=== PATIENT | female | born 1955 | race Caucasian/White ===

== ENCOUNTER 2020-04-17 10:40 | Outpatient (REF) | payer OTHER, SELFPAY ==
[2020-04-17 12:00] LABS: Blood Urea Nitrogen 13 mg/dL (9-16); Estimated Glomerular Filt Rate > 60
== END 2020-04-17 10:41 | disposition home or self-care (01) ==
LOC: HO.LAB 10:40
PROVIDERS: PCP Internal Medicine; Visit Provider Surgery
DX: Z01.812 Encounter for preprocedural laboratory examination (principal); R92.8 Other abnormal and inconclusive findings on diagnostic imaging of breast
CPT/HCPCS: 82565; 84520

== ENCOUNTER 2020-04-23 07:37 | Outpatient (REF) | payer OTHER, SELFPAY ==
--- NOTE | 2020-04-22 11:18 | P.RADPN_ITS ---
RADIOLOGY Narrative Narrative:
--- NOTE | 2020-04-22 11:18 | HO.RADPN ---
RADIOLOGY Narrative Narrative:
--- NOTE | 2020-04-23 | MR_ITS ---
EXAMINATION: MR GUIDED VACUUM-ASSISTED CORE BIOPSY BREAST, LEFT MM DIGITAL MAMMOGRAPHY POST BIOPSY, LEFT CLINICAL INFORMATION: New 4 mm enhancing lesion 10:00 anterior left breast. Unremarkable Second Look ultrasound. No mammographic correlate. MR guided biopsy requested. Personal history contralateral right breast invasive ductal cancer status post lumpectomy 2015 and status post repeat benign right breast biopsy 2018. COMPARISON: MRI breasts 02/14/2020, 3-D digital breast tomosynthesis 12/11/2019, targeted left breast ultrasound 03/05/2020. TECHNIQUE/PROCEDURE: Informed consent was obtained from the patient after discussion of the benefits, risks, and alternatives to biopsy today. Patient appeared to understand. Gave opportunity for questions. Patient signed consent form. Biopsy is performed under MRI guidance using breast surface coil. Imaging is performed without and with use of 7 mL Gadavist gadolinium contrast. ThirdPresence introducer localization system is used with grid. LESION: Punctate 4 mm enhancing focus anterior 10:00 left breast. LOCAL ANESTHESIA: 8 mL 1% lidocaine; 10 mL 2% lidocaine with epinephrine. NEEDLE: [employer] 9-gauge vacuum assisted core biopsy device. APPROACH: Mediolateral. CORES: 8. CLIP: TriMark cylinder shaped. POSTPROCEDURE UNILATERAL DIGITAL MAMMOGRAM: Mammography is performed using digital mammography in CC and ML views. There are scattered areas of fibroglandular density (ACR BI-RADS breast composition Category b). The clip marker is in position. No gross hematoma. The patient tolerated the procedure well. No immediate complications. Home instructions reviewed with the patient. Final pathology results are pending. IMPRESSION: 1. Status post MRI guided vacuum-assisted core biopsy left breast with clip placement. 2. Final pathology results pending. An addendum report will be issued.
--- NOTE | 2020-04-23 09:00 | MM_ITS ---
Mammography left breast is described in a single combined report along with the MR guided biopsy under accession number #[id number].
[2020-04-24] MEDS: Lidocaine HCl/PF 100 MG/5 ML SYRINGE 150 MG IV (08:57)
== END 2020-04-23 07:38 | disposition home or self-care (01) ==
LOC: HO.MRI 07:37
PROVIDERS: Visit Provider Surgery
DX: R92.8 Other abnormal and inconclusive findings on diagnostic imaging of breast (principal)
CPT/HCPCS: 19085; 19287; 77065; 88305; 88341; 88342; A4648

== ENCOUNTER 2020-07-16 11:19 | Outpatient (REF) | payer OTHER, SELFPAY ==
[2020-07-16 11:50] LABS: MANUAL DIFF FLAG NO
[2020-07-16 11:56] LABS: Basophils Percent Auto 0.9 % (0-2); Eosinophils Absolute Auto 0.2 X10*3/uL (0.0-0.4); Eosinophils Percent Auto 3.6 % (0-4); Hematocrit 39.3 % (37-47); Hemoglobin 13.3 g/dl (12.0-16.0); Imm Gran Abs Auto 0.01 X10*3/uL (0.00-0.03); Imm Gran Pct Auto 0.2 % (0.0-0.4); Lymphocytes Absolute Auto 2.1 X10*3/uL (1.2-4.9); Lymphocytes Percent Auto 43.8 % (20-40); Mean Corpuscular HGB Conc 33.8 g/dl (31.0-35.0); Mean Corpuscular Hemoglobin 32.6 pg (27.0-33.0); Mean Corpuscular Volume 96.3 fL (80-98); Mean Platelet Volume 10.4 fL (9.4-12.3); Monocytes Absolute Auto 0.3 X10*3/uL (0.1-1.2); Monocytes Percent Auto 6.2 % (2-11); Neutrophils Absolute Auto 2.1 X10*3/uL (2.0-8.3); Neutrophils Percent Auto 45.3 % (45-73); Platelet Count 202 X10*3/uL (160-400); Red Blood Count 4.08 X10*6/uL (4.20-5.50); Red Cell Distribution Width 12.1 % (11.0-16.0); White Blood Count 4.7 X10*3/uL (4.8-10.8)
[2020-07-16 12:25] LABS: Alanine Aminotransferase 15 U/L (0-31); Albumin Level 4.5 g/dL (3.5-5.0); Alkaline Phosphatase 79 U/L (39-117); Anion Gap 20 (12-20); Aspartate Amino Transferase 20 U/L (5-31); Bilirubin Total 0.4 mg/dL (0.0-1.0); Blood Urea Nitrogen 18 mg/dL (9-16); Carbon Dioxide 24 mmol/L (22-29); Chloride 105 mmol/L (96-108); Estimated Glomerular Filt Rate > 60; Glucose Random 108 mg/dL (60-115); Potassium 4.7 mmol/l (3.3-5.1); Sodium 144 mmol/L (135-145); Total Protein 7.8 g/dL (6.5-8.0)
[2020-07-17 14:17] LABS: CA 27.29 27 U/mL (<38)
== END 2020-07-16 11:20 | disposition home or self-care (01) ==
LOC: HO.LAB 11:19
PROVIDERS: PCP Internal Medicine; Visit Provider Internal Medicine Medical Oncology
DX: C50.911 Malignant neoplasm of unspecified site of right female breast (principal); E78.5 Hyperlipidemia, unspecified; E66.3 Overweight
CPT/HCPCS: 36415; 80053; 85025; 86300

== ENCOUNTER → 2020-07-25 10:13 | Outpatient (BNVA) | payer OTHER, SELFPAY | PROVIDERS: PCP Internal Medicine; Visit Provider Surgery | DX: Z76.89 Persons encountering health services in other specified circumstances (principal) ==

== ENCOUNTER 2021-01-29 09:39 | Outpatient (REF) | payer OTHER, SELFPAY ==
--- NOTE | ~2021-01-29 | MM_ITS ---
EXAMINATION: MM SCREENING DIGITAL BREAST TOMOSYNTHESIS, BILATERAL CLINICAL INFORMATION: Screening. Asymptomatic. History invasive ductal cancer right breast, status post lumpectomy 2016. History benign right breast biopsy 2018 and benign left breast MR biopsy 2019. COMPARISON: Mammography: 04/23/2020, 12/11/2019, 03/14/2019, 12/07/2018, 09/08/2018, 09/03/2017 TECHNIQUE: Digital breast tomosynthesis is performed in both the craniocaudal and mediolateral oblique views along with computer-aided detection (CAD). Synthesized 2D images are generated from the tomosynthesis. FINDINGS: There are scattered areas of fibroglandular density (ACR BI-RADS breast composition Category b). Parenchymal pattern is similar to prior exams. Right breast post therapy changes with reduced breast size and scarring and scattered benign coarse calcifications stable. Neither breast shows interval mass or architectural abnormality or developing density. No interval abnormal calcifications. Biopsy clip marker again noted left breast central upper outer quadrant and right breast central upper outer quadrant. No significant changes. MM/MM tomosynthesis screening BI IMPRESSION: There are no significant changes from prior exams. ASSESSMENT: BI-RADS 2: Benign RECOMMENDATION: Routine annual mammography screening. This patient's information was entered into a reminder system with a target due date for their next mammogram.
== END 2021-01-29 09:40 | disposition home or self-care (01) ==
LOC: HO.MAMMO 09:39
PROVIDERS: PCP Internal Medicine; Visit Provider Internal Medicine
DX: Z12.31 Encounter for screening mammogram for malignant neoplasm of breast (principal)
CPT/HCPCS: 77063; 77067

== ENCOUNTER → 2021-01-31 11:24 | Outpatient (BNVA) | payer OTHER, SELFPAY | PROVIDERS: PCP Internal Medicine; Referring Provider Internal Medicine; Visit Provider Surgery ==

== ENCOUNTER 2022-01-30 12:03 | Outpatient (REF) | payer OTHER, SELFPAY ==
--- NOTE | ~2022-01-30 | MM_ITS ---
EXAMINATION: BONE DENSITOMETRY CLINICAL INDICATION: Menopause. COMPARISON: Previous BD dated 12/28/2017 and baseline BD dated 12/19/2015. TECHNIQUE: Using a [employer] DXA System (software version: 13.1) manufactured by [employer], dual-energy x-ray absorptiometry was performed of the lumbar spine and left hip. The images are of good technical quality. Summary results are attached. FINDINGS: AP SPINE L1-L4: Current: BMD 1.056 g/cm2, Z-score 0.2, T-score -1.0, normal, 0.1% increase from previous, 4.3% decrease from baseline (<5% change is not significant). Prior: BMD 1.055 g/cm2. Baseline: BMD 1.104 g/cm2. LEFT FEMUR, NECK: Current: BMD 0.974 g/cm2, Z-score 0.8, T-score -0.5, normal. Prior: BMD 1.028 g/cm2. Baseline: BMD 1.031 g/cm2. LEFT FEMUR, TOTAL: Current: BMD 1.088 g/cm2, Z-score 1.7, T-score 0.6, normal, 0.8% decrease from previous, 1.4% decrease from baseline (<5% change is not significant). Prior: BMD 1.097 g/cm2. Baseline: BMD 1.104 g/cm2. IDENTIFIED RISK FACTORS: Menopause. HISTORY OF FRACTURE: None listed. MEDICATIONS: Calcium or multivitamin, ERT/SERMS. MM/XR DEXA axial skeleton IMPRESSION: 1. DIAGNOSIS: Normal bone density based on the lowest T-score value of -1.0 in the lumbar spine applying World Health Organization criteria. 2. 10-YEAR FRACTURE RISK PREDICTION, FRAX: Major osteoporotic fracture (clinical spine, forearm, hip or shoulder) 7.4%. Hip fracture 0.4%. 3. Treatment Recommendations: NOF guidelines recommend consideration for treatment in postmenopausal women and men age 50 and older presenting with the following: -A hip or vertebral (clinical or morphometric) fracture. -T-score less than or equal to -2.5 at the femoral neck or spine after appropriate evaluation to exclude secondary causes. -Low bone mass at the hip or spine and a 10-year fracture probability by FRAX of greater than or equal to 3% for hip fracture or greater than or equal to 20% for major osteoporotic fracture based on the [place] adapted WHO algorithm. 4. Other Recommendations: All treatment decisions require clinical judgment and consideration of individual patient factors, including patient preferences, comorbidities, previous drug use, risk factors not captured in the FRAX model (e.g. frailty, falls, vitamin D deficiency, increased bone turnover, interval significant decline in bone density) and possible under or overestimation of fracture risk by FRAX. FUTURE SCAN RECOMMENDATION: People with diagnosed cases of osteoporosis or at high risk for fracture should have regular bone mineral density tests. For patients eligible for Medicare, routine testing is allowed once every 2 years. The testing frequency can be increased to one year for patients who have rapidly progressing disease, those who are receiving or discontinuing medical therapy to restore bone mass, or have additional risk factors.
--- NOTE | ~2022-01-30 | MM_ITS ---
EXAMINATION: MM SCREENING DIGITAL BREAST TOMOSYNTHESIS, BILATERAL CLINICAL INFORMATION: Screening. Asymptomatic. Right lumpectomy 2015 for invasive ductal cancer. Also benign right breast biopsy 2018 and left breast MR biopsy 2019. COMPARISON: Mammography: 01/29/2021, 04/23/2020, 12/11/2019, 03/14/2019, 12/07/2018, 09/08/2018, 09/03/2017. TECHNIQUE: Digital breast tomosynthesis is performed in both the craniocaudal and mediolateral oblique views along with computer-aided detection (CAD). Synthesized 2D images are generated from the tomosynthesis. FINDINGS: There are scattered areas of fibroglandular density (ACR BI-RADS breast composition Category b). Right breast post therapy changes are similar to prior exams. There is reduced right breast size, old scarring, and scattered predominantly dystrophic and some round calcifications again seen. Left breast has similar parenchymal pattern with post biopsy changes mid 11:00 position again seen. There is no interval mass or architectural abnormality or abnormal calcifications. MM/MM tomosynthesis screening BI IMPRESSION: No significant changes from prior studies. ASSESSMENT: BI-RADS 2: Benign RECOMMENDATION: Routine annual mammography screening. This patient's information was entered into a reminder system with a target due date for their next mammogram.
== END 2022-01-30 12:04 | disposition home or self-care (01) ==
LOC: HO.MAMMO 12:03
PROVIDERS: Visit Provider Internal Medicine
DX: Z12.31 Encounter for screening mammogram for malignant neoplasm of breast (principal); Z85.3 Personal history of malignant neoplasm of breast; Z78.0 Asymptomatic menopausal state
CPT/HCPCS: 77063; 77067; 77080

== ENCOUNTER 2022-06-18 09:00 | Emergency (ER) | payer OTHER, SELFPAY ==
--- NOTE | ~2022-06-18 | CT_ITS ---
EXAMINATION: CT CHEST WITH CONTRAST CLINICAL INFORMATION: Trauma. COMPARISON: None TECHNIQUE: Multidetector volumetric CT imaging of the chest was obtained after the administration of 50 mL of Omnipaque 350 intravenous contrast without immediate adverse reactions. Axial MIP volume rendering provided. Sagittal and coronal reformatted images were obtained. Mild motion artifact limits evaluation. This CT examination was performed using dose optimization techniques as appropriate, variously including the following: *Automated exposure control *Adjustment of mA and/or kV according to patient size (this includes techniques or standardized protocols for targeted exams where dose is matched to indication/reason for exam; i.e. extremities or head) *Use of iterative reconstruction technique DLP: 242.89 mGy-cm FINDINGS: LUNGS/PLEURA/AIRWAYS: Mild dependent atelectasis is seen in the lower lobes. Mild linear atelectasis/scarring anterolaterally in the left upper lobe. Mild opacities are seen in the left upper lobe perihilar region extending to the lingula. No suspicious pulmonary nodules. No pleural effusions. The airways are patent. MEDIASTINUM: The visualized thyroid gland is unremarkable. The thoracic aorta is not significantly dilated. No mediastinal or hilar lymphadenopathy. No significant coronary artery calcifications. No pericardial effusion. UPPER ABDOMEN: Diffuse decreased hepatic attenuation without focal abnormality. Status post cholecystectomy. No pericardial effusion. MUSCULOSKELETAL: Mild to moderate multilevel degenerative disc disease without acute fracture. SOFT TISSUES: Postsurgical changes in the right breast without focal abnormality. Associated coarse calcifications are noted. The left breast is unremarkable. No other significant soft tissue abnormality. CT/CT chest w IV con IMPRESSION: 1. No evidence for acute traumatic injury. 2. Some limitation secondary to motion artifact. Mild opacities in the left upper lobe could be secondary to motion artifact, but a mild infectious/inflammatory process cannot be excluded. Other chronic changes are seen as well. If the patient is symptomatic, short-term radiographic follow-up is recommended as clinically indicated. 3. Hepatic steatosis.
--- NOTE | ~2022-06-18 | CT_ITS ---
CT HEAD WITHOUT IV CONTRAST CT CERVICAL SPINE WITHOUT IV CONTRAST INDICATION: Head trauma. Fall downstairs. COMPARISON: None available. TECHNIQUE: Multidetector CT acquisitions of the head and cervical spine were obtained without IV contrast. Multiplanar reformats were acquired and utilized for image interpretation. This CT examination was performed using dose optimization techniques as appropriate, variously including the following: *Automated exposure control *Adjustment of mA and/or kV according to patient size (this includes techniques or standardized protocols for targeted exams where dose is matched to indication/reason for exam; i.e. extremities or head) *Use of iterative reconstruction technique FINDINGS: HEAD: Artifact versus a small focus of increased density within the left cerebellar hemisphere on image 27 of series 9 that can be more definitively assessed with a MRI to exclude a small focus of hemorrhage. No additional evidence of intracranial hemorrhage. There is no hydrocephalus, extra-axial surface collection, midline shift, or other herniation pattern. [place] to white matter differentiation is diffusely maintained without evidence of an evolved acute territorial infarct. The basilar cisterns are preserved. Diffuse scalp hematoma. No acute osseous abnormality. The paranasal sinuses and the mastoid air cells are well aerated. CERVICAL SPINE: There is a displaced fracture involving the left paramedian anterior ring of C1 as well as right and left posterior ring fractures at C1. There is associated atlantoaxial dislocation with anterior and lateral dislocation of the left lateral mass of C1 with respect to C2 and medial subluxation of the right lateral mass of C1 with respect to the right lateral mass of C2. There is probable ventral epidural hematoma at C1-C2. There is a type III odontoid fracture at C2 with the odontoid avulsion fragment dorsally rotated against the tip of the clivus with fracture line extension to the left lateral mass of C2 and avulsion fractures of the left C2 bony foramen transversarium. A CTA of the neck would be helpful in excluding traumatic arterial injury. Indeterminate age upper endplate compression fracture at T1 and partially imaged indeterminate age upper endplate compression fracture at T3. Partially imaged fractures involving the posterior aspect of the right first, second, and third ribs. Indeterminate age upper endplate compression fracture at T1 and partially imaged indeterminate age upper endplate compression fracture at T3. Partially imaged right T2 transverse process fracture. Partially imaged fractures involving the posterior aspect of the right first, second, and third ribs. Partially imaged right apical pleural thickening. CT/CT cervical spine wo IV con IMPRESSION: - There is a displaced unstable fracture involving the left paramedian anterior ring of C1 as well as right and left posterior ring fractures at C1. There is associated atlantoaxial dislocation with anterior and lateral dislocation of the left lateral mass of C1 with respect to C2 and medial subluxation of the right lateral mass of C1 with respect to the right lateral mass of C2. There is probable ventral epidural hematoma at C1-C2. There is posterior widening of the left atlantooccipital joint which may reflect capsular injury. MRI and neurosurgical consultation advised. - There is a type III odontoid fracture at C2 with the odontoid avulsion fragment dorsally rotated against the tip of the clivus with fracture line extension to the left lateral mass of C2 and avulsion fractures of the left C2 bony foramen transversarium. A CTA of the neck would be helpful in excluding traumatic arterial injury. - Indeterminate age upper endplate compression fracture at T1 and partially imaged indeterminate age upper endplate compression fracture at T3. Partially imaged right T2 transverse process fracture. Partially imaged fractures involving the posterior aspect of the right first, second, and third ribs. Partially imaged right apical pleural thickening. - Diffuse scalp hematoma. Artifact versus a small focus of increased density within the left cerebellar hemisphere on image 27 of series 9 that can be more definitively assessed with a MRI to exclude a small focus of hemorrhage. No additional evidence of intracranial hemorrhage. Critical findings discussed with CLARISSE Shah at 12:24 PM on June 18, 2022.
[2022-06-18 09:09] VITALS: BP 130/70; BP 131/79; PULSE 90; PULSE 94; RESP 18; TEMP 36.7; O2SAT 94; BMI 28.1
--- NOTE | 2022-06-18 09:16 | PC.NURSE ---
patient a&ox3, c/o 02/18 pain to neck, sternum and back, vss, campus monitor applied, pt is neck collar by ems, + csm/pulses to all extremities, pt awaiting provider, will continue to monitor
--- NOTE | 2022-06-18 09:26 | ED.FALL ---
HPI - Fall General Chief Complaint: Fall Stated Complaint: steps,neck/back pain,floor all noc per EMS Source: patient Mode of arrival: EMS Limitations: no limitations History of Present Illness HPI Narrative: Patient fell down a flight of stairs and could not get up because she hurt her neck and back. She spent the night on the floor. Patient drinks alcohol and had some last night. complaint: fall Onset (ago): hour(s) Fall from: down stairs (#) Fall witnessed: no Place fall occurred: home Loss of consciousness: yes Prolonged down time: yes Context: tripped/slipped Related Data Home Medications Medication Instructions Recorded Confirmed lisinopril 5 mg tablet 5 mg PO DAILY 07/25/20 02/14/22 rosuvastatin 40 mg tablet 40 mg PO DAILY 02/13/22 02/14/22 Allergies Allergy/AdvReac Type Severity Reaction Status Date / Time Seasonal Allergies Allergy Mild Itchy Verified 06/18/22 09:09 Eyes, stuffy nose, runny nose Review of Systems Constitutional: Constitutional: Reports no additional constitutional complaints Eyes: Eyes: Reports no additional eye complaints ENT: Denies dizziness Cardiovascular: Cardiovascular: Reports no additional cardiovascular complaints Respiratory: Respiratory: Reports as per HPI Gastrointestinal: Gastrointestinal: Reports no additional gastrointestinal complaints Genitourinary: Genitourinary: Reports no additional female genitourinary complaints Musculoskeletal: Musculoskeletal: Reports no additional musculoskeletal complaints Integumentary/Breasts: Skin/Breast: Denies rash Neurologic: Reports system reviewed and no additional complaints, except as documented, Denies dizziness and Denies Sensory deficit (Neuro) Psychiatric: Psychiatric: Denies anxiety PMFSH Past Medical History Medical History High cholesterol History of right breast cancer Hypertension Surgical History History of lumpectomy of right breast Hx laparoscopic cholecystectomy (~2006) Hx of right breast biopsy (~11/04/15) Family History Family History Mother History of cyst of breast Father Family hx of prostate cancer Paternal Grandfather Hx of cancer of lung Paternal Aunt History of breast cancer Paternal Aunt History of colon cancer Family/Other History of breast cancer, Onset Age: 42 Social History Social History Alcohol intake: current Alcohol intake frequency: a few times a week Alcohol type: wine Smoked in Last 30 Days: No Use of substances other than those prescribed or required for medical reasons: No Advance Directives: Yes Advance Directives on File: Yes Advance Directives Date on File: 06/23/20 Physical Exam Vital Signs: Vital Signs: Last Vital Signs Temp 98.1 F 06/18/22 09:09 Pulse 96 06/18/22 14:00 Resp 20 06/18/22 14:00 BP 136/60 06/18/22 14:00 Pulse Ox 94 06/18/22 14:00 O2 Del Method 06/18/22 14:00 BMI result Body Mass Index 28.1 Const: General: healthy appearing Nutritional Appearance: average body habitus Orientation/consciousness: oriented to person and patient oriented x3 Limitations: no limitations HEENT: Head: Yes normal to inspection Ears: external ears normal General nose exam: Normal external nose present Mouth: Normal oral and palatal mucosa present and oropharynx normal Throat: Yes posterior oropharynx normal Eyes: General: appearance normal, both eyes and all related structures Neck: Other: In collar tender Neck: Yes normal visual inspection Chest: Chest palpation & inspection: normal inspection of the chest Resp: Auscultation: clear to auscultation bilaterally Cardio: Jugular venous distension: no JVD Rate: regular rate Rhythm: regular rhythm Heart sounds: S1 normal heart sound present and S2 normal heart sound present GI: Inspection: Yes normal to inspection Palpation (GI): Soft to palpation, nontender and No hepatosplenomegaly present Auscultation: normal bowel sounds : General: Yes no CVA tenderness Back/Spine/Pelvis: Back: no CVA tenderness Skin: General skin exam: no rashes or lesions noted Neuro: General: oriented to person and patient oriented x3 Cranial nerves: Yes CN's II-XII intact bilaterally Motor exam (neuro): 5/5 motor strength present throughout Sensory Exam: No Sensory deficit (Neuro) Extrem: General: Yes normal to inspection Psych: Appearance: grossly normal Course Reevaluation(s) Reevaluation #1: IMPRESSION: - There is a displaced unstable fracture involving the left paramedian anterior ring of C1 as well as right and left posterior ring fractures at C1. There is associated atlantoaxial dislocation with anterior and lateral dislocation of the left lateral mass of C1 with respect to C2 and medial subluxation of the right lateral mass of C1 with respect to the right lateral mass of C2. There is probable ventral epidural hematoma at C1-C2. There is posterior widening of the left atlantooccipital joint which may reflect capsular injury. MRI and neurosurgical consultation advised. ? - There is a type III odontoid fracture at C2 with the odontoid avulsion fragment dorsally rotated against the tip of the clivus with fracture line extension to the left lateral mass of C2 and avulsion fractures of the left C2 bony foramen transversarium. A CTA of the neck would be helpful in excluding traumatic arterial injury. ? - Indeterminate age upper endplate compression fracture at T1 and partially imaged indeterminate age upper endplate compression fracture at T3. Partially imaged right T2 transverse process fracture. Partially imaged fractures involving the posterior aspect of the right first, second, and third ribs. Partially imaged right apical pleural thickening. ? - Diffuse scalp hematoma. Artifact versus a small focus of increased density within the left cerebellar hemisphere on image 27 of series 9 that can be more definitively assessed with a MRI to exclude a small focus of hemorrhage. No additional evidence of intracranial hemorrhage. ? Critical findings discussed with CLARISSE Shah at 12:24 PM on June 18, 2022. ? Dictated By: Matias Garcia MD Signed By: <Electronically signed by Matias Garcia MD in OV> 06/18/22 1229 Reevaluation #2: IMPRESSION: ? 1. No evidence for acute traumatic injury. 2. Some limitation secondary to motion artifact. Mild opacities in the left upper lobe could be secondary to motion artifact, but a mild infectious/inflammatory process cannot be excluded. Other chronic changes are seen as well. If the patient is symptomatic, short-term radiographic follow-up is recommended as clinically indicated. 3. Hepatic steatosis. ? ? ? Dictated By: Matias Hoffmann MD Signed By: <Electronically signed by Matias Hoffmann MD in OV> 06/18/22 1241 Reevaluation #3: I spent 40 minutes of critical care, with interventions, assessments, speaking to patient, consultants, and family. Time: 13:12 Medications Administered Discontinued Medications Generic Name Dose Route Start Last Admin Trade Name Freq PRN Reason Stop Dose Admin Ketorolac Tromethamine 30 mg 06/18/22 11:17 06/18/22 11:49 Ketorolac Tromethamine 30 Mg/Ml Vial IVPUSH 06/18/22 11:18 30 mg ONCE ONE Administration Medical Decision Making Medical Decision Making Independent interpretation of EKG, rhythm strip, radiology study: Independent interp EKG,rhythm strip, radiology study My interpretation is sinus [address] or twave changes Discharge Plan Discharge Clinical Impression: C1 cervical fracture, C2 cervical fracture, Thoracic spine fracture Patient Disposition: [facility] Hospital Transfer Details: Needs trauma center Prescriptions: No Action lisinopril 5 mg tablet 5 mg PO DAILY rosuvastatin 40 mg tablet 40 mg PO DAILY
--- NOTE | 2022-06-18 09:53 | ECG_ITS ---
Test Reason : Fall Blood Pressure : / mmHG Vent. Rate : 093 BPM Atrial Rate : 093 BPM P-R Int : 142 ms QRS Dur : 090 ms QT Int : 356 ms P-R-T Axes : 039 -07 -08 degrees QTc Int : 442 ms Normal sinus rhythm Minimal voltage criteria for LVH, may be normal variant ( R in aVL ) Borderline ECG When compared with ECG of 22-JUN-2003 15:22, No significant change was found Referred By: Arturo Cote Electronically Signed By:EFREN LLANOS MD
[2022-06-18 10:00] VITALS: BP 146/76; PULSE 91; RESP 18; O2SAT 93
[2022-06-18 10:40] LABS: MANUAL DIFF FLAG NO
[2022-06-18 10:48] LABS: Basophils Percent Auto 0.1 % (0-2); Hematocrit 35.8 % (37.0-47.0); Hemoglobin 11.9 g/dl (12.0-16.0); Imm Gran Abs Auto 0.05 X10*3/uL (0.00-0.03); Imm Gran Pct Auto 0.5 % (0.0-0.4); Lymphocytes Absolute Auto 0.7 X10*3/uL (1.2-4.9); Lymphocytes Percent Auto 7.1 % (20-40); Mean Corpuscular HGB Conc 33.2 g/dl (31.0-35.0); Mean Corpuscular Hemoglobin 31.6 pg (27.0-33.0); Monocytes Absolute Auto 0.7 X10*3/uL (0.1-1.2); Monocytes Percent Auto 6.8 % (2-11); Neutrophils Absolute Auto 8.6 x10*3/uL (2.0-8.3); Neutrophils Percent Auto 85.5 % (45-73); Platelet Count 149 X10*3/uL (160-400); Red Blood Count 3.77 X10*6/uL (4.20-5.50); Red Cell Distribution Width 12.4 % (11.0-16.0); White Blood Count 10.1 X10*3/uL (4.8-10.8)
[2022-06-18 11:11] LABS: Troponin-I High Sensitivity < 3.5 ng/L (<3.5-17.0)
[2022-06-18 11:13] LABS: Alanine Aminotransferase 25 U/L (0-31); Albumin Level 4.2 g/dL (3.5-5.0); Alkaline Phosphatase 78 U/L (39-117); Anion Gap 15 (12-20); Aspartate Amino Transferase 36 U/L (5-31); Bilirubin Direct 0.2 mg/dL (0.0-0.5); Blood Urea Nitrogen 15 mg/dL (9-16); Calcium 8.9 mg/dL (8.4-10.2); Carbon Dioxide 25 mmol/L (22-29); Chloride 105 mmol/L (96-108); Creatinine Clr Calc Pharmacy 87.3; Estimated Glomerular Filt Rate > 60; Ethanol 43 mg/dL; Glucose Random 165 mg/dL (60-115); Potassium 4.6 mmol/L (3.3-5.1); Sodium 140 mmol/L (135-145); Total Protein 7.1 g/dL (6.5-8.0)
--- NOTE | 2022-06-18 11:29 | PC.NURSE ---
pt c/o pain, provider notified, prior to being able to administer medication pt was taken to radiology for ct scan.
[2022-06-18] MEDS: Ketorolac Tromethamine 30 MG/ML VIAL IVPUSH (11:49)
[2022-06-18 11:52] VITALS: BP 147/76; PULSE 92; RESP 18; O2SAT 94
--- NOTE | 2022-06-18 11:52 | PC.NURSE ---
pt a&ox3, educational consultant nsr, vss, pt +csm/pulses to all extremities, able to freely move arms/legs, pt medicated for pain per order, call hyman within reach, will continue to monitor
--- NOTE | 2022-06-18 12:41 | PC.NURSE ---
patient a&ox3, pt continues to be able to move all extremities, library monitor intact, additional iv started to rt ac, call hyman within reach, will continue to monitor.
--- NOTE | 2022-06-18 12:48 | PC.NURSE ---
@ 1242 call placed to [facility] pt tx line at Dr. Cote request for a trauma procurement coordinator answers, takes pt information. Then asks to speak with Dr. Cote. Dr. Cote takes over call right away. @1250 call received from Geni. Asks to speak with Dr. Cote. Dr. Cote takes over call right away. @1252 [facility] calls back after Dr. Cote needed to leave the call. Spoke w/ Geni. He asked to have Dr. Cote call back when he is available.
--- NOTE | 2022-06-18 12:57 | PC.NURSE ---
wagner cath inserted per verbal order by dr severino
[2022-06-18 13:18] LABS: COVID-19 Test Negative (Negative); IDNOW Serial# 55D5AD1C
[2022-06-18 13:19] LABS: Bilirubin Total 0.5 mg/dL (0.0-1.0)
--- NOTE | 2022-06-18 13:58 | PC.NURSE ---
this nurse has attempted to call [facility] x2 without an answer, will continue to attempt to call until ems arrives.
[2022-06-18 14:00] VITALS: BP 136/60; PULSE 96; RESP 20; O2SAT 94
--- NOTE | 2022-06-18 14:02 | PC.NURSE ---
patient currently sleeping, mirror inspector sinus tach, vitals otherwise stable, wagner cath patient/draining, family at bedside, will continue to monitor
--- NOTE | 2022-06-18 14:23 | PC.NURSE ---
this nurse attempted to call [facility] to give report, again no answer, will continue to attempt to contact.
[2022-06-18] MEDS: HYDROmorphone HCl 1 MG/ML SYRINGE IVPUSH (14:37)
[2022-06-18] MEDS: ondansetron HCL 4 MG/2 ML VIAL IVPUSH (14:43)
--- NOTE | 2022-06-18 14:47 | PC.NURSE ---
patient transferred to ems stretcher with 5 assists/cspine precautions held, pts wagner cath drained 500cc clear yellow urine. upon leaving pt had + csm/pulses and + movement of all extremities. pt was getting iv dilaudid and began feeling nausea, pt medicated with zofran with relief, pt enroute to [facility]. will attempt to call again to give report
--- NOTE | 2022-06-18 14:57 | PC.NURSE ---
report given to joan at [facility]
== END 2022-06-18 14:58 | disposition short-term general hospital (02) ==
PROVIDERS: Emergency Provider Emergency Medicine; PCP Internal Medicine
DX: S12.000A Unspecified displaced fracture of first cervical vertebra, initial encounter for closed fracture (principal); S12.100A Unspecified displaced fracture of second cervical vertebra, initial encounter for closed fracture; S22.009A Unspecified fracture of unspecified thoracic vertebra, initial encounter for closed fracture; R51.9 Headache, unspecified; M54.2 Cervicalgia; W10.9XXA Fall (on) (from) unspecified stairs and steps, initial encounter; Y93.9 Activity, unspecified; Y92.9 Unspecified place or not applicable; Y99.9 Unspecified external cause status; Z20.822 Contact with and (suspected) exposure to COVID-19; Z79.899 Other long term (current) drug therapy
CPT/HCPCS: 36415; 70450; 71260; 72125; 80048; 80076; 82077; 82550; 84484; 85025; 87635; 93005; 96374; 96375; 99285; J1170; J1885; J2405

== ENCOUNTER 2022-07-27 10:39 | Outpatient (REF) | payer OTHER, SELFPAY ==
[2022-07-27 10:44] LABS: MANUAL DIFF FLAG NO
[2022-07-27 11:07] LABS: Basophils Absolute Auto 0.1 X10*3/uL (0.0-0.2); Basophils Percent Auto 1.2 % (0-2); Eosinophils Absolute Auto 0.2 X10*3/uL (0.0-0.4); Hematocrit 36.4 % (37.0-47.0); Lymphocytes Absolute Auto 1.6 X10*3/uL (1.2-4.9); Lymphocytes Percent Auto 36.5 % (20-40); Mean Corpuscular Hemoglobin 30.8 pg (27.0-33.0); Mean Corpuscular Volume 93.3 fL (80.0-98.0); Mean Platelet Volume 10.2 fL (9.4-12.3); Monocytes Absolute Auto 0.4 X10*3/uL (0.1-1.2); Monocytes Percent Auto 9.1 % (2-11); Neutrophils Absolute Auto 2.1 x10*3/uL (2.0-8.3); Neutrophils Percent Auto 49.2 % (45-73); Platelet Count 273 X10*3/uL (160-400); White Blood Count 4.3 X10*3/uL (4.8-10.8)
[2022-07-27 11:23] LABS: Estimated Average Glucose 97 mg/dL
[2022-07-27 11:47] LABS: Alanine Aminotransferase 26 U/L (0-31); Albumin Level 3.9 g/dL (3.5-5.0); Alkaline Phosphatase 107 U/L (39-117); Anion Gap 12 (12-20); Aspartate Amino Transferase 21 U/L (5-31); Bilirubin Total 0.5 mg/dL (0.0-1.0); Blood Urea Nitrogen 10 mg/dL (9-16); Calcium 9.2 mg/dL (8.4-10.2); Carbon Dioxide 27 mmol/L (22-29); Chloride 107 mmol/L (96-108); Cholesterol 175 mg/dL; Estimated Glomerular Filt Rate > 60; Glucose Random 96 mg/dL (60-115); HDL Cholesterol 50 mg/dL; LDL Cholesterol Calculated 92 mg/dl; Potassium 4.2 mmol/L (3.3-5.1); Sodium 142 mmol/L (135-145); Total Protein 6.6 g/dL (6.5-8.0); Triglycerides 169 mg/dL
[2022-07-27 12:28] LABS: Reflex LDLD? No
== END 2022-07-27 10:40 | disposition home or self-care (01) ==
LOC: HO.HVNA 10:39
PROVIDERS: Visit Provider Internal Medicine
DX: E78.5 Hyperlipidemia, unspecified (principal); R53.83 Other fatigue; Z87.81 Personal history of (healed) traumatic fracture
CPT/HCPCS: 36415; 80053; 80061; 83036; 85025

== ENCOUNTER 2023-02-01 12:08 | Outpatient (REF) | payer OTHER, SELFPAY ==
--- NOTE | ~2023-02-01 | MM_ITS ---
EXAMINATION: MM SCREENING DIGITAL BREAST TOMOSYNTHESIS, BILATERAL CLINICAL INFORMATION: Screening. Asymptomatic. The patient has a history of right breast cancer which was conservatively treated. COMPARISON: Mammography: This study is compared with prior exams dating back to 2019. TECHNIQUE: Digital breast tomosynthesis is performed in both the craniocaudal and mediolateral oblique views along with computer-aided detection (CAD). Synthesized 2D images are generated from the tomosynthesis. FINDINGS: There are scattered areas of fibroglandular density (ACR BI-RADS breast composition Category b). There are postsurgical changes in the superior aspect of the right breast. There is a tissue marker present in the superior aspect of the left breast from prior benign percutaneous biopsy. Few, bilateral, benign calcifications are present in each breast. There are no significant masses, abnormal calcifications, or other abnormalities. MM/MM tomosynthesis screening BI IMPRESSION: No mammographic evidence of malignancy. ASSESSMENT: BI-RADS BI-RADS 2 - Benign Findings RECOMMENDATION: Routine annual mammography screening. 1 year F/U This examination should not preclude the clinical evaluation of a suspicious palpable abnormality. This patient's information was entered into a reminder system with a target due date for their next mammogram.
== END 2023-02-01 12:09 | disposition home or self-care (01) ==
LOC: HO.MAMMO 12:08
PROVIDERS: PCP Internal Medicine; Visit Provider Internal Medicine
DX: Z12.31 Encounter for screening mammogram for malignant neoplasm of breast (principal)
CPT/HCPCS: 77063; 77067

== ENCOUNTER → 2023-02-01 12:15 | Outpatient (BNV) | payer OTHER, SELFPAY | PROVIDERS: PCP Internal Medicine; Visit Provider Radiology Diagnostic Radiology | DX: Z12.31 Encounter for screening mammogram for malignant neoplasm of breast (principal) | CPT/HCPCS: 77063; 77067 ==

== ENCOUNTER 2023-03-11 11:15 | Outpatient (AMB) | payer OTHER, SELFPAY ==
--- NOTE | 2023-03-11 11:16 | A.OFFVIS_ITS ---
Intake Vital Signs 03/11/23 11:29 Height 5 ft 5 in Weight 164 lb 7.437 oz BMI 27.4 BP 130/80 Blood Pressure Location Lt brachial Position Sitting Intake Visit Reasons: Breast exam, 1 year follow up Intake Note: Patient is seen in office for yearly breast exam. 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 De Luna presenting for routine yearly breast examination. She underwent right breast lumpectomy with needle localization and right sentinel node biopsy on 12/03/2017 for well- differentiated infiltrating ductal carcinoma, 1 cm diameter, with associated DCIS. Margins were clear and 1 of 3 sentinel nodes contained isolated tumor cells. Three additional axillary nodes were benign as well. She is followed by Dr. Rodríguez and placed on anastrozole for 5 years. She underwent radiation therapy and completed this in March 2016. Post radiation she developed increased scar tissue in the right lumpectomy scar. A core biopsy to was pe rformed and revealed benign fibrofatty tissue with dense stromal fibrosis and mild chronic inflammation, changes consistent with treatment effect, negative for atypia or malignancy. A breast MRI of 02/13/2019 revealed a new 4 mm lesion in the 10 o'clock position of the left breast. MR guided biopsy on 04/23/2020 again revealed stromal fibrosis, fat necrosis, sclerotic changes and calcifications. No atypia or carcinoma was seen. Since her last visit she reports falling, resulting in a C1-C2 neck fracture. She required surgery and now has reduced flexibility at the neck. Her most recent mammogram dated 02/01/2023 revealed no mammographic evidence of malignancy (BI-RADS 2). She denies any new breast symptoms on either side but continues to feel scar tissue in the right breast. [facility] Medical History High cholesterol History of right breast cancer Hypertension Surgical History History of lumpectomy of right breast History of neck surgery (06/2022) Hx laparoscopic cholecystectomy (~2006) Hx of right breast biopsy (~11/04/15) Family History Mother History of cyst of breast Father Family hx of prostate cancer Paternal Grandfather Hx of cancer of lung Paternal Aunt History of breast cancer Paternal Aunt History of colon cancer Family/Other History of breast cancer, Onset Age: 42 Social History Alcohol intake: current Alcohol intake frequency: a few times a week Alcohol type: wine Advance Directives Date on File: 06/23/20 Female Reproductive History Menstrual Date of Mammogram: 02/01/23 Review of Systems Const All systems reviewed & are unremarkable except as noted in HPI and below Skin/Breast Denies breast swelling, Denies breast skin changes, Denies breast pain and Denies breast mass Physical Exam Vital Signs: Last Vital Signs BP 130/80 03/11/23 11:29 BMI result Body Mass Index 27.4 Const General: cooperative, comfortable, no acute distress and well developed Nutritional Appearance: well nourished Orientation/consciousness: patient oriented x3 Neck Lymphatic: no lymphadenopathy noted Chest Other: Right breast with an incision radiating in the upper portion of the breast with surrounding fibrotic area. No overlying skin changes are noted. No lesions are noted in the axilla. The remaining breast tissue is dense but no suspicious findings are noted. Left breast reveals no skin change, nipple discharge, palpable mass or enlarged lymph nodes. Chest/axillae images: 1. Incision right breast upper outer quadrant with underlying scar tissue Resp Effort & Inspection: normal respiratory effort Skin General skin exam: no rashes or lesions noted Neuro General: patient oriented x3 Extrem General: Yes no clubbing, cyanosis or edema Assessment & Plan Assessment & Plan (1) History of right breast cancer: Code(s): Z85.3 - Personal history of malignant neoplasm of breast Plan: 67-year-old female patient returning for a yearly breast examination, now 7 years following right breast lumpectomy, sentinel node biopsy followed by radiation therapy and anastrozole x5 years. Mammogram dated 02/01/2023 revealed no mammographic evidence of malignancy (BI-RADS 2). Examination today revealed continued area of fibrosis at the area of surgery and radiation therapy in the upper outer quadrant but no new suspicious findings in either breast. I recommended follow-up in January 2024, and breast examination in 1 year. She is welcome to call sooner for any new concerns. Coding Level of Care Code Est Pt Level 3 (47057) Diagnoses History of right breast cancer Z85.3
[2023-03-11 11:29] VITALS: BP 130/80; BMI 27.4
== END 2023-03-11 11:41 | disposition home or self-care (01) ==
PROVIDERS: PCP Internal Medicine; Visit Provider Surgery
DX: Z85.3 Personal history of malignant neoplasm of breast (principal)
CPT/HCPCS: 99213

== ENCOUNTER → 2023-03-11 11:15 | Outpatient (BNVA) | payer OTHER, SELFPAY | PROVIDERS: PCP Internal Medicine; Visit Provider Surgery ==

== ENCOUNTER 2023-06-03 12:15 | Emergency (ER) | payer OTHER, SELFPAY ==
--- NOTE | ~2023-06-03 | CT_ITS ---
EXAMINATION: CT ABDOMEN AND PELVIS WITH CONTRAST CLINICAL INFORMATION: Abdominal pain, new GI bleeding. History of cancer COMPARISON: None available. TECHNIQUE: Multidetector volumetric images were obtained from the superior aspect of the liver through the pubic symphysis following administration 85 mL of Omnipaque 350 intravenous contrast. Sagittal and coronal reformatted images were obtained on the technologist's workstation. Oral contrast: No This CT examination was performed using dose optimization techniques as appropriate, variously including the following: *Automated exposure control *Adjustment of mA and/or kV according to patient size (this includes techniques or standardized protocols for targeted exams where dose is matched to indication/reason for exam; i.e. extremities or head) *Use of iterative reconstruction technique DLP: 617 mGy-cm FINDINGS: LUNG BASES: The lung bases are clear. The heart size is normal. LIVER, GALLBLADDER, AND BILIARY TREE: The liver is normal in size, shape, and attenuation. No focal hepatic lesion or biliary ductal dilatation is present. The gallbladder has been surgically removed. PANCREAS: Unremarkable. SPLEEN: Unremarkable. ADRENAL GLANDS: Unremarkable. KIDNEYS AND URETERS: The kidneys are normal in size, shape, and attenuation. No hydronephrosis, hydroureter, or calculi seen. No perinephric stranding. BLADDER: Unremarkable. GASTROINTESTINAL TRACT: There is scattered stool, diverticula and gas seen in the colon without any distention or diverticulitis. The small bowel loops are normal caliber. Appendix is not visualized with certainty. ABDOMINAL WALL: No significant hernia is appreciated. LYMPH NODES: Normal. VASCULAR: Unremarkable. PELVIC VISCERA: Unremarkable. OSSEOUS STRUCTURES: No aggressive lytic or sclerotic process seen CT/CT abdomen pelvis w IV con IMPRESSION: 1. No acute intra-abdominal process seen. 2. Colonic diverticulosis without diverticulitis. Fleischner guidelines were followed.
[2023-06-03 12:22] VITALS: BP 135/84; PULSE 118; RESP 16; TEMP 36.1; O2SAT 94; BMI 28.3
--- NOTE | 2023-06-03 12:22 | ED.GENADULT ---
HPI - General Adult General Chief complaint: GI Bleed Stated complaint: Bloody diarrhea/Nausea Time Seen by Provider: 06/03/23 12:39 Source: patient Mode of arrival: ambulatory Limitations: no limitations History of Present Illness HPI narrative: Patient is a 68 year old assigned female at with a history of breast cancer presenting to the emergency department today with bright red rectal bleeding. Patient states that over last few hours she has had 3 episodes of oliverio red blood, an episode of nausea, and an episode of epigastric pain. Patient denies any dizziness, lightheadedness, vomiting, fever, chills, blurry vision, double vision, loss of vision, chest pain, difficulty breathing, shortness of breath, back pain, night sweats, pain with urination, increased urinary frequency, increased urinary urgency, blood in her urine or stool, syncope or a near syncopal episode, recent trauma or falls, bowel incontinence, bladder incontinence, bowel retention, bladder retention, or any other complaints at this time. Onset (ago): hour(s) Severity: mild Relieving factors: none Exacerbating factors: none Associated symptoms: denies other symptoms Treatments prior to arrival: none Related Data Home Medications Medication Instructions Recorded Confirmed atorvastatin 80 mg tablet 80 mg PO DAILY 03/11/23 03/11/23 carvedilol 6.25 mg tablet 6.25 mg PO DAILY 03/11/23 03/11/23 lorazepam 1 mg tablet 1 mg PO TID 03/11/23 03/11/23 melatonin 3 mg tablet 6 mg PO BEDTIME 03/11/23 03/11/23 trazodone 50 mg tablet 50 mg PO BEDTIME 03/11/23 03/11/23 Allergies Allergy/AdvReac Type Severity Reaction Status Date / Time Seasonal Allergies Allergy Mild Itchy Verified 03/11/23 11:17 Eyes, stuffy nose, runny nose lisinopril Allergy Anaphylaxis Verified 06/03/23 12:25 Review of Systems Constitutional: Constitutional: Reports no additional constitutional complaints, Denies chills, Denies fever(s) and Denies night sweats Eyes: Eyes: Reports no additional eye complaints, Denies blurry vision, Denies change in vision, Denies diplopia, Denies eye discharge, Denies loss of vision and Denies eye pain ENT: Denies dizziness Cardiovascular: Cardiovascular: Reports no additional cardiovascular complaints, Denies chest pain, Denies lightheadedness, Denies Loss of Consciousness and Denies dyspnea Respiratory: Respiratory: Reports no additional respiratory complaints and Denies dyspnea Gastrointestinal: Gastrointestinal: Reports no additional gastrointestinal complaints, Reports abdominal pain, Denies melena, Reports hematochezia, Denies change in bowel habits, Denies change in stool character, Reports nausea and Denies vomiting Genitourinary: Genitourinary: Denies hematuria, Denies urinary frequency, Denies dysuria, Denies urinary incontinence, Denies urinary hesitancy and Denies urinary urgency Musculoskeletal: Musculoskeletal: Reports no additional musculoskeletal complaints, Denies numbness and Denies tingling Neurologic: Denies dizziness, Denies loss of vision, Denies numbness and Denies tingling Psychiatric: Psychiatric: Reports no additional psychiatric complaints Endocrine: Endocrine: Reports no additional endocrine complaints Hematologic/Lymphatic: Hematologic/Lymphatic: Reports no additional hematologic/lymphatic complaints Allergic/Immunologic: Allergic/Immunologic: Reports no additional allergic/immunologic complaints PMFSH Past Medical History Attestation statement: The following information was validated with the patient. Source: old records reviewed and nursing notes reviewed Medical History (Updated 06/03/23 @ 15:36 by CLARISSE Paz) HTN (hypertension) Malignant neoplasm of female breast Hyperlipidemia High cholesterol Hypertension History of right breast cancer Surgical History History of neck surgery (06/2022) Hx of right breast biopsy (~11/04/15) History of lumpectomy of right breast Hx laparoscopic cholecystectomy (~2006) Family History Family History Mother History of cyst of breast Father Family hx of prostate cancer Paternal Grandfather Hx of cancer of lung Paternal Aunt History of breast cancer Paternal Aunt History of colon cancer Family/Other History of breast cancer, Onset Age: 42 Social History Alcohol intake: current Alcohol intake frequency: a few times a week Alcohol type: wine Smoked in Last 30 Days: No Use of substances other than those prescribed or required for medical reasons: No Advance Directives: Yes Advance Directives on File: Yes Advance Directives Date on File: 06/23/20 Physical Exam ED Vital Signs: Vital Signs - 24 hr 06/03/23 12:22 06/03/23 14:24 06/03/23 15:12 Temperature 97 F 98.1 F 98.2 F Pulse Rate 118 H 95 88 Respiratory Rate 16 19 16 Blood Pressure 135/84 137/62 127/68 Pulse Oximetry 94 94 96 Oxygen Delivery Method Room Air Room Air Room Air BMI result Body Mass Index 28.3 Const General: cooperative, no acute distress, alert and awake Nutritional Appearance: well nourished Orientation/consciousness: patient oriented x3 Limitations: no limitations HENMT Head: Yes normal to inspection and Yes atraumatic Ears: hearing grossly normal bilaterally and external ears normal General nose exam: Normal external nose present, no nasal discharge noted and no epistaxis Face and sinus: Yes normal facial exam, No abrasion and No laceration Mouth: Normal oral and palatal mucosa present, no drooling and no muffled voice Eyes General: appearance normal, both eyes and all related structures Periorbital: periorbital findings normal Eyelids: Yes eyelids normal Conjunctivae: conjunctivae normal Pupils: Equal, round and reactive pupils present EOM: EOMs intact bilaterally Neck Neck: Yes normal visual inspection, Yes full ROM and Yes no lymphadenopathy Chest Chest palpation & inspection: normal inspection of the chest Resp Effort & Inspection: normal respiratory effort and able to speak in complete sentences GI Palpation (GI): Soft to palpation, not firm, nontender, no guarding and not rigid Rectal Exam - Female: hemorrhoids Neuro General: patient oriented x3 and moves all extremities Cranial nerves: Yes Equal, round and reactive pupils present Cognition (Neuro): normal cognition Motor exam (neuro): 5/5 motor strength present throughout Sensory Exam: Normal double simultaneous stimulation for sensation Coordination: [id number] test normal Extrem General: Yes normal to inspection, Yes full ROM and Yes capillary refill normal Psych Appearance: grossly normal Mental Status: mental status grossly normal Affect: normal affect Attitude: cooperative Thought process: Normal thought process present Thought content: Normal thought content present Insight: Good insight present (Psych) Course Course Course Narrative: This is a rapid medical exam: Additional HPI, ROS, PE not included below will be deferred to primary provider. Patient is a 68-year-old female presenting to the emergency department with complaint of bloody diarrhea. States she had 3 episodes of diarrhea this morning, and with 2nd and 3rd episodes she noted bright red blood in her stool. States she showered, did not notice any blood on the washcloth, but afterwards she wiped and also noted bright red blood on the toilet paper. Also had an episode of nausea and tried to vomit but states only a small amount of frothy bile came up. Reports epigastric pain with nausea which has since resolved. Denies chest pain, palpitations, shortness of breath, dizziness, lightheadedness. She is not anticoagulated. Plan: labs, c. diff, GI panel Medications Administered Discontinued Medications Generic Name Dose Route Start Last Admin Trade Name Shaina PRN Reason Stop Dose Admin Diphenhydramine HCl 25 mg 06/03/23 13:40 06/03/23 13:44 Diphenhydramine Hcl 50 Mg/Ml Vial IVPUSH 06/03/23 13:41 25 mg ONCE ONE Administration Iohexol 85 ml 06/03/23 14:19 06/03/23 14:20 Iohexol 350 Mg/Ml 100 Ml Infus..Btl IV 06/03/23 14:20 85 ml ONCE ONE Administration Methylprednisolone Sodium Succinate 60 mg 06/03/23 13:40 06/03/23 13:44 Methylprednisolone Sod Succ 125 Mg/2 Ml Vial IVPUSH 06/03/23 13:41 60 mg ONCE ONE Administration Medical Decision Making Medical Decision Making [facility] Narrative: Patient is a 68 year old assigned female at with a history of breast cancer, HTN, and HLD presenting to the emergency department today with bright red rectal bleeding. Patient's physical exam was as noted in the physical exam portion of this note. Patient's blood work was unremarkable. Patient's urine showed no acute process. Patient's abdomen/pelvis CT showed no acute process. Patient's occult stool was positive. I explained my physical exam findings as well as all test results to the patient. I answered all questions asked by the patient. Given the patient's benign work up and evidence of hemorrhoids on examination, patient is appropriate to follow up on an outpatient basis with GI. I stressed the importance of the patient taking her medication as prescribed. I stressed the importance of the patient following up with her primary care provider. I stressed the importance of the patient returning to the emergency department immediately if her symptoms were to worsen or if she were to develop any dizziness, shortness of breath, difficulty breathing, chest pain, blurry vision, loss of vision, nausea, vomiting, abdominal pain, fever, chills, back pain, or any other complaints. Patient verbalized agreement and understanding with this treatment plan and discharge. Differential Diagnosis Differential Diagnoses: The differential diagnosis associated with the presentation includes GI bleeding Hemorrhoids bleeding Rectal bleeding Admission/Observation Consideration of admission/observation: Escalation of care including admission/observation considered Patient would have been admitted to the hospital had her work up had any findings where hospital admission was appropriate and her clinical presentation warranted hospital admission. Lab Data [facility] Lab Attestation statement: I reviewed the patient's lab results. My interpretation of these labs are in the MDM Rationale portion of this note. 06/03/23 12:52 06/03/23 12:52 Labs: Lab Results 06/03/23 06/03/23 06/03/23 Range/Units 12:52 13:22 15:08 WBC 6.0 (4.8-10.8) X10*3/uL RBC 3.64 L (4.20-5.50) X10*6/uL Hgb 11.8 L (12.0-16.0) g/dl Hct 35.8 L (37.0-47.0) % MCV 98.4 H (80.0-98.0) fL MCH 32.4 (27.0-33.0) pg MCHC 33.0 (31.0-35.0) g/dl RDW 11.8 (11.0-16.0) % Plt Count 188 D (160-400) X10*3/uL MPV 10.0 (9.4-12.3) fL Immature Gran % (Auto) 0.3 (0.0-0.4) % Neut % (Auto) 68.3 (45-73) % Lymph % (Auto) 24.8 (20-40) % [place] % (Auto) 4.5 (2-11) % Eos % (Auto) 1.3 (0-4) % Baso % (Auto) 0.8 (0-2) % Lymph # (Auto) 1.5 (1.2-4.9) X10*3/uL [place] # (Auto) 0.3 (0.1-1.2) X10*3/uL Eos # (Auto) 0.1 (0.0-0.4) X10*3/uL Baso # (Auto) 0.1 (0.0-0.2) X10*3/uL Abs Immat Gran (auto) 0.02 (0.00-0.03) X10*3/uL Absolute Neuts (auto) 4.1 (2.0-8.3) x10*3/uL Absolute Nucleated RBC 0.000 (0.0-0.012) X10*3/uL Nucleated RBC % (auto) 0.0 (0.0-0.2) /100WBC PT 10.9 L (11.1-13.3) SEC INR 0.9 (0.9-1.1) Sodium 144 (135-145) mmol/L Potassium 4.3 (3.3-5.1) mmol/L Chloride 110 H (96-108) mmol/L Carbon Dioxide 24 (22-29) mmol/L Anion Gap 14 (12-20) BUN 19 H (9-16) mg/dL Creatinine 0.81 (0.5-1.4) mg/dL Estim Creat Clear Calc 68.3 Estimated GFR > 60 Random Glucose 190 H (60-115) mg/dL Calcium 9.1 (8.4-10.2) mg/dL Magnesium 1.7 (1.6-2.6) mg/dL Total Bilirubin 0.8 (0.0-1.0) mg/dL AST 16 (5-31) U/L ALT 12 (0-31) U/L Alkaline Phosphatase 81 (39-117) U/L Total Protein 7.1 (6.5-8.0) g/dL Albumin 4.1 (3.5-5.0) g/dL Urine Color Yellow Urine Appearance Clear Urine pH 5.0 (5.0-9.0) Ur Specific [place] >= 1.030 H (1.005-1.025) Urine Protein Negative (Neg-Trace) mg/dL Urine Glucose (UA) Negative (Negative) mg/dL Urine Ketones Negative (Negative) mg/dL Urine Blood Negative (Negative) Urine Nitrite Negative (Negative) Ur Leukocyte Esterase Negative (Negative) Stool Occult Blood POSITIVE (NEGATIVE) Blood Type B Negative Antibody Screen NEGATIVE Independent Interpretation I performed an independent interpretation of an: CT Scan Interpretation: My interpretation is in agreement with the radiologist's impression of this imaging study. EXAMINATION: CT ABDOMEN AND PELVIS WITH CONTRAST CLINICAL INFORMATION: Abdominal pain, new GI bleeding. History of cancer COMPARISON: None available. TECHNIQUE: Multidetector volumetric images were obtained from the superior aspect of the liver through the pubic symphysis following administration 85 mL of Omnipaque 350 intravenous contrast. Sagittal and coronal reformatted images were obtained on the technologist's workstation. Oral contrast: No This CT examination was performed using dose optimization techniques as appropriate, variously including the following: *Automated exposure control *Adjustment of mA and/or kV according to patient size (this includes techniques or standardized protocols for targeted exams where dose is matched to indication/reason for exam; i.e. extremities or head) *Use of iterative reconstruction technique DLP: 617 mGy-cm FINDINGS: LUNG BASES: The lung bases are clear. The heart size is normal. LIVER, GALLBLADDER, AND BILIARY TREE: The liver is normal in size, shape, and attenuation. No focal hepatic lesion or biliary ductal dilatation is present. The gallbladder has been surgically removed. PANCREAS: Unremarkable. SPLEEN: Unremarkable. ADRENAL GLANDS: Unremarkable. KIDNEYS AND URETERS: The kidneys are normal in size, shape, and attenuation. No hydronephrosis, hydroureter, or calculi seen. No perinephric stranding. BLADDER: Unremarkable. GASTROINTESTINAL TRACT: There is scattered stool, diverticula and gas seen in the colon without any distention or diverticulitis. The small bowel loops are normal caliber. Appendix is not visualized with certainty. ABDOMINAL WALL: No significant hernia is appreciated. LYMPH NODES: Normal. VASCULAR: Unremarkable. PELVIC VISCERA: Unremarkable. OSSEOUS STRUCTURES: No aggressive lytic or sclerotic process seen CT/CT abdomen pelvis w IV con IMPRESSION: 1. No acute intra-abdominal process seen. 2. Colonic diverticulosis without diverticulitis. Fleischner guidelines were followed. Dictated By: Len Foley MD Signed By: Electronically signed by Len Foley MD 06/03/23 1520 Radiology Impression Discussion of test interpretation with radiology: I have reviewed the radiologist's reading. Critical Care Time Critical Care Time Critical Care Time: Yes Total Critical Care Time: 45 Attestation: I spent 45 minutes of Critical Care Time with this patient. This does not include time spent on separately reported billable procedures. Discharge Plan Discharge Clinical Impression: Bright red rectal bleeding Patient Disposition: Home, Self-Care Instructions: Rectal Bleeding (ED) Additional Instructions: Follow up with your primary care provider and a GI specialist. Return to the emergency department immediately if your symptoms worsen or if you develop any dizziness, shortness of breath, difficulty breathing, chest pain, blurry vision, loss of vision, nausea, vomiting, abdominal pain, fever, chills, back pain, or any other complaints. Prescriptions: No Action lorazepam 1 mg tablet 1 mg PO TID carvedilol 6.25 mg tablet 6.25 mg PO DAILY atorvastatin 80 mg tablet 80 mg PO DAILY trazodone 50 mg tablet 50 mg PO BEDTIME melatonin 3 mg tablet 6 mg PO BEDTIME Referrals: [facility] [Provider Group] (Call to establish and follow up with a GI specialist.) Bucky Quinonez MD [Primary Care Provider] - Interventions: ED Discharge Assessment Last Done: 06/03/23 15:43 Print Language: Belizean
[2023-06-03 12:58] LABS: MANUAL DIFF FLAG NO
[2023-06-03 13:00] LABS: Basophils Absolute Auto 0.1 X10*3/uL (0.0-0.2); Basophils Percent Auto 0.8 % (0-2); Eosinophils Absolute Auto 0.1 X10*3/uL (0.0-0.4); Eosinophils Percent Auto 1.3 % (0-4); Hematocrit 35.8 % (37.0-47.0); Hemoglobin 11.8 g/dl (12.0-16.0); Imm Gran Abs Auto 0.02 X10*3/uL (0.00-0.03); Imm Gran Pct Auto 0.3 % (0.0-0.4); Lymphocytes Absolute Auto 1.5 X10*3/uL (1.2-4.9); Lymphocytes Percent Auto 24.8 % (20-40); Mean Corpuscular Hemoglobin 32.4 pg (27.0-33.0); Mean Corpuscular Volume 98.4 fL (80.0-98.0); Monocytes Absolute Auto 0.3 X10*3/uL (0.1-1.2); Monocytes Percent Auto 4.5 % (2-11); Neutrophils Absolute Auto 4.1 x10*3/uL (2.0-8.3); Neutrophils Percent Auto 68.3 % (45-73); Platelet Count 188 X10*3/uL (160-400); Red Blood Count 3.64 X10*6/uL (4.20-5.50); Red Cell Distribution Width 11.8 % (11.0-16.0)
--- OUTSIDE RECORDS SUMMARY | 2023-06-03 13:04 | XMS_ITS | Continuity of Care Document ---
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 Name Role Phone Bucky Quinonez MD Primary Care Physician Encounter [facility] [place] [facility] Date(s): 10/05/22 - 10/12/22 [facility] [address] [place] [address], [address] [place] [address]- Attending Physician: Rubens Baron MD Referring Physician: Bucky Quinonez MD Allergies, Adverse Reactions, Alerts Substance Reaction Severity Status lisinopril 1 Severe Active Omnipaque 300 2 Anaphylaxis Severe Active Contrast Dye 3 Severe Active Latex Anaphylactic shock d ue to serum Anaphylactic shock due to serum Anaphylactic shock due to serum 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 Has family history of contrast allergy 3potential cause of anaphylaxis-multiple family members have contrast allergy Medications acetaminophen 325 mg oral tablet 650 mg, 2, tablet, By Mouth, Every 4 hours, PRN, Refills 0, Maintenance, Pain , Mild, 06/26/22 10:08:00 EST, Partial fill upon patient request if the prescription is for a schedule II opioid drug. Start Date: 06/26/22 Status: Ordered atorvastatin 80 mg oral tablet 1 tablet = 80 mg, By Mouth, Daily, 0 Refills, Maintenance, 08/04/22 11:13:00 EST, Partial fill uponpatient request if the prescription is for a schedule II opioid drug. Start Date: 08/04/22 Status: Ordered carvedilol 6.25 mg oral tablet 6.25 mg, 1, tablet, By Mouth, Daily, Refills 0, Maintenance, 06/26/22 10:08:00 EST, Partial fill upon patient request if the prescription is for a schedule II opioid drug. Start Date: 06/26/22 Status: Ordered docusate sodium 50 mg oral capsule 1 capsule = 50 mg, By Mouth, 2 times a day, PRN for constipation, # 60 capsule, 0 Refills, Maintenance, 08/06/22 15:40:00 EST, Capsule, Partial fill upon patient request if the prescription is for a schedule II opioid drug. Start Date: 08/06/22 Status: Ordered lisinopril 5 mg oral tablet 5 mg, 1, tablet, By Mouth, Daily, # 30 tablet, Refills 0, Maintenance, 06/19/22 13:54:00 EST, Partial fill upon patient request if the prescription is for a schedule II opioid drug. Start Date: 06/19/22 Status: Ordered LORazepam 0.5 mg oral tablet 1 tablet = 0.5 mg, By Mouth, 2 times a day, PRN as needed for anxiety, 0 Refills, Maintenance, 08/06/22 15:40:00 EST, Tablet, Partial fill upon patient request if the prescription is for a schedule II opioid drug. Start Date: 08/06/22 Status: Ordered melatonin 3 mg oral tablet = 6 mg, By Mouth, Daily at bedtime, 0 Refills, Maintenance, 06/26/22 10:08:00 EST, Tablet, Partial fill upon patient request if the prescription is for a schedule II opioid drug. Start Date: 06/26/22 Status: Ordered rosuvastatin 40 mg oral tablet 1 tablet = 40 mg, By Mouth, Daily, # 60 tablet, 0 Refills, Maintenance, 06/19/22 13:54:00 EST, Tablet, Partial fill upon patient request if the prescription is for a schedule II opioid drug. Start Date: 06/19/22 Status: Ordered traZODone 50 mg oral tablet 50 mg, 1, tablet, By Mouth, Daily at bedtime, Refills 0, Maintenance, 06/26/22 10:08:00 EST, Partial fill upon patient request if the prescription is for a schedule II opioid drug. Start Date: 06/26/22 Status: Ordered Vital Signs Most recent to oldest [Reference Range]: 1 Height 165 cm (10/05/22 2:54 PM) Weight 73.0 kg (10/05/22 2:54 PM) Body Mass Index [18.5-24.99 kg/m2] 26.81 kg/m2 *H* (10/05/22 2:54 PM) Social History Social History Type Response Smoking Status Never smoker entered on: 04/22/16 Sex Patient Care team information Care Team Personnel Name: Chris Lizama RN Position: S RN Member Role: Primary Care Nurse Name: Dell ODONNELL, Denis Position: S RN Supv Member Role: Primary Care Nurse Name: Maria Antonia Portillo RN Position: S RN Member Role: Primary Care Nurse Name: Devi CARLTON, Bucky Hancock Position: Reference Physician Member Role: PCP Address: Address: [address] [place] [id number]- Care Team Related Persons Name: CORRINE KAHN Address: home [address] [place] [id number] Name: BERHANE HENSLEY Address: [facility]
--- OUTSIDE RECORDS SUMMARY | 2023-06-03 13:04 | XMS_ITS | Continuity of Care Document ---
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 Name Role Phone Devi CARLTON, Bucky Hancock Primary Care Physician [phone] Encounter [facility] Date(s): 07/03/22 - 08/02/22 [facility] [address] [place] [address] Drive, [address] [place] [address]- Allergies, Adverse Reactions, Alerts Substance Reaction Severity Status lisinopril 1 Severe Active Omnipaque 300 2 Anaphylaxis Severe Active Contrast Dye 3 Severe Active Latex Anaphylactic shock d ue to serum Anaphylactic shock due to serum Anaphylactic shock due to serum Severe Active chlorhexidine containing compounds Anaphylactic shock due to serum Active KATHE inhibitors KATHE inhibitor-induced angioedema Active 1potential for angioedema-unconfirmed 2Had anaphylaxyis within [...] opioid drug. Start Date: 06/26/22 Status: Ordered carvedilol 6.25 mg oral tablet 6.25 mg, 1, tablet, By Mouth, Daily, Refills 0, Maintenance, 06/26/22 10:08:00 EST, Partial fill upon patient request if the prescription is for a schedule II opioid drug. Start Date: 06/26/22 Status: Ordered lisinopril 5 mg oral tablet 5 mg, 1, tablet, By Mouth, Daily, # 30 tablet, Refills 0, Maintenance, 06/19/22 13:54:00 EST, Partial fill upon patient request if the prescription is for a schedule II opioid drug. Start Date: 06/19/22 Status: Ordered melatonin 3 mg oral tablet [...] opioid drug. Start Date: 06/26/22 Status: Ordered Social History Social History Type Response Smoking Status Never smoker entered on: 04/22/16 Sex Patient Care team information Care Team Personnel Name: Chris Lizama RN Position: S RN Member Role: Primary Care Nurse Name: Denis Sharpe RN Position: [facility] RN Supv Member Role: Primary Care Nurse Name: Maria Antonia Portillo RN Position: S RN Member Role: Primary Care Nurse Name: Neeru Mansfield RN Position: S RN Member Role: Primary Care Nurse Name: Ashlee Fall RN Position: S RN Member Role: Primary Care Nurse Name: Bucky Quinonez MD Position: Reference Physician Member Role: PCP Address: Address: [address] [place] [address]- Care Team Related Persons Name: CORRINE KAHN Address: [address] [address] Name: BERHANE HENSLEY
--- OUTSIDE RECORDS SUMMARY | 2023-06-03 13:04 | XMS_ITS | Continuity of Care Document ---
Author Name Unknown Organization [facility] y Address [address] [place] [address] shanda, [address] [place] [address]- Care Team Providers Care Tie Sawyer Name Role Phone Devi CARLTON, Bucky Hancock Primary Care Physician Encounter [facility] [place] Date(s): 08/04/22 - 08/11/22 [facility] Neurosurgery [address] [place] [address] Drive, [address] [place] [address]- Attending Physician: Rubens Baron MD Allergies, Adverse Reactions, Alerts Substance Reaction [...] oldest [Reference Range]: 1 Height 165 cm (08/04/22 11:11 AM) Weight 72 kg (08/04/22 11:11 AM) Body Mass Index [18.5-24.99 kg/m2] 26.45 kg/m2 *H* (08/04/22 11:11 AM) Social History Social History Type Response Smoking Status Never smoker entered on: 04/22/16 Sex Patient Care team information Care Team Personnel Name: Chris Lizama RN Position: S RN Member Role: Primary Care Nurse Name: Denis Sharpe RN Position: S RN Supv Member Role: Primary Care Nurse Name: Maria Antonia Portillo RN Position: S RN Member Role: Primary Care Nurse Name: Neeru Mansfield RN Position: S RN Member Role: Primary Care Nurse Name: Ashlee Fall RN Position: S RN Member Role: Primary Care Nurse Name: Bucky Quinonez MD Position: Reference Physician Member Role: PCP Address: Address: [address] [place] [address]- Care Team Related Persons Name: CORRINE KAHN Address: [address] [address] Name: BERHANE HENSLEY
--- OUTSIDE RECORDS SUMMARY | 2023-06-03 13:04 | XMS_ITS | Continuity of Care Document ---
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 Role Phone Devi CARLTON, Bucky Hancock Primary Care Physician [phone] Encounter [facility] [place] Date(s): 08/06/22 - 09/05/[address] [place] [address]- Attending Physician: Sukhdev Peng Admitting Physician: AdmtrSukhdev Referring Physician: Admtr, Ar8 Allergies, Adverse Reactions, Alerts Substance Reaction Severity [...] Response Smoking Status Never smoker entered on: 10/12/16 Sex Patient Care team information Care Team Personnel Name: Chris Lizama RN Position: [facility] RN Member Role: Primary Care Nurse Name: Denis Sharpe RN Position: [facility] RN Supv Member Role: Primary Care Nurse Name: Maria Antonia Portillo RN Position: [facility] RN Member Role: Primary Care Nurse Name: Ashlee Fall RN Position: [facility] RN Member Role: Primary Care Nurse Name: Bucky Quinonez MD Position: Reference Physician Member Role: PCP Address: Address: [address] [place] [address]- Care Team Related Persons Name: CORRINE KAHN Address: home [address] [place] [address] Name: BERHANE HENSLEY Address: home [facility]
--- OUTSIDE RECORDS SUMMARY | 2023-06-03 13:04 | XMS_ITS | Continuity of Care Document ---
Author Name Unknown Organization [facility] Neurosurger y Address [address] [place] [address] [address], [address] [place] [address]- Care Team Providers Care Oil Developer Name Role Phone Devi CARLTON, Bucky Hancock Primary Care Physician [place] [facility] [place] 11/04/22 [facility]surgery [address] [place] [address] Drive, [address] [place], [place] [address] Attending Physician: Sukhdev Peng Admitting Physician: AdmtrSukhdev Referring Physician: Admtr, Ar8 Allergies, Adverse Reactions, Alerts Substance Reaction Severity Status 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 Has family history of contrast allergy Medications acetaminophen 325 mg oral [...] Care Nurse Name: Denis Sharpe RN Position: [facility] RN Supv Member Role: Primary Care Nurse Name: Maria Antonia Portillo RN Position: S RN Member Role: Primary Care Nurse Name: Devi CARLTON, Bucky Hancock Position: Reference Physician Member Role: PCP Address: Address: [address] [place] [address]- Care Team Related Persons Name: CORRINE KAHN Address: home [address] [place] [address] Name: BERHANE HENSLEY Address: home [facility]
--- OUTSIDE RECORDS SUMMARY | 2023-06-03 13:04 | XMS_ITS | Continuity of Care Document ---
Author Name Unknown Organization [facility] Neurosur[facility] y Address [address] [place] [address] [address], [address] [place] [address]- Care Team Providers Care Yardage Caller Name Role Phone Devi CARLTON, Bucky Hancock Primary Care Physician [phone] Encounter [facility] [place] Date(s): 07/03/22 - 08/02/22 [facility] Neurosurgery [address] [place] [address] Drive, [address] [place] [address]- Allergies, Adverse Reactions, Alerts Substance Reaction Severity [...] Care Nurse Name: Denis Sharpe RN Position: [facility] RN Supv Member Role: Primary Care Nurse Name: Maria Antonia Portillo RN Position: S RN Member Role: Primary Care Nurse Name: Neeru Mansfield RN Position: S RN Member Role: Primary Care Nurse Name: Ashlee Fall RN Position: S RN Member Role: Primary Care Nurse Name: Bucky Quinonez MD Position: Reference Physician Member Role: PCP Address: Address: [address] [place] [address]- Care Team Related Persons Name: CORRINE KAHN Address: [address] [address] Name: BERHANE HENSLEY
--- OUTSIDE RECORDS SUMMARY | 2023-06-03 13:04 | XMS_ITS | Continuity of Care Document ---
Author Name Unknown Organization [facility] Address [address] [place] [address] [address] [place] [address]- Care Team Providers Care Box Office Attendant Name Role Phone Devi CARLTON, Bucky Hancock Primary Care Physician Encounter [facility] [place] Date(s): 07/14/22 - 08/29/22 [facility] Surgical [address] [place] [address]- Attending Physician: Jomar Acevedo MD Referring Physician: Not on Staff, Referring MD Allergies, Adverse Reactions, Alerts Substance Reaction [...] tablet, By Mouth, Daily, Refills 0, Maintenance, 12/16/22 10:08:00 EST, Partial fill upon patient request [...] Team Personnel Name: Chris Lizama RN Position: [facility] RN Member Role: Primary Care Nurse Name: Denis Sharpe RN Position: [facility] RN Supv Member Role: Primary Care Nurse Name: Maria Antonia Portillo RN Position: [facility] RN Member Role: Primary Care Nurse Name: Nereu Mansfield RN Position: [facility] RN Member Role: Primary Care Nurse Name: Ashlee Fall RN Position: [facility] RN Member Role: Primary Care Nurse Name: Bucky Quinonez MD Position: Reference Physician Member Role: PCP Address: Address: [address] [place] [address]- Care Team Related Persons Name: SUJIT KAHNCY Address: [address] [address] Name: BERHANE HENSLEY
--- OUTSIDE RECORDS SUMMARY | 2023-06-03 13:04 | XMS_ITS | Continuity of Care Document ---
Author Name Unknown Organization [facility] Neurosurger y Address [address] [place] [address] [address], [address] [place] [address]- Care Team Providers Care Mineral Surveying Technician Name Role Phone Devi CARLTON, Bucky Hancock Primary Care Physician Encounter 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 Omnipaque 300 3 Anaphylaxis Severe Active chlorhexidine containing compounds Anaphylactic shock due to serum Active 1potential for angioedema-unconfirmed 2potential cause of anaphylaxis-multiple family members have contrast allergy 3Had anaphylaxyis within a few hours of [...] Care Nurse Name: Denis Sharpe RN Position: [facility] RN Supv Member Role: Primary Care Nurse Name: Maria Antonia Portillo RN Position: S RN Member Role: Primary Care Nurse Name: Neeru Mansfield RN Position: S RN Member Role: Primary Care Nurse Name: Ashlee Fall RN Position: S RN Member Role: Primary Care Nurse Name: Bucky Quinonez MD Position: Reference Physician Member Role: PCP Address: Address: [address] [place] [address]- Care Team Related Persons Name: FEMICORRINE Address: home [address] [place] [address] Name: BERHANE HENSLEY
--- OUTSIDE RECORDS SUMMARY | 2023-06-03 13:04 | XMS_ITS | Continuity of Care Document ---
Author Name Unknown Organization [facility] Address [address] [place] [address] [address] [place] [address]- Care Team Providers Care Manager Of Development Name Role Phone Devi CARLTON, Bucky Hancock Primary Care Physician Encounter [facility] [place] Date(s): 07/14/22 - 08/14/22 [facility] [address] [place] [address]- Attending Physician: Elaine CARLTON, Marialuisa Paz Allergies, Adverse Reactions, Alerts Substance Reaction Severity [...] Team Personnel Name: Chris Lizama RN Position: [facility] RN Member Role: Primary Care Nurse Name: Denis Sharpe RN Position: [facility] RN Supv Member Role: Primary Care Nurse Name: Maria Antonia Portillo RN Position: [facility] RN Member Role: Primary Care Nurse Name: Neeru Mansfield RN Position: [facility] RN Member Role: Primary Care Nurse Name: Ashlee Fall RN Position: [facility] RN Member Role: Primary Care Nurse Name: Bucky Quinonez MD Position: Reference Physician Member Role: PCP Address: Address: [address] [place] [address]- Care Team Related Persons Name: CORRINE KAHN Address: home [address] [place] [address] Name: BERHANE HENSLEY
--- OUTSIDE RECORDS SUMMARY | 2023-06-03 13:04 | XMS_ITS | Continuity of Care Document ---
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 Name Role Phone Devi CARLTON, Bucky Hancock Primary Care Physician Encounter [facility] Date(s): 06/18/22 - 06/26/[address] [address]- Encounter Diagnosis Fall down stairs(Final) - 06/18/22 Discharge Disposition: A-Transfer SNF Attending Physician: Jomar Acevedo MD Admitting Physician: Jomar Acevedo MD Referring Physician: Not on Staff, Referring MD Allergies, Adverse Reactions, Alerts Substance Reaction Severity Status Omnipaque 300 1 Anaphylaxis Severe Active Contrast Dye 2 Severe Active Latex Anaphylactic shock d ue to serum Anaphylactic shock due to serum Anaphylactic shock due to serum Severe Active chlorhexidine containing compounds Anaphylactic shock due to serum Active KATHE inhibitors AKTHE inhibitor-induced angioedema Active lisinopril 3 Severe Active 1Had anaphylaxyis within a few hours of receiving Tylenol and contrast. Has family history of contrast allergy 2potential cause of anaphylaxis-multiple family members have contrast allergy 3potential for angioedema-unconfirmed Medications acetaminophen 160 mg/5 mL oral suspension 15 mL = 480 mg, Nasogastric Tube, Every 4 hours, for 5 days, # 450 mL, 0 Refills, Acute 06/30/22 16:38:00 EST, 06/25/22 16:38:00 EST, Suspension, [facility], Partial fill upon patient request if the prescription is for a schedule II opio... Start Date: 06/25/22 Stop Date: 06/30/22 Status: Ordered acetaminophen 325 mg oral tablet 650 mg, 2, tablet, By Mouth, Every 4 hours, PRN, Refills 0, Maintenance, Pain , Mild, 06/26/22 10:08:00 EST, Partial fill upon patient request if the prescription is for a schedule II opioid drug. Start Date: 06/26/22 Status: Ordered carvedilol 6.25 mg oral tablet 6.25 mg, Tablet, By Mouth, 06/26/22 10:35:00 EST Start Date: 06/26/22 Stop Date: 06/26/22 Status: Completed carvedilol 6.25 mg oral tablet 6.25 mg, 1, tablet, By Mouth, Daily, Refills 0, Maintenance, 06/26/22 10:08:00 EST, Partial fill upon patient request if the prescription is for a schedule II opioid drug. Start Date: 06/26/22 Status: Ordered carvedilol 6.25 mg oral tablet 6.25 mg, Tablet, Nasogastric Tube, 06/26/22 9:00:00 EST Start Date: 06/26/22 Stop Date: 06/26/22 Status: Completed Gabapentin 50 mg/ml Liquid 300 mg, Liquid, Nasogastric Tube, 06/26/22 9:00:00 EST Start Date: 06/26/22 Stop Date: 06/26/22 Status: Completed lisinopril 5 mg oral tablet 5 mg, [...] opioid drug. Start Date: 06/26/22 Status: Ordered oxyCODONE 5 mg oral tablet 5 mg, 1, tablet, By Mouth, Every 6 hours, PRN, for 3 days, # 12 tablet, Refills 0, Tot. Refills 0, Acute 06/29/22 10:30:00 EST, Pain , Moderate, 06/26/22 10:30:00 EST, Print Requisition, Partial fillupon patient request if the prescription is for a s... Start Date: 06/26/22 Stop Date: 06/29/22 Status: Ordered rosuvastatin 40 mg oral tablet [...] opioid drug. Start Date: 06/26/22 Status: Ordered Results Radiology Reports (Most Recent Ten) * Exam Date Time Procedure Performing Provider Status 06/23/22 3:52 PM Modified Barium Swal low W/ Speech (Radio Vijaya Boggs; Auth (Verified) Notes: (Modified Barium Swallow W/ Speech (Radio) Reason For Exam: Aspiration RESULT: Modified Barium Swallow W/ Speech (Radio Modified Barium Swallow WITH SPEECH PATHOLOGY CLINICAL INDICATION: Reason: Aspiration; Clinical Question(s): Aspiration; Order Comment: Modified Barium Swallow W Speech (Radiology) Prep COMPARISON: None Technique: Lateral cine-videofluoroscopy was performed during the oral administration of various barium containing consistencies, as described below. Fluoroscopic imaging provided by Alex Mariee PA-C. Pulsed fluoroscopy time: 3.1 minutes Dose Area Product (DAP): 265.6 uGy*m2 Findings: Applesauce, pudding, mixed fruit/juice, and thin barium consistencies were tested. The oral and pharyngeal phases of swallowing were without evidence of laryngeal penetration or subglottic aspiration. Enteric tube and posterior spinal fusion hardware noted. IMPRESSION: No laryngeal penetration or subglottic aspiration. Findings as described. For dietary concerns or recommendations, please refer to speech pathologist report. By undersigning and finalizing the report, the attending radiologist confirms he/she has personallyreviewed and interpreted the images and agrees with the description of the findings. I have personally reviewed the images and I agree with this report. WSN: [id number] Ordering Physician: Renetta Bacon Dictated By: Idris Guaman Dictated Date/Time: 06/23/22 4:05 pm Reviewed By: Derek Alvarez MD Signed By: Derek Alvarez MD Signed Date/Time: 06/23/22 4:10 pm Transcribed By: ROSALBA Transcribed Date/Time: 06/23/22 3:25 pm * Exam Date Time Procedure Performing Provider Status 06/22/22 8:17 AM Foot Min 3 Views Left Nancy Posey; Cheli (Verified) Notes: (Foot Min 3 Views Left) Reason For Exam: Trauma RESULT: Foot Min 3 Views Left Foot Min 3 Views Left, 3 views Reason: Pain following trauma. COMPARISON: None. FINDINGS: Nondisplaced fracture of the fifth proximal phalanx. No other fracture or dislocation is present. Bone mineralization is normal. No arthritic changes. Normal soft tissues. IMPRESSION: Nondisplaced fracture of the fifth proximal phalanx. Otherwise normal examination. WSN: [id number] Ordering Physician: Lm Rm Dictated By: Elías Lama MD Dictated Date/Time: 06/22/22 10:05 a Reviewed By: Elías Lama MD Signed By: Elías Lama MD Signed Date/Time: 06/22/22 10:05 am Transcribed By: ROSALBA Transcribed Date/Time: 06/22/22 10:04 am * Exam Date Time Procedure Performing Provider Status 06/20/22 4:[address] Cervical Spine W/O Contrast Padmini Moncada; Auth (Verified) Notes: (CT Cervical Spine W/O Contrast) Reason For Exam: Postop Spinal Fusion RESULT: CT Cervical Spine W/O Contrast CT Cervical Spine W/O Contrast Reason: Postop Spinal Fusion; Order Comment: TECHNIQUE: Spiral CT of the cervical spine without contrast, formatted in 3 planes. Weight-based protocol using automatic tube modulation was used to optimize exposure parameters. RADIATION DOSE PARAMETERS: CTDIvol Body: 11.00 mGy, DLP Body: 283 mGy*cm. COMPARISON: Cervical spine, 08/19/2021. FINDINGS: Spine: Again noted is a type II dens fracture. Alignment is mildly improved compared to the preoperative exam, though there is still about 4 mm posterior displacement of the odontoid relative to the body ofC2, as well as slight posterior tilting of the dens with up to 4 mm separation of the fractured odontoid from C2 anteriorly. On the left side the fracture is again noted to extend through the left transverse foramen. Camron fracture is again seen involving the anterior arch and posterior C1 arch on each side. There has been interval posterior fusion utilizing bilateral lateral mass screws and interconnecting vertical rods at C1 to. The tip of the right C1 screw just extends through the anterior cortex, and the right C2 with screw just skirts the superior and medial margin of the transverse foramen. There may be slight symmetric widening of atlantooccipital joints. Remaining alignment is stable. There is subtle anterior wedging of the T1. Right T3 transverse process fracture is again seen. There are also fractures through the right 1st through 3rd right rib heads. There is mild disc space narrowing at C5-6 and C6-7 with anterior osteophyte as well as multilevel left-sided facet spurring. The spinal canal at C1 and C2 is obscured by streak artifact from hardware. There is no high-grade canal stenosis. Soft tissues and lung apices: Air is seen in the posterior paraspinal soft tissues from C1-C3 with overlying midline skin staplesnoted. There is a nasogastric tube with fluid in the nasopharyngeal airway and minimal fluid in theleft sphenoid sinus. A new tracheostomy tube is also seen with stranding and air in the surrounding soft tissues, with air also extending into the right parapharyngeal space. There is scarring at both lung apices. IMPRESSION: 1. Status post posterior fusion at C1-2 with hardware positioning as described. There is about 4 mmposterior displacement and posterior tilting of the odontoid relative to C2, mildly improved compared to the preoperative exam. 2. Possible slight widening of both atlantooccipital joints. 3. Unchanged mild anterior wedging of T1, right T3 transverse process of fracture, and fractures through the right 1st through 3rd right rib heads. WSN: [id number] Ordering Physician: Kelsey Davey Dictated By: Paula Aburto MD Dictated Date/Time: 06/20/22 2:51 pm Reviewed By: Paula Aburto MD Signed By: Paula Aburto MD Signed Date/Time: 06/20/22 2:51 pm Transcribed By: ROSALBA Transcribed Date/Time: 06/20/22 2:17 pm * Exam Date Time Procedure Performing Provider Status 06/19/22 7:21 PM XR O-Arm Ramonita Pat; Auth ( Verified) Notes: (XR O-Arm) Reason For Exam: cervical spine fracture C1-C2 RESULT: XR O-Arm HISTORY: Reason: cervical spine fracture C1-C2 TECHNIQUE: A noncontrast intraoperative CT scan of the cervical spine was performed by the referring service 06/19/2022. 2 acquisitions were obtained, and multiplanar reconstructions were generated inbone algorithm. COMPARISON: CT scan of the cervical spine 06/18/2022 FINDINGS: The CT acquisitions document intraoperative findings compatible with ORIF of C1 and C2 fractures. On the second acquisition, posterior element/pedicle screws are present at C1 and C2. The C1 screws extend slightly beyond the anterior margin of the C1 vertebral body. A type II dens fracture is again noted. Dorsal angulation of the dens is again noted. Anterolisthesis of the dens with respect to the body of C2 has been replaced by slight retrolisthesis of the densmeasuring up to 2 mm. Comminuted Camron type fracture and a vertically-oriented fracture of the left C2 lateral mass (in the coronal plane) are again noted. Fractures of the left C2 lateral mass are also present. Pneumomediastinum is noted in the setting of an enteric tube and intubation. IMPRESSION: 1. Intraoperative findings related to ORIF of Camron type and type II dens fractures. The positioning of the dens with respect to C2 has changed as detailed above. 2. Fractures of the left lateral C2 mass and left foramen transversarium. 3. Pneumomediastinum, which can be correlated with the patient's physical examination. A critical result message ([place]) has been communicated via the [employer] system on 06/20/2022 12:26 PM, Message ID [id number]. WSN: [id number] Ordering Physician: Rubens Baron Dictated By: Andrew Pineda MD Dictated Date/Time: 06/20/22 12:26 p Reviewed By: Andrew Pineda MD Signed By: Andrew Pineda MD Signed Date/Time: 06/20/22 12:26 pm Transcribed By: ROSALBA Transcribed Date/Time: 06/20/22 11:59 am * Exam Date Time Procedure Performing Provider Status 06/19/22 10:02 PM Chest Portable Faviola Gallagher; Cheli (Verified) Notes: (Chest Portable) Reason For Exam: Tube Placement RESULT: Chest Portable Chest Portable Reason: Tube Placement COMPARISON: Earlier same day. FINDINGS: LINES AND TUBES: Tracheostomy tube projects over the upper trachea. Enteric tube with the distal extent well below the left hemidiaphragm, likely in the stomach fundus. Additional monitoring devices project over the chest. LUNGS AND PLEURA: Low lung volumes. Patchy airspace disease in the left lung base, grossly unchanged. Mild hazy airspace disease in the right lung base. No large pleural effusion. No pneumothorax. HEART, MEDIASTINUM AND JAMES: Heart is normal in size. No acute change in the upper mediastinal contours. BONES AND SOFT TISSUES: No acute abnormality. IMPRESSION: Support tubes and lines as above. No significant change in left basilar airspace disease. WSN: [id number] Ordering Physician: Kelsey Davey Dictated By: Feliciano Horowitz MD Dictated Date/Time: 06/19/22 10:10 p Reviewed By: Feliciano Horowitz MD Signed By: Feliciano Horowitz MD Signed Date/Time: 06/19/22 10:10 pm Transcribed By: ROSALBA Transcribed Date/Time: 06/19/22 10:08 pm * Exam Date Time Procedure Performing Provider Status 06/18/22 7:[address] Angio Neck Vanessa Cooley odified Notes: (CT Angio Neck) Reason For Exam: Trauma RESULT: CT Angio Neck CT Angio Neck Reason: Trauma; Clinical Question(s): Other:; vascular injury / Other: TECHNIQUE: CT angiogram of the neck was performed after bolus administration of intravenous contrast. 100 mL of Omnipaque 300 was administered intravenously. Coronal and sagittal MIP reformatted images were obtained. Additional 3-D images were created on a separate workstation under concurrent supervision by the attending radiologist. All stenoses are measured using NASCET criteria. Weight- based protocol using automatic tube modulation was used to optimize exposure parameters. RADIATION DOSE PARAMETERS: CTDIvol Body: 10.02 mGy, DLP Body: 1256 mGy*cm. COMPARISON: Noncontrast CT cervical spine performed 06/18/2022, chest CT performed 06/18/2022. FINDINGS: CTA OF THE NECK: Arch: There is a three vessel aortic arch. The origins of the supra aortic vessels are patent. Right carotid system: The common carotid and cervical internal carotid arteries are patent. There is calcified atherosclerotic plaque scattered in the carotid system including at the carotid bifurcation, but no ICA stenosis (0%) by NASCET criteria. There is also mild irregularity of the distal ICA.There is no dissection or aneurysm. Left carotid system: The common carotid and cervical internal carotid arteries are patent. There iscalcified atherosclerotic plaque scattered in the carotid system including at the carotid bifurcation, but no ICA stenosis (0%) by NASCET criteria. There is also irregularity of the distal ICA. Thereis no dissection or aneurysm. There is a left-dominant vertebral artery system. Right vertebral: No significant stenosis. No evidence of dissection or aneurysm. Left vertebral: Patent throughout without high-grade stenosis. No evidence of dissection at the C2 transverse process fracture. There are beam hardening artifacts from dental amalgam at the skull base which overlaps the V4 and distal V3 segment of the left vertebral artery probably accounting for linear hypodensities which do not appear to conform to the vessel and are contiguous with the beam hardening artifacts. No definite evidence of dissection. Other: Soft tissues and bones: No evidence of lymphadenopathy or mass. The thyroid is unremarkable. Pleaserefer to the chest CT for thoracic findings. There is bilateral dependent atelectasis. There are fractures of the right T3-T5 spinous processes and there is a fracture involving the T4 spinous process extending into the bilateral lamina as well as the bilateral inferior articulating process. There are C1 and C2 fractures as described on the cervical spine CT, with involvement of the left transverse foramen at C2. There are multiple right costovertebral junction fractures involving the right first through fifth ribs. IMPRESSION: No evidence of vascular injury. C1 and C2 fractures as described on the cervical spine CT. Transverse process fractures on the right from T3 through T5 as well as fracture of T4 involving the spinous process, lamina, and inferior articular processes. Multiple right costovertebral junction fractures. A similar preliminary report was provided by [facility]. WSN: [id number] Ordering Physician: Laura Chino Dictated By: Geni Mckeon MD Dictated Date/Time: 06/19/22 10:03 a Reviewed By: Geni Mckeon MD Signed By: Geni Mckeon MD Signed Date/Time: 06/19/22 10:03 am Transcribed By: ROSALBA Transcribed Date/Time: 06/19/22 9:47 am ADDENDUM: CT Angio Neck ICA irregularity mentioned in body of report should also be in the impression. This could be due tononcalcified plaque or due to fibromuscular dysplasia. WSN: [id number] Ordering Physician: Laura Chino Dictated By: Geni Mckeon MD Dictated Date/Time: 06/19/22 2:51 pm Reviewed By: Geni Mckeon MD Signed By: Geni Mckeon MD Signed Date/Time: 06/19/22 2:51 pm Transcribed By: ROSALBA Transcribed Date/Time: 06/19/22 2:51 pm * Exam Date Time Procedure Performing Provider Status 06/19/22 3:00 AM Chest Portable Kelly Albert; Cheli ( Verified) Notes: (Chest Portable) Reason For Exam: Shortness of Breath RESULT: Chest Portable Chest Portable Reason: Shortness of Breath; Clinical Question(s): Other: COMPARISON: None. FINDINGS: LINES AND TUBES: None. LUNGS AND PLEURA: Left costophrenic angle is excluded. No consolidation of the lungs. Mild basilar atelectasis on theleft. No pleural effusion. No pneumothorax. HEART, MEDIASTINUM AND JAMES: Heart is normal in size. Normal mediastinal and hilar contour. BONES AND SOFT TISSUES: No acute abnormality. Hyperdensities at the right breast tissue could relate to prior biopsy or procedure. Mild degenerative changes of the right shoulder. IMPRESSION: No acute cardiopulmonary abnormality WSN: [id number] Ordering Physician: Shelley Oliva Dictated By: Amaya Smith MD Dictated Date/Time: 06/19/22 9:33 am Reviewed By: Amaya Smith MD Signed By: Amaya Smith MD Signed Date/Time: 06/19/22 9:33 am Transcribed By: ROSALBA Transcribed Date/Time: 06/19/22 9:33 am * Exam Date Time Procedure Performing Provider Status 06/19/22 6:52 AM Chest Portable Fco Chance; Cheli (Verified) Notes: (Chest Portable) Reason For Exam: Tube Placement RESULT: Chest Portable Chest Portable Reason: Tube Placement; Clinical Question(s): Tube Placement COMPARISON: 06/19/2022 FINDINGS: Tracheostomy terminates above the melissa. Subdiaphragmatic enteric tube. Monitoring electrodes overlie the patient. Low lung volumes. Mild perihilar opacities, and left basilar atelectasis. Trace left pleural fluid.Normal heart size. No pneumothorax. No acute osseous interval change. Right upper quadrant surgical clips. IMPRESSION: Low lung volumes with perihilar atelectasis versus edema. WSN: [id number] Ordering Physician: lAessia Leon Dictated By: Amaya Smith MD Dictated Date/Time: 06/19/22 9:33 am Reviewed By: Amaya Smith MD Signed By: Amaya Smith MD Signed Date/Time: 06/19/22 9:33 am Transcribed By: ROSALBA Transcribed Date/Time: 06/19/22 9:32 am * Exam Date Time Procedure Performing Provider Status 06/19/22 2:[address] Maxilloface W/O Contrast Tabitha Jiménez; Cheli (Verified) Notes: (CT Maxilloface W/O Contrast) Reason For Exam: left eye swelling after fall;Other: RESULT: CT Maxilloface W/O Contrast CT Maxilloface W/O Contrast INDICATION: Facial injury after fall downstairs. Known cervical spine fracture. Rule out facial injury. IMAGING TECHNIQUE: Multidetector spiral CT without contrast, formatted in 3 planes. Automatic tube modulation and/or iterative dose reconstruction were used optimize scan parameters. CTDIvol Head: 25.80 mGy, DLP Head: 576 mGy*cm. COMPARISON: Cervical spine 06/18/2022 FINDINGS: Facial soft tissues: Diffuse subcutaneous fat stranding of the bilateral maxillary and left preseptal periorbital soft tissues. Intracranial soft tissues: No gross abnormality. Calvarium and skull base: No fracture. Orbits: Normal. No fractures of the orbital montaño. No ocular or post septal injury. Nasal bones: No fracture. Frontal processes of maxilla: No fracture. Nasal Septum: No fracture. Anterior nasal spine: Intact. Maxillary bones: No fracture. Alveolus: No fracture or avulsed teeth. Zygomatic arches: No fracture. No overlying soft tissue swelling. Pterygoid plates: Intact. Mandible: Intact. Paranasal sinuses: Clear. Mastoids: No significant opacification. Upper cervical spine: Unchanged position alignment of C1/2 fractures IMPRESSION: 1. Moderate facial soft tissue swelling including around the left orbit but there is no evidence ofocular injury or orbital fracture. 2. Unchanged C1 and C2 fractures. Results were discussed via cortext by Dr. Bryant with Dr. Oliva on 06/19/2022 3:12 AM. I have personally reviewed the images and I agree with this report. WSN: [id number] Ordering Physician: Shelley Oliva Dictated By: Manny[Radiology] Soren CARLTON Dictated Date/Time: 06/19/22 8:19 am Reviewed By: Gatito Lauren MD Signed By: Gatito Lauren MD Signed Date/Time: 06/19/22 8:24 am Transcribed By: ROSALBA Transcribed Date/Time: 06/19/22 3:12 am * Exam Date Time Procedure Performing Provider Status 06/18/22 7:[address] Abd/Pelvis W/ IV Contrast Only lEisha Cooley; Auth (Verified) Notes: (CT Abd/Pelvis W/ IV Contrast Only) Reason For Exam: Abd trauma, blunt;Other: RESULT: CT Abd/Pelvis W/ IV Contrast Only CT Chest W/ Contrast, CT Abd/Pelvis W/ IV Contrast Only INDICATION: Reason: Trauma; Clinical Question(s): Other:; Rib Fracture TECHNIQUE: Helical CT scan of the chest, abdomen, and pelvis with IV contrast, formatted in 3 planes. cc of was administered intravenously. This study was performed oral contrast. Weight-based protocol was performed using automatic exposure control. CTDIvol Body: 10.90 mGy, DLP Body: 781 mGy*cm. COMPARISON: None. FINDINGS: Veneer Lathe Operator view findings, lines and tubes: None. Trachea and airways: Patent without evidence of tracheal or endobronchial lesion. Lungs and pleura: Dependent atelectasis. No effusion or pneumothorax. Mediastinum and james: No mass or hematoma. No mediastinal or hilar lymphadenopathy. No esophageal abnormality. Heart: Heart is normal in size. No pericardial effusion. Aorta: No aortic aneurysm. Pulmonary arteries: Normal caliber. No evidence of pulmonary embolism on this study performed without angiographic technique. Chest wall soft tissues: No acute abnormality. Diaphragm: Intact. Liver: Normal in attenuation and morphology. No suspicious lesion. Gallbladder: No CT evidence of gallbladder pathology. Bile ducts: No biliary ductal dilation. Spleen: Normal in size. Pancreas: No suspicious lesion or ductal dilatation. Adrenal glands: No nodule. Kidneys and ureters: No hydronephrosis, stone, or suspicious lesion. Bladder: Cat catheter within the urinary bladder containing contrast. No extravasation to indicate bladder wall injury. Reproductive organs: Unremarkable. Stomach, small bowel, and large bowel: Normal caliber stomach and bowel loops. No surrounding inflammatory changes. Appendix: No evidence of acute appendicitis. Peritoneum and retroperitoneum: No ascites or pneumoperitoneum. No omental or mesenteric lesions. Lymph nodes: No enlarged lymph nodes. Blood vessels: No vascular calcifications or aneurysm. No evidence of venous thrombosis. Abdominal and pelvic wall soft tissues: No acute abnormality. Bones: There are multiple right-sided transverse process fractures in the thoracic spine including a nondisplaced fracture involving the right transverse process of T2, minimally displaced fracture involving the tip of the right transverse process of T3, T4, T5. There is a nondisplaced fracture extending to the spinous process of T4 which extends obliquely into bilateral lamina. There are nondisplaced fractures involving the right third and fourth ribs at the costovertebral articulation. IMPRESSION: CHEST CT: No acute intrathoracic pathology. Right-sided transverse process fractures at T3-T5. Nondisplaced spinous process fracture at T4 extending into bilateral lamina. Nondisplaced right rib fractures at the costovertebral articulation at T3 and T4. ABDOMEN-PELVIS CT: No acute intra-abdominal pathology. No pelvic or hip fractures. No lumbar fracture is identified. A critical result message (Yellow) has been communicated via the [employer] system on 06/18/2022 7:45 PM, Message ID [id number]. WSN: [id number] Ordering Physician: Laura Chino Dictated By: Bijan Houser MD Dictated Date/Time: 06/18/22 7:45 pm Reviewed By: Bijan Houser MD Signed By: Bijan Houser MD Signed Date/Time: 06/18/22 7:45 pm Transcribed By: ROSALBA Transcribed Date/Time: 06/18/22 7:29 pm Vital Signs Most recent to oldest [Reference Range]: 1 2 3 Height 165 cm (06/26/22 11:03 AM) 165 cm (06/19/22 5:51 AM) 165 cm (06/18/22 11:49 PM) Weight 75.2 kg (06/26/22 5:34 AM) 76.4 kg (06/25/22 4:35 AM) 74.8 kg (06/24/22 5:10 AM) Oxygen Saturation [94-100 %] 93 % *L* (06/26/22 11:03 AM) 99 % (06/26/22 8:00 AM) 93 % *L* (06/26/22 2:23 AM) Pulse Rate [55-90 bpm] 95 bpm *H* (06/26/22 11:10 AM) 95 bpm *H* (06/26/22 11:03 AM) 94 bpm *H* (06/26/22 8:19 AM) Body Mass Index [18.5-24.99 kg/m2] 27.84 kg/m2 *H* (06/19/22 5:51 AM) 27.55 kg/m2 *H* (06/18/22 11:49 PM) 27.55 kg/m2 *H* (06/18/22 3:16 PM) Blood Pressure [90-138/55-84 mm Hg] 125/75mm Hg (06/26/22 11:10 AM) 125/75mm Hg (06/26/22 11:03 AM) 130/64mm Hg (06/26/22 8:19 AM) Respiratory Rate [16-30 br/min] 19 br/min (06/26/22 11:03 AM) 16 br/min (06/26/22 8:20 AM) 21 br/min (06/26/22 2:23 AM) Temperature [96.8-100.4 DegF] 97.4 DegF (06/26/22 11:03 AM) 98.0 DegF (06/26/22 2:23 AM) 98.7 DegF (06/25/22 10:00 PM) Liters per Minute 1 L/min (06/26/22 2:23 AM) 1 L/min (06/25/22 2:30 AM) 2 L/min (06/25/22 1:08 AM) Mode of Delivery (Oxygen) Room air (06/26/22 11:03 AM) Nasal cannula (06/26/22 2:23 AM) Room air (06/25/22 10:00 PM) Blood pressure sites Arm, left (06/26/22 11:03 AM) Arm, left (06/26/22 2:23 AM) Arm, right (06/25/22 10:00 PM) Temperature Route Oral (06/26/22 11:03 AM) Oral (06/26/22 2:23 AM) Oral (06/25/22 10:00 PM) Dry Weight 75.8 kg (06/19/22 5:51 AM) Weight Obtained Via Bed scale (06/26/22 5:34 AM) Bed scale (06/25/22 4:35 AM) Bed scale (06/24/22 5:10 AM) Social History Social History Type Response Smoking Status Never smoker entered on: 04/22/16 Sex Admission evaluation note * Kelsey Davey MD: MODIFY, SIGN, VERIFY, PERFORM Event Display: Admission Note Authored Date: Patient: JUAN RUGGIERO Age: 67 years Sex: Female : 1955 Associated Diagnoses: None Author: Kelsey Davey MD Patient is a 67-year-old female with past medical and surgical history notable for EtOH use, breastcancer status postlumpectomy and radiation, hypertension and lipidemia who presents as a transfer from an outside hospital for cervical spine fractures neurosurgery work-up. Comprehensively, the patient was going down a flight of stairs when she slipped and fell down the stairs. She had positive loss of consciousness and was unable to get up from the floor. Her sister found her down and. Proceeded to take her to the emergency department. Work-up shows displaced unstable C1 left paramedian anterior ring frx, left posterior ring of C1, medial subluxatation of right late ral mass of C1 with respect to C2. There is also a ventral epidural hematoma at C1-C2. with posterior widerning of the left atlantooccipital joint. There is a type 3 odontoid fracture of C2 with an avulsed fragment dorsally, T1 compression fracture of indeterminate age, T2 transverse process fracture and endplate compression fracture of T3. CT of the chest was notable R1-4 rib fractures. Neurosurgery was consulted with plans of cervical spine fracture repair the following day. Overnight, patient had acute onset of swelling of her face and respiratory distress. Patient underwent a CT maxillofacial which shows no acute pathologies. However over the course of work-up, her swelling, hypoxia, tachypnea, and tachycardia worsened. Due to concerns for airway protection, patient was emergently brought to the operating room for a tracheostomy with a 7 TTS tracheostomy tube placement on the morning of 06/19. Patient was brought up to the surgical ICU on a ventilator and propofol, withoutany vasopressor requirements. REVIEW OF SYSTEMS: Unable to obtain, patient is intubated and sedated. PAST MEDICAL/SURGICAL HISTORY: Hypertension next hyperlipidemia Right breast cancer status post lumpectomy and radiation (2016) Daily EtOH use, 2 glasses of wine ALLERGIES: No document allergies HOME MEDICATIONS: Lisinopril Pravastatin SOCIAL HISTORY: Daily alcohol use Lives alone, sister lives next door FAMILY HISTORY: Unable to obtain PHYSICAL EXAM: VITALS: Temperature No result Systolic Blood Pressure 155 (08:15) Diastolic Blood Pressure 89 (08:15) Pulse 94 (08:15) SpO2 94 (08:15) Respiratory Rate 20 (08:15) GENERAL: GCS 11T, on propofol MENTAL STATUS: Normal affect. HEENT: Normocephalic. Swollen eyelids bilaterally. Diffuse swelling on face. Dry mucous membrane. NECK: Supple, No tracheal deviation, JVD, or palpable cervical lymphadenopathy. Tracheostomy tube in place LUNGS: Clear to auscultation bilaterally. Diffuse wheezes HEART: Heart sounds normal. Regular rate and rhythm CHEST WALL: No surgical scars or chest wall deformities. ABDOMEN: Soft, non-tender, non-distended. NEUROLOGIC: unable to obtain at this time SKIN: No rashes or lesions. No petechiae or purpura. No edema. EXTREMITIES: Warm and well perfused. No gross deformities. Normal range of motion. RESULTS/IMAGING (I have personally reviewed the imaging studies listed below. I agree with the radiologist's interpretation unless otherwise specified.):??? BLOOD COUNT & DIFF WBC 5.8 k/mm3 () 06/19/2022 06:05 RBC 2.98 m/mm3 (Low) 06/19/2022 06:05 Hgb 9.6 Gm/dL (Low) 06/19/2022 06:05 Hct 29.3 % (Low) 06/19/2022 06:05 MCV 98.3 femtoliters () 06/19/2022 06:05 MCH 32.2 pg () 06/19/2022 06:05 MCHC 32.8 g/dL (Low) 06/19/2022 06:05 Platelet Count 119 k/mm3 (Low) 06/19/2022 06:05 RDW-SD 46.8 femtoliters () 06/19/2022 06:05 MPV 10.8 femtoliters () 06/19/2022 06:05 Nucleated RBC (Automated) 0.0 #/100 WBC'S () 06/19/2022 06:05 Abs. NRBC 0.0 k/mm3 () 06/19/2022 06:05 Abs. Neut 4.7 k/mm3 () 06/19/2022 06:05 Abs. Lymph 0.7 k/mm3 (Low) 06/19/2022 06:05 Abs. Cass 0.3 k/mm3 (Low) 06/19/2022 06:05 Abs. Eo 0.0 k/mm3 () 06/19/2022 06:05 Abs. Baso 0.0 k/mm3 () 06/19/2022 06:05 Neut % 81.2 % (High) 06/19/2022 06:05 Lymph % 12.0 % (Low) 06/19/2022 06:05 Cass % 5.9 % () 06/19/2022 06:05 Eos % 0.2 % () 06/19/2022 06:05 Baso % 0.2 % () 06/19/2022 06:05 Imm Gran 0.5 % () 06/19/2022 06:05 Abs. Imm Gran 0.0 k/mm3 () 06/19/2022 06:05 CARDIAC CK, Total 442 units/L (High) 06/19/2022 06:05 High Sensitivity Troponin (HSTnT) 18 ng/L (High) 06/19/2022 06:29 CHEM GENERAL Sodium 140 mmol/L () 06/19/2022 06:05 Potassium 4.1 mmol/L () 06/19/2022 06:05 Chloride 109 mmol/L (High) 06/19/2022 06:05 Bicarbonate Level 19 mmol/L (Low) 06/19/2022 06:05 Anion Gap 12 () 06/19/2022 06:05 Glucose Level 129 mg/dL (High) 06/19/2022 06:05 Glucose, POC 164 mg/dL (High) 06/19/2022 06:27 BUN 17 mg/dL () 06/19/2022 06:05 Creatinine-Blood 0.6 mg/dL () 06/19/2022 06:05 Estimated GFR Creatinine 100 ML/MIN/1.73 M2 () 06/19/2022 06:05 Calcium 7.3 mg/dL (Low) 06/19/2022 06:05 Calcium, Ionized pH Corrected Spec. integrity issue, redraw suggested mmol/L () 06/19/2022 06:05 Phosphorus 2.4 mg/dL (Low) 06/19/2022 06:05 Magnesium 1.8 mg/dL () 06/19/2022 06:05 Lactate 2.5 mmol/L (High) 06/19/2022 06:29 COAG INR 1.0 () 06/19/2022 06:15 Protime (PT) 10.4 seconds () 06/19/2022 06:15 APTT <22.0 seconds (Low) 06/19/2022 06:15 VIROLOGY COVID-19 by RT-PCR NEGATIVE () 06/18/2022 17:07 RESULT: CT Cervical Spine W/O Contrast CT Head/Brain W/O Contrast, CT Cervical Spine W/O Contrast Reason: Other:; Head trauma, mod-severe; Clinical Question(s): Hematoma COMPARISON: None. TECHNIQUE: Incremental CT without contrast through the head was formatted in axial and coronal plane. Spiral CT without contrast through the cervical spine was formatted in 3 planes. Automatic tube modulation was used for the cervical spine and iterative dose reconstruction was used for both the head and cervical spine to optimize scan parameters and image quality. CTDIvol Body: 11.50 mGy, DLP Body: 310 mGy*cm. CTDIvol Head: 40.40 mGy, DLP Head: 671 mGy*cm. FINDINGS: Veneer Lathe Operator View Findings, Lines and Tubes: None. HEAD: BRAIN and EXTRA-AXIAL SPACES: No parenchymal hemorrhage, midline shift or mass effect. [place]-white matter differentiation is well preserved. No acute infarct. Negative insular ribbon sign. Atherosclerotic vascular calcification ofthe carotid arteries but negative hyperdense vessel sign. Ventricles, sulci and basilar cisterns are normal. No white matter lesions. No subarachnoid hemorrhage, subdural or epidural collections. CALVARIUM, SKULL BASE AND SOFT TISSUES: No fractures or suspicious bony lesions. The paranasal sinuses and mastoid air cells are clear. Visualized orbits and globes are intact. There is diffuse scalp soft tissue swelling. CERVICAL SPINE: There is a Camron burst fracture of C1 with fracture extending through the anterior arch and bilateral posterior arches. There is a type II odontoid fracture which is posteriorly angulated on sagittal image 32 series 305. In addition to the odontoid fracture, there is a fracture extending into the anterior aspect of the left transverse process of C2 extending through the left transverse foramen. There is disruption of the normal alignment of the lateral masses and odontoid on coronal imaging indicating underlying ligamentous injury. There is straightening of lordosis. No locked or perched facet. There is mild- moderate loss of discspace height. OTHER BONES: Limited visualized upper ribs and clavicles are intact. CERVICAL SOFT TISSUES AND LUNG APICES: Unremarkable. Clear lung apices. IMPRESSION: HEAD CT: No acute intracranial hemorrhage or mass effect. Diffuse scalp soft tissue swelling-hematoma. CERVICAL CT: Camron burst fracture at C1. Type II odontoid fracture with dorsal angulation. C2 fracture extends into the left transverse foramen. Health Status Current medications (Selected) Inpatient Medications Ordered Bisacodyl Supp: 10 mg, Suppository, Rectally, 2 times a day, PRN for Constipation, Routine, 06/19/22 6:27:00 EST Colace Liquid: 100 mg, Liquid, By Mouth, 2 times a day, PRN for Constipation, Routine, 06/19/22 6:27:00 EST EPINEPHrine 1mg/mL Inj (ANAPHYLAXIS): 0.3 mg, Injection, Intramuscular, Every 5 minutes for 3 doses/times, For ANAPHYLAXIS (1mg/mL, 1:1000), NOT for IV use, PRN for Other, for hypersensitivity, Routine, 06/19/22 3:30:00 EST, Stop date Limited # of times FENTanyl 1000mcg / 100mL NaCl 1,000 mc mL, Initial Dose 25 mcg/hr, Infusion, IV Infusion, Titrate for SBS: 0 Awake and able to calm, Routine, 06/19/22 6:32:00 EST, Titrate, mL 100 Famotidine Inj: 20 mg, Injection, IV Push Slowly, Every 24 hours, Dilute in 5mL NaCL and administerover 2 minute., Routine, 06/19/22 7:00:00 EST Heparin Inj: 5,000 units, Injection, Subcutaneous Injection, 3 times a day, Routine, 06/19/22 14:00:00 EST Insulin R 100 units in 100 mL Premix 100 units [2 units/hr] + NaCL 0.9% Premixed IV 100 mL: 100 mL,Infusion, IV Infusion, 100 mL, 2 mL/hr, Infuse over 50 hr, Refer to Adult ICU Insulin Guidelines., Unless duration specified Continue until D/C'd, Routine, 06/19/22 6:27:00 EST, 86.1 kg Lactated Ringers 1000 mL: 1,000 mL, Infusion, IV Infusion, 1,000 mL, 150 mL/hr, Infuse over 6.7 hr,Continue until D/C'd Unless duration specified, Routine, 06/19/22 6:27:00 EST, 1.93, m2 Milk of Magnesia Liquid: 30 mL, Suspension, By Mouth, 2 times a day, PRN for Constipation, Routine,06/19/22 6:27:00 EST Mineral Oil /Petrolatum Ophth: 1 application, Ophth Ointment, Eyes, Both, Every 4 hours, Apply to eye surface., Routine, 06/19/22 6:00:00 EST OxyCODONE 5mg/5mL Liquid: 5 mg, Solution, Nasogastric Tube, Every 6 hours, PRN for Pain , Severe, Routine, 06/19/22 7:55:00 EST Peridex 0.12% Liquid: 15 mL, Oral Rinse, Topically, Apply to Other : Buccal Cavity, Teeth and Tongue, 2 times a day, apply with oral swab to buccal cavity, teeth and tongue for 30 seconds contact time - suction excess solution, Routine, 06/19/22 9:00:00 EST Precedex 400 mcg / 100 mL NaCl (Titrate) 400 mc mL, Initial Dose 0.2 mcg/kg/hr, Infusion, IV Infusion, Titrate for SBS: 0 Awake and able to calm, Suggested dosing range is 0.1-1.4 mcg/kg/hr, Routine, 06/19/22 6:32:00 EST, Titrate, mL 100 Propofol 1% /100 mL 1,000 m mL, Initial Dose 5 mcg/kg/min, Infusion in Glass, IV Infusion, Titrate for RASS: 0 Alert, Calm, Cooperative, Suggested infusion range 5 - 50 mcg/kg/min, Routine, 06/19/22 6:27:00 EST, Titrate, mL 100 Tylenol 160 mg / 5 mL Liquid: 480 mg, Suspension, Nasogastric Tube, Every 4 hours, Routine, 06/19/22 8:00:00 EST Impression and Plan 67-year-old female with past medical and surgical history notable for EtOH use, breast cancer status postlumpectomy and radiation, hypertension and lipidemia who presents as a transfer from an outside hospital for cervical spine fractures neurosurgery work-up. Sustained Camron burst fracture at C1. Type II odontoid fracture with dorsal angulation. C2 fracture extends into the left transverse fo ramen. Severe edema with tachycardia, tachypneic, and respiratory distress on morning of 06/19, most likelysecondary to anaphylactic shock as patient improved with epinephrine and Benadryl. Due to concerns for airway protection, she did undergo an emergent tracheostomy tube placement with a 7 TTS tracheostomy. Admitted to the surgical ICU for ventilator management. Neuro: GCS 11 T EtOH use at baseline No neurologic deficits at baseline Postoperative pain Pain from trauma Plan: CIWA Wean fentanyl drip as tolerated Tylenol, gabapentin, oxycodone, as needed Dilaudid as needed Holding NSAIDs Cardiac: Patient will require a liter of crystalloid bolus for hypotension, fluid responsive Total 2 L bolus since admission to the ICU for lactic acidemia and hypotension Not requiring vasopressors Recent presumed anaphylactic shock, required 2 doses of epinephrine and Benadryl, resolved Plan: Continue IV fluids at 100 cc an hour Lactate normalized to 1.4, no longer trending athletic monitor We will restart home medications of lisinopril and statin tomorrow Will continue to narrow down allergies, epinephrine as needed, Benadryl as needed Pulmonary: Status post emergent tracheostomy tube with 7 TTS Currently AC and 20/350/6/60 ABG shows seven-point 4/42/120/26 Checks x-ray shows increasing pulmonary edema Plan: Continue AC mode until OR today Aggressive pulm hygiene Daily chest x-ray Tracheostomy tube in place FEN/GI: N.p.o. at this time. Lactate normalized 1.4 No issues at baseline Plan: NPO until OR LR 100cc/hr Renal: Cat Low UOP, 30cc/hr BUN/Cr 19/0.6 Plan: Keep Cat Close monitor urine output Judicious fluid resuscitation Pulmonary edema Heme: H&H stable 9.1/28.5 No issues at baseline Plan: Daily CBCs ID: No concerns for infection T-max 90 8.9F Plan: Daily WBC Monitor fever curve No antibiotics for now Endo: No issues Glu 124-164 Plan: ISS ICU protocol MSK/Integ: Trach site clean and intact No issues Plan: Remove sutures in 2 weks Offloading to pressure points Social: Sister and nephews presents Plan: Update daily Lines/Drains/Tubes: Bilateral peripherals Tracheostomy tube Cat NG tube PPx: Famotidine 20 mg daily We will discuss with neurosurgery regarding DVT prophylaxis postoperatively Code Status: Full Consults: None Primary Team: Trauma Please call [phone] with any issues EKG study * Event Display: EKG Authored Date: * Event Display: ECG 12-Lead Authored Date: Please click on pdf link to open report * Event Display: ECG 12-Lead Authored Date: Ventricular Rate: 91 BPM Atrial Rate: 91 BPM P-R Interval: 146 ms QRS Duration: 74 ms Q-T Interval: 352 ms QTC Calculation(Bazett): 432 ms P [place]: 43 degrees R [place]: -6 degrees T [place]: -8 degrees Normal sinus rhythm Voltage criteria for left ventricular hypertrophy Nonspecific ST abnormality Abnormal ECG No previous ECGs available Confirmed by [facility] ([id number] on 06/19/2022 4:12:44 PM Adams: [facility] * Wilma Hall RN: SIGN, MODIFY, SIGN, MODIFY, PERFORM, SIGN, VERIFY Event Display: [facility] Authored Date: [id number] Patient: JUAN RUGGIERO Age: 67 years Sex: Female : 1955 Associated Diagnoses: None Author: Wilma Hall RN Findings Problem Related to Alteration in Musculoskeletal : Alteration in Musculoskeletal Func/new 06/26/2022 8:00 EST Alteration in Musculoskeletal Related to Fracture Goals & Outcomes, Musculoskeletal Affected extremity will maintain color/motion/sensation, Pt able to perform ADL's to best of ability, Pt will be free from complications of immobility, Pt will demonstrate ability to participate in ADL's, Pt will report acceptable level of comfort/pain relief Interventions, Musculoskeletal Monitor patients ambulation status, Assist with repositioning, Encourage deep breathing & coughing exercises, Teach Pt/caregiver complications of immobility, Teach Pt/caregiver on safety precautions BH Goals/Interventions, Musculoskeletal Yes Musculoskeletal, Problem Start 06/18/2022 10:00 Reviewed Plan with, Musculoskeletal Patient Patient Progression, Musculoskeletal Pt progressing according to plan Comment: Musculoskeletal Pt to be d/c'd today. . Discharge Information Rehabilitation Discharge : Rehab Discharge Index 06/24/2022 12:07 EST Walker: distance < 10 06/23/2022 17:00 EST Walker: distance < 10 06/23/2022 16:02 EST Full chart review completed Not Done: Task Duplication (Not Done) 06/23/2022 16:01 EST Comments on treatment indicated s/p cervical surg and new trach Full chart review completed Yes Hospital course Hospital course 06/22/2022 9:35 EST Comments on treatment indicated s/p cerival surg and new trach Full chart review completed Yes Hospital course Hospital course 06/22/2022 9:30 EST Comments on treatment indicated 76 y/o (I) F suffered fall down flight of stairs with cervical fxs, now s/p laminectomy/fusion of C1/C2, [place] at all times. PT to see for bed mobility, therex, transfers, balance, and gait trng. Walker: distance < 10 Distance pt will ambulate 100 ft with ww Full chart review completed Yes Hospital course Hospital course Other findings Pt presents sitting up visiting with her sister. Per sister pt will be able to stay with her after short term rehab and they would like this to be an acute rehab such as [facility]. Given pt will be able to go to sister's home this should be good plan. Plan of care PT Gait training, Transfer training, Therapeutic exercise, Functional Activities, Balance training 06/22/2022 8:35 EST Comments on treatment indicated adls fucnlt mob safety pt endurance Full chart review completed Yes Hospital course Hospital course * Isabel ODONNELL, Wilma: PERFORM Event Display: Progress Note Hospital Authored Date: Pt is A+O x4, calm and cooperative. PT in now to see pt. VSS. Tolerating diet. Pain in control. Mild pain reported w/change of pads to C Collar. Incision has sm amt of serosang drainage. Benita- incision red. Site cleansed and DCD applied. Advised trauma and will page neurosurgery now. Voiding CYU. Tolerating diet. * Isabel ODONNELL, Wilma: PERFORM Event Display: Progress Note Hospital Authored Date: Neurosurgery did come to bedside and assess incision. Order for DCD. Report called to Frank. Pt sent to discharge floor. * Curtis CARLTON, Jomar H: SIGN, MODIFY Roland DO, Ally K: MODIFY, MODIFY Roland DO, Ally K: MODIFY, SIGN Auberry DO, Ally K: SIGN, VERIFY Auberry DO, Ally K: VERIFY, MODIFY Roland DO, Ally K: MODIFY, PERFORM Auberry DO, Ally K: PERFORM Event Display: Progress Note Hospital Authored Date: [id number] Patient: JUAN RUGGIERO Age: 67 years Sex: Female : 1955 Associated Diagnoses: Cervical spine fracture; Odontoid fracture; Rib fracture; Thoracic spine fracture Author: Ally Watkins DO Discharge Information Admission Date: 06/18/2022 Discharge Date 06/26/2022 Primary Care Provider: Bucky Quinonez MD Principal Discharge Diagnosis Cervical spine fracture: Present on admission - yes. Odontoid fracture: Present on admission - yes. Rib fracture: Present on admission - yes. Thoracic spine fracture: Present on admission - yes. Medications MEDICATION LIST (Selected) Inpatient Medications Ordered Melatonin Tablet: 6 mg, Tablet, By Mouth, Daily at bedtime, Routine, 06/26/22 21:00:00 EST acetaminophen 325 mg oral tablet: 650 mg, Tablet, By Mouth, Every 4 hours, PRN for Pain , Mild, Routine, 06/26/22 10:34:00 EST carvedilol 6.25 mg oral tablet: 6.25 mg, Tablet, By Mouth, Daily, Routine, 06/26/22 10:35:00 EST traZODone 50 mg oral tablet: 50 mg, Tablet, By Mouth, Daily at bedtime, Routine, 06/26/22 21:00:00 EST Documented Medications Documented oxyCODONE 5 mg oral tablet: 5 mg, 1, tablet, By Mouth, Every 6 hours, PRN, Refills 0, Tot. Refills 0, Maintenance, Pain , Moderate, 06/26/22 10:08:00 EST, Partial fill upon patient request if the prescription is for a schedule II opioid drug.. Aware of diagnosis: patient. Attending Consultants Alexander CARLTON, Julio César Baron MD, Rubens. Discharge condition: good Compared to admission: improved Code status: Full Hospital Course Juan Ruggiero is a 67-year-old female with past medical and surgical history notable for EtOH use, breast cancer status postlumpectomy and radiation, hypertension and lipidemia who presented as atransfer from an outside hospital for cervical spine fractures and neurosurgery work-up. Patient's injuries include: sustained Camron burst fracture at C1, type II odontoid fracture with dorsal angulation, C2 fracture extends into the left transverse foramen and nondisplaced left proximal phalanx fracture. On the morning of 06/19, patient started to develop severe edema with tachycardia, tachypnea and respiratory distress. Symptoms consistent with anaphylactic shock thought to be from lisinopril and patient was given epinephrine and Benadryl which helped with symptoms. Due to concerns for airway protection, she did undergo an emergent tracheostomy tube placement with a 7 TTS tracheostomy.Patient was then admitted to the surgical ICU for ventilator management. Patient went to the OR with neurosurgery on 06/19 for laminectomy/fusion of C1 and C2. Patient was downgraded on 06/20 and continued to do well. Patient did well with a 24-hour Trial so decision was made to remove the trach on 06/25. Patient has remained stable for 24 hours since trach removal. She is being discharged to rehab today. Follow-up appointment with trauma clinic has been made, ortho contact information is in discharge and neurosurgery will make follow-up appointment as well. Physical Exam: General: no acute distress, alert, awake HEENT: ASPEN in place, dressing over trach site Cardiac: Regular rate and rhythm Respiratory: clear to auscultation bilaterally Abdomen: soft, non-tender, non-distended Neurologic: alert & oriented x 3 Extremities: no edema, moving all four extremities spontaneously 40 minutes spent on discharge Discharge Plan Discharge Disposition Discharge: Post Acute Care. [facility]. Case Discussed with Dr. Acevedo. Trauma Pager [phone] * Curtis CARLTON, Jomar H: PERFORM Event Display: Progress Note Hospital Authored Date: [id number] ?? Attending Attestation: The patient was seen, examined, and discussed with the Trauma team on the date of service documented above. ??The clinical course, labs, and radiological studies were reviewed by me and findings on exam confirmed. ??I agree with the findings as well as the assessment and plan as delineated above. --- Jomar Acevedo MD Division of Trauma, Acute Care Surgery, and Surgical Critical Care * Macho Kent: MODIFY, SIGN, VERIFY, PERFORM Event Display: Progress Note Hospital Authored Date: Patient: JUAN RUGGIERO Age: 67 years Sex: Female : 1955 Associated Diagnoses: None Author: Macho Kent Findings Problem Related to Alteration in Musculoskeletal : Alteration in Musculoskeletal Func/new 06/25/2022 23:00 EST Alteration in Musculoskeletal Related to Fracture Goals & Outcomes, Musculoskeletal Affected extremity will maintain color/motion/sensation, Pt able to perform ADL's to best of ability, Pt will be free from complications of immobility, Pt will demonstrate ability to participate in ADL's, Pt will report acceptable level of comfort/pain relief Interventions, Musculoskeletal monitor Color/Motion/Sensation, Assist with repositioning, Encouragedeep breathing & coughing exercises, Obtain assistive devices as needed, Maintain proper alignment of injured extremity BH Goals/Interventions, Musculoskeletal Yes Musculoskeletal, Problem Start 06/18/2022 10:00 Reviewed Plan with, Musculoskeletal Patient Patient Progression, Musculoskeletal Pt progressing according to plan . Evaluation AOx4. nsr on tele. +pulses. edema and bruising in face. maintaining >98% on room air. pt had onebout of desating to high 80s while sleeping. placed on 1L nasal cannula with +effect. clear lungs. trach site dressing changed as pt said it was noisy DSD and tape applied. +BS. abdomen soft flat and nontender. C-collar in place. pt has denied pain throughout the night. currently resting comfortably in bed with call hyman within reach. able to make needs known. bed locked in lowest position. seeiView for detailed assessment.. Discharge Information Pulmonary Rehab Discharge : Pulmonary Rehab Discharge Status 06/20/2022 11:00 EST PEEP 5 06/20/2022 10:00 EST PEEP 5 06/20/2022 8:16 EST PEEP 5 06/20/2022 8:00 EST PEEP 5 06/20/2022 6:03 EST PEEP 5 06/20/2022 4:00 EST PEEP 5 06/20/2022 3:22 EST PEEP 5 06/20/2022 0:25 EST PEEP 5 Rehabilitation Discharge : Rehab Discharge Index 06/24/2022 12:07 EST Walker: distance < 10 06/23/2022 17:00 EST Walker: distance < 10 06/23/2022 16:02 EST Full chart review completed Not Done: Task Duplication (Not Done) 06/23/2022 16:01 EST Comments on treatment indicated s/p cervical surg and new trach Full chart review completed Yes Hospital course Hospital course 06/22/2022 9:35 EST Comments on treatment indicated s/p cerival surg and new trach Full chart review completed Yes Hospital course Hospital course 06/22/2022 9:30 EST Comments on treatment indicated 76 y/o (I) F suffered fall down flight of stairs with cervical fxs, now s/p laminectomy/fusion of C1/C2, Coldiron at all times. PT to see for bed mobility, therex, transfers, balance, and gait trng. Walker: distance < 10 Distance pt will ambulate 100 ft with ww Full chart review completed Yes Hospital course Hospital course Other findings Pt presents sitting up visiting with her sister. Per sister pt will be able to stay with her after short term rehab and they would like this to be an acute rehab such as [facility]. Given pt will be able to go to sister's home this should be good plan. Plan of care PT Gait training, Transfer training, Therapeutic exercise, Functional Activities, Balance training 06/22/2022 8:35 EST Comments on treatment indicated adls fucnlt mob safety pt endurance Full chart review completed Yes Hospital course Hospital course Note * Tish Hale RN: PERFORM Event Display: Discharge/Transfer Note Hospital Authored Date: [id number] Nursing Discharge Note Entered On: 06/26/2022 12:09 EST Performed On: 06/26/2022 12:07 EST by Tish Hale RN Nursing Discharge Note 2 Discharge Time : 06/26/2022 11:30 EST Discharge Level of Care at Discharge : [facility] facility Discharge Nursing Homes/Rehab Facilities : [facility] Patient Left Unit Via : Ambulance Patient Accompanied Off Unit with : Ambulance/Chair Van Personnel Handover Given to Transport Personnel : Yes DC Instructions Provided & Signed by Pt : Yes Patient Understands D/C Instructions : Yes Patient Instructions Discharge Signed : Yes Did Pt have Specialty Bed or Wound Vac : No Tish Hale RN - 06/26/2022 12:07 EST * Mindy Reis: PERFORM, SIGN, VERIFY Event Display: Case Management Discharge Plan Authored Date: [id number] Patient: JUAN RUGGIERO Age: 67 years Sex: Female : 1955 Associated Diagnoses: None Author: Mindy Reis Discharge Plan Case Management Discharge Plan : Case Management Discharge Plan Data 06/26/2022 9:19 EST Discharge Level of Care at Discharge [facility] facility Discharge Nursing Homes/Rehab Facilities [facility] Discharge Transportation Arranged [facility] [address] [place] [address] Discharge Arranged Transport Date/Time 06/26/2022 11:30 Mode of Transportation Arranged Ambulance Agency [employer] #1 intake Service Categories #1 Occupational Therapy, Physical Therapy, Assisted Service Start Date and Time #1 06/26/2022 11:30 Service Comments #1 you will be discharging to [facility] for further nursing and rehab needs. Name of Person Notified of Transfer juan jm * Tish Hale RN: PERFORM Event Display: Patient Education/Instruction Authored Date: [id number] Inpatient Adult Discharge Instructions [address] [address] Name: JUAN RUGGIERO : 1955 Visit: 06/18/2022 16:44:00 Current Date: 06/26/2022 11:20 Account: [id number] Inpatient Adult Discharge Instructions We would like to thank you for allowing us to assist you with your healthcare needs. The following includes patient education materials and information regarding your injury/illness. Our entire staffstrives to provide an excellent experience for our patients and their families. PLEASE ENSURE YOU FOLLOW-UP PER THE INSTRUCTIONS BELOW! ?? YOUR OPINION IS IMPORTANT TO US! Please complete the survey you may receive by mail or email. Your feedback will be used to make improvements to the healthcare experiences of our patients and their families. Surveys are administered by [employer] ?? If further treatment with your primary care physician or another doctor is recommended, it is important for you to keep the appointment. Call your primary care physician or return to the Emergency Department immediately if your condition worsens, fails to improve, or new symptoms develop. If you need to find a doctor, you can call [facility] for a referral at [phone] or toll free at [phone] [email or web address] ([phone]) or log in to [email or web address] ?? You can view and manage your care through the patient portal or by using a health care evert of your choosing. [employer] is a website that allows you to securely view your medical information including your hospital discharge summary, office visit summaries, medications and follow-up visits. You can also request appointments, renew medications, and request access to your medical information using a health care evert of your choosing, or just ask a question. You can enroll at [email or web address] or register during your next office visit. You have been discharged from [facility], Patient Care Unit: S3. If you have any questions regarding these instructions after you leave, please call us and we will be happy to assist you. [facility] Your Care Team Attending Physician Curtis CARLTON, Jomar Rebolledo Consulting Providers Felotn CARLTON, Chris Watts; Misael CARLTON, Federico Hatch MD, Angelica Munoz MD, Julio César Boo; Alejandro Monet DO Discharging Providers Ally Watkins DO Reason for Admission tx from fell down 16 stairs around 12am crawling on floor C1 C2 T1 T3 right rib fx pt not on blood thinners pt was drinking at time of fall pt was medicated PT leaving Your Diagnosis Fall down stairs Cervical spine fracture Odontoid fracture Rib fracture Thoracic spine fracture Tests Performed Below is a partial list of the tests performed during your hospitalization. You may have had other tests and procedures not included in this list. Please discuss all test results with your provider. ABG Basic Metabolic Panel BUN C1q Immune Complex Detection C4 Complement Calcium Ionized Calcium Level CBC w/ Differential CK (CREATINE KINASE) CK Total Only CK,TOTAL ONLY CKMB CONFIRMATION/QUANT COVID-19 (2019 Novel Coronavirus) PCR COVID-19 (NOVEL CORONAVIRUS), PCR Creatinine Glucose Level GLUCOSE POC HOLD RED TUBE Ionized Calcium Lactate Level Lytes Magnesium Level Phosphorus Level PT (INR) PTT Troponin T, High Sensitivity Type and Screen CT Abd/Pelvis W/ IV Contrast Only CT Angio Neck CT Cervical Spine W/O Contrast CT Chest W/ Contrast CT Head/Brain W/O Contrast CT Maxilloface W/O Contrast CXR Portable Portable Chest XR Femur 2 Views Left XR Foot Min 3 Views Left XR Knee 1 or 2 Views Right XR Modified Barium Swallow W/ Speech RAD XR O-Arm XR Shoulder Min 2 Views Left Primary Care Provider Devi CARLTON, Bucky Hancock Advance Directive Health Care Proxy on File Yes - Health Care Proxy No qualifying data available. Discharge Vitals Temperature: 97.4 DegF Height: 165 cm Pulse Rate:??95 bpm??High Weight: 75.2 kg Respiratory Rate: 19 br/min Body Mass Index:??27.84 kg/m2??High Systolic Blood Pressure: 125 mm Hg Body surface area: 1.86 Diastolic Blood Pressure: 75 mm Hg ?? Oxygen Saturation:??93 %??Low ?? Studies Pending All tests and labs ordered during this hospital stay have been completed unless listed below. Please discuss all pending results with your provider listed above in these instructions. ?? C1 Esterase Inhibitor Function C1q Complement Component What to do next Instructions From Your Doctor Follow up appointments: Ortho - Dr. Munoz, call to make appointment [phone] Neurosurgery - Follow up in two weeks 07/08 at 9:30 am. Trauma??- Follow up appointment. Wednesday at 10 am. ?? Please wear the ASPEN collar at all times until you follow up with neurosurgery. Keep an eye on thewound, if you develop any worsening pain, signs of infection (fever/chills, redness around the wound), please reach out to Neurosurgery. Please do not use Lisinopril. We restarted you on another medication for your blood pressure. Please follow up with your PCP. For the fracture in your foot, please keep your foot elevated and use ice for swelling control. Youcan bear weight as tolerated and please wear a flat soled shoe. Discharge Orders Scheduled Follow-Up Appointments Wednesday 10:00 AM EST ?? With: Raciel Hi MD Where: [facility] [address] [place] [address] Drive [address] [place] [address]- Wednesday 9:30 AM EST ?? With: Where: [facility] [address] [place] [address] Drive [address] [place] [address]- You Need to Schedule the Following Appointments Follow Up with??Rubens Baron MD When??07/08/2022 09:30 AM EST Where: [address] [place] [id number]- Discharge Medications JUAN RUGGIERO :1955 Visit Date:06/18/2022 Medications: Please continue your medications until treatment is completed or stopped by your provider. Medications not listed below should be discontinued. Discuss any questions related to medications with your provider. What How Much When Instructions Next Dose New Acetaminophen (acetaminophen 160 mg/ 5 mL oral suspension) 15 Milliliter Nasogastric tube Every 4 hours Duration: 5 Days Pickup at [facility] 3 as needed New Acetaminophen (acetaminophen 325 mg oral tablet) 2 tab(s) Oral Every 4 hours as needed for Pain , Mild as needed New Carvedilol (carvedilol 6.25 mg oral tablet) 1 tab(s) Oral Daily 06/27 New Melatonin (melatonin 3 mg oral tablet) 6 Milligram Oral Daily at Bedtime 9pm 06/26 New Oxycodone (oxyCODONE 5 mg oral tablet) 1 tab(s) Oral Every 6 hours as needed for Pain , Moderate Duration: 3 Days Printed Prescription as needed New Trazodone (traZODone 50 mg oral tablet) 1 tab(s) Oral Daily at Bedtime 9pm 06/26 Unchanged Lisinopril (lisinopril 5 mg oral tablet) 1 tab(s) Oral Daily 06/27 Unchanged Rosuvastatin (rosuvastatin 40 mg oral tablet) 1 tab(s) Oral Daily 06/27 Pharmacy Information [facility] 3: [address], [place] [id number] [phone] Test Results Below is a partial list of the most recent Laboratory test results done prior to this discharge. You may have had other tests and procedures not included in this list. Please discuss all test resultswith your provider. ABG (06/19/2022) ???pH - 7.40???pCO2 - 42 mm Hg???pO2 - 130 mm Hg???Bicarbonate, Estimated - 26 mmol/L???Specimen Type - Blood Gas - ARTERIAL???Percent O2 (FIO2) - 50% Basic Metabolic Panel (06/19/2022) ???Sodium - 140 mmol/L???Potassium - 4.1 mmol/L???Chloride - 107 mmol/L???Bicarbonate Level - 27 mmol/L???Anion Gap - 6???Glucose Level - 130 mg/dL???BUN - 17 mg/dL???Creatinine-Blood - 0.6 mg/dL???Estimated GFR Creatinine - 100 ML/MIN/1.73 M2???Calcium - 8.0 mg/dL BUN (06/25/2022) ???BUN - 19 mg/dL C1q Immune Complex Detection (06/22/2022) ? ?Immune Complex C1Q - <1.2 C4 Complement (06/22/2022) ???Complement C4 - 30 mg/dL Calcium Ionized (06/25/2022) ???Calcium, Ionized pH Corrected - 1.22 mmol/L Calcium Level (06/25/2022) ???Calcium - 8.7 mg/dL CBC w/ Differential (06/25/2022) ???WBC - 9.1 k/mm3???RBC - 2.52 m/mm3???Hgb - 7.9 Gm/dL???Hct - 25.1 %???MCV - 99.6 femtoliters???MCH - 31.3 pg???MCHC - 31.5 g/dL???Platelet Count - 268 k/mm3???RDW-SD - 46.8 femtoliters???MPV - 10.8 femtoliters???Nucleated RBC (Automated) - 0.7 #/100 WBC'S???Abs. NRBC - 0.1 k/mm3???Abs. Neut - 5.1 k/mm3???Abs. Lymph - 2.5 k/mm3???Abs. Cass - 1.1 k/mm3???Abs. Eo - 0.4 k/mm3???Abs. Baso - 0.1 k/mm3???Neut % - 55.4 %???Lymph % - 27.6 %???Cass % - 11.5 %???Eos % - 3.8 %???Baso % - 0.8 %???Imm Gran - 0.9 %???Abs. Imm Gran - 0.1 k/mm3 CK (CREATINE KINASE) (06/19/2022) ???CK, Total - 386 units/L CK Total Only (06/18/2022) ???CK, Total - 610 units/L CK,TOTAL ONLY (06/19/2022) ???CK, Total - 386 units/L CKMB CONFIRMATION/QUANT (06/19/2022) ???CK MB Confirmation - Quant - 4.0 ng/mL COVID-19 (2019 Novel Coronavirus) PCR (06/22/2022) ???COVID-19 PCR Specimen Source - NASAL???COVID-19 PCR Result - NEGATIVE COVID-19 (NOVEL CORONAVIRUS), PCR (06/25/2022) ???COVID-19 by RT-PCR - NEGATIVE Creatinine (06/25/2022) ???Creatinine-Blood - 0.5 mg/dL???Estimated GFR Creatinine - 102 ML/MIN/1.73 M2 Glucose Level (06/25/2022) ???Glucose Level - 105 mg/dL GLUCOSE POC (06/25/2022) ???Glucose, POC - 107 mg/dL HOLD RED TUBE (06/22/2022) ???Hold Red Top - SPECIMEN DISCARDED AFTER 1 WEEK Ionized Calcium (06/19/2022) ???Calcium, Ionized pH Corrected - 1.12 mmol/L Lactate Level (06/19/2022) ???Lactate - 1.4 mmol/L Lytes (06/25/2022) ???Sodium - 141 mmol/L???Potassium - 4.5 mmol/L???Chloride - 103 mmol/L???Bicarbonate Level - 30 mmol/L???Anion Gap - 8 Magnesium Level (06/25/2022) ???Magnesium - 2.3 mg/dL Phosphorus Level (06/25/2022) ???Phosphorus - 4.1 mg/dL PT (INR) (06/19/2022) ???INR - 1.0???Protime (PT) - 10.4 seconds PTT (06/19/2022) ? ?APTT - <22.0 seconds Troponin T, High Sensitivity (06/19/2022) ???High Sensitivity Troponin (HSTnT) - 18 ng/L Type and Screen (06/18/2022) ???Blood Type - B Negative???Antibody Screen - Negative Allergies (NKA means No Known Allergies) Contrast Dye Latex??(Anaphylactic shock due to serum, Anaphylactic shock due to serum, Anaphylactic shock due toserum) Omnipaque 300??(Anaphylaxis) lisinopril KATHE inhibitors??(KATHE inhibitor-induced angioedema) chlorhexidine containing compounds??(Anaphylactic shock due to serum) Problems No qualifying data available Education Materials Below is the list of Educational Leaflet Providered with your Discharge Instructions. Neck or Spine Fractures (Broken Neck or Spine)?? Valuables and Belongings I fully understand and agree that [facility] accepts no responsibility for all my personal property including clothing, toilet articles, radios, jewelry, dentures, hearing aids, rings, money, or any other property that is in my possession or is brought to me after admission. I understand certain valuables may be placed in a hospital safe for a short period of time. I understand that the hospital is not liable for loss or damage due to accident, fire, or other natural occurrence while said property is in the safe. I accept full responsibility for any personal property that I keep with me, and will not hold the hospital responsible in case of loss or disappearance. I acknowledge that i have been encouraged to send valuables and belongings home. ?? No Valuables/Belongings: No valuables/belongings present Review of Valuable and Belonging List: With patient, With family, With witness Date for Pt to Sign Valuables/Belongings: 06/26/22 11:03:00 ?? Other Discharge Information ?? Wound Assessment?? Wound Assessment?? Wound Location I: Head Wound Location II: Neck Wound Type II: Incision Surgical Incision Type I: Surgical ?? Case Management Discharge Plan?? Discharge Plan?? Discharge Agency Information?? Discharge Level of Care at Discharge: [facility] facility Agency [employer] #1: intake Discharge Rx Program: Discharge Prescription Program Service Start Date and Time #1: 06/26/22 11:30:00 Discharge Rx Program: Discharge Prescription Program Service Categories #1: Occupational Therapy, Physical Therapy, Assisted Discharge Transportation Arranged: [facility] [address] [facility] ??[phone] Service Comments #1: you will be discharging to [facility] for further nursing and rehab needs. Mode of Transportation Arranged: Ambulance Name of Person Notified of Transfer: juan oneal Discharge Arranged Transport Date/Time: 06/26/22 11:30:00 ?? Discharge Nursing Homes/Rehab Facilities: [facility] ? Pulmonary Rehab Status?? Pulmonary Rehab Discharge Status?? Respiratory Rate: 19 br/min PEEP: 5 ? Common Emergency Awareness Tips IS IT A STROKE? Act FAST and Check for these signs: FACE Does the face look uneven? ARM Does one arm drift down? SPEECH Does their speech sound strange? TIME Call at any sign of stroke ?? Heart Attack Signs Chest discomfort: Most heart attacks involve discomfort in the center of the chest and lasts more than a few minutes, or goes away and comes back. It can feel like uncomfortable pressure, squeezing, fullness or pain. Discomfort in upper body: Symptoms can include pain or discomfort in one or both arms, back, neck, jaw or stomach. Shortness of breath: With or without discomfort. Other signs: Breaking out in a cold sweat, nausea, or lightheaded. Remember, MINUTES DO MATTER. If you experience any of these heart attack warning signs, call to get immediate medical attention! ?? Smoking can increase your chances of developing chronic health problems and can cause harmful effects to other family members in your house. If you smoke, you are strongly encouraged to quit. Please call [employer] at [phone] or [phone] ([phone]) or log in to [email or web address] for referrals to smoking cessation programs. ?? The National Suicide Prevention Hotline is available 01/02 if you or someone you know needs to find a reason to keep living. By calling 5-136-515-yvtp (5123) you'll be connected to a skilled, trained counselor at a crisis center in your area. INPATIENT DISCHARGE INSTRUCTIONS SIGNATURE PAGE JUAN RUGGIERO Location:[facility] Registration Date and Time:06/18/2022 16:44 EST Primary Care Physician: Devi CARLTON, Bucky Hancock, I JUAN RUGGIERO, have received the above patient education materials/instructions and have verbalized understanding. If ambulance or transport services are being used I further acknowledge beinggiven a choice of service. ?? If you need to contact me, please call me at this number: . Patient/Package Wrapper Name: Patient/Package Wrapper Signature: Relationship to Patient: Witness Name/Signature: Date: * Ally Watkins DO: PERFORM Event Display: Patient Education Leaflets Authored Date: [id number] Neck or Spine Fractures (Broken Neck or Spine) ?? [address] Neck or Spine Fractures (Broken Neck or Spine) The spine stretches from the base of the skull to the tailbone. It's made up of 33 bones (vertebrae) that help support the body. These bones also protect the spinal cord, the important branch of yournervous system that carries messages from??the brain to the body. A broken (fractured) bone in the neck or spine can be very serious. In some cases, it can lead to paralysis or . Emergency care is vital. Keep neck and spine injuries still Don't move a person with a neck or spine injury.??The person should lie still and wait for an emergency medical team. It can help for someone to gently hold the person's head to keep it from moving until help arrives. ?? When to go to the emergency room (ER) If you come upon a person with a neck or spine injury, call 911 for emergency help right away. Waitfor emergency services personnel to arrive and take over.??A person with a neck or spinal injury may have symptoms that include: ??? Not being awake or aware (unconscious) ??? Severe back or neck pain ??? Bruising and swelling over the neck or back ??? Tingling or loss of feeling in the hands or feet ??? Loss of bowel or bladder function ??? Loss of feeling and movement below the level of injury ??? Weakness or inability to move arms or legs ?? What to expect in the ER Here's what will happen in the ER:? The injured person??may be placed on a??spine board that prevents movement for??examination. ??? X-rays of the neck or spine may be taken. ??? An MRI or CT scan may be done. These provide more detailed images of the structures in??the neck and back. ??? Medicine??may be given to lessen pain. ?? Treatment The goal of treatment is to return the neck or spine to its normal position. ??? A minor neck fracture or simple spine fracture may be treated with a neck brace for??6 to 8 weeks until the bone heals. In this case, it's very important to do what your provider advises for home care and keep all follow-up appointments. ??? Severe or complex fractures often need surgery to ease the pressure on the spinal cord or spinal nerves and to realign the spine with metal rods, screws, and bone grafts. In that case, a spine surgeon (orthopedic surgeon or neurosurgeon) is needed. ?? Last Reviewed Date: 2021 ?? 4196-4404 [employer]. All rights reserved. This information is not intended as a substitute for professional medical care. Always follow your healthcare professional's instructions. ?? * BHSPowerscribe , CIS S: TRANSCRIBE Idris Guaman: SIGN Derek Alvarez MD: VERIFY Event Display: Result: Authored Date: [id number] Modified Barium Swallow WITH SPEECH PATHOLOGY CLINICAL INDICATION: Reason: Aspiration; Clinical Question(s): Aspiration; Order Comment: Modified Barium Swallow W Speech (Radiology) Prep COMPARISON: None Technique: Lateral cine-videofluoroscopy was performed during the oral administration of various barium containing consistencies, as described below. Fluoroscopic imaging provided by Alex Mariee PA-C. Pulsed fluoroscopy time: 3.1 minutes Dose Area Product (DAP): 265.6 uGy*m2 Findings: Applesauce, pudding, mixed fruit/juice, and thin barium consistencies were tested. The oral and pharyngeal phases of swallowing were without evidence of laryngeal penetration or subglottic aspiration. Enteric tube and posterior spinal fusion hardware noted. IMPRESSION: No laryngeal penetration or subglottic aspiration. Findings as described. For dietary concerns or recommendations, please refer to speech pathologist report. By undersigning and finalizing the report, the attending radiologist confirms he/she has personallyreviewed and interpreted the images and agrees with the description of the findings. I have personally reviewed the images and I agree with this report. WSN: [id number] Ordering Physician: Renetta Bacon Dictated By: Idris Guaman Dictated Date/Time: 06/23/22 4:05 pm Reviewed By: Derek Alvarez MD Signed By: Derek Alvarez MD Signed Date/Time: 06/23/22 4:10 pm Transcribed By: ROSALBA Transcribed Date/Time: 06/23/22 3:25 pm * Andrew Pineda MD: VERIFY Andrew Pineda MD: VERIFY Event Display: Result: Authored Date: [id number] HISTORY: Reason: cervical spine fracture C1-C2 TECHNIQUE: A noncontrast intraoperative CT scan of the cervical spine was performed by the referring service 06/19/2022. 2 acquisitions were obtained, and multiplanar reconstructions were generated inbone algorithm. COMPARISON: CT scan of the cervical spine 06/18/2022 FINDINGS: The CT acquisitions document intraoperative findings compatible with ORIF of C1 and C2 fractures. On the second acquisition, posterior element/pedicle screws are present at C1 and C2. The C1 screws extend slightly beyond the anterior margin of the C1 vertebral body. A type II dens fracture is again noted. Dorsal angulation of the dens is again noted. Anterolisthesis of the dens with respect to the body of C2 has been replaced by slight retrolisthesis of the densmeasuring up to 2 mm. Comminuted Camron type fracture and a vertically-oriented fracture of the left C2 lateral mass (in the coronal plane) are again noted. Fractures of the left C2 lateral mass are also present. Pneumomediastinum is noted in the setting of an enteric tube and intubation. IMPRESSION: 1. Intraoperative findings related to ORIF of Camron type and type II dens fractures. The positioning of the dens with respect to C2 has changed as detailed above. 2. Fractures of the left lateral C2 mass and left foramen transversarium. 3. Pneumomediastinum, which can be correlated with the patient's physical examination. A critical result message (Navarro) has been communicated via the [employer] system on 06/20/2022 12:26 PM, Message ID [id number]. WSN: [id number] Ordering Physician: Rubens Baron Dictated By: Andrew Pineda MD Dictated Date/Time: 06/20/22 12:26 p Reviewed By: Andrew Pineda MD Signed By: Andrew Pineda MD Signed Date/Time: 06/20/22 12:26 pm Transcribed By: ROSALBA Transcribed Date/Time: 06/20/22 11:59 am * TERESO Elmore S: Geni Dominique MD N: MODIFY Event Display: Addendum Authored Date: [id number] ICA irregularity mentioned in body of report should also be in the impression. This could be due tononcalcified plaque or due to fibromuscular dysplasia. WSN: [id number] Ordering Physician: Laura Chino Dictated By: Geni Mckeon MD Dictated Date/Time: 06/19/22 2:51 pm Reviewed By: Geni Mckeon MD Signed By: Geni Mckeon MD Signed Date/Time: 06/19/22 2:51 pm Transcribed By: ROSALBA Transcribed Date/Time: 06/19/22 2:[address] Cervical spine WO contrast * [facility] , CIS S: TRANSCRIBE Paula Aburto MD: VERIFY Event Display: Result: Authored Date: [id number] CT Cervical Spine W/O Contrast Reason: Postop Spinal Fusion; Order Comment: TECHNIQUE: Spiral CT of the cervical spine without contrast, formatted in 3 planes. Weight-based protocol using automatic tube modulation was used to optimize exposure parameters. RADIATION DOSE PARAMETERS: CTDIvol Body: 11.00 mGy, DLP Body: 283 mGy*cm. COMPARISON: Cervical spine, 08/19/2021. FINDINGS: Spine: Again noted is a type II dens fracture. Alignment is mildly improved compared to the preoperative exam, though there is still about 4 mm posterior displacement of the odontoid relative to the body ofC2, as well as slight posterior tilting of the dens with up to 4 mm separation of the fractured odontoid from C2 anteriorly. On the left side the fracture is again noted to extend through the left transverse foramen. Camron fracture is again seen involving the anterior arch and posterior C1 arch on each side. There has been interval posterior fusion utilizing bilateral lateral mass screws and interconnecting vertical rods at C1 to. The tip of the right C1 screw just extends through the anterior cortex, and the right C2 with screw just skirts the superior and medial margin of the transverse foramen. There may be slight symmetric widening of atlantooccipital joints. Remaining alignment is stable. There is subtle anterior wedging of the T1. Right T3 transverse process fracture is again seen. There are also fractures through the right 1st through 3rd right rib heads. There is mild disc space narrowing at C5-6 and C6-7 with anterior osteophyte as well as multilevel left-sided facet spurring. The spinal canal at C1 and C2 is obscured by streak artifact from hardware. There is no high-grade canal stenosis. Soft tissues and lung apices: Air is seen in the posterior paraspinal soft tissues from C1-C3 with overlying midline skin staplesnoted. There is a nasogastric tube with fluid in the nasopharyngeal airway and minimal fluid in theleft sphenoid sinus. A new tracheostomy tube is also seen with stranding and air in the surrounding soft tissues, with air also extending into the right parapharyngeal space. There is scarring at both lung apices. IMPRESSION: 1. Status post posterior fusion at C1-2 with hardware positioning as described. There is about 4 mmposterior displacement and posterior tilting of the odontoid relative to C2, mildly improved compared to the preoperative exam. 2. Possible slight widening of both atlantooccipital joints. 3. Unchanged mild anterior wedging of T1, right T3 transverse process of fracture, and fractures through the right 1st through 3rd right rib heads. WSN: [id number] Ordering Physician: Kelsey Davey Dictated By: Paula Aburto MD Dictated Date/Time: 06/20/22 2:51 pm Reviewed By: Paula Aburto MD Signed By: Paula Aburto MD Signed Date/Time: 06/20/22 2:51 pm Transcribed By: ROSALBA Transcribed Date/Time: 06/20/22 2:17 pm * [facility] , CIS S: TRANSCRIBE Mik CARLTON, Bijan Hancock: VERIFY Event Display: Result: Authored Date: CT Head/Brain W/O Contrast, CT Cervical Spine W/O Contrast Reason: Other:; Head trauma, mod-severe; Clinical Question(s): Hematoma COMPARISON: None. TECHNIQUE: Incremental CT without contrast through the head was formatted in axial and coronal plane. Spiral CT without contrast through the cervical spine was formatted in 3 planes. Automatic tube modulation was used for the cervical spine and iterative dose reconstruction was used for both the head and cervical spine to optimize scan parameters and image quality. CTDIvol Body: 11.50 mGy, DLP Body: 310 mGy*cm. CTDIvol Head: 40.40 mGy, DLP Head: 671 mGy*cm. FINDINGS: Veneer Lathe Operator View Findings, Lines and Tubes: None. HEAD: BRAIN and EXTRA-AXIAL SPACES: No parenchymal hemorrhage, midline shift or mass effect. Hampton-white matter differentiation is well preserved. No acute infarct. Negative insular ribbon sign. Atherosclerotic vascular calcification ofthe carotid arteries but negative hyperdense vessel sign. Ventricles, sulci and basilar cisterns are normal. No white matter lesions. No subarachnoid hemorrhage, subdural or epidural collections. CALVARIUM, SKULL BASE AND SOFT TISSUES: No fractures or suspicious bony lesions. The paranasal sinuses and mastoid air cells are clear. Visualized orbits and globes are intact. There is diffuse scalp soft tissue swelling. CERVICAL SPINE: There is a Camron burst fracture of C1 with fracture extending through the anterior arch and bilateral posterior arches. There is a type II odontoid fracture which is posteriorly angulated on sagittal image 32 series 305. In addition to the odontoid fracture, there is a fracture extending into the anterior aspect of the left transverse process of C2 extending through the left transverse foramen. There is disruption of the normal alignment of the lateral masses and odontoid on coronal imaging indicating underlying ligamentous injury. There is straightening of lordosis. No locked or perched facet. There is mild- moderate loss of discspace height. OTHER BONES: Limited visualized upper ribs and clavicles are intact. CERVICAL SOFT TISSUES AND LUNG APICES: Unremarkable. Clear lung apices. IMPRESSION: HEAD CT: No acute intracranial hemorrhage or mass effect. Diffuse scalp soft tissue swelling-hematoma. CERVICAL CT: Camron burst fracture at C1. Type II odontoid fracture with dorsal angulation. C2 fracture extends into the left transverse foramen. A critical result message (Navarro) has been communicated via the [employer] system on 06/18/2022 7:17 PM, Message ID [id number]. WSN: [id number] Ordering Physician: Laura Chino Dictated By: Bijan Houser MD Dictated Date/Time: 06/18/22 7:17 pm Reviewed By: Bijan Houser MD Signed By: Bijan Houser MD Signed Date/Time: 06/18/22 7:17 pm Transcribed By: ROSALBA Transcribed Date/Time: 06/18/22 7:[address] Head WO contrast * [facility] , CIS S: TRANSCRIBE Bijan Houser MD: VERIFY Event Display: Result: Authored Date: [id number] CT Head/Brain W/O Contrast, CT Cervical Spine W/O Contrast Reason: Other:; Head trauma, mod-severe; Clinical Question(s): Hematoma COMPARISON: None. TECHNIQUE: Incremental CT without contrast through the head was formatted in axial and coronal plane. Spiral CT without contrast through the cervical spine was formatted in 3 planes. Automatic tube modulation was used for the cervical spine and iterative dose reconstruction was used for both the head and cervical spine to optimize scan parameters and image quality. CTDIvol Body: 11.50 mGy, DLP Body: 310 mGy*cm. CTDIvol Head: 40.40 mGy, DLP Head: 671 mGy*cm. FINDINGS: Veneer Lathe Operator View Findings, Lines and Tubes: None. HEAD: BRAIN and EXTRA-AXIAL SPACES: No parenchymal hemorrhage, midline shift or mass effect. Hampton-white matter differentiation is well preserved. No acute infarct. Negative insular ribbon sign. Atherosclerotic vascular calcification ofthe carotid arteries but negative hyperdense vessel sign. Ventricles, sulci and basilar cisterns are normal. No white matter lesions. No subarachnoid hemorrhage, subdural or epidural collections. CALVARIUM, SKULL BASE AND SOFT TISSUES: No fractures or suspicious bony lesions. The paranasal sinuses and mastoid air cells are clear. Visualized orbits and globes are intact. There is diffuse scalp soft tissue swelling. CERVICAL SPINE: There is a Camron burst fracture of C1 with fracture extending through the anterior arch and bilateral posterior arches. There is a type II odontoid fracture which is posteriorly angulated on sagittal image 32 series 305. In addition to the odontoid fracture, there is a fracture extending into the anterior aspect of the left transverse process of C2 extending through the left transverse foramen. There is disruption of the normal alignment of the lateral masses and odontoid on coronal imaging indicating underlying ligamentous injury. There is straightening of lordosis. No locked or perched facet. There is mild- moderate loss of discspace height. OTHER BONES: Limited visualized upper ribs and clavicles are intact. CERVICAL SOFT TISSUES AND LUNG APICES: Unremarkable. Clear lung apices. IMPRESSION: HEAD CT: No acute intracranial hemorrhage or mass effect. Diffuse scalp soft tissue swelling-hematoma. CERVICAL CT: Camron burst fracture at C1. Type II odontoid fracture with dorsal angulation. C2 fracture extends into the left transverse foramen. A critical result message (Navarro) has been communicated via the [employer] on 06/18/2022 7:17 PM, Message ID [id number]. WSN: [id number] Ordering Physician: Laura Chino Dictated By: Bijan Houser MD Dictated Date/Time: 06/18/22 7:17 pm Reviewed By: Bijan Houser MD Signed By: Bijan Houser MD Signed Date/Time: 06/18/22 7:17 pm Transcribed By: ROSALBA Transcribed Date/Time: 06/18/22 7:05 pm XR Shoulder - left GE 2 Views * Jessscmaru , CIS S: TRANSCRIBE Elías Rice MD: VERIFY Event Display: Result: Authored Date: [id number] Shoulder Min 2 Views Left, 2 views Reason: Trauma; Clinical Question(s): Fracture COMPARISON: None. FINDINGS: No evidence of fracture or dislocation IMPRESSION: See above WSN: [id number] Ordering Physician: Diana Brown Dictated By: Elías Rice MD Dictated Date/Time: 06/18/22 7:25 pm Reviewed By: Elías Rice MD Signed By: Elías Rice MD Signed Date/Time: 06/18/22 7:25 pm Transcribed By: ROSALBA Transcribed Date/Time: 06/18/22 7:25 pm XR Femur - left 2 Views * [facility] , CIS S: TRANSCRIElías Conley MD: VERIFY Event Display: Result: Authored Date: [id number] Femur 2 Views Left Reason: Trauma; with Pain; Clinical Question(s): Fracture COMPARISON: None. FINDINGS: Cat catheter with contrast in the urinary bladder. No evidence of fracture or dislocation. Tricompartmental osteoarthritis is most severe in the patellofemoral compartment. 2 cm loose body along the posterior joint line. IMPRESSION: No evidence of fracture. Tricompartmental osteoarthritis in the knee with 2 cm loose body along the posterior joint line WSN: [id number] Ordering Physician: Laura Chino Dictated By: Elías Rice MD Dictated Date/Time: 06/18/22 7:28 pm Reviewed By: Elías Rice MD Signed By: Elías Rice MD Signed Date/Time: 06/18/22 7:28 pm Transcribed By: ROSALBA Transcribed Date/Time: 06/18/22 7:26 pm XR Knee - right 1 or 2 Views * TERESO Elmore S: Elías Shepherd MD: VERIFY Event Display: Result: Authored Date: [id number] Knee 1 or 2 Views Right, 2 views Reason: Trauma; with Pain; Clinical Question(s): Fracture COMPARISON: None. FINDINGS: Severe tricompartmental osteoarthritis is most significant in the medial compartment No evidence of fracture or dislocation IMPRESSION: See above WSN: [id number] Ordering Physician: Laura Chino Dictated By: Elías Rice MD Dictated Date/Time: 06/18/22 7:30 pm Reviewed By: Elías Rice MD Signed By: Elías Rice MD Signed Date/Time: 06/18/22 7:30 pm Transcribed By: ROSALBA Transcribed Date/Time: 06/18/22 7:[address] Abdomen and Pelvis W contrast IV * TERESO Elmore S: Bijan Ayers MD: VERIFY Event Display: Result: Authored Date: [id number] CT Chest W/ Contrast, CT Abd/Pelvis W/ IV Contrast Only INDICATION: Reason: Trauma; Clinical Question(s): Other:; Rib Fracture TECHNIQUE: Helical CT scan of the chest, abdomen, and pelvis with IV contrast, formatted in 3 planes. cc of was administered intravenously. This study was performed oral contrast. Weight-based protocol was performed using automatic exposure control. CTDIvol Body: 10.90 mGy, DLP Body: 781 mGy*cm. COMPARISON: None. FINDINGS: Veneer Lathe Operator view findings, lines and tubes: None. Trachea and airways: Patent without evidence of tracheal or endobronchial lesion. Lungs and pleura: Dependent atelectasis. No effusion or pneumothorax. Mediastinum and james: No mass or hematoma. No mediastinal or hilar lymphadenopathy. No esophageal abnormality. Heart: Heart is normal in size. No pericardial effusion. Aorta: No aortic aneurysm. Pulmonary arteries: Normal caliber. No evidence of pulmonary embolism on this study performed without angiographic technique. Chest wall soft tissues: No acute abnormality. Diaphragm: Intact. Liver: Normal in attenuation and morphology. No suspicious lesion. Gallbladder: No CT evidence of gallbladder pathology. Bile ducts: No biliary ductal dilation. Spleen: Normal in size. Pancreas: No suspicious lesion or ductal dilatation. Adrenal glands: No nodule. Kidneys and ureters: No hydronephrosis, stone, or suspicious lesion. Bladder: Cat catheter within the urinary bladder containing contrast. No extravasation to indicate bladder wall injury. Reproductive organs: Unremarkable. Stomach, small bowel, and large bowel: Normal caliber stomach and bowel loops. No surrounding inflammatory changes. Appendix: No evidence of acute appendicitis. Peritoneum and retroperitoneum: No ascites or pneumoperitoneum. No omental or mesenteric lesions. Lymph nodes: No enlarged lymph nodes. Blood vessels: No vascular calcifications or aneurysm. No evidence of venous thrombosis. Abdominal and pelvic wall soft tissues: No acute abnormality. Bones: There are multiple right-sided transverse process fractures in the thoracic spine including a nondisplaced fracture involving the right transverse process of T2, minimally displaced fracture involving the tip of the right transverse process of T3, T4, T5. There is a nondisplaced fracture extending to the spinous process of T4 which extends obliquely into bilateral lamina. There are nondisplaced fractures involving the right third and fourth ribs at the costovertebral articulation. IMPRESSION: CHEST CT: No acute intrathoracic pathology. Right-sided transverse process fractures at T3-T5. Nondisplaced spinous process fracture at T4 extending into bilateral lamina. Nondisplaced right rib fractures at the costovertebral articulation at T3 and T4. ABDOMEN-PELVIS CT: No acute intra-abdominal pathology. No pelvic or hip fractures. No lumbar fracture is identified. A critical result message (Yellow) has been communicated via the [employer] system on 06/18/2022 7:45 PM, Message ID [id number]. WSN: [id number] Ordering Physician: Luara Chino Dictated By: Bijan Houser MD Dictated Date/Time: 06/18/22 7:45 pm Reviewed By: Bijan Houser MD Signed By: Bijan Houser MD Signed Date/Time: 06/18/22 7:45 pm Transcribed By: ROSALBA Transcribed Date/Time: 06/18/22 7:[address] Chest W contrast IV * [facility] , CIS S: TRANSCRIBE Mik MD, Bijan Hancock: VERIFY Event Display: Result: Authored Date: CT Chest W/ Contrast, CT Abd/Pelvis W/ IV Contrast Only INDICATION: Reason: Trauma; Clinical Question(s): Other:; Rib Fracture TECHNIQUE: Helical CT scan of the chest, abdomen, and pelvis with IV contrast, formatted in 3 planes. cc of was administered intravenously. This study was performed oral contrast. Weight-based protocol was performed using automatic exposure control. CTDIvol Body: 10.90 mGy, DLP Body: 781 mGy*cm. COMPARISON: None. FINDINGS: Veneer Lathe Operator view findings, lines and tubes: None. Trachea and airways: Patent without evidence of tracheal or endobronchial lesion. Lungs and pleura: Dependent atelectasis. No effusion or pneumothorax. Mediastinum and james: No mass or hematoma. No mediastinal or hilar lymphadenopathy. No esophageal abnormality. Heart: Heart is normal in size. No pericardial effusion. Aorta: No aortic aneurysm. Pulmonary arteries: Normal caliber. No evidence of pulmonary embolism on this study performed without angiographic technique. Chest wall soft tissues: No acute abnormality. Diaphragm: Intact. Liver: Normal in attenuation and morphology. No suspicious lesion. Gallbladder: No CT evidence of gallbladder pathology. Bile ducts: No biliary ductal dilation. Spleen: Normal in size. Pancreas: No suspicious lesion or ductal dilatation. Adrenal glands: No nodule. Kidneys and ureters: No hydronephrosis, stone, or suspicious lesion. Bladder: Cat catheter within the urinary bladder containing contrast. No extravasation to indicate bladder wall injury. Reproductive organs: Unremarkable. Stomach, small bowel, and large bowel: Normal caliber stomach and bowel loops. No surrounding inflammatory changes. Appendix: No evidence of acute appendicitis. Peritoneum and retroperitoneum: No ascites or pneumoperitoneum. No omental or mesenteric lesions. Lymph nodes: No enlarged lymph nodes. Blood vessels: No vascular calcifications or aneurysm. No evidence of venous thrombosis. Abdominal and pelvic wall soft tissues: No acute abnormality. Bones: There are multiple right-sided transverse process fractures in the thoracic spine including a nondisplaced fracture involving the right transverse process of T2, minimally displaced fracture involving the tip of the right transverse process of T3, T4, T5. There is a nondisplaced fracture extending to the spinous process of T4 which extends obliquely into bilateral lamina. There are nondisplaced fractures involving the right third and fourth ribs at the costovertebral articulation. IMPRESSION: CHEST CT: No acute intrathoracic pathology. Right-sided transverse process fractures at T3-T5. Nondisplaced spinous process fracture at T4 extending into bilateral lamina. Nondisplaced right rib fractures at the costovertebral articulation at T3 and T4. ABDOMEN-PELVIS CT: No acute intra-abdominal pathology. No pelvic or hip fractures. No lumbar fracture is identified. A critical result message (Yellow) has been communicated via the [employer] system on 06/18/2022 7:45 PM, Message ID [id number]. WSN: [id number] Ordering Physician: Laura Chino Dictated By: Bijan Houser MD Dictated Date/Time: 06/18/22 7:45 pm Reviewed By: Bijan Houser MD Signed By: Bijan Houser MD Signed Date/Time: 06/18/22 7:45 pm Transcribed By: ROSALBA Transcribed Date/Time: 06/18/22 7:[address] Maxillofacial region WO contrast * [facility] , CIS S: TRANSCRIBE Manny[Radiology] , Amninder: SIGN Gatito Lauren MD: VERIFY Event Display: Result: Authored Date: CT Maxilloface W/O Contrast INDICATION: Facial injury after fall downstairs. Known cervical spine fracture. Rule out facial injury. IMAGING TECHNIQUE: Multidetector spiral CT without contrast, formatted in 3 planes. Automatic tube modulation and/or iterative dose reconstruction were used optimize scan parameters. CTDIvol Head: 25.80 mGy, DLP Head: 576 mGy*cm. COMPARISON: Cervical spine 06/18/2022 FINDINGS: Facial soft tissues: Diffuse subcutaneous fat stranding of the bilateral maxillary and left preseptal periorbital soft tissues. Intracranial soft tissues: No gross abnormality. Calvarium and skull base: No fracture. Orbits: Normal. No fractures of the orbital montaño. No ocular or post septal injury. Nasal bones: No fracture. Frontal processes of maxilla: No fracture. Nasal Septum: No fracture. Anterior nasal spine: Intact. Maxillary bones: No fracture. Alveolus: No fracture or avulsed teeth. Zygomatic arches: No fracture. No overlying soft tissue swelling. Pterygoid plates: Intact. Mandible: Intact. Paranasal sinuses: Clear. Mastoids: No significant opacification. Upper cervical spine: Unchanged position alignment of C1/2 fractures IMPRESSION: 1. Moderate facial soft tissue swelling including around the left orbit but there is no evidence ofocular injury or orbital fracture. 2. Unchanged C1 and C2 fractures. Results were discussed via cortext by Dr. Bryant with Dr. Oliva on 06/19/2022 3:12 AM. I have personally reviewed the images and I agree with this report. WSN: [id number] Ordering Physician: Shelley Oliva Dictated By: Manny[Radiology] Soren CARLTON Dictated Date/Time: 06/19/22 8:19 am Reviewed By: Gatito Lauren MD Signed By: Gatito Lauren MD Signed Date/Time: 06/19/22 8:24 am Transcribed By: ROSALBA Transcribed Date/Time: 06/19/22 3:12 am Portable XR Chest Views * [facility] , CIS S: TRANSCRIBE Amaya Smith MD: VERIFY Event Display: Result: Authored Date: [id number] Chest Portable Reason: Tube Placement; Clinical Question(s): Tube Placement COMPARISON: 06/19/2022 FINDINGS: Tracheostomy terminates above the melissa. Subdiaphragmatic enteric tube. Monitoring electrodes overlie the patient. Low lung volumes. Mild perihilar opacities, and left basilar atelectasis. Trace left pleural fluid.Normal heart size. No pneumothorax. No acute osseous interval change. Right upper quadrant surgical clips. IMPRESSION: Low lung volumes with perihilar atelectasis versus edema. WSN: [id number] Ordering Physician: Alessia Leon Dictated By: Amaya Smith MD Dictated Date/Time: 06/19/22 9:33 am Reviewed By: Amaya Smith MD Signed By: Amaya Smith MD Signed Date/Time: 06/19/22 9:33 am Transcribed By: ROSALBA Transcribed Date/Time: 06/19/22 9:32 am * [facility] , CIS S: TRANSCRIAmaya Barnett MD: VERIFY Event Display: Result: Authored Date: [id number] Chest Portable Reason: Shortness of Breath; Clinical Question(s): Other: COMPARISON: None. FINDINGS: LINES AND TUBES: None. LUNGS AND PLEURA: Left costophrenic angle is excluded. No consolidation of the lungs. Mild basilar atelectasis on theleft. No pleural effusion. No pneumothorax. HEART, MEDIASTINUM AND JAMES: Heart is normal in size. Normal mediastinal and hilar contour. BONES AND SOFT TISSUES: No acute abnormality. Hyperdensities at the right breast tissue could relate to prior biopsy or procedure. Mild degenerative changes of the right shoulder. IMPRESSION: No acute cardiopulmonary abnormality WSN: [id number] Ordering Physician: Shelley Oliva Dictated By: Amaya Smith MD Dictated Date/Time: 06/19/22 9:33 am Reviewed By: Amaya Smith MD Signed By: Amaya Smith MD Signed Date/Time: 06/19/22 9:33 am Transcribed By: ROSALBA Transcribed Date/Time: 06/19/22 9:33 am * [facility] , CIS S: TRANSCRIBE Feliciano Horowitz MD: VERIFY Event Display: Result: Authored Date: [id number] Chest Portable Reason: Tube Placement COMPARISON: Earlier same day. FINDINGS: LINES AND TUBES: Tracheostomy tube projects over the upper trachea. Enteric tube with the distal extent well below the left hemidiaphragm, likely in the stomach fundus. Additional monitoring devices project over the chest. LUNGS AND PLEURA: Low lung volumes. Patchy airspace disease in the left lung base, grossly unchanged. Mild hazy airspace disease in the right lung base. No large pleural effusion. No pneumothorax. HEART, MEDIASTINUM AND JAMES: Heart is normal in size. No acute change in the upper mediastinal contours. BONES AND SOFT TISSUES: No acute abnormality. IMPRESSION: Support tubes and lines as above. No significant change in left basilar airspace disease. WSN: [id number] Ordering Physician: Kelsey Davey Dictated By: Feliciano Horowitz MD Dictated Date/Time: 06/19/22 10:10 p Reviewed By: Feliciano Hoorwitz MD Signed By: Feliciano Horowitz MD Signed Date/Time: 06/19/22 10:10 pm Transcribed By: ROSALBA Transcribed Date/Time: 06/19/22 10:08 pm CTA Neck vessels W contrast IV * [facility] , CIS S: RAVEN Mckeon MD, Geni N: VERIFY Event Display: Result: Authored Date: CT Angio Neck Reason: Trauma; Clinical Question(s): Other:; vascular injury / Other: TECHNIQUE: CT angiogram of the neck was performed after bolus administration of intravenous contrast. 100 mL of Omnipaque 300 was administered intravenously. Coronal and sagittal MIP reformatted images were obtained. Additional 3-D images were created on a separate workstation under concurrent supervision by the attending radiologist. All stenoses are measured using NASCET criteria. Weight- based protocol using automatic tube modulation was used to optimize exposure parameters. RADIATION DOSE PARAMETERS: CTDIvol Body: 10.02 mGy, DLP Body: 1256 mGy*cm. COMPARISON: Noncontrast CT cervical spine performed 06/18/2022, chest CT performed 06/18/2022. FINDINGS: CTA OF THE NECK: Arch: There is a three vessel aortic arch. The origins of the supra aortic vessels are patent. Right carotid system: The common carotid and cervical internal carotid arteries are patent. There is calcified atherosclerotic plaque scattered in the carotid system including at the carotid bifurcation, but no ICA stenosis (0%) by NASCET criteria. There is also mild irregularity of the distal ICA.There is no dissection or aneurysm. Left carotid system: The common carotid and cervical internal carotid arteries are patent. There iscalcified atherosclerotic plaque scattered in the carotid system including at the carotid bifurcation, but no ICA stenosis (0%) by NASCET criteria. There is also irregularity of the distal ICA. Thereis no dissection or aneurysm. There is a left-dominant vertebral artery system. Right vertebral: No significant stenosis. No evidence of dissection or aneurysm. Left vertebral: Patent throughout without high-grade stenosis. No evidence of dissection at the C2 transverse process fracture. There are beam hardening artifacts from dental amalgam at the skull base which overlaps the V4 and distal V3 segment of the left vertebral artery probably accounting for linear hypodensities which do not appear to conform to the vessel and are contiguous with the beam hardening artifacts. No definite evidence of dissection. Other: Soft tissues and bones: No evidence of lymphadenopathy or mass. The thyroid is unremarkable. Pleaserefer to the chest CT for thoracic findings. There is bilateral dependent atelectasis. There are fractures of the right T3-T5 spinous processes and there is a fracture involving the T4 spinous process extending into the bilateral lamina as well as the bilateral inferior articulating process. There are C1 and C2 fractures as described on the cervical spine CT, with involvement of the left transverse foramen at C2. There are multiple right costovertebral junction fractures involving the right first through fifth ribs. IMPRESSION: No evidence of vascular injury. C1 and C2 fractures as described on the cervical spine CT. Transverse process fractures on the right from T3 through T5 as well as fracture of T4 involving the spinous process, lamina, and inferior articular processes. Multiple right costovertebral junction fractures. A similar preliminary report was provided by [facility]. WSN: [id number] Ordering Physician: Laura Chino Dictated By: Geni Mckeon MD Dictated Date/Time: 06/19/22 10:03 a Reviewed By: Geni Mckeon MD Signed By: Geni Mckeon MD Signed Date/Time: 06/19/22 10:03 am Transcribed By: ROSALBA Transcribed Date/Time: 06/19/22 9:47 am XR Foot - left GE 3 Views * BHSPowerscribe , CIS S: TRANSCRIBE Elías aLma MD: VERIFY Event Display: Result: Authored Date: Foot Min 3 Views Left, 3 views Reason: Pain following trauma. COMPARISON: None. FINDINGS: Nondisplaced fracture of the fifth proximal phalanx. No other fracture or dislocation is present. Bone mineralization is normal. No arthritic changes. Normal soft tissues. IMPRESSION: Nondisplaced fracture of the fifth proximal phalanx. Otherwise normal examination. WSN: [id number] Ordering Physician: Lm Rm Dictated By: Elías Lama MD Dictated Date/Time: 06/22/22 10:05 a Reviewed By: Elías Lama MD Signed By: Elías Lama MD Signed Date/Time: 06/22/22 10:05 am Transcribed By: ROSALBA Transcribed Date/Time: 06/22/22 10:04 am Patient Care team information Care Team Personnel Name: Chris Lizama RN Position: S RN Member Role: Primary Care Nurse Name: Denis Sharpe RN Position: [facility] Supv Member Role: Primary Care Nurse Name: Maria Antonia Portillo RN Position: [facility] RN Member Role: Primary Care Nurse Name: Neeru Mansfield RN Position: [facility] RN Member Role: Primary Care Nurse Name: Ashlee Fall RN Position: [facility] RN Member Role: Primary Care Nurse Name: Bucky Quinonez MD Position: Reference Physician Member Role: PCP Address: Address: [address] [place] [id number] Name: Nighat MANZANO Attending Position: [facility] ED Medicine MD Name: Cliff Lambert RN Position: [facility] ED RN W/OE and Tasks Member Role: Patient Care Provider Name: Alessio Laird RN Position: [facility] ED RN W/OE and Tasks Member Role: Patient Care Provider Name: Lyndsay Rome Position: [facility] ED OA Charge Member Role: ED Associate Care Team Related Persons Name: CORRINE KAHN Address: [address] [address] Name: BERHANE RUGGIERO
--- OUTSIDE RECORDS SUMMARY | 2023-06-03 13:04 | XMS_ITS | Continuity of Care Document ---
Author Name Unknown Organization [facility] Address [address] [place] [address] [address] [place] [address]- Care Team Providers Care Client Leader Name Role Phone Devi CARLTON, Bucky Hancock Primary Care Physician [phone] Encounter [facility] Date(s): 08/06/22 - 08/13/[address] [place] [address]- Attending Physician: Vernon Hamilton MD Allergies, Adverse Reactions, Alerts Substance Reaction [...] oldest [Reference Range]: 1 Height 165 cm (08/06/22 3:38 PM) Pulse Rate [55-90 bpm] 84 bpm (08/06/22 3:38 PM) Blood Pressure [90-138/55-84 mm Hg] 135/ 87mm Hg (08/06/22 3:38 PM) Temperature [96.8-100.4 DegF] 96.9 DegF (08/06/22 3:38 PM) Blood pressure sites Arm, left (08/06/22 3:38 PM) Temperature Route Temporal (08/06/22 3:38 PM) Social History Social History Type Response [...] Reference Physician Member Role: PCP Address: Address: [address] [place] [address]- Care Team Related Persons Name: FEMI CORRINE Address: home [address] [place] [address] Name: BERHANE HENSLEY
--- OUTSIDE RECORDS SUMMARY | 2023-06-03 13:04 | XMS_ITS | Patient Health Record ---
Author Name Unknown Organization Nick Rodríguez III, MD Address [address] [place] [address] Care Team Providers Care Mailroom Supervisor Name Role Phone Bucky Quinonez MD Primary Care Provider UnavailNick Johnson Unavailable [phone] ALLERGIES Allergen (clinical drug ingredient) Drug/Non Drug Allergy documented on EMR Reaction Allergy Type Onset Date Status lisinopril Lisinopril Unknown Drug Allergy Activ e REASON FOR REFERRAL No Information MEDICATIONS Medication SIG (Take, Route, Frequency, Duration) Notes Start Date End Date Status LORazepam 0.5 MG Oral Act kira Docusate Sodium 100 MG Oral Active Atorvastatin Calcium 80 MG Oral Active Carvedilol 6.25 MG Oral A ctive Melatonin 3 MG Oral Activ e traZODone HCl 50 MG Oral Active SOCIAL HISTORY Tobacco Use: Social History Observation Description Date Details (start date - stop date) Never Smoker NA - NA Sex Assigned At : Social History Observation Description Sex Assigned At Unknown Tobacco Use/Smoking Question Answer Notes Patient is a nonsmoker Additional Findings: Tobacco Non-User Aggressive non-smoker Alcohol Screen Question Answer Notes Did you have a drink containing alcohol in the p ast year? No Points 0 Interpretation Negative PROBLEMS Problem Type ICD Code Onset Dates Problem Status W/U Status Risk SNOMED Code Notes Problem Hyperlipidemia (E78.5) Active confirmed 65746820 I recommended she have her lipids checked 3 times a year. Problem Overweight (E66.3) Active confirmed 191837146 Her body mass index is 26. I recommended regular exercise and a healthy diet and gradual reduction of the BMI into the normal range. Problem HTN (hypertension) (I10) Active confirmed 52816198 The blood pressure is 122/84 and no change was made. I recommended continue sodium restriction, weight loss and regular exercise. Problem Invasive ductal carcinoma of right breast (C50.911) Active confirmed Malignant neoplasm of female breast (618204217) There is no sign of recurrent disease or new primary. The recent biopsy showed no breast cancer. Surveillance will continue. Her anastrozole was discontinued Encounters Encounter Location Date Provider Diagnosis Nick Rodríguez III, MD [address] [place] [address] [address] [place] [id number] 08/06/2022 Nick Rodríguez III, MD [address] [place] [address] [address] [place] [id number] 01/20/2023 Nick Rodríguez Invasive ductal carcinoma of right breast C50.911 ; HTN (hypertension) I10 ; Hyperlipidemia E78.5 and Overweight E66.3 Nick Rodríguez III, MD [address] [place] [address] [address] [place] [id number] 08/10/2022 Nick Rodríguez ASSESSMENTS Encounter Date Diagnosis Assessment Notes Treatment Notes Treatment Clinical Notes 01/20/2023 HTN (hypertension) (ICD-10 - I10) The blood pressure is 122/84 and no change was made. I recommended continue sodium restriction, weight loss and regular exercise. 01/20/2023 Invasive ductal carcinoma of right breast (ICD-10 - C50.911) There is no sign of recurrent disease or new primary. The recent biopsy showed no breast cancer. Surveillance will continue. Her anastrozole was discontinued 01/20/2023 Hyperlipidemia (ICD-10 - E78.5) I recommended she have her lipids checked 3 times a year. 01/20/2023 Overweight (ICD-10 - E66.3) Her body mass index is 26. I recommended regular exercise and a healthy diet and gradual reduction of the BMI into the normal range. PLAN OF TREATMENT Pending Test Test Name Order Date PROFILE, RANDOM (COMPREHENSIVE METABOLIC ) 10/06/2018 PROFILE, RANDOM (COMPREHENSIVE METABOLIC ) 09/18/2019 PROFILE, RANDOM (COMPREHENSIVE METABOLIC ) 12/14/2017 PROFILE, RANDOM (COMPREHENSIVE METABOLIC ) 07/07/2018 PROFILE, RANDOM (COMPREHENSIVE METABOLIC ) 03/10/2019 PROFILE, RANDOM (COMPREHENSIVE METABOLIC ) 01/19/2020 PROFILE, RANDOM (COMPREHENSIVE METABOLIC ) 04/01/2018 CBC w DIFF 04/01/2018 CBC w DIFF 10/06/2018 CBC w DIFF 09/18/2019 CBC w DIFF 12/14/2017 CBC w DIFF 07/07/2018 CBC w DIFF 03/10/2019 CBC w DIFF 01/19/2020 CA 27.29 01/19/2020 CA 27.29 04/01/2018 CA 27.29 10/06/2018 CA 27.29 09/18/2019 CA 27.29 12/14/2017 CA 27.29 07/07/2018 CA 27.29 03/10/2019 [facility] 018 Next Appt Details Provider Name:Nick Rodríguez, 07/23/2023 10:00:00 AM, [address] [place] [address] [address], [address], [place], [address], Insurance Providers Payer Name Payer Address Payer Phone Subscriber Number Group Number Insured Name Patient Relationship to Insured Coverage Start Date Coverage End Date [facility] [address] [place] [phone] [id number] ABNER RUGGIERO Self - patient is the insured MEDICAL (GENERAL) HISTORY Medical History History ICD Code Invasive ductal carcinoma of right breas t C50.911 HTN (hypertension) I10 Hyperlipidemia E78.5 pneumonia RML 2000 cholelithiasis 2002 menarche age 13 LMP 2010, menopause age 55 hyperlipidemia overweight Traumatic fracture C2 requiring fusion Surgical History Surgery Date(Month/Year) laparascopic cholecystectomy 2002 right breast biopsy, then edelmira mpectomy, sentinel node, radiation, adjuvant endocrine therapy 11/04/2015 colonoscopy 2012, incompletge, to spleni c flexure 05/2012 biopsy of right breast 01/2019 Biopsy left breast at 04/2020 Trachiescopy 06/2022 C1 and C2 Fused after trauma 06/2022
--- OUTSIDE RECORDS SUMMARY | 2023-06-03 13:05 | XMS_ITS | Continuity of Care Document ---
Author Name Unknown Organization [facility] Address [address] [place] [address] [address], [address] [place] [address]- Care Team Providers Care Admission Specialist Name Role Phone Devi CARLTON, Bucky Hancock Primary Care Physician [phone] Encounter [facility] Date(s): 07/08/22 - 07/15/22 [facility] [address] [place] [address] Drive, [address] [place] [address]- Attending Physician: Rubens Baron MD Referring Physician: Layne Bowden Allergies, Adverse Reactions, Alerts Substance Reaction Severity Status lisinopril 1 Severe Active Contrast Dye 2 Severe Active chlorhexidine containing compounds Anaphylactic shock due to serum Active KATHE inhibitors KATHE inhibitor-induced angioedema Active Omnipaque 300 3 Anaphylaxis Severe Active Latex Anaphylactic shock d ue to serum Anaphylactic shock due to serum Anaphylactic shock due to serum Severe Active 1potential for angioedema-unconfirmed 2potential cause of [...] oldest [Reference Range]: 1 Height 165 cm (07/08/22 9:14 AM) Weight 75.2 kg (07/08/22 9:14 AM) Body Mass Index [18.5-24.99 kg/m2] 27.62 kg/m2 *H* (07/08/22 9:14 AM) Social History Social History Type Response Smoking Status Never smoker entered on: 04/22/16 [facility] Progress note * Mackenzie Woods: PERFORM, MODIFY, SIGN, VERIFY Event Display: Progress Note Hospital Authored Date: [id number] Patient: ABNER HENSLEY Age: 67 years Sex: Female : 1955 Associated Diagnoses: None Author: Mackenzie Woods Paged by bedside RN about this pt who is s/p posterior instrumented fusion of C1-2 on 06/[address] Baron d/t concerns on incisional complications including serosanguineous drainage and erythema. Pt admits that she has been without fever/chills and no increased neck pain. On inspections of incision there is no dehiscence, there is a foci of erythema at about mid incision line where pt's neck has significant lordotic curvature (likely related to neck habitus over incisional complications). No active weeping noted and none that could be expressed with gentle pressure along incision site. Discussed with pt to continue to monitor for any concerns that develop regarding incision, including fever/chills, new neck pain etc. She expressed understanding. Bedside RN has provided instruction to [facility] to remove current dressing in 2 days. Patient Care team information Care Team Personnel Name: Chris Lizama RN Position: [facility] RN Member Role: Primary Care Nurse Name: Denis Sharpe RN Position: [facility] RN Supv Member Role: Primary Care Nurse Name: Maria Antonia Portillo RN Position: S RN Member Role: Primary Care Nurse Name: Neeru Mansfield RN Position: S RN Member Role: Primary Care Nurse Name: Ashlee Fall RN Position: S RN Member Role: Primary Care Nurse Name: Bucky Quinonez MD Position: Reference Physician Member Role: PCP Address: Address: [address] [place] [address]- Care Team Related Persons Name: CORRINE KAHN Address: home [address] [place] [address] Name: BERHANE HENSLEY
--- OUTSIDE RECORDS SUMMARY | 2023-06-03 13:05 | XMS_ITS | Continuity of Care Document ---
Author Name Unknown Organization [facility] Address [address] [place] [address] [address] [place] [address]- Care Team Providers Care Feltmaker Name Role Phone Devi CARLTON, Bucky Hancock Primary Care Physician [phone] [place] [facility] 06/[place]22 - 08/06/22 [facility] [address] [place] [address]- Attending Physician: Raciel Hi MD Allergies, Adverse Reactions, Alerts Substance Reaction [...] Team Personnel Name: Chris Lizama RN Position: [facility] RN Member Role: Primary Care Nurse Name: Denis Sharpe RN Position: [facility] RN Supv Member Role: Primary Care Nurse Name: Maria Antonia Portillo RN Position: [facility] RN Member Role: Primary Care Nurse Name: Neeru Mansfield RN Position: [facility] RN Member Role: Primary Care Nurse Name: Ashlee Fall RN Position: [facility] RN Member Role: Primary Care Nurse Name: Bucky Quinonez MD Position: Reference Physician Member Role: PCP Address: Address: [address] [place] [address]- [place] Care Team Related Persons Name: FEMICORRINE HALL Address: [address] [place] [address] Name: BERHANE HENSLEY
--- OUTSIDE RECORDS SUMMARY | 2023-06-03 13:05 | XMS_ITS | Continuity of Care Document ---
Author Name Unknown Organization [facility] Address [address] [place] [address], [address] [place] [address]- Care Team Providers Care Rounding Machine Operator Name Role Phone Bucky Quinonez MD Primary Care Physician Encounter [facility] Date(s): 09/01/22 - 09/08/22 [facility] [address] [place] [address], [address] [place] [address]- Attending Physician: Rubens Baron MD Referring Physician: [...] oldest [Reference Range]: 1 Height 165 cm (09/01/22 11:48 AM) Weight 73 kg (09/01/22 11:48 AM) Body Mass Index [18.5-24.99 kg/m2] 26.81 kg/m2 *H* (09/01/22 11:48 AM) Social History Social History Type Response Smoking Status Never smoker entered on: 04/22/16 Sex Patient Care team information Care Team Personnel Name: Chris Lizama RN Position: S RN Member Role: Primary Care Nurse Name: Dell RN, Denis Position: S RN Supv Member Role: Primary Care Nurse Name: Maria Antonia Portillo RN Position: S RN Member Role: Primary Care Nurse Name: Ashlee Fall RN Position: [facility] RN Member Role: Primary Care Nurse Name: Devi CARLTON, Bucky Hancock Position: Reference Physician Member Role: PCP Address: Address: [address] [place] [address]- Care Team Related Persons Name: SUJIT KAHNCY Address: [address] [address] Name: BERHANE HENSLEY Address: home [facility]
--- OUTSIDE RECORDS SUMMARY | 2023-06-03 13:05 | XMS_ITS | Continuity of Care Document ---
Author Name Unknown Organization [facility] Address [address] [place] [address] [address] [place] [address]- Care Team Providers Care Building Rigger Name Role Phone Devi CARLTON, Bucky Hancock Primary Care Physician Encounter [facility] [place] Date(s): 07/01/22 - 08/13/22 [facility] [address] [place] [address]- Attending Physician: Jomar Acevedo MD Allergies, Adverse Reactions, Alerts Substance Reaction Severity Status Contrast Dye 1 Severe Active KATHE inhibitors KATHE inhibitor-induced angioedema Active lisinopril 2 Severe Active Omnipaque 300 3 Anaphylaxis Severe Active Latex Anaphylactic shock d ue to serum Anaphylactic shock due to serum Anaphylactic shock due to serum Severe Active chlorhexidine containing compounds Anaphylactic shock due to serum Active 1potential cause of anaphylaxis-multiple family members [...] Team Personnel Name: Chris Lizama RN Position: [facility] RN Member Role: Primary Care Nurse Name: Denis Sharpe RN Position: [facility] RN Supv Member Role: Primary Care Nurse Name: Maria Antonia Portillo RN Position: [facility] RN Member Role: Primary Care Nurse Name: Neeru Mansfield RN Position: [facility] RN Member Role: Primary Care Nurse Name: Ashlee Fall RN Position: [facility] RN Member Role: Primary Care Nurse Name: Bucky Quinonez MD Position: Reference Physician Member Role: PCP Address: Address: [address] [place] [address]- Care Team Related Persons Name: CORRINE KAHN Address: home [address] [place] [address] Name: BERHANE HENSLEY
[2023-06-03 13:12] LABS: INTERNATIONAL NORM RATIO 0.9 (0.9-1.1); Prothrombin Time 10.9 SEC (11.1-13.3)
[2023-06-03 13:22] LABS: Alanine Aminotransferase 12 U/L (0-31); Albumin Level 4.1 g/dL (3.5-5.0); Alkaline Phosphatase 81 U/L (39-117); Anion Gap 14 (12-20); Aspartate Amino Transferase 16 U/L (5-31); Bilirubin Total 0.8 mg/dL (0.0-1.0); Blood Urea Nitrogen 19 mg/dL (9-16); Calcium 9.1 mg/dL (8.4-10.2); Carbon Dioxide 24 mmol/L (22-29); Chloride 110 mmol/L (96-108); Creatinine Clr Calc Pharmacy 68.3; Estimated Glomerular Filt Rate > 60; Glucose Random 190 mg/dL (60-115); Magnesium 1.7 mg/dL (1.6-2.6); Potassium 4.3 mmol/L (3.3-5.1); Sodium 144 mmol/L (135-145); Total Protein 7.1 g/dL (6.5-8.0)
[2023-06-03 13:32] LABS: OBS Int Ctl Valid YES; OBS1 POSITIVE (NEGATIVE)
[2023-06-03] MEDS: methylPREDNISolone Sod Succ 125 MG/2 ML VIAL 60 MG IVPUSH (13:44)
[2023-06-03] MEDS: diphenhydrAMINE HCL 50 MG/ML VIAL 25 MG IVPUSH (13:44)
--- NOTE | 2023-06-03 13:50 | PC.NURSE ---
pt a&ox4, vss, reporting 3 episodes of diarrhea this morning with bright red blood in stool and on toilet paper, 20G IV placed left AC. pt reports hx of allergic reaction to lisinipril on the same day as multiple CTs w IV contrast. provider notified, pre medicated per SEP. pt pending CT scan. pt aware of need for urine sample. no new orders at this time.
[2023-06-03] MEDS: iohexoL 350 MG/ML 100 ML INFUS..BTL 85 ML IV (14:20)
[2023-06-03 14:24] VITALS: BP 137/62; PULSE 95; RESP 19; TEMP 36.7; O2SAT 94
[2023-06-03 15:12] VITALS: BP 127/68; PULSE 88; RESP 16; TEMP 36.8; O2SAT 96
[2023-06-03 15:15] LABS: Appearance Urine Clear; Color Urine Yellow; Glucose Urine UA Negative (Negative); Leukocyte Esterase Urine Negative (Negative); Nitrite Urine Negative (Negative); Specific Gravity - Urine >= 1.030 (1.005-1.025); Urine Blood Negative (Negative); Urine Ketones Negative (Negative); Urine Protein Negative (Neg-Trace)
== END 2023-06-03 15:43 | disposition home or self-care (01) ==
PROVIDERS: Physician Assistant Medical; Registered Nurse Emergency; Emergency Provider Emergency Medicine; PCP Internal Medicine
DX: K62.5 Hemorrhage of anus and rectum (principal); I10 Essential (primary) hypertension; E78.5 Hyperlipidemia, unspecified; Z85.3 Personal history of malignant neoplasm of breast; Z79.02 Long term (current) use of antithrombotics/antiplatelets; Z79.899 Other long term (current) drug therapy
CPT/HCPCS: 36415; 74177; 80053; 81003; 82272; 83735; 85025; 85610; 86850; 86900; 86901; 96374; 96375; 99284; J1200; J2930; Q9967

== ENCOUNTER 2023-06-15 10:37 | Outpatient (REF) | payer OTHER, SELFPAY ==
[2023-06-15 11:04] LABS: MANUAL DIFF FLAG NO
[2023-06-15 11:33] LABS: Basophils Absolute Auto 0.1 X10*3/uL (0.0-0.2); Eosinophils Absolute Auto 0.1 X10*3/uL (0.0-0.4); Hematocrit 35.2 % (37.0-47.0); Hemoglobin 11.4 g/dl (12.0-16.0); Imm Gran Abs Auto 0.01 X10*3/uL (0.00-0.03); Imm Gran Pct Auto 0.2 % (0.0-0.4); Lymphocytes Absolute Auto 1.3 X10*3/uL (1.2-4.9); Lymphocytes Percent Auto 25.7 % (20-40); Mean Corpuscular HGB Conc 32.4 g/dl (31.0-35.0); Mean Corpuscular Hemoglobin 32.7 pg (27.0-33.0); Mean Corpuscular Volume 100.9 fL (80.0-98.0); Mean Platelet Volume 9.9 fL (9.4-12.3); Monocytes Absolute Auto 0.3 X10*3/uL (0.1-1.2); Monocytes Percent Auto 6.7 % (2-11); Neutrophils Absolute Auto 3.3 x10*3/uL (2.0-8.3); Neutrophils Percent Auto 64.4 % (45-73); Platelet Count 232 X10*3/uL (160-400); Red Blood Count 3.49 X10*6/uL (4.20-5.50); Red Cell Distribution Width 13.3 % (11.0-16.0); White Blood Count 5.1 X10*3/uL (4.8-10.8)
== END 2023-06-15 10:38 | disposition home or self-care (01) ==
LOC: HO.LAB 10:37
PROVIDERS: PCP Internal Medicine; Visit Provider Internal Medicine
DX: R53.83 Other fatigue (principal)
CPT/HCPCS: 36415; 85025

== ENCOUNTER 2023-06-29 10:07 | Outpatient (REF) | payer OTHER, SELFPAY ==
[2023-06-29 10:21] LABS: MANUAL DIFF FLAG NO
[2023-06-29 10:53] LABS: Basophils Percent Auto 1.2 % (0-2); Eosinophils Absolute Auto 0.1 X10*3/uL (0.0-0.4); Hematocrit 37.6 % (37.0-47.0); Hemoglobin 12.1 g/dl (12.0-16.0); Imm Gran Abs Auto 0.01 X10*3/uL (0.00-0.03); Imm Gran Pct Auto 0.3 % (0.0-0.4); Lymphocytes Absolute Auto 1.9 X10*3/uL (1.2-4.9); Lymphocytes Percent Auto 55.1 % (20-40); Mean Corpuscular HGB Conc 32.2 g/dl (31.0-35.0); Mean Corpuscular Hemoglobin 32.9 pg (27.0-33.0); Mean Corpuscular Volume 102.2 fL (80.0-98.0); Mean Platelet Volume 9.9 fL (9.4-12.3); Monocytes Absolute Auto 0.3 X10*3/uL (0.1-1.2); Monocytes Percent Auto 8.3 % (2-11); Neutrophils Absolute Auto 1.1 x10*3/uL (2.0-8.3); Neutrophils Percent Auto 32.1 % (45-73); Platelet Count 218 X10*3/uL (160-400); Red Blood Count 3.68 X10*6/uL (4.20-5.50); Red Cell Distribution Width 12.9 % (11.0-16.0); White Blood Count 3.4 X10*3/uL (4.8-10.8)
== END 2023-06-29 10:08 | disposition home or self-care (01) ==
LOC: HO.LAB 10:07
PROVIDERS: PCP Internal Medicine; Visit Provider Internal Medicine
DX: R53.83 Other fatigue (principal)
CPT/HCPCS: 36415; 85025

== ENCOUNTER 2023-09-06 07:26 | Day surgery (SDC) | payer OTHER, SELFPAY ==
[2023-09-02 14:22] VITALS: BMI 27.2
--- NOTE | 2023-09-03 10:27 | HO.ANESPROP2 ---
Documented by User: Margarita Laws NP 09/03/23 10:28 HPI - Anesthesia Eval Consult details Narrative: 68yo F for Colonoscopy PMFSH Active Problems Active Problems: All Active Problems (Updated 09/02/23 @ 14:22 by Esthela Gleason RN) HTN (hypertension) (Acute) Hyperlipidemia (Acute) History of right breast cancer (Acute) Past Medical History Medical History (Updated 09/02/23 @ 14:22 by Esthela Gleason RN) Pneumonia HTN (hypertension) Hyperlipidemia History of right breast cancer Family History Family History Mother History of cyst of breast Father Family hx of prostate cancer Paternal Grandfather Hx of cancer of lung Paternal Aunt History of breast cancer Paternal Aunt History of colon cancer Family/Other History of breast cancer, Onset Age: 42 Surgical History Surgical History (Updated 09/02/23 @ 14:30 by Esthela Gleason RN) Hx of right breast biopsy H/O colonoscopy History of neck surgery (06/2022) History of lumpectomy of right breast Hx laparoscopic cholecystectomy (~2002) Social History Social History Alcohol intake: current Alcohol intake frequency: a few times a week Alcohol type: wine Advance Directives: No Advance Directives Information Provided: Yes Advance Directives Date on File: 06/23/20 Meds Allergies Allergy/AdvReac Type Severity Reaction Status Date / Time lisinopril Allergy Severe Anaphylaxis Verified 09/02/23 14:00 Seasonal Allergies Allergy Mild Itchy Verified 03/11/23 11:17 Eyes, stuffy nose, runny nose Home Medications Medication Instructions Recorded Confirmed Last Taken Type atorvastatin 80 mg tablet 80 mg PO DAILY 03/11/23 09/02/23 Unknown History carvedilol 6.25 mg tablet 6.25 mg PO DAILY 03/11/23 09/02/23 Unknown History lorazepam 1 mg tablet 1 mg PO TID 03/11/23 09/02/23 Unknown History melatonin 3 mg tablet 6 mg PO BEDTIME 03/11/23 09/02/23 Unknown History trazodone 50 mg tablet 50 mg PO BEDTIME 03/11/23 09/02/23 Unknown History Exam Height,Weight and Vital Signs: Height 5 ft 6.5 in Weight 77.564 kg Assessment and Plan Assessment Anesthesia Assessment: Chart Reviewed Documented by User: Hang Grewal MD 09/06/23 07:48 PMFSH Past Medical History Medical History (Updated 09/02/23 @ 14:22 by Esthela Gleason RN) Pneumonia HTN (hypertension) Hyperlipidemia History of right breast cancer Family History Family History Mother History of cyst of breast Father Family hx of prostate cancer Paternal Grandfather Hx of cancer of lung Paternal Aunt History of breast cancer Paternal Aunt History of colon cancer Family/Other History of breast cancer, Onset Age: 42 Family history of problems with anesthesia: No Surgical History Surgical History (Updated 09/02/23 @ 14:30 by Esthela Gleason RN) Hx of right breast biopsy H/O colonoscopy History of neck surgery (06/2022) History of lumpectomy of right breast Hx laparoscopic cholecystectomy (~2002) History of Problems with Anesthesia: No Social History Social History Alcohol intake: current Alcohol intake frequency: a few times a week Alcohol type: wine Advance Directives: No Advance Directives Information Provided: Yes Advance Directives Date on File: 06/23/20 Meds Allergies Allergy/AdvReac Type Severity Reaction Status Date / Time lisinopril Allergy Severe Anaphylaxis Verified 09/02/23 14:00 Seasonal Allergies Allergy Mild Itchy Verified 03/11/23 11:17 Eyes, stuffy nose, runny nose Home Medications Medication Instructions Recorded Confirmed Last Taken Type atorvastatin 80 mg tablet 80 mg PO DAILY 03/11/23 09/02/23 Unknown History carvedilol 6.25 mg tablet 6.25 mg PO DAILY 03/11/23 09/02/23 Unknown History lorazepam 1 mg tablet 1 mg PO TID 03/11/23 09/02/23 Unknown History melatonin 3 mg tablet 6 mg PO BEDTIME 03/11/23 09/02/23 Unknown History trazodone 50 mg tablet 50 mg PO BEDTIME 03/11/23 09/02/23 Unknown History Exam Airway Mallampati Class: III (small mouth, large glossus) TM Dist: <=3cm Neck ROM: Full (c 1,2 fusion) Loose/Missing/Broken Teeth: No Heart: rrr Lungs: cta b/l Assessment and Plan Assessment Anesthesia Assessment: Anesthesia Plan Discussed and Chart Reviewed Final Anesthetic Review Family History of Problems with Anesthesia: No History of Problems with Anesthesia: No NPO: Yes ASA Class: III Final Preanesthetic Review: No Changes in Pt Med Stat, Meds/Allgs Chart Reviewed, Consent Obtained/Reviewed and Anes Risks/Benef Reviewed Patient Risk: Intermediate Procedure Risk: Intermediate Anesthetic Plan Anesthetic Plan: MAC: Disposition: Standard PACU
--- NOTE | ~2023-09-06 | CT_ITS ---
EXAMINATION: CT COLONOGRAPHY CLINICAL INFORMATION: Incomplete colonoscopy with heme-positive stool and diverticulosis COMPARISON: 06/03/2023 TECHNIQUE: Bowel preparation: Excellent. Stool tagging with Gastrografin and barium: Excellent. Colonic distention: CO2 mechanical insufflator used via enema tube with excellent distention. Acquisition: Low dose imaging targeted to colonic was performed in the supine and prone positions. Procedure: The procedure was well tolerated. Review: The acquired images were reviewed in axial, coronal and sagittal planes. Additional 3-D fly through images were reviewed at an independent workstation. This CT examination was performed using dose optimization techniques as appropriate, variously including the following: *Automated exposure control *Adjustment of mA and/or kV according to patient size (this includes techniques or standardized protocols for targeted exams where dose is matched to indication/reason for exam; i.e. extremities or head) *Use of iterative reconstruction technique DLP: 521 mGy-cm FINDINGS: Colonic findings: Redundant tortuous colon with scattered colonic diverticulosis. No colonic wall thickening or pericolonic inflammatory change to suggest diverticulitis. I do not appreciate any suspicious colonic mass lesions or obstructive change. No significant colonic polyp. Normal-appearing appendix. Non-colonic findings: Gallbladder surgically absent. Mild vascular calcification. Bladder decompressed. Degenerative changes in the spine and hips. CT/CT colonography IMPRESSION: Tortuous tortuous colon with scattered diverticulosis but no evidence for diverticulitis. I do not appreciate any suspicious colonic mass lesions or significant colonic polyp.
[2023-09-06 07:45] VITALS: BMI 27.2
[2023-09-06 07:52] VITALS: BP 139/84; PULSE 83; RESP 18; TEMP 36.6; O2SAT 95
[2023-09-06] MEDS: Lactated Ringers 1,000 ML 100 ML IVCONT (07:54)
[2023-09-06 09:32] VITALS: BP 108/54; PULSE 79; RESP 20; TEMP 36.1; O2SAT 97
--- NOTE | 2023-09-06 09:33 | PM.OP ---
Brief Operative Note Date of Service: 09/06/23 Pre-op diagnosis: Heme + stool, rectal bleeding Post-op diagnosis: other (Diverticulosis, Internal hemorrhoids) Procedure: Colonoscopy to the transverse colon Surgeon: Nick Linton MD Anesthesia: MAC Was an Book Jacket Cover Machine Operator used for this Procedure?: No Estimated blood loss (mL): 0 Pathology: none sent Condition: stable Disposition: PACU
[2023-09-06 09:46] VITALS: BP 114/57; PULSE 78; RESP 20; TEMP 36.3; O2SAT 96
[2023-09-06 11:10] VITALS: BP 130/76; PULSE 84; RESP 18; TEMP 36.6; O2SAT 94
--- NOTE | 2023-09-06 14:44 | OP_ITS ---
DATE OF SERVICE: 09/06/2023 SURGEON: Nick Linton MD INDICATIONS: The patient presents for evaluation of hematochezia and heme-positive stool. Full consent was obtained from her for this, including risks of bleeding and perforation. PREOPERATIVE DIAGNOSIS: POSTOPERATIVE DIAGNOSIS: PROCEDURE PERFORMED: Colonoscopy to the area of the transverse colon. ESTIMATED BLOOD LOSS: COMPLICATIONS: ANESTHESIA: Monitored anesthesia care. ASSISTANTS: SPECIMENS: PREOPERATIVE DIAGNOSES: Hematochezia and heme-positive stool. POSTOPERATIVE DIAGNOSES: Hematochezia, heme-positive stool, diverticulosis, internal hemorrhoids, and limited colonoscopy to the region of the transverse colon. DESCRIPTION OF PROCEDURE: The patient was placed in the left lateral decubitus position. The digital rectal exam revealed no abnormalities. The Olympus video pediatric colonoscope was then entered into the rectum and was advanced to what I felt was probably the area of the transverse colon. However, despite abdominal wall pressure, turning her into the supine position, and a lengthy attempt, I could not advance beyond this due to looping of the scope. There was no sign of any colonic stricture nor mass. At that point, the scope was slowly withdrawn assessing all mucosal surfaces carefully. For the most part, preparation was otherwise excellent. I did not visualize any sign of polyps, colitis, nor angiodysplasia. There was a moderate amount of diverticulosis. In the rectum, scope was retroflexed visualizing internal hemorrhoids, but no other pathology. The rectal mucosa appeared normal. The scope was straightened and withdrawn from the patient. She tolerated the procedure well and was returned to the recovery area in stable condition. IMPRESSION: 1. Limited colonoscopy to the transverse colon. 2. Diverticulosis. 3. Internal hemorrhoids. PLAN: The patient will undergo a CT of the abdomen with colonography later today prior to discharge. Assuming that is negative, then she would see me on a p.r.n. basis. She reports that she has not had any further bleeding episodes since the episode back in May 2023. She has been advised to call me if she has any problems otherwise. I would recommend a Cologuard test every 2-3 years going forward with her primary care physician given the limited exam today. If those are always negative and she is otherwise doing well, then she probably would not need any further screening colonoscopies given her age of 68 already. MD TONY Gates/ABISAI / [phone] TELLY
== END 2023-09-06 11:30 | disposition home or self-care (01) ==
PROVIDERS: PCP Internal Medicine; Visit Provider Internal Medicine
PROC: 0DJD8ZZ Inspection of Lower Intestinal Tract, Via Natural or Artificial Opening Endoscopic (ICD-10-PCS; CPT 45378; principal; 2023-09-06 08:40)
DX: K62.5 Hemorrhage of anus and rectum (principal); K57.30 Diverticulosis of large intestine without perforation or abscess without bleeding; K64.8 Other hemorrhoids; I10 Essential (primary) hypertension; E78.5 Hyperlipidemia, unspecified; Z85.3 Personal history of malignant neoplasm of breast; Z90.49 Acquired absence of other specified parts of digestive tract; Z92.3 Personal history of irradiation; Z98.890 Other specified postprocedural states; Z87.01 Personal history of pneumonia (recurrent); Z79.899 Other long term (current) drug therapy; Z88.8 Allergy status to other drugs, medicaments and biological substances
CPT/HCPCS: 45378; 74261; J2704

== ENCOUNTER 2023-09-18 03:03 | Emergency (ER) | payer OTHER, SELFPAY ==
--- NOTE | 2023-09-18 | ECG_ITS ---
Test Reason : FALL Blood Pressure : / mmHG Vent. Rate : 079 BPM Atrial Rate : 079 BPM P-R Int : 160 ms QRS Dur : 074 ms QT Int : 384 ms P-R-T Axes : 032 -13 -04 degrees QTc Int : 440 ms Normal sinus rhythm Minimal voltage criteria for LVH, may be normal variant ( R in aVL ) Cannot rule out Anterior infarct , age undetermined Abnormal ECG When compared with ECG of 18-JUN-2022 10:10, Minimal criteria for Anterior infarct are now Present Referred By: Generic ED Physician Electronically Signed By:Fredrick Bryant
--- NOTE | ~2023-09-18 | CT_ITS ---
EXAMINATION: NONCONTRAST HEAD CT NONCONTRAST CERVICAL SPINE CT INDICATION INFORMATION: Fall, pain COMPARISON: 06/18/2022 TECHNIQUE: Separate noncontrast CT examinations of the head and cervical spine were performed. Coronal head CT images and coronal and sagittal cervical spine images were created at the technologist workstation. DLP: 1002 mGy-cm DOSE LOWERING TECHNIQUES: This CT examination was performed using dose optimization techniques as appropriate, variously including the following: - Automated exposure control - Adjustment of mA and/or kV according to patient size (this includes techniques or standardized protocols for targeted exams were dose is matched to indication/reason for exam; i.e. extremities or head) - Use of iterative reconstruction technique FINDINGS: Head: There is no evidence of acute intracranial hemorrhage or territorial infarction. No abnormal mass-effect or midline shift is seen. [place] to white matter differentiation is well preserved. No extra-axial fluid collections are identified. The ventricles are normal in size. Mild volume loss is noted. The osseous structures and soft tissues are normal. The mastoid air cells and visualized portions of the paranasal sinuses are well-aerated. Cervical spine: There is posterior fusion hardware at C1-C2. Sequelae of prior fractures of C1 and C2 are demonstrated. There is anatomic alignment of the vertebral bodies and posterior elements. Vertebral body heights are maintained. There is disc space narrowing and endplate osteophyte formation in the lower cervical spine. Left-sided greater than right-sided multilevel facet arthropathy. No evidence of acute fracture. No prevertebral soft tissue swelling. Visualized portions of the lung apices are unremarkable. The thyroid gland is unremarkable. CT/CT cervical spine wo IV con IMPRESSION: No acute findings identified in the head or cervical spine. Postoperative changes from C1-C2 fusion with sequelae of prior C1 and C2 fractures. Chronic changes as noted above.
--- NOTE | ~2023-09-18 | XR_ITS ---
EXAMINATION: XR LUMBAR SPINE CLINICAL INFORMATION: Fall, pain COMPARISON: 06/03/2023 TECHNIQUE: AP and lateral views. FINDINGS: There is anatomic alignment of the lumbar vertebral bodies and posterior elements. Vertebral body heights are maintained. No acute fracture is seen. Intervertebral disc spaces also appear relatively well preserved. Mild facet arthropathy is suspected in the lower lumbar spine. Sacroiliac joints appear intact. Left protrusio acetabuli noted. XR/XR lumbar spine 2-3V IMPRESSION: No acute findings identified.
[2023-09-18 03:12] VITALS: BP 138/84; O2SAT 98; BMI 28.6
[2023-09-18 03:27] VITALS: BP 117/55; PULSE 80; RESP 16; TEMP 36.5; O2SAT 96
[2023-09-18 03:34] LABS: Basophils Percent Auto 0.7 % (0-2); Eosinophils Absolute Auto 0.1 X10*3/uL (0.0-0.4); Eosinophils Percent Auto 2.3 % (0-4); Hematocrit 40.5 % (37.0-47.0); Hemoglobin 13.8 g/dl (12.0-16.0); Imm Gran Abs Auto 0.01 X10*3/uL (0.00-0.03); Imm Gran Pct Auto 0.2 % (0.0-0.4); Lymphocytes Absolute Auto 2.6 X10*3/uL (1.2-4.9); Lymphocytes Percent Auto 46.2 % (20-40); MANUAL DIFF FLAG NO; Mean Corpuscular HGB Conc 34.1 g/dl (31.0-35.0); Mean Corpuscular Hemoglobin 32.7 pg (27.0-33.0); Monocytes Absolute Auto 0.5 X10*3/uL (0.1-1.2); Monocytes Percent Auto 7.9 % (2-11); Neutrophils Absolute Auto 2.4 x10*3/uL (2.0-8.3); Neutrophils Percent Auto 42.7 % (45-73); Platelet Count 181 X10*3/uL (160-400); Red Blood Count 4.22 X10*6/uL (4.20-5.50); Red Cell Distribution Width 11.9 % (11.0-16.0); White Blood Count 5.7 X10*3/uL (4.8-10.8)
[2023-09-18 03:45] LABS: Ethanol 272 mg/dL
[2023-09-18 03:48] LABS: Alanine Aminotransferase 16 U/L (0-31); Albumin Level 4.2 g/dL (3.5-5.0); Alkaline Phosphatase 106 U/L (39-117); Anion Gap 13 (12-20); Aspartate Amino Transferase 20 U/L (5-31); Bilirubin Total 0.3 mg/dL (0.0-1.0); Blood Urea Nitrogen 14 mg/dL (9-16); Calcium 9.3 mg/dL (8.4-10.2); Carbon Dioxide 27 mmol/L (22-29); Chloride 111 mmol/L (96-108); Creatinine Clr Calc Pharmacy 75.1; Estimated Glomerular Filt Rate > 60; Glucose Random 107 mg/dL (60-115); Magnesium 2.2 mg/dL (1.6-2.6); Potassium 4.7 mmol/L (3.3-5.1); Sodium 146 mmol/L (135-145); Total Protein 7.5 g/dL (6.5-8.0)
[2023-09-18 03:58] LABS: Troponin-I High Sensitivity < 2.7 ng/L (<3.5-17.0)
--- NOTE | 2023-09-18 04:53 | ED_ITS ---
HPI - General Adult General Chief complaint: Fall Stated complaint: fall Time Seen by Provider: 09/18/23 04:46 History of Present Illness HPI narrative: The patient is a 68-year-old woman who lives alone in her own apartment. She fell in her bathroom this evening when she was getting off the toilet. She says that 1st she fell off the toilet onto the rim of the bathtub and then fell into the bathtub itself. She had trouble getting up and out of the bathtub. She used her smart watch to call her sister who lives next door. The sister then called 911 and she was brought to the hospital. The patient does not think that she hit her head or had loss of consciousness but she does admit to 2-1/2 glasses of wine. She has a history of an upper C- spine fracture that was surgically repaired 2 years ago. She does not feel like she has a C-spine fracture today. She has no numbness or tingling in her hands and feels she can use her arms normally. Related Data Home Medications Medication Instructions Recorded Confirmed atorvastatin 80 mg tablet 80 mg PO DAILY 03/11/23 09/02/23 carvedilol 6.25 mg tablet 6.25 mg PO DAILY 03/11/23 09/02/23 lorazepam 1 mg tablet 1 mg PO TID 03/11/23 09/02/23 melatonin 3 mg tablet 6 mg PO BEDTIME 03/11/23 09/02/23 trazodone 50 mg tablet 50 mg PO BEDTIME 03/11/23 09/02/23 Allergies Allergy/AdvReac Type Severity Reaction Status Date / Time lisinopril Allergy Severe Anaphylaxis Verified 09/06/23 07:53 Seasonal Allergies Allergy Mild Itchy Verified 09/06/23 07:53 Eyes, stuffy nose, runny nose Review of Systems 2 Review of Systems: Yes all other systems are reviewed and are negative COUNT INCLUDES THE [facility] Past Medical History Medical History (Updated 09/18/23 @ 06:12 by Sunil Babb MD) Pneumonia HTN (hypertension) Hyperlipidemia History of right breast cancer Surgical History Hx of right breast biopsy H/O colonoscopy History of neck surgery (06/2022) History of lumpectomy of right breast Hx laparoscopic cholecystectomy (~2002) Family History Family History Mother History of cyst of breast Father Family hx of prostate cancer Paternal Grandfather Hx of cancer of lung Paternal Aunt History of breast cancer Paternal Aunt History of colon cancer Family/Other History of breast cancer, Onset Age: 42 Social History Social History Alcohol intake: current Alcohol intake frequency: a few times a week Alcohol type: wine Patient Tobacco Use Status: Never used Tobacco Smoked in Last 30 Days: No Advance Directives: Yes Advance Directives on File: Yes Advance Directives Date on File: 06/23/20 Physical Exam ED Vital Signs: Vital Signs - 24 hr 09/18/23 03:27 09/18/23 06:09 Temperature 97.7 F Pulse Rate 80 77 Respiratory Rate 16 16 Blood Pressure 117/55 L 115/62 Pulse Oximetry 96 94 Oxygen Delivery Method Room Air Room Air BMI result Body Mass Index 28.6 Const Other: The patient was sleeping. She was wearing a cervical collar. She woke easily with stimulation. She does not appear in acute distress. HENMT Other: No obvious signs of trauma to the head or the face. No raccoon eyes. No meek sign. Eyes Other: Pupils are round equal, conjunctivae clear, extraocular movements intact Neck Other: No definite posterior midline C-spine tenderness. She does not seem to have much in the way of discomfort with neck motion. Chest Other: No chest wall tenderness Resp Effort & Inspection: normal respiratory effort Auscultation: clear to auscultation bilaterally Cardio Rate: regular rate Rhythm: regular rhythm Heart sounds: S1 normal heart sound present and S2 normal heart sound present General: Yes no CVA tenderness Back/Spine/Pelvis Back: no CVA tenderness Skin Other: Skin is pale and dry Neuro Other: The patient was sleepy but easily arousable to what seems to be a fairly normal mental status. No gross slurring of speech. Moving all 4 extremities normally. No pronator drift. Extrem Other: No injuries to the extremities. No deformities. Moving all extremities well. Medications Administered Discontinued Medications Generic Name Dose Route Start Last Admin Trade Name Freq PRN Reason Stop Dose Admin Acetaminophen 975 mg 09/18/23 05:37 09/18/23 05:48 Acetaminophen 325 Mg Tablet PO 09/18/23 05:38 975 mg ONCE ONE Administration Medical Decision Making Medical Decision Making [facility] Narrative: The patient is a 68-year-old woman who lives in her own apartment who comes to the emergency room after a fall in her bathroom. She says that she fell off the toilet while sitting on the toilet. She says that she struck the edge of the bathtub and then fell into the bathtub and could not get herself up. Her imaging studies including a head CT, cervical spine CT, and a lumbar spine x-ray show no acute injuries. I was surprised that her alcohol level was so high at 272. The patient was observed but ultimately seemed steady on her feet sufficient for her to be discharged. She called for a ride from her sister who will be bringing her back to her apartment. She was advised that her alcohol level was very high and that she needs to be careful with alcohol in the future. Lab Data 09/18/23 03:26 09/18/23 03:26 Labs: Lab Results 09/18/23 Range/Units 03:26 WBC 5.7 (4.8-10.8) X10*3/uL RBC 4.22 (4.20-5.50) X10*6/uL Hgb 13.8 (12.0-16.0) g/dl Hct 40.5 (37.0-47.0) % MCV 96.0 (80.0-98.0) fL MCH 32.7 (27.0-33.0) pg MCHC 34.1 (31.0-35.0) g/dl RDW 11.9 (11.0-16.0) % Plt Count 181 (160-400) X10*3/uL MPV 10.0 (9.4-12.3) fL Immature Gran % (Auto) 0.2 (0.0-0.4) % Neut % (Auto) 42.7 L (45-73) % Lymph % (Auto) 46.2 H (20-40) % [place] % (Auto) 7.9 (2-11) % Eos % (Auto) 2.3 (0-4) % Baso % (Auto) 0.7 (0-2) % Lymph # (Auto) 2.6 (1.2-4.9) X10*3/uL [place] # (Auto) 0.5 (0.1-1.2) X10*3/uL Eos # (Auto) 0.1 (0.0-0.4) X10*3/uL Baso # (Auto) 0.0 (0.0-0.2) X10*3/uL Abs Immat Gran (auto) 0.01 (0.00-0.03) X10*3/uL Absolute Neuts (auto) 2.4 (2.0-8.3) x10*3/uL Absolute Nucleated RBC 0.000 (0.0-0.012) X10*3/uL Nucleated RBC % (auto) 0.0 (0.0-0.2) /100WBC Sodium 146 H (135-145) mmol/L Potassium 4.7 (3.3-5.1) mmol/L Chloride 111 H (96-108) mmol/L Carbon Dioxide 27 (22-29) mmol/L Anion Gap 13 (12-20) BUN 14 (9-16) mg/dL Creatinine 0.74 (0.5-1.4) mg/dL Estim Creat Clear Calc 75.1 Estimated GFR > 60 Random Glucose 107 (60-115) mg/dL Calcium 9.3 (8.4-10.2) mg/dL Magnesium 2.2 (1.6-2.6) mg/dL Total Bilirubin 0.3 (0.0-1.0) mg/dL AST 20 (5-31) U/L ALT 16 (0-31) U/L Alkaline Phosphatase 106 (39-117) U/L Troponin I High Sens < 2.7 (<3.5-17.0) ng/L Total Protein 7.5 (6.5-8.0) g/dL Albumin 4.2 (3.5-5.0) g/dL Ethyl Alcohol 272 mg/dL Discharge Plan Discharge Clinical Impression: Fall, Alcohol intoxication Patient Disposition: Home, Self-Care Additional Instructions: Your CT scans and x-rays do not show any fractures. Please rest and take it easy today. Please be careful with alcohol in the future. Please make an appointment with your regular doctor to discuss this episode further. Return to the emergency room if you feel significantly worse. Prescriptions: No Action lorazepam 1 mg tablet 1 mg PO TID carvedilol 6.25 mg tablet 6.25 mg PO DAILY atorvastatin 80 mg tablet 80 mg PO DAILY trazodone 50 mg tablet 50 mg PO BEDTIME melatonin 3 mg tablet 6 mg PO BEDTIME Referrals: Bucky Quinonez MD [Physician] - (fall, alcohol use) Interventions: ED Discharge Assessment Last Done: 09/18/23 06:26 Discharge Date/Time: 09/18/23 06:30
[2023-09-18] MEDS: Acetaminophen 325 MG TABLET 975 MG PO (05:48)
[2023-09-18 06:09] VITALS: BP 115/62; PULSE 77; RESP 16; O2SAT 94
== END 2023-09-18 06:30 | disposition home or self-care (01) ==
PROVIDERS: Emergency Provider Emergency Medicine
DX: F10.129 Alcohol abuse with intoxication, unspecified (principal); T14.90XA Injury, unspecified, initial encounter; W18.12XA Fall from or off toilet with subsequent striking against object, initial encounter; Y93.89 Activity, other specified; Y92.002 Bathroom of unspecified non-institutional (private) residence as the place of occurrence of the external cause; Y99.9 Unspecified external cause status; Z79.899 Other long term (current) drug therapy
CPT/HCPCS: 36415; 70450; 72100; 72125; 80053; 80307; 83735; 84484; 85025; 93005; 99284; 99285

== ENCOUNTER → 2023-09-18 03:19 | Outpatient (BNV) | payer OTHER, SELFPAY | PROVIDERS: Emergency Provider Emergency Medicine; Visit Provider Internal Medicine Cardiovascular Disease | DX: R94.31 Abnormal electrocardiogram [ECG] [EKG] (principal) | CPT/HCPCS: 93010 ==

== ENCOUNTER 2024-01-11 02:21 | Inpatient (IN) | payer OTHER, SELFPAY ==
[2024-01-11] VITALS (9 sets, daily range): BP systolic 108–179; BP diastolic 60–90; PULSE 74–93; RESP 14–18; TEMP 36.1–37.2; O2SAT 93–96; BMI 28.3
--- NOTE | ~2024-01-11 | CT_ITS ---
EXAMINATION: CT CERVICAL SPINE WITHOUT CONTRAST; UNENHANCED CT OF THE HEAD. CLINICAL INFORMATION: Neck pain. Fall. History of cervical fracture. COMPARISON: CT head and cervical spine 09/18/2023. TECHNIQUE: Routine unenhanced CT of the head with multiple coronal and sagittal reformatted images; routine unenhanced CT of the cervical spine with multiple coronal and sagittal reformatted images. This CT examination was performed using dose optimization techniques as appropriate, variously including the following: *Automated exposure control *Adjustment of mA and/or kV according to patient size (this includes techniques or standardized protocols for targeted exams where dose is matched to indication/reason for exam; i.e. extremities or head) *Use of iterative reconstruction technique DLP: 1025 mGy-cm FINDINGS: CT head: No intracranial hemorrhage, tumors or acute infarcts noted. Mild diffuse commensurate prominence of the ventricles and sulci. Moderate segmental calcific atherosclerosis of the cavernous portions of the internal carotid arteries. Orbits and globes are normal in appearance. Right frontal extra cranial soft tissue inflammatory changes and mild focal subcutaneous emphysema is visualized. No significant opacification of the visualized paranasal sinuses, mastoid air cells and middle ear cavities. CT cervical spine: No acute fractures or subluxations are noted. Posterior manic deformity of the dens which is united with dorsal angulation is identified. C1 CT post. Instrumented fusion hardware is again visualized. Multilevel facet hypertrophic changes are present in the cervical spine. No prevertebral fluid collections or soft tissue inflammatory changes noted. The visualized lung apices are clear. CT/CT cervical spine wo IV con IMPRESSION: CT HEAD: 1. No acute intracranial abnormalities. 2. Right frontal extracranial soft tissue inflammatory changes and mild focal subcutaneous emphysema. CT CERVICAL SPINE: No acute abnormalities. Status post C1-C2 posterior instrumented fusion. 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
--- NOTE | ~2024-01-11 | XR_ITS ---
EXAMINATION: XR humerus RT, XR shoulder RT min 2V CLINICAL INFORMATION: Reason for Exam fall and pain COMPARISON: None. TECHNIQUE: AP and lateral radiograph the right humerus; AP neutral radiographs of the right shoulder FINDINGS: A comminuted fracture of the distal radial diaphysis is identified. No associated erosive osseous lesion. The major fracture fragments demonstrate varus and dorsal angulation. Prominent adjacent soft tissue inflammatory changes are noted. No soft tissue emphysematous changes. The visualized right lung and right ribs are normal in appearance. Visualized radial head appears intact. Lateral humeral and acromioclavicular joint spacing and alignment appear normal. XR/XR shoulder RT min 2V IMPRESSION: Displaced, comminuted fracture of the distal radial diaphysis.
--- NOTE | ~2024-01-11 | XR_ITS ---
EXAMINATION: XR humerus RT, XR shoulder RT min 2V CLINICAL INFORMATION: Reason for Exam fall and pain COMPARISON: None. TECHNIQUE: AP and lateral radiograph the right humerus; AP neutral radiographs of the right shoulder FINDINGS: A comminuted fracture of the distal radial diaphysis is identified. No associated erosive osseous lesion. The major fracture fragments demonstrate varus and dorsal angulation. Prominent adjacent soft tissue inflammatory changes are noted. No soft tissue emphysematous changes. The visualized right lung and right ribs are normal in appearance. Visualized radial head appears intact. Lateral humeral and acromioclavicular joint spacing and alignment appear normal. XR/XR humerus RT IMPRESSION: Displaced, comminuted fracture of the distal radial diaphysis.
--- NOTE | ~2024-01-11 | FL_ITS ---
EXAMINATION: XR FLUOROSCOPY WITH IMAGES CLINICAL INFORMATION: Fracture right distal humerus, fluoroscopic guidance. COMPARISON: None available. TECHNIQUE: Fluoroscopy Supervised By: Dr. Alexis Domínguez. Fluoroscopy Time: 0.9 seconds. Cumulative Dose: 3.46 mGy. DAP: 0.0602 mGy-m2. Images: 6. FINDINGS: Fluoroscopic guidance was provided for a procedure. Multiple images demonstrate plates and screws transfixing previously identified comminuted fracture of the distal humerus. Please refer to operative report for detailed evaluation. FL/FL guidance in OR IMPRESSION: Fluoroscopic guidance provided for a procedure. Multiple images demonstrate plates and screws transfixing previously identified comminuted fracture of the distal humerus. Fluoroscopic guidance was provided for a procedure. Ureteral stent partially visualized. Please refer to operative report for detailed evaluation.
--- NOTE | ~2024-01-11 | CT_ITS ---
EXAMINATION: CT HUMERUS WITHOUT CONTRAST, RIGHT CLINICAL INFORMATION: Right humerus fracture. COMPARISON: X-rays of the right humerus performed same day. TECHNIQUE: CT scan of the right shoulder performed with reconstruction imaging performed at the acquisition workstation. This CT examination was performed using dose optimization techniques as appropriate, variously including the following: *Automated exposure control *Adjustment of mA and/or kV according to patient size (this includes techniques or standardized protocols for targeted exams where dose is matched to indication/reason for exam; i.e. extremities or head) *Use of iterative reconstruction technique DLP: 162 mGy-cm FINDINGS: The mildly comminuted distal spiral oblique diametaphyseal fracture of humerus is redemonstrated. Fracture originates 9 cm proximal to the radiocapitellar joint. Fracture extends over length of approximately 8 cm craniocaudal The fracture results in 3 fragments. There is a cortical fragment measuring up to 1 cm transverse and 8 cm craniocaudal displaced posteriorly approximately 9 mm period. There is a full shaft width lateral displacement of the distal fragment. There is some proximal displacement of the distal fragment with 2 cm of bony overlap resulting. There is apex lateral angulation estimated at 37 degrees with apex anterior angulation estimated at 13 degrees. Allowing for differences in imaging modalities the fracture appears to been partially reduced. No additional fractures. There is some mild streaky density in the subcutaneous soft tissues in the upper arm near the area the fracture likely reflecting edema and/or soft tissue contusion. There is arthrosis of the glenohumeral joint manifested by marginal osteophytes and mild joint space narrowing. There is mild arthrosis of the partially visualized acromial clavicular joint. Incidental note made of postsurgical changes in the right upper quadrant perhaps related to prior cholecystectomy. CT/CT humerus RT wo IV con IMPRESSION: 1. Mildly comminuted distal diametaphyseal fracture of the humerus. The fracture appears to been partially reduced. 2. Mild arthrosis of the glenohumeral joint. 3. Mild arthrosis of the acromioclavicular joint.
--- NOTE | 2024-01-11 02:38 | PC.NURSE ---
pt biba from home after slip and fall; pt reports she slipped on dog poop. lives at home alone, pt denies use of assistive devices. +headstrike; lac to forehead above R. eyebrow. lac cleaned with sterile water and nonstick applied. -thinners. -loc per pt. +c-collar via ems. vss. pt reports had 2 glasses of wine earlier tonight and denies sx of dizziness/cp/sob prior to fall. PERRLA. pt reports R. upper arm pain 10/10; denies GUY/neck pain. hx neck fx Jun 2022. Dr. Ramos aware.
--- NOTE | 2024-01-11 03:06 | ECG_ITS ---
Test Reason : FALL Blood Pressure : / mmHG Vent. Rate : 079 BPM Atrial Rate : 079 BPM P-R Int : 146 ms QRS Dur : 082 ms QT Int : 376 ms P-R-T Axes : 036 -11 010 degrees QTc Int : 431 ms Normal sinus rhythm Minimal voltage criteria for LVH, may be normal variant ( R in aVL ) Cannot rule out Anterior infarct (cited on or before 18-SEP-2023) Abnormal ECG When compared with ECG of 18-SEP-2023 03:19, No significant change was found Referred By: Vivi Ramos Electronically Signed By:WENDI ANDRADE
--- NOTE | 2024-01-11 03:06 | ED.FALL ---
HPI - Fall General Chief Complaint: Fall Stated Complaint: FALL Time Seen by Provider: 01/11/24 03:04 Source: patient and EMS Mode of arrival: EMS Limitations: no limitations History of Present Illness ED Provider: DR. Ramos HPI Narrative: A 68-year-old female brought in by EMS from home after sustained a mechanical fall. Patient is slipped on dog's stool on the floor causing her to lose balance and fall landing on her right side and hit her head, patient declined LOC, complaining of neck pain patient had a history neck fracture after fall, patient also complaining of right arm pain. No LOC, no CP, no SOB, no abdominal pain. Related Data Home Medications ?Medication ?Instructions ?Recorded ?Confirmed atorvastatin 80 mg tablet 80 mg PO DAILY 03/11/23 09/02/23 carvedilol 6.25 mg tablet 6.25 mg PO DAILY 03/11/23 09/02/23 lorazepam 1 mg tablet 1 mg PO TID 03/11/23 09/02/23 melatonin 3 mg tablet 6 mg PO BEDTIME 03/11/23 09/02/23 trazodone 50 mg tablet 50 mg PO BEDTIME 03/11/23 09/02/23 Allergies Allergy/AdvReac Type Severity Reaction Status Date / Time lisinopril Allergy Severe Anaphylaxis Verified 01/11/24 02:29 Seasonal Allergies Allergy Mild Itchy Verified 01/11/24 02:29 Eyes, stuffy nose, runny nose Review of Systems Review of Systems: All other systems are reviewed and are negative Constitutional: Reports as per HPI and Reports no additional constitutional complaints Eyes: Reports as per HPI and Reports no additional eye complaints Reports system reviewed and no additional complaints, except as documented Cardiovascular: Reports as per HPI and Reports no additional cardiovascular complaints Respiratory: Reports as per HPI and Reports no additional respiratory complaints Gastrointestinal: Reports as per HPI and Reports no additional gastrointestinal complaints Genitourinary: Reports no additional female genitourinary complaints Musculoskeletal: Reports no additional musculoskeletal complaints Skin/Breast: Reports system reviewed and no additional complaints, except as docu Psychiatric: Reports no additional psychiatric complaints Endocrine: Reports no additional endocrine complaints Hematologic/Lymphatic: Reports no additional hematologic/lymphatic complaints Allergic/Immunologic: Reports no additional allergic/immunologic complaints Reports system reviewed and no additional complaints, except as documented and Reports Abnormal speech present [facility] Past Medical History Medical History Pneumonia HTN (hypertension) Hyperlipidemia History of right breast cancer Surgical History Hx of right breast biopsy H/O colonoscopy History of neck surgery (06/2022) History of lumpectomy of right breast Hx laparoscopic cholecystectomy (~2002) Family History Family History Mother History of cyst of breast Father Family hx of prostate cancer Paternal Grandfather Hx of cancer of lung Paternal Aunt History of breast cancer Paternal Aunt History of colon cancer Family/Other History of breast cancer, Onset Age: 42 Social History Social History Alcohol intake: current Alcohol intake frequency: a few times a month Alcohol type: wine Patient Tobacco Use Status: Never used Tobacco Smoked in Last 30 Days: No Use of substances other than those prescribed or required for medical reasons: No Advance Directives: Yes Advance Directives on File: Yes Advance Directives Date on File: 06/23/20 Physical Exam Vital Signs: Vital Signs: Last Vital Signs Temp 97.7 F 01/11/24 02:24 Pulse 82 01/11/24 02:24 Resp 15 01/11/24 02:24 BP 145/78 H 01/11/24 02:24 Pulse Ox 95 01/11/24 02:24 O2 Del Method Room Air 01/11/24 02:24 BMI result Body Mass Index 28.3 Vital signs have been reviewed and appear to be correct. Blood pressure elevated. Heart rate normal. Respiratory rate normal. Temperature normal. Oxygen saturation normal. Appearance: Alert. Oriented X3. No acute distress. Head: 4 cm laceration on right side forehead, no active bleeding. Eyes: PERRLA. EOMI. Conjunctiva and sclera normal. Eyelids normal. ENT: TM's Normal. Pharynx normal. Uvula midline. Moist mucous membranes. No trismus noted. No drooling noted. No muffled voice noted. Neck: C-collar in place for immobilization, Normal inspection. CVS: Normal heart rate and rhythm. Heart sound normal. No murmurs noted. Pulses normal throughout. Respiratory: No respiratory distress. Painless inspiration. Breath sounds normal. No wheezes/rales/rhonchi noted. Chest nontender. No accessory muscle usage noted or decreased air movement noted. Abdomen: Soft and nontender. Bowel sounds normal in all 4 quadrants. No distention noted. No organomegaly noted. No visible injury noted. Back: No CVA tenderness. Full range of motion noted. Skin: Skin warm and dry. Normal skin color. Normal skin turgor. No rashes/lesions/lacerations noted. Extremities: Right humerus tenderness, no step-off, no deformity. Neuro: Oriented X 3. Cranial nerve exam: II-XII are grossly intact No motor deficit. No sensory deficit. Reflexes normal. Course Reevaluation(s) Reevaluation #1: 1. S/p head injury and facial laceration. 2. Tetanus booster, facial laceration repaired with Dermabond, no acute finding on CT head or cervical spine, labs/EKG are nonrevealing. 3. Comminuted displaced fracture of the distal right humerus, case discussed with Chris Alvarez from ortho recommended long arm splint and keep the patient in the emergency department until evaluated by the ortho team in the a.m. Time: 05:25 Reevaluation #2: Attempt of reduction with long-arm posterior splint application. Postreduction neurovascular exam is intact, good peripheral pulse and cap refill less than 2 seconds, sensation is intact. Patient appeared comfortable after applying the posterior long arm splint, continue with the plan keep the patient in the ED until evaluated by ortho. Signed out to Dr. Christensen. Time: 05:30 Medications Administered Discontinued Medications Generic Name Dose Route Start Last Admin Trade Name Freq PRN Reason Stop Dose Admin Diphtheria/Tetanus/Acell Pertussis 0.5 ml 01/11/24 03:04 01/11/24 03:58 Diphth,Pertus(Acell),Tet Adult 0.5 Ml Syringe IM 01/11/24 03:05 0.5 ml .ONCE ONE Administration Procedures Laceration Laceration 1: Site: face Side (If applicable): right Size (cm): 4 Description: linear Depth: simple, single layer Skin layer closed with: other (Dermabond) Orthopedic Fracture Reduction Fracture #1: Time Out Performed: Yes Side: right Fracture Reduction Location: humerus Technique: direct manipulation and traction/counter-traction Post Reduction X-rays Demonstrate: acceptable reduction Splint Applied: Yes Patient Tolerated Procedure: well Medical Decision Making Differential Diagnosis Differential Diagnoses: The differential diagnosis associated with the presentation includes (Intracranial bleed, facial laceration, cervical spine fracture, right arm fracture, ACS, electrolyte derangement, dehydration, severe anemia, dysrhythmia.) Admission/Observation Consideration of admission/observation: Escalation of care including admission/observation considered Consult Healthcare Provider Management of the patient was discussed with: [employer] Vice President (Chris Alvarez.) Lab Data MDM Lab Attestation statement: I reviewed the patient's lab results. 01/11/24 03:55 01/11/24 03:55 Labs: Lab Results 01/11/24 01/11/24 Range/Units 03:55 04:10 WBC 6.3 (4.8-10.8) X10*3/uL RBC 3.98 L (4.20-5.50) X10*6/uL Hgb 13.2 (12.0-16.0) g/dl Hct 38.8 (37.0-47.0) % MCV 97.5 (80.0-98.0) fL MCH 33.2 H (27.0-33.0) pg MCHC 34.0 (31.0-35.0) g/dl RDW 12.1 (11.0-16.0) % Plt Count 170 (160-400) X10*3/uL MPV 9.9 (9.4-12.3) fL Immature Gran % (Auto) 0.2 (0.0-0.4) % Neut % (Auto) 67.2 (45-73) % Lymph % (Auto) 24.7 (20-40) % [place] % (Auto) 6.0 (2-11) % Eos % (Auto) 1.3 (0-4) % Baso % (Auto) 0.6 (0-2) % Lymph # (Auto) 1.6 (1.2-4.9) X10*3/uL [place] # (Auto) 0.4 (0.1-1.2) X10*3/uL Eos # (Auto) 0.1 (0.0-0.4) X10*3/uL Baso # (Auto) 0.0 (0.0-0.2) X10*3/uL Abs Immat Gran (auto) 0.01 (0.00-0.03) X10*3/uL Absolute Neuts (auto) 4.3 (2.0-8.3) x10*3/uL Absolute Nucleated RBC 0.000 (0.0-0.012) X10*3/uL Nucleated RBC % (auto) 0.0 (0.0-0.2) /100WBC Sodium 143 (135-145) mmol/L Potassium 3.8 (3.3-5.1) mmol/L Chloride 107 (96-108) mmol/L Carbon Dioxide 23 (22-29) mmol/L Anion Gap 17 (12-20) BUN 11 (9-16) mg/dL Creatinine 0.66 (0.5-1.4) mg/dL Estim Creat Clear Calc 83.7 Estimated GFR > 60 Random Glucose 124 H (60-115) mg/dL Calcium 9.1 (8.4-10.2) mg/dL Troponin I High Sens < 2.7 (<3.5-17.0) ng/L Urine Color Yellow Urine Appearance Clear Urine pH 5.5 (5.0-9.0) Ur Specific [place] <= 1.005 (1.005-1.025) Urine Protein Negative (Neg-Trace) mg/dL Urine Glucose (UA) Negative (Negative) mg/dL Urine Ketones Negative (Negative) mg/dL Urine Blood Negative (Negative) Urine Nitrite Negative (Negative) Ur Leukocyte Esterase Negative (Negative) Urine RBC 0-2 (0-2) /HPF Urine WBC 0-5 (0-5) /HPF Ur Squamous Epith Cells 0-2 (0-2) /HPF Urine Bacteria None Seen (None Seen) Hyaline Casts 0-2 (0-2) /LPF Independent Interpretation I performed an independent interpretation of an: Plain X-Ray (Right arm x-ray: Displaced, comminuted fracture of the distal radial diaphysis. ) and CT Scan (Head/cervical spine: 1. No acute intracranial abnormalities. 2. Right frontal extracranial soft tissue inflammatory changes and mild focal subcutaneous emphysema. CT CERVICAL SPINE: No acute abnormalities. Status post C1-C2 posterior instrumented fusion. Chronic united posttraumatic deformity of) Radiology Impression Discussion of test interpretation with radiology: I have reviewed the radiologist's reading. Discharge Plan Discharge Clinical Impression: Accident due to mechanical fall without injury, Forehead laceration, Fracture, humerus Patient Disposition: Still a Patient Instructions: Arm Fracture in Adults (ED) Prescriptions: No Action lorazepam 1 mg tablet 1 mg PO TID carvedilol 6.25 mg tablet 6.25 mg PO DAILY atorvastatin 80 mg tablet 80 mg PO DAILY trazodone 50 mg tablet 50 mg PO BEDTIME melatonin 3 mg tablet 6 mg PO BEDTIME Referrals: Alexis Domínguez MD [Physician] - Print Language: [place]
--- OUTSIDE RECORDS SUMMARY | 2024-01-11 03:14 | XMS_ITS | Patient Health Record ---
Author Organization [facility] Address [address] [place] [address] Care Team Providers Care Hot Patcher Name Role Phone Bucky Quinonez MD Primary Care Provider Unavailab Nick Hoskins Unavailable [phone] ALLERGIES Allergen (clinical drug ingredient) Drug/Non Drug Allergy documented on EMR Reaction Allergy Type Onset Date Status lisinopril Lisinopril Unknown Drug Allergy Activ e seasonal (uncoded) Unknown Allergy A ctive RESULTS Component Value Reference Range Notes CT colonography Reviewed date:09/21/2023 11:00:44 PM Interpretation: Performing Lab: Notes/Report: [address] [address] [address] Scan Report Signed Patient: Maria C Ho MR#: [id number] : 1955 Acct:[id number] Age/Sex: 68 / F ADM Date: 09/06/23 Loc: [facility] Attending Dr: Nick Linton MD Ordering Physician: Nick Linton Date of Service: 09/06/23 Procedure(s): CT colonography Accession Number(s): [id number] cc: Bucky Quinonez MD; Nick Linton EXAMINATION: CT COLONOGRAPHY CLINICAL INFORMATION: Incomplete colonoscopy with heme-positive stool and diverticulosis COMPARISON: 06/03/2023 TECHNIQUE: Bowel preparation: Excellent. Stool tagging with Gastrografin and barium: Excellent. Colonic distention: CO2 mechanical insufflator used via enema tube with excellent distention. Acquisition: Low dose imaging targeted to colonic was performed in the supine and prone positions. Procedure: The procedure was well tolerated. Review: The acquired images were reviewed in axial, coronal and sagittal planes. Additional 3-D fly through images were reviewed at an independent workstation. This CT examination was performed using dose optimization techniques as appropriate, variously including the following: *Automated exposure control *Adjustment of mA and/or kV according to patient size (this includes techniques or standardized protocols for targeted exams where dose is matched to indication/reason for exam; i.e. extremities or head) *Use of iterative reconstruction technique DLP: 521 mGy-cm FINDINGS: Colonic findings: Redundant tortuous colon with scattered colonic diverticulosis. No colonic wall thickening or pericolonic inflammatory change to suggest diverticulitis. I do not appreciate any suspicious colonic mass lesions or obstructive change. No significant colonic polyp. Normal-appearing appendix. Non-colonic findings: Gallbladder surgically absent. Mild vascular calcification. Bladder decompressed. Degenerative changes in the spine and hips. CT/CT colonography IMPRESSION: Tortuous tortuous colon with scattered diverticulosis but no evidence for diverticulitis. I do not appreciate any suspicious colonic mass lesions or significant colonic polyp. Dictated By: Elías Bruce MD Signed By: <Electronically signed by Elías Bruce MD in OV> 09/07/23 1356 DD/ 1115 TD/TT: Machine Attendant: MO REASON FOR REFERRAL No Information MEDICATIONS Medication SIG (Take, Route, Frequency, Duration) Notes Start Date End Date Status traZODone HCl 50 MG Oral for 90 Active Docusate Sodium 100 MG TAKE 1 CAPSULE BY MOUTH TWICE A DAY Oral for 90 Not-Taki ng Melatonin 3 MG 1 tablet at bedtime as needed Orally Once a day for 30 day(s) Active LORazepam 1 MG 1 Oral Once a day Active Carvedilol 6.25 MG Oral for 90 Active Atorvastatin Calcium 80 MG TAKE 1 TABLET BY MOUTH EVERY DAY Oral for 90 Active SOCIAL HISTORY Sex Assigned At : Social History Observation Description Sex Assigned At Unknown Alcohol Screen Question Answer Notes Did you have a drink containing alcohol in the p ast year? No Points 0 Interpretation Negative PROBLEMS Problem Type ICD Code Onset Dates Problem Status W/U Status Risk SNOMED Code Notes Problem Colon cancer screening (Z12.11) Active confirmed 402895525 Problem Rectal bleeding (K62.5) Active confirmed 38274605 Problem Diverticulosis of large intestine without perforation or abscess without bleeding (K57.30) Active confirmed Diverticul ar disease of colon (960971925) Problem Heme + stool (R19.5) Active confirmed 00993575 VITAL SIGNS Temperature 97.5 degrees Fahrenheit 06/15/2023 Blood pressure diastolic 00 mm Hg 06/15/2023 Height 66.5 in 06/15/2023 Blood pressure systolic 00 mm Hg 06/15/2023 Weight 171 lbs 06/15/2023 BMI 27.18 kg/m2 06/15/2023 Encounters Encounter Location Date Provider Diagnosis [facility] [place] [place] Outpatient [address] [place] [id number] 09/06/2023 Nick Linton Heme + stool R19.5 ; Hematochezia K92.1 ; Diverticulosis of large intestine without perforation or abscess without bleeding K57.30 and Other hemorrhoids K64.8 [facility] [address] [facility] [address] [place] [phone] 06/15/2023 Nick Linton Colon cancer screeni ng Z12.11 ; Heme + stool R19.5 and Rectal bleeding K62.5 [facility] [address] [place] [phone] 09/06/2023 Nick Linton [facility] [address] [phone] 09/20/2023 Nick Linton ASSESSMENTS Encounter Date Diagnosis Assessment Notes Treatment Notes Treatment Clinical Notes 09/06/2023 Heme + stool (ICD-10 - R19.5) 09/06/2023 Hematochezia (ICD-10 - K92.1) 06/15/2023 Colon cancer screening (ICD-10 - Z12.11) 06/15/2023 Heme + stool (ICD-10 - R19.5) 09/06/2023 Diverticulosis of large intestine without perforation or abscess without bleeding (ICD-10 - K57.30) 06/15/2023 Rectal bleeding (ICD-10 - K62.5) 09/06/2023 Other hemorrhoids (ICD-10 - K64.8) PLAN OF TREATMENT Future Test Test Name Order Date COLONOSCOPY 05/05/2012 COLONOSCOPY 06/15/2023 Insurance Providers Payer Name Payer Address Payer Phone Subscriber Number Group Number Insured Name Patient Relationship to Insured Coverage Start Date Coverage End Date [employer] [address] [place] [address] [id number] HO MARIA C Self - patient is the insured MEDICAL (GENERAL) HISTORY Medical History History ICD Code Hypertension Denies [place],DM,CVA,Lung disease,renal dise ase Hyperlipidemia Pneumonia x 3 Breast cancer as below Neg. limited screening colon oscopy to the splenic flexure and with a negative CT colonography in 2011 Surgical History Surgery Date(Month/Year) [facility] Right sided lumpectomy for b reast cancer with lymph node dissection and with XRT-sees Dr. Rodríguez 11/2015 C1-C2 fusion after a fall in 06/2022 Tracheostomy as part of the above 2021
--- OUTSIDE RECORDS SUMMARY | 2024-01-11 03:14 | XMS_ITS | Patient Health Record ---
Author Organization Nick Rodríguez III, MD Address [address] [place] [address] Care Team Providers Care Protection Analyst Name Role Phone Bucky Quinonez MD Primary Care Provider UnavailNick Johnson Unavailable [phone] ALLERGIES Allergen (clinical drug ingredient) Drug/Non Drug Allergy documented on EMR Reaction Allergy Type Onset Date Status lisinopril Lisinopril Unknown Drug Allergy Activ e REASON FOR REFERRAL No Information MEDICATIONS Medication SIG (Take, Route, Frequency, Duration) Notes Start Date End Date Status Docusate Sodium 100 MG Oral Active LORazepam 0.5 MG Oral Act kira Carvedilol 6.25 MG Oral A ctive Atorvastatin Calcium 80 MG Oral Active traZODone HCl 50 MG Oral Active Melatonin 3 MG Oral Activ e SOCIAL HISTORY Tobacco Use: Social History Observation [...] Code Notes Problem Hyperlipidemia (E78.5) Active confirmed 26985588 I recommended she have her lipids checked 3 times a year. Problem Overweight (E66.3) Active confirmed 455846073 Her body mass index is 26. I recommended regular exercise and a healthy diet and gradual reduction of the BMI into the normal range. Problem HTN (hypertension) (I10) Active confirmed 90477719 The blood pressure is 122/84 and no change was made. I recommended continue sodium restriction, weight loss and regular exercise. 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 The recent biopsy showed no breast cancer. Surveillance will continue. Her anastrozole was discontinued VITAL SIGNS Heart Rate 91 /min 09/21/2023 Temperature 98.6 degrees Fahrenheit 09/21/2023 Blood pressure diastolic 87 mm Hg 09/21/2023 Height 66 in 09/21/2023 Blood pressure systolic 138 mm Hg 09/21/2023 Weight 176 lbs 09/21/2023 BMI 28.4 kg/m2 09/21/2023 Encounters Encounter Location Date Provider Diagnosis Nick Rodríguez III, MD [address] [place] [address] [place] [phone] 01/20/2023 Nikc Rodríguez Invasive ductal carcinoma of right breast C50.911 ; HTN (hypertension) I10 ; Hyperlipidemia E78.5 and Overweight E66.3 Nick Rodríguez III, MD [address] [place] [address] [place] [phone] 07/23/2023 Nick Rodríguez III, MD [address] [place] [address] [place] [phone] 09/21/2023 Nick Rodríguez Invasive ductal carcinoma of right breast C50.911 ; HTN (hypertension) I10 ; Hyperlipidemia E78.5 and Overweight E66.3 ASSESSMENTS Encounter Date Diagnosis Assessment Notes Treatment [...] restriction, weight loss and regular exercise. 09/21/2023 Invasive ductal carcinoma of right breast (ICD-10 - C50.911) There is no sign of recurrent disease or new primary. The recent biopsy showed no breast cancer. Surveillance will continue. Her anastrozole was discontinued 01/20/2023 Hyperlipidemia (ICD-10 - E78.5) I recommended she have her lipids checked 3 times a year. 09/21/2023 Hyperlipidemia (ICD-10 - E78.5) I recommended she have her lipids checked 3 times a year. 01/20/2023 Overweight (ICD-10 - E66.3) Her body mass index is 26. I recommended regular exercise and a healthy diet and gradual reduction of the BMI into the normal range. 09/21/2023 Overweight (ICD-10 - E66.3) Her body [...] 018 Next Appt Details Provider Name:Nick Rodríguez, 09/20/2024 03:30:00 PM, [address] [place] [address] [place], [address], Insurance Providers Payer Name Payer Address Payer Phone Subscriber Number Group Number Insured Name Patient Relationship to Insured Coverage Start Date Coverage End Date [facility] [address] [place] [phone] [id number] ABNER RUGGIERO Self - patient is the insured MEDICAL (GENERAL) HISTORY Medical History History ICD Code Invasive ductal carcinoma of right breas t C50.911 HTN (hypertension) I10 Hyperlipidemia E78.5 pneumonia RML 2000 cholelithiasis 2002 menarche age 13 LMP 2010, menopause age 55 hyperlipidemia overweight Traumatic fracture C2 requiring fusion Surgical History Surgery Date(Month/Year) C1 and C2 Fused after trauma 06/2022 Trachiescopy 06/2022 Biopsy left breast at 04/2020 biopsy of right breast 01/2019 colonoscopy 2011, incompletge, to spleni c flexure 05/2012 right breast biopsy, then edelmira mpectomy, sentinel node, radiation, adjuvant endocrine therapy 11/04/2015 laparascopic cholecystectomy 2002
--- NOTE | 2024-01-11 03:37 | PC.NURSE ---
pt return from ct scan at this time; delay in ekg/lab.
[2024-01-11 03:58] LABS: MANUAL DIFF FLAG NO
[2024-01-11] MEDS: Diphth,Pertus(ACell),Tet Adult 0.5 ML SYRINGE IM (03:58)
[2024-01-11 04:01] LABS: Basophils Percent Auto 0.6 % (0-2); Eosinophils Absolute Auto 0.1 X10*3/uL (0.0-0.4); Eosinophils Percent Auto 1.3 % (0-4); Hematocrit 38.8 % (37.0-47.0); Hemoglobin 13.2 g/dl (12.0-16.0); Imm Gran Abs Auto 0.01 X10*3/uL (0.00-0.03); Imm Gran Pct Auto 0.2 % (0.0-0.4); Lymphocytes Absolute Auto 1.6 X10*3/uL (1.2-4.9); Lymphocytes Percent Auto 24.7 % (20-40); Mean Corpuscular Hemoglobin 33.2 pg (27.0-33.0); Mean Corpuscular Volume 97.5 fL (80.0-98.0); Mean Platelet Volume 9.9 fL (9.4-12.3); Monocytes Absolute Auto 0.4 X10*3/uL (0.1-1.2); Neutrophils Absolute Auto 4.3 x10*3/uL (2.0-8.3); Neutrophils Percent Auto 67.2 % (45-73); Platelet Count 170 X10*3/uL (160-400); Red Blood Count 3.98 X10*6/uL (4.20-5.50); Red Cell Distribution Width 12.1 % (11.0-16.0); White Blood Count 6.3 X10*3/uL (4.8-10.8)
[2024-01-11 04:16] LABS: Anion Gap 17 (12-20); Blood Urea Nitrogen 11 mg/dL (9-16); Calcium 9.1 mg/dL (8.4-10.2); Carbon Dioxide 23 mmol/L (22-29); Chloride 107 mmol/L (96-108); Creatinine Clr Calc Pharmacy 83.7; Estimated Glomerular Filt Rate > 60; Glucose Random 124 mg/dL (60-115); Potassium 3.8 mmol/L (3.3-5.1); Sodium 143 mmol/L (135-145)
[2024-01-11 04:17] LABS: Appearance Urine Clear; Color Urine Yellow; Glucose Urine UA Negative (Negative); Leukocyte Esterase Urine Negative (Negative); Nitrite Urine Negative (Negative); PH 5.5 (5.0-9.0); Specific Gravity - Urine <= 1.005 (1.005-1.025); Urine Blood Negative (Negative); Urine Ketones Negative (Negative); Urine Protein Negative (Neg-Trace)
[2024-01-11 04:26] LABS: Bacteria Urine None Seen (None Seen); Hyaline Casts Urine 0-2 /LPF (0-2); RBC Urine 0-2 /HPF (0-2); Squamous Epithelial Cell Urine 0-2 /HPF (0-2); WBC Urine 0-5 /HPF (0-5)
[2024-01-11 04:32] LABS: Troponin-I High Sensitivity < 2.7 ng/L (<3.5-17.0)
--- NOTE | 2024-01-11 08:40 | PC.NURSE ---
Resumed care of patient, ortho at bedside this morning would like to admit patient for surgery on arm. Pt in agreement with plan at this time, all needs met
--- NOTE | 2024-01-11 10:14 | P.CONHOSP_ITS ---
History of Present Illness Data of Consult Service Date: 01/11/24 Requesting physician: Chris Alvarez Primary Care Provider: Bucky Quinonez MD HPI Reason for consult: Medical management, preoperative clearance 60-year-old female with history of hypertension, hyperlipidemia, anxiety, history of right-sided breast cancer presented to the ED earlier today due to a mechanical fall. She is currently admitted to Orthopedic surgery for management of a right humerus fracture with hospitalist consult placed for medical management and preoperative risk stratification. States she was walking down a narrow hallway when she slipped on dog feces. She states she hit the right forehead on the door jam prior to falling directly onto the right side. She did not lose consciousness. Denies any prodrome leading up to the fall including vision changes, headache, lightheadedness, shortness of breath, palpitations, or chest pain. She states she ambulates with a cane only when it is ICU 0, otherwise does not use any assistive devices. While in the ED, vital signs are stable. Labs are unremarkable. Head CT negative for any acute intracranial abnormalities but there is a right frontal extracranial soft tissue inflammation with mild focal subcutaneous emphysema. She does have a 4 cm laceration to the right forehead that required glue but no suturing while in the ED. cervical spine CT negative for any acute osseous abnormalities but shows history of posterior instrumented fusion with chronic [place] posttraumatic deformity of the dens of C2. X-ray of the right humerus shows displaced, comminuted fracture of the distal radial diaphysis. The patient denies any history of cardiovascular disease, heart failure, seizure disorder, chronic lung disease. No history of stroke. She denies any chest pain, shortness of breath, dyspnea on exertion, lightheadedness, palpitations. Review of Systems 2 Review of Systems: Yes all other systems are reviewed and are negative [facility] Medical History Pneumonia HTN (hypertension) Hyperlipidemia History of right breast cancer Family History Mother History of cyst of breast Father Family hx of prostate cancer Paternal Grandfather Hx of cancer of lung Paternal Aunt History of breast cancer Paternal Aunt History of colon cancer Family/Other History of breast cancer, Onset Age: 42 Surgical History Hx of right breast biopsy H/O colonoscopy History of neck surgery (06/2022) History of lumpectomy of right breast Hx laparoscopic cholecystectomy (~2002) Social History Alcohol intake: current Alcohol intake frequency: a few times a month Alcohol type: wine Patient Tobacco Use Status: Never used Tobacco Smoked in Last 30 Days: No Use of substances other than those prescribed or required for medical reasons: No Advance Directives: Yes Advance Directives on File: Yes Advance Directives Date on File: 06/23/20 Meds Allergies Allergy/AdvReac Type Severity Reaction Status Date / Time lisinopril Allergy Severe Anaphylaxis Verified 01/11/24 02:29 Seasonal Allergies Allergy Mild Itchy Verified 01/11/24 02:29 Eyes, stuffy nose, runny nose Home Medications ?Medication ?Instructions ?Recorded ?Confirmed ?Last Taken ?Type atorvastatin 80 mg tablet 80 mg PO DAILY 03/11/23 09/02/23 Unknown History carvedilol 6.25 mg tablet 6.25 mg PO DAILY 03/11/23 09/02/23 09/06/23 History lorazepam 1 mg tablet 1 mg PO TID 03/11/23 09/02/23 Unknown History melatonin 3 mg tablet 6 mg PO BEDTIME 03/11/23 09/02/23 Unknown History trazodone 50 mg tablet 50 mg PO BEDTIME 03/11/23 09/02/23 Unknown History Physical Exam 2 Vital Signs and Narrative: Vital Signs: Last Vital Signs Temp 98.1 F 01/11/24 08:05 Pulse 87 01/11/24 08:05 Resp 16 01/11/24 08:05 BP 108/68 01/11/24 08:05 Pulse Ox 96 01/11/24 08:05 O2 Del Method Room Air 01/11/24 08:05 BMI result Body Mass Index 28.3 Constitutional - Awake and Alert, No apparent distress Eyes - PERRLA, EOMI Cardiovascular - S1S2, RRR, No edema , 2+ radial pulses bilaterally Respiratory - Normal lung expansion, Normal respiratory effort, No respiratory distress, CTA bilaterally Gastrointestinal - NT / ND; +BS; No rebound or guarding Extremities - no calf tenderness bilaterally, no swelling Musculoskeletal - right upper extremity immobilized in sling Skin - Warm/Dry Neurological - Alert & oriented x3, sensation intact Psychological - Appropriate affect Results Labs 01/11/24 03:55 01/11/24 03:55 Labs: Laboratory Results - last 24 hr 01/11/24 01/11/24 03:55 04:10 MCV 97.5 MCH 33.2 H MCHC 34.0 RDW 12.1 Plt Count 170 MPV 9.9 Immature Gran % (Auto) 0.2 Neut % (Auto) 67.2 Lymph % (Auto) 24.7 [place] % (Auto) 6.0 Eos % (Auto) 1.3 Baso % (Auto) 0.6 Lymph # (Auto) 1.6 [place] # (Auto) 0.4 Eos # (Auto) 0.1 Baso # (Auto) 0.0 Abs Immat Gran (auto) 0.01 Absolute Neuts (auto) 4.3 Absolute Nucleated RBC 0.000 Nucleated RBC % (auto) 0.0 Anion Gap 17 Estim Creat Clear Calc 83.7 Estimated GFR > 60 Random Glucose 124 H Calcium 9.1 Troponin I High Sens < 2.7 Urine Color Yellow Urine Appearance Clear Urine pH 5.5 Ur Specific [place] <= 1.005 Urine Protein Negative Urine Glucose (UA) Negative Urine Ketones Negative Urine Blood Negative Urine Nitrite Negative Ur Leukocyte Esterase Negative Urine RBC 0-2 Urine WBC 0-5 Ur Squamous Epith Cells 0-2 Urine Bacteria None Seen Hyaline Casts 0-2 Imaging Radiologist's Impressions: Impressions Cervical Spine CT 01/11/24 03:20 IMPRESSION: CT HEAD: 1. No acute intracranial abnormalities. 2. Right frontal extracranial soft tissue inflammatory changes and mild focal subcutaneous emphysema. CT CERVICAL SPINE: No acute abnormalities. Status post C1-C2 posterior instrumented fusion. 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 Head CT 01/11/24 03:20 IMPRESSION: CT HEAD: 1. No acute intracranial abnormalities. 2. Right frontal extracranial soft tissue inflammatory changes and mild focal subcutaneous emphysema. CT CERVICAL SPINE: No acute abnormalities. Status post C1-C2 posterior instrumented fusion. 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 Humerus X-Ray 01/11/24 03:30 IMPRESSION: Displaced, comminuted fracture of the distal radial diaphysis. Shoulder X-Ray 01/11/24 03:30 IMPRESSION: Displaced, comminuted fracture of the distal radial diaphysis. Assessment and Plan (1) Fracture, humerus: Qualifiers: Encounter type: initial encounter Fracture morphology: unspecified fracture morphology Fracture type: closed Humerus Location: distal Status: Acute Plan 60-year-old female with history of hypertension, hyperlipidemia, anxiety, history of right-sided breast cancer presented to the ED earlier today due to a mechanical fall. She is currently admitted to Orthopedic surgery for management of a right humerus fracture with hospitalist consult placed for medical management and preoperative risk stratification. # right humerus fracture -plan including pain management per Orthopedic surgery -patient is a class I (low) risk on revised cardiac risk index # forehead laceration -head CT negative for any acute intracranial abnormality -skin glue applied to laceration in the ED. no sutures placed #HTN -continue coreg #HLD -statin #Anxiety -continue lorazepam, trazodone Thank you for allowing me to participate in this consult. Signing off at this time. Please do not hesitate to call for further questions or for any acute medical issues.
[2024-01-11] MEDS: Lactated Ringers 1,000 ML 100 ML IVCONT ×2 (11:50→22:20)
--- NOTE | 2024-01-11 12:38 | PHA.MEDREC ---
Pharmacy Consult ? Medication Reconciliation Pharmacy has completed the medication reconciliation. Spoke to patient to confirm meds. Patient stats she is no longer on Trazodone 50 mg at bedtime, and Lorasopam 1 mg tid.
[2024-01-11] MEDS: Acetaminophen 325 MG TABLET 650 MG PO ×2 (12:44→21:03)
--- NOTE | 2024-01-11 12:57 | PM.HPOR ---
History of Present Illness History of Present Illness Date of Service: 01/11/24 Chief complaint: FALL Narrative: Maria C Ho is a 68 year old female who presented to the emergency department earlier this morning after a slip and fall outside at approximately midnight last night. Patient reports that she fell and hit her head, but does not recall if she fell on her arm, but states that she suspect she her arm outstretched when she fell to attempted to catch herself. Since then, the patient has been experiencing severe pain in her right arm, primarily just proximal to the elbow. Patient is currently immobilized in a long arm splint and sling. Review of Systems Review of Systems: Yes all other systems are reviewed and are negative PMF[facility] Past Medical History Medical History Pneumonia HTN (hypertension) Hyperlipidemia History of right breast cancer Family History Family History Mother History of cyst of breast Father Family hx of prostate cancer Paternal Grandfather Hx of cancer of lung Paternal Aunt History of breast cancer Paternal Aunt History of colon cancer Family/Other History of breast cancer, Onset Age: 42 Surgical History Surgical History Hx of right breast biopsy H/O colonoscopy History of neck surgery (06/2022) History of lumpectomy of right breast Hx laparoscopic cholecystectomy (~2002) Social History Social History Alcohol intake: current Alcohol intake frequency: a few times a month Alcohol type: wine Patient Tobacco Use Status: Never used Tobacco Smoked in Last 30 Days: No Use of substances other than those prescribed or required for medical reasons: No Advance Directives: Yes Advance Directives on File: Yes Advance Directives Date on File: 06/23/20 Nutrition Risks: No Nutritional Risk Meds Allergies Allergy/AdvReac Type Severity Reaction Status Date / Time lisinopril Allergy Severe Anaphylaxis Verified 01/11/24 02:29 Seasonal Allergies Allergy Mild Itchy Verified 01/11/24 02:29 Eyes, stuffy nose, runny nose Active Medications: Current Medications Acetaminophen (Acetaminophen 325 Mg Tablet) 650 mg PO Q6H PRN PRN Reason: Pain, Mild (Pain Scale 1-3), fever or headache Last Admin: 01/11/24 12:44 Dose: 650 mg Calcium Carbonate (Calcium Carbonate 750 Mg Tab.Chew) 750 mg PO Q4H PRN PRN Reason: Heartburn Lactated Ringer's (Lr) 1,000 mls @ 100 mls/hr IVCONT .Q10H JACK Last Admin: 01/11/24 11:50 Dose: 100 mls/hr Magnesium Hydroxide (Milk Of Magnesia 30 Ml Oral.Susp) 30 ml PO DAILY PRN PRN Reason: Constipation Melatonin (Melatonin 3 Mg Tablet) 6 mg PO BEDTIME PRN PRN Reason: Insomnia Sodium Chloride (0.9 % Sodium Chloride Flush 3 Ml Syringe) 3 ml IVFLUSH QSHIFT [facility] Home Medications ?Medication ?Instructions ?Recorded ?Confirmed ?Last Taken ?Type atorvastatin 80 mg tablet 80 mg PO DAILY 03/11/23 01/11/24 01/10/24 History carvedilol 6.25 mg tablet 6.25 mg PO DAILY 03/11/23 01/11/24 01/10/24 History melatonin 3 mg tablet 6 mg PO BEDTIME PRN Sleep 03/11/23 01/11/24 01/10/24 History acetaminophen 325 mg capsule 650 mg PO BID 01/11/24 01/11/24 01/10/24 History (Tylenol) Physical Exam Vital Signs: Vital Signs: Last Vital Signs Temp 98.0 F 01/11/24 11:04 Pulse 90 01/11/24 11:04 Resp 14 01/11/24 11:04 BP 147/86 H 01/11/24 11:04 Pulse Ox 95 01/11/24 11:04 O2 Del Method Room Air 01/11/24 11:04 BMI result Body Mass Index 28.3 Const: Other: Patient is alert, oriented, cooperative, and in no acute distress HEENT: Head: Yes normocephalic and Yes atraumatic Resp: Effort & Inspection: normal respiratory effort and able to speak in complete sentences Cardio: Jugular venous distension: no JVD Skin: Other: Laceration noted the patient's forehead above the right eye, no active bleeding or drainage noted. Neuro: General: gait normal Cognition (Neuro): normal cognition Extrem: Other: Patient currently immobilized in a long-arm posterior splint and sling. Patient is able to flex and extend fingers. NVI. Patient is going to flex and extend at the wrist Psych: Appearance: grossly normal Mental Status: mental status grossly normal Results Labs 01/11/24 03:55 01/11/24 03:55 Labs: Abnormal lab results 01/11/24 Range/Units 03:55 RBC 3.98 L (4.20-5.50) X10*6/uL MCH 33.2 H (27.0-33.0) pg Random Glucose 124 H (60-115) mg/dL H & H 01/11/24 Range/Units 03:55 Hgb 13.2 (12.0-16.0) g/dl Hct 38.8 (37.0-47.0) % All other labs normal. Diagnostic results Elbow x-ray: other (X-rays obtained in the ED and independently reviewed by me, Chris Alvarez PA-C, demonstrate displaced, comminuted fracture of the the right humerus. ) Assessment and Plan (1) Fracture, humerus: Qualifiers: Encounter type: initial encounter Fracture morphology: unspecified fracture morphology Fracture type: closed Humerus Location: distal Laterality: right Qualified Code(s): S42.401A - Unspecified fracture of lower end of right humerus, initial encounter for closed fracture Status: Acute Plan 1. Displaced, comminuted fracture of the distal right humerus At this time, after discussion with Dr. Domínguez, surgical intervention is indicated in this patient at this time I educated the patient about the condition. I discussed both operative and nonoperative treatment options. The patient would like to proceed with surgery. The risks and benefits of operative treatment were discussed with the patient and the patient wishes to proceed with surgery. These risks include, but are not limited to, risk of damage to blood vessels, nerves, tendons, infection, recurrence, incomplete relief of preoperative symptoms, persistent pain, possible need for further surgery, and the risks associated with regional blocks and/or anesthesia. Plan is to take the patient to the operating room at some point tomorrow for the following procedures: 1. Right distal humerus ORIF All of the preoperative paperwork including the consent was discussed today. All of the patient's questions were answered in the clinic today. The patient understands that they will be in contact with our certified surgical assistant to discuss scheduling their procedure. Patient denies diabetes, blood thinners, asthma, heart issues, lung issues, kidney issues, or current smoking. Quality Stroke Does the patient have a stroke diagnosis?: No VTE Prior VTE?: No VTE Risk Level:: Surgical - moderate VTE Device Contraindication: N/A - Device Ordered VTE Drug Contraindication: Treatment Not Indicated Procedures Date of Service Date of Service: 01/11/24
--- NOTE | 2024-01-11 14:54 | PC.NURSE ---
Pt oob to commode 1x, steady gait. This rewriter noticed pt sling was not fitting appropriately around the waist and arm. Sling switched to larger size, pt stated it feels so much better, no more pressure vss and up to date, resting in bed quietly, call hyman within reach.
[2024-01-11] MEDS: carvediloL 6.25 MG TABLET PO (22:21)
[2024-01-12] VITALS (11 sets, daily range): BP systolic 127–149; BP diastolic 62–85; PULSE 71–88; RESP 14–18; TEMP 36.1–36.8; O2SAT 92–99
[2024-01-12] MEDS: Lactated Ringers 1,000 ML 100 ML IVCONT ×2 (07:47→19:57)
[2024-01-12] MEDS: carvediloL 6.25 MG TABLET PO (07:48)
[2024-01-12] MEDS: Atorvastatin Calcium 80 MG TABLET PO (07:48)
--- NOTE | 2024-01-12 10:20 | MHC.CM.PN ---
Addendum entered by Nisa Basurto RN 01/12/24 10:52: [facility] IS WILLING TO ACCEPT. PATIENT'S INSURANCE REQUIRES PRIOR AUTH, AND AGENCY MAY NOT BE ABLE OT HAVE FIRST VISIT UNTIL WEDNESDAY, JANUARY .6 Original Note: PATIENT IS FULLY INDEPENDENT WITH HER ADLS. SHE HAS A CANE AND WALKER FROM PRIOR SURGERY. PLAN IS FOR SURGERY TODAY. [facility] REFERRAL PLACED PER PATIENT REQUEST. PATIENT STATES THAT HER SISTER, CORRINE, LIVES NEXT DOOR AND IS HER HCP AGENT. COPY REQUESTED. PATIENT HAS TRANSPORT HOME AT [facility]
--- NOTE | 2024-01-12 11:39 | PC.NURSE ---
Backcharting / Pt oob to commode 1x, steady gait. This song writer noticed pt sling was not fitting appropriately around the waist and arm. Sling switched to larger size, pt stated it feels so much better, no more pressure resting in bed quietly, call hyman within reach. Pt given tylenol for pain scale 5/10, understanding order was for 0-3. Pt only requesting tylenol at this time.
[2024-01-12] MEDS: Lactated Ringers 1,000 ML 50 ML IVCONT (14:20)
--- NOTE | 2024-01-12 14:52 | MHC.SHP ---
Pre-Procedural Eval Section A - 24 Hr Update-Section A only Date of Service: 01/12/24 The patient is an INPATIENT: Yes Changes since office visit: No Cold of Flu in the past 2 weeks, No New Medical Problems, No Changes in Medication and No Patient answered all questions The patient has been examined within 24 hours of the surgical procedure. The History & Physical has been completed within 30 days and I have reviewed it.: Yes Section B - Complete if H&P > 30 days Chief Complaint: FALL Allergies: Allergies Allergy/AdvReac Type Severity Reaction Status Date / Time lisinopril Allergy Severe Anaphylaxis Verified 01/11/24 02:29 Seasonal Allergies Allergy Mild Itchy Verified 01/11/24 02:29 Eyes, stuffy nose, runny nose Plan I have reviewed the history and physical and performed a pertinent physical examination on my patient. No changes have occurred unless specified. Time Spent With Patient Time: Total time managing care of this patient today ____ minutes.
--- NOTE | 2024-01-12 15:44 | P.CONAN_ITS ---
HPI - Anesthesia Eval Consult details Narrative: 68 yo F with distal humerus fracture. Hx of trach in June 2023 secondary to anaphylaxis from lisinopril. Hx of cervical fusion. PMFSH Active Problems Active Problems: All Active Problems Fracture, humerus (Acute) Forehead laceration (Acute) Accident due to mechanical fall without injury (Acute) HTN (hypertension) (Acute) Hyperlipidemia (Acute) History of right breast cancer (Acute) Past Medical History Medical History (Updated 01/11/24 @ 17:05 by CLARISSE Aguilar) Pneumonia HTN (hypertension) Hyperlipidemia History of right breast cancer Family History Family History Mother History of cyst of breast Father Family hx of prostate cancer Paternal Grandfather Hx of cancer of lung Paternal Aunt History of breast cancer Paternal Aunt History of colon cancer Family/Other History of breast cancer, Onset Age: 42 Family history of problems with anesthesia: No Surgical History Surgical History (Updated 01/12/24 @ 14:08 by Estefani Alvarado RN) Hx of left breast biopsy Hx of right breast biopsy H/O colonoscopy History of neck surgery (06/2022) History of lumpectomy of right breast Hx laparoscopic cholecystectomy (~2002) History of Problems with Anesthesia: No Social History Social History Household Members: None Household Members Other:: dog Housing: House Do you presently have visiting nurse or other home services: No Alcohol intake: current Alcohol intake frequency: a few times a month Alcohol type: wine Patient Tobacco Use Status: Never used Tobacco Second Hand Smoke Exposure: Yes Advance Directives Date on File: 06/23/20 service: No Meds Allergies Allergy/AdvReac Type Severity Reaction Status Date / Time lisinopril Allergy Severe Anaphylaxis Verified 01/11/24 02:29 Seasonal Allergies Allergy Mild Itchy Verified 01/11/24 02:29 Eyes, stuffy nose, runny nose Active Medications: Current Medications Acetaminophen (Acetaminophen 325 Mg Tablet) 650 mg PO Q6H PRN PRN Reason: Pain, Mild (Pain Scale 1-3), fever or headache Last Admin: 01/11/24 21:03 Dose: 650 mg Atorvastatin Calcium (Atorvastatin Calcium 80 Mg Tablet) 80 mg PO DAILY JACK Last Admin: 01/12/24 07:48 Dose: 80 mg Carvedilol (Carvedilol 6.25 Mg Tablet) 6.25 mg PO DAILY [facility]; Protocol Last Admin: 01/12/24 07:48 Dose: 6.25 mg Lactated Ringer's (Lr) 1,000 mls @ 100 mls/hr IVCONT .Q10H [facility] Last Admin: 01/12/24 07:47 Dose: 100 mls/hr Lactated Ringer's (Lr) 1,000 mls @ 50 mls/hr IVCONT .Q20H [facility] Last Admin: 01/12/24 14:20 Dose: 50 mls/hr Sodium Chloride (0.9 % Sodium Chloride Flush 3 Ml Syringe) 3 ml IVFLUSH QSHIFT [facility] Last Admin: 01/12/24 14:57 Dose: Not Given Home Medications ?Medication ?Instructions ?Recorded ?Confirmed ?Last Taken ?Type atorvastatin 80 mg tablet 80 mg PO DAILY 03/11/23 01/11/24 01/10/24 History carvedilol 6.25 mg tablet 6.25 mg PO DAILY 03/11/23 01/11/24 01/10/24 History melatonin 3 mg tablet 6 mg PO BEDTIME PRN Sleep 03/11/23 01/11/24 01/10/24 History acetaminophen 325 mg capsule 650 mg PO BID 01/11/24 01/11/24 01/10/24 History (Tylenol) Exam Exam Date and Time: January 12, 2024 1400 Height,Weight and Vital Signs: Height 5 ft 5 in Weight 77.111 kg Last Vital Signs Temp 97.8 F 01/12/24 14:08 Pulse 88 01/12/24 14:08 Resp 18 01/12/24 14:08 BP 149/67 H 01/12/24 14:08 Pulse Ox 96 01/12/24 14:08 O2 Del Method Room Air 01/12/24 14:08 Pertinent Lab Results Pertinent Lab Results: Laboratory Tests 01/11/24 01/11/24 01/11/24 03:55 04:10 12:00 WBC 6.3 RBC 3.98 L Hgb 13.2 Hct 38.8 MCV 97.5 MCH 33.2 H MCHC 34.0 RDW 12.1 Plt Count 170 MPV 9.9 Immature Gran % (Auto) 0.2 Neut % (Auto) 67.2 Lymph % (Auto) 24.7 [place] % (Auto) 6.0 Eos % (Auto) 1.3 Baso % (Auto) 0.6 Lymph # (Auto) 1.6 [place] # (Auto) 0.4 Eos # (Auto) 0.1 Baso # (Auto) 0.0 Abs Immat Gran (auto) 0.01 Absolute Neuts (auto) 4.3 Absolute Nucleated RBC 0.000 Nucleated RBC % (auto) 0.0 Sodium 143 Potassium 3.8 Chloride 107 Carbon Dioxide 23 Anion Gap 17 BUN 11 Creatinine 0.66 Estim Creat Clear Calc 83.7 Estimated GFR > 60 Random Glucose 124 H Calcium 9.1 Troponin I High Sens < 2.7 Urine Color Yellow Urine Appearance Clear Urine pH 5.5 Ur Specific [place] <= 1.005 Urine Protein Negative Urine Glucose (UA) Negative Urine Ketones Negative Urine Blood Negative Urine Nitrite Negative Ur Leukocyte Esterase Negative Urine RBC 0-2 Urine WBC 0-5 Ur Squamous Epith Cells 0-2 Urine Bacteria None Seen Hyaline Casts 0-2 Blood Type B Negative Antibody Screen NEGATIVE Airway Mallampati Class: III TM Dist: <=3cm Neck ROM: Limited Loose/Missing/Broken Teeth: No (patient denies loose or broken teeth) Heart: S1S2 Lungs: CTAB Assessment and Plan Assessment Anesthesia Assessment: Anesthesia Plan Discussed and Chart Reviewed Final Anesthetic Review Family History of Problems with Anesthesia: No History of Problems with Anesthesia: No NPO: Yes ASA Class: III Final Preanesthetic Review: No Changes in Pt Med Stat, Meds/Allgs Chart Reviewed, Consent Obtained/Reviewed and Anes Risks/Benef Reviewed Patient Risk: Intermediate Procedure Risk: Intermediate Anesthetic Plan Anesthetic Plan: GA, Regional Block (right brachial plexus block) and Agree w/ Assess. and Plan Disposition: Standard PACU
--- NOTE | 2024-01-12 15:45 | P.CONAN_ITS ---
HPI - Anesthesia Eval Consult details Narrative: for ORIF right humerus. PMFSH Active Problems Active Problems: All Active Problems Fracture, humerus (Acute) Forehead laceration (Acute) Accident due to mechanical fall without injury (Acute) HTN (hypertension) (Acute) Hyperlipidemia (Acute) History of right breast cancer (Acute) Past Medical History Medical History (Updated 01/11/24 @ 17:05 by CLARISSE Aguilar) Pneumonia HTN (hypertension) Hyperlipidemia History of right breast cancer Family History Family History Mother History of cyst of breast Father Family hx of prostate cancer Paternal Grandfather Hx of cancer of lung Paternal Aunt History of breast cancer Paternal Aunt History of colon cancer Family/Other History of breast cancer, Onset Age: 42 Family history of problems with anesthesia: No Surgical History Surgical History (Updated 01/12/24 @ 14:08 by Estefani Alvarado RN) Hx of left breast biopsy Hx of right breast biopsy H/O colonoscopy History of neck surgery (06/2022) History of lumpectomy of right breast Hx laparoscopic cholecystectomy (~2002) History of Problems with Anesthesia: No Social History Social History Household Members: None Household Members Other:: dog Housing: House Do you presently have visiting nurse or other home services: No Alcohol intake: current Alcohol intake frequency: a few times a month Alcohol type: wine Patient Tobacco Use Status: Never used Tobacco Second Hand Smoke Exposure: Yes Advance Directives Date on File: 06/23/20 service: No Meds Allergies Allergy/AdvReac Type Severity Reaction Status Date / Time lisinopril Allergy Severe Anaphylaxis Verified 01/11/24 02:29 Seasonal Allergies Allergy Mild Itchy Verified 01/11/24 02:29 Eyes, stuffy nose, runny nose Active Medications: Current Medications Acetaminophen (Acetaminophen 325 Mg Tablet) 650 mg PO Q6H PRN PRN Reason: Pain, Mild (Pain Scale 1-3), fever or headache Last Admin: 01/11/24 21:03 Dose: 650 mg Atorvastatin Calcium (Atorvastatin Calcium 80 Mg Tablet) 80 mg PO DAILY JACK Last Admin: 01/12/24 07:48 Dose: 80 mg Carvedilol (Carvedilol 6.25 Mg Tablet) 6.25 mg PO DAILY [facility]; Protocol Last Admin: 01/12/24 07:48 Dose: 6.25 mg Lactated Ringer's (Lr) 1,000 mls @ 100 mls/hr IVCONT .Q10H [facility] Last Admin: 01/12/24 07:47 Dose: 100 mls/hr Lactated Ringer's (Lr) 1,000 mls @ 50 mls/hr IVCONT .Q20H [facility] Last Admin: 01/12/24 14:20 Dose: 50 mls/hr Sodium Chloride (0.9 % Sodium Chloride Flush 3 Ml Syringe) 3 ml IVFLUSH QSHIFT [facility] Last Admin: 01/12/24 14:57 Dose: Not Given Home Medications ?Medication ?Instructions ?Recorded ?Confirmed ?Last Taken ?Type atorvastatin 80 mg tablet 80 mg PO DAILY 03/11/23 01/11/24 01/10/24 History carvedilol 6.25 mg tablet 6.25 mg PO DAILY 03/11/23 01/11/24 01/10/24 History melatonin 3 mg tablet 6 mg PO BEDTIME PRN Sleep 03/11/23 01/11/24 01/10/24 History acetaminophen 325 mg capsule 650 mg PO BID 01/11/24 01/11/24 01/10/24 History (Tylenol) Exam Height,Weight and Vital Signs: Height 5 ft 5 in Weight 77.111 kg Last Vital Signs Temp 97.8 F 01/12/24 14:08 Pulse 88 01/12/24 14:08 Resp 18 01/12/24 14:08 BP 149/67 H 01/12/24 14:08 Pulse Ox 96 01/12/24 14:08 O2 Del Method Room Air 01/12/24 14:08 Pertinent Lab Results Pertinent Lab Results: Laboratory Tests 01/11/24 01/11/24 01/11/24 03:55 04:10 12:00 WBC 6.3 RBC 3.98 L Hgb 13.2 Hct 38.8 MCV 97.5 MCH 33.2 H MCHC 34.0 RDW 12.1 Plt Count 170 MPV 9.9 Immature Gran % (Auto) 0.2 Neut % (Auto) 67.2 Lymph % (Auto) 24.7 [place] % (Auto) 6.0 Eos % (Auto) 1.3 Baso % (Auto) 0.6 Lymph # (Auto) 1.6 [place] # (Auto) 0.4 Eos # (Auto) 0.1 Baso # (Auto) 0.0 Abs Immat Gran (auto) 0.01 Absolute Neuts (auto) 4.3 Absolute Nucleated RBC 0.000 Nucleated RBC % (auto) 0.0 Sodium 143 Potassium 3.8 Chloride 107 Carbon Dioxide 23 Anion Gap 17 BUN 11 Creatinine 0.66 Estim Creat Clear Calc 83.7 Estimated GFR > 60 Random Glucose 124 H Calcium 9.1 Troponin I High Sens < 2.7 Urine Color Yellow Urine Appearance Clear Urine pH 5.5 Ur Specific [place] <= 1.005 Urine Protein Negative Urine Glucose (UA) Negative Urine Ketones Negative Urine Blood Negative Urine Nitrite Negative Ur Leukocyte Esterase Negative Urine RBC 0-2 Urine WBC 0-5 Ur Squamous Epith Cells 0-2 Urine Bacteria None Seen Hyaline Casts 0-2 Blood Type B Negative Antibody Screen NEGATIVE Assessment and Plan Final Anesthetic Review Family History of Problems with Anesthesia: No History of Problems with Anesthesia: No
--- NOTE | 2024-01-12 18:29 | P.BOP_ITS ---
Brief Operative Note Date of Service: 01/12/24 Pre-op diagnosis: Right distal humerus fracture Post-op diagnosis: same Procedure: ORIF distal humerus fracture Implants: [place] direct medial and lateral locking plates Surgeon: Alexis Domínguez MD Anesthesia: GETA and regional Was an [employer] Person used for this Procedure?: No Estimated blood loss (mL): 300 IV fluids (mL): 1,500 Pathology: none sent Condition: stable Disposition: PACU
[2024-01-12] MEDS: ceFAZolin Sodium/Dextrose,Iso 2 GM/50 ML PIGGYBACK IV (22:59)
[2024-01-12] MEDS: 0.9 % Sodium Chloride Flush 3 ML SYRINGE IVFLUSH (23:03)
[2024-01-13] VITALS (8 sets, daily range): BP systolic 115–145; BP diastolic 59–75; PULSE 72–94; RESP 14–20; TEMP 36–36.8; O2SAT 92–99
[2024-01-13] MEDS: Lactated Ringers 1,000 ML 100 ML IVCONT (07:47)
[2024-01-13] MEDS: HYDROmorphone HCl 0.5 MG/0.5 ML SYRINGE 0.25 MG IVPUSH (08:15)
[2024-01-13 08:39] LABS: MANUAL DIFF FLAG NO
[2024-01-13 08:52] LABS: Basophils Percent Auto 0.1 % (0-2); Hematocrit 29.1 % (37.0-47.0); Imm Gran Abs Auto 0.02 X10*3/uL (0.00-0.03); Imm Gran Pct Auto 0.3 % (0.0-0.4); Lymphocytes Absolute Auto 0.7 X10*3/uL (1.2-4.9); Lymphocytes Percent Auto 9.5 % (20-40); Mean Corpuscular HGB Conc 35.1 g/dl (31.0-35.0); Mean Corpuscular Hemoglobin 33.9 pg (27.0-33.0); Mean Corpuscular Volume 96.7 fL (80.0-98.0); Mean Platelet Volume 10.3 fL (9.4-12.3); Monocytes Absolute Auto 0.6 X10*3/uL (0.1-1.2); Neutrophils Absolute Auto 6.1 x10*3/uL (2.0-8.3); Neutrophils Percent Auto 82.1 % (45-73); Platelet Count 155 X10*3/uL (160-400); Red Blood Count 3.01 X10*6/uL (4.20-5.50); Red Cell Distribution Width 12.2 % (11.0-16.0); White Blood Count 7.4 X10*3/uL (4.8-10.8)
[2024-01-13 08:53] LABS: Hemoglobin 10.2 g/dl (12.0-16.0)
[2024-01-13 08:57] LABS: Alanine Aminotransferase 10 U/L (0-31); Albumin Level 3.3 g/dL (3.5-5.0); Alkaline Phosphatase 72 U/L (39-117); Anion Gap 12 (12-20); Aspartate Amino Transferase 21 U/L (5-31); Bilirubin Total 0.6 mg/dL (0.0-1.0); Blood Urea Nitrogen 9 mg/dL (9-16); Calcium 8.6 mg/dL (8.4-10.2); Carbon Dioxide 26 mmol/L (22-29); Chloride 106 mmol/L (96-108); Creatinine Clr Calc Pharmacy 104.3; Estimated Glomerular Filt Rate > 60; Glucose Random 124 mg/dL (60-115); Potassium 3.9 mmol/L (3.3-5.1); Sodium 140 mmol/L (135-145); Total Protein 5.9 g/dL (6.5-8.0)
[2024-01-13] MEDS: carvediloL 6.25 MG TABLET PO (09:24)
[2024-01-13] MEDS: Atorvastatin Calcium 80 MG TABLET PO (09:24)
[2024-01-13] MEDS: Celecoxib 100 MG CAPSULE PO ×2 (09:25→20:30)
[2024-01-13] MEDS: oxyCODONE HCl ER 10 MG TAB.ER.12H PO ×2 (09:25→20:30)
--- NOTE | 2024-01-13 09:36 | P.PNOP_ITS ---
Subjective Subjective Date of Service: 01/13/24 Interval history: POD 1 s/p ORIF Rt humerus no overnight events block wearing off denies cp, palpitations, sob Physical Exam Vital Signs: Vital Signs: Last Vital Signs Temp 98.0 F 01/13/24 07:26 Pulse 94 01/13/24 09:24 Resp 16 01/13/24 07:26 BP 145/67 H 01/13/24 09:24 Pulse Ox 92 01/13/24 07:26 O2 Del Method Room Air 01/13/24 07:26 O2 Flow Rate 2 01/12/24 19:29 BMI result Body Mass Index 28.3 Const: General: cooperative, healthy appearing and no acute distress Resp: Effort & Inspection: normal respiratory effort and able to speak in complete sentences Cardio: Rate: regular rate Peripheral pulses: Peripheral pulses 2+ throughout GI: Palpation (GI): Soft to palpation Skin: General skin exam: no rashes or lesions noted Extrem: Other: Right shoulder splint intact Anterior deltoid sensation intact She is able to initiate wrist flexion / extension and thumb abduction Dull sensation intact Procedures Date of Service Date of Service: 01/13/24 Progress Note: A&P Assessment and plan (1) Fracture, humerus: Status: Acute Assessment and Plan: * Continue pain mgmnt * Begin Aspirin for dvt ppx * begin PT/OT for Rt humerus ORIF- ROM to tolerance elbow and wrist, NWB RUE * Dispo planning-Pending PT eval, pain mgmnt Time Spent With Patient Time: Total time managing care of this patient today ____ minutes. Quality Stroke Does the patient have a stroke diagnosis?: No VTE Prior VTE?: No VTE Risk Level:: Surgical - moderate VTE Device Contraindication: N/A - Device Ordered VTE Drug Contraindication: Treatment Not Indicated
[2024-01-13] MEDS: Acetaminophen 325 MG TABLET 650 MG PO (13:06)
[2024-01-13] MEDS: oxyCODONE HCl Immed Release 5 MG TABLET PO (17:51)
--- NOTE | 2024-01-13 19:01 | HO.POSTANES ---
Post Anesthesia Evaluation Post Anesthesia Evaluation Date of Service: 01/13/24 Vital Signs: Vital Signs Temp Pulse Resp BP Pulse Ox O2 Del Method 01/13/24 16:10 97.7 F 73 14 128/60 99 Room Air 01/13/24 11:00 97.4 F 85 20 140/75 H 94 Room Air 01/13/24 09:24 94 145/67 H 01/13/24 07:26 98.0 F 92 16 145/67 H 92 Room Air Anesthesia: Nerve Block and General Endotracheal-GETA Mental Status: Awake Pain Control: Satisfactory Nausea/Vomiting: None Hydration: Adequate Anesthesia-Related Issues: No Anes. Related Issues
[2024-01-13] MEDS: 0.9 % Sodium Chloride Flush 3 ML SYRINGE IVFLUSH ×2 (20:30→20:31)
[2024-01-13] MEDS: Aspirin 81 MG TAB.CHEW PO (20:30)
[2024-01-14 03:05] VITALS: BP 117/55; PULSE 76; RESP 16; TEMP 36.3; O2SAT 93
[2024-01-14 07:22] VITALS: BP 138/65; PULSE 78; RESP 16; TEMP 36.6; O2SAT 92
[2024-01-14 08:09] VITALS: BP 138/65; PULSE 78; O2SAT 92
[2024-01-14 08:17] VITALS: BP 138/65; PULSE 78
[2024-01-14] MEDS: carvediloL 6.25 MG TABLET PO (08:17)
[2024-01-14] MEDS: Celecoxib 100 MG CAPSULE PO (08:17)
[2024-01-14] MEDS: Aspirin 81 MG TAB.CHEW PO (08:17)
[2024-01-14] MEDS: oxyCODONE HCl ER 10 MG TAB.ER.12H PO (08:18)
[2024-01-14] MEDS: Atorvastatin Calcium 80 MG TABLET PO (08:18)
[2024-01-14] MEDS: 0.9 % Sodium Chloride Flush 3 ML SYRINGE IVFLUSH (08:20)
--- NOTE | 2024-01-14 10:52 | P.DS_ITS ---
DS: Providers Provider Date of Service: 01/14/24 Date of admission: 01/11/24 11:04 Primary care physician: Bucky Quinonez MD Consults: 01/11/24 11:04 Consult to Hospitalist Routine Comment: Consulting Provider: Hospitalist Reason For Exam: R distal humerus fx, clear for surgery DS: Diagnosis Discharge Diagnosis (1) Fracture, humerus: Status: Acute DS: Summary Hospital Course Hospital Course: The patient underwent a successful ORIF left humaral shaft fx with Dr Domínguez on 01/12/24 , was transferred to PACU and then to the floor to recover. During their stay, their vitals were stable, afebrile at 97.8 . Labs were unremarkable, H/H 10.2/29.1. POD 1 she was started on ASA 81 mg tabs po twice a day for DVT ppx, they also received Physical Therapy services twice a day. Occupational therapy should include ADL's. NWB RUE. Prior to discharge, her dressing was clean dry and intact, dressing should remain intact and dry at all times. Any concerns with the dressing, please contact orthopedic office. No showering. The plan is to be discharged home with vna Time Attestation Discharge Coordination Time (in mins): 30 Quality: Safe Use of Opioids Does Pt have an Active Cancer Diagnosis on the Problem List?: No Quality: Stroke Does the patient have a stroke diagnosis?: No Physical Exam Vital Signs: Vital Signs: Last Vital Signs Temp 97.8 F 01/14/24 07:22 Pulse 78 01/14/24 08:17 Resp 16 01/14/24 07:22 BP 138/65 01/14/24 08:17 Pulse Ox 92 01/14/24 08:09 O2 Del Method Room Air 01/14/24 07:22 O2 Flow Rate 2 01/12/24 19:29 BMI result Body Mass Index 28.3 Discharge Plan Discharge Anticipated Discharge Date/Time: 01/14/24 10:25 Patient Disposition: Home Health Service Discharge Diagnosis: ORIF left humerus Referrals: Corby [facility] [Outside] - 1 Week Chris Alvarez PA [Physician Digital Solutions Architect] - 01/21/24 1:00 pm (01/21/24 @ 1:00pm) Discharge Medications: New aspirin 81 mg Tablet,Chewable 81 mg PO BID 42 Days Qty: 84 0RF celecoxib 100 mg Capsule 100 mg PO BID 30 Days Qty: 60 0RF oxycodone 5 mg Tablet 5 mg PO Q4H PRN (Reason: Pain, Moderate(Pain Scale 4-6)) 7 Days Qty: 42 0RF Rx Instructions: Partial Fill upon patient request. acetaminophen 325 mg Tablet 650 mg PO Q6H PRN (Reason: Pain, Mild (Pain Scale 1-3), fever or headache) 30 Days Qty: 240 0RF Continued acetaminophen [Tylenol] 325 mg Capsule 650 mg PO BID carvedilol 6.25 mg tablet 6.25 mg PO DAILY atorvastatin 80 mg tablet 80 mg PO DAILY melatonin 3 mg tablet 6 mg PO BEDTIME PRN (Reason: Sleep) Discharge Orders: Discharge Order (Routine); Ordered 01/14/24 Ordered By: Humberto Hernández Diet: Regular diet Activity on Discharge: Use Splints or Immobilizers Stand Alone Forms: Patient Portal Discharge page Print Language: [place] Care Plan Goals: Restore function of joint Health Concerns: none Plan of Treatment: Physical Therapy Pain management DVT prophylaxis Assessment: * Keep splint clean, dry and intact * Elevate the arm on pillows when resting and sleeping * Perform Hand and wrist ROM-making and fist and opening fingers * Call the office if there are any questions or concerns. If splint is too tight or too loose. If it becomes saturated. Patient Instructions: Arm Fracture in Adults (ED)
--- NOTE | 2024-01-14 10:55 | W.MHC.F2F ---
Service Date Service Date: 01/14/24 Encounter Date of encounter: 01/14/24 Reasons for Services Signs and symptoms assessed: Weakness, poor balance, poor gait mechanics Reason for occupational therapy: home safety and mobility, therapeutic exercises, restore joint function, gait/transfer training, ADL training and energy conservation Homebound: Leaving the home is medically contraindicated at this time without the asist of a device and/or another person due th the listed conditions above and below. Reason homebound: unsteady gait / fall risk, poor balance / fall risk and unable to drive Homebound supporting statement: Pt. is considered home bound due to recent surgery. Unable to drive, poor balance, poor gait mechanics. Certification: Based on the above findings, I certify that this patient is confined to the home and needs intermittent residential care, physical therapy and/or speech therapy, or continues to need occupational therapy. The patient is under my care, and I have initiated the establishment of the plan of care. The patient will be followed by a physician who will periodically review the plan of care. Time Spent With Patient Time: Total time managing care of this patient today ____ minutes.
[2024-01-14 11:00] VITALS: BP 156/79; PULSE 88; RESP 18; TEMP 36.3; O2SAT 93
--- NOTE | 2024-01-14 12:25 | MHC.CM.PN ---
Patient is discharged to home today. [facility] will provide OT services. Patient has arranged for transportation home.
--- NOTE | 2024-01-26 07:34 | P.OP_ITS ---
Operative Note Operative Note Date of Service: 01/12/24 Narrative: Date of Service: 01/12/24 Pre-op diagnosis: Right distal humerus fracture Post-op diagnosis: same Procedure: ORIF distal humerus fracture Implants: [place] direct medial and lateral locking plates Surgeon: Alexis Domínguez MD Anesthesia: GETA and regional Was an Senior Principal Architect used for this Procedure?: No Estimated blood loss (mL): 300 IV fluids (mL): 1,500 Pathology: none sent Condition: stable Disposition: PACU Patient was brought to the operating room and placed prone on the surgical table. She was prepped and draped in standard sterile fashion and a time out was called to identify proper site, proper procedure and IV antibiotics per weight were administered. A posterior midline incision was perfomred and full thickness skin flaps were developed. A triceps split was performed proximally at the natural raphe and the distal humerus fracture was identified. This was a butterfly fragment and I used two lobster claws to reduce the fracture. It did not extend distally enough to require an olcranon osteotomy. Care was taken to stay on bone and proximally gentle skin traction was performed. Once the fracture was provisionally reduced a lateral locking plate was selected. I used a freer elevator to ensure that I was on bone bone proximally and elevated the lateral soft tissues off the bone. A long trans-capitellar screw was inserted using standard AO technique and biplanar fluoro. I was satisfied that the screw was extra articular. Locking screws were used distal to the fracture and proximally non locking screws were used. Soft tissues were protected at all times. Once I was satisfied with the lateral plate I turned my attention to the medial side. Taking care to elevate the medial soft tissues off bone and protect the ulnar nerve a long sterile medial plate was selected. Again a elevator was used to ensure the plate was on bone. Distally I placed locking screws and used biplanar fluoro to ensure the screws were extra articular. Proximally non locking screws were used and the soft tissues protected at all times. Biplanar [id number] was used to confirm fracture reduction and hardware position. I was satisfied with both and with the stability of the fracture. I copiously irrigated and closed with ), 2.0 Vicryl and james on the skin. A posterior splint was applied after sterile dressings and the pateint was extubated after placing supine. She was brought to the recovery room is stable condition. There were no known complications.
== END 2024-01-14 12:46 | disposition home health service (06) | DRG 494 ==
LOC: HO.ED 10:24 → HO.EDOVER 11:14 → HO.S3 19:20
PROVIDERS: Orthopaedic Surgery; Emergency Provider Emergency Medicine; PCP Internal Medicine
PROC: 0PSF04Z Reposition Right Humeral Shaft with Internal Fixation Device, Open Approach (ICD-10-PCS; principal; 2024-01-12 14:50)
DX: S42.491A Other displaced fracture of lower end of right humerus, initial encounter for closed fracture (principal); I10 Essential (primary) hypertension; F41.9 Anxiety disorder, unspecified; G89.18 Other acute postprocedural pain; S01.81XA Laceration without foreign body of other part of head, initial encounter; W01.0XXA Fall on same level from slipping, tripping and stumbling without subsequent striking against object, initial encounter; Z85.3 Personal history of malignant neoplasm of breast; Z79.899 Other long term (current) drug therapy
CPT/HCPCS: 36415; 70450; 72125; 73030; 73060; 73200; 80048; 80053; 81001; 84484; 85025; 86850; 86900; 86901; 90715; 93005; 97162; 97166; 99285; C1713; J0330; J0690; J1100; J1170; J2250; J2405; J2704; J2795; J3010; J7120

== ENCOUNTER → 2024-01-11 03:06 | Outpatient (BNV) | payer OTHER, SELFPAY | PROVIDERS: Emergency Provider Emergency Medicine; PCP Internal Medicine; Visit Provider Internal Medicine | DX: R94.31 Abnormal electrocardiogram [ECG] [EKG] (principal) | CPT/HCPCS: 93010 ==

== ENCOUNTER → 2024-01-11 11:04 | Outpatient (BNV) | payer OTHER, SELFPAY | PROVIDERS: Emergency Provider Emergency Medicine; PCP Internal Medicine | DX: S42.401A Unspecified fracture of lower end of right humerus, initial encounter for closed fracture (principal) | CPT/HCPCS: 24546; 99024; 99222; G0180 ==

== ENCOUNTER → 2024-01-11 11:04 | Outpatient (BNV) | payer OTHER, SELFPAY | PROVIDERS: Emergency Provider Emergency Medicine; PCP Internal Medicine; Visit Provider Physician Assistant | DX: S42.309A Unspecified fracture of shaft of humerus, unspecified arm, initial encounter for closed fracture (principal) | CPT/HCPCS: 99222 ==

== ENCOUNTER 2024-01-21 12:46 | Outpatient (AMB) | payer OTHER, SELFPAY ==
--- NOTE | 2024-01-21 12:58 | A.OFFVIS_ITS ---
Vital Signs 01/21/24 13:03 Height 5 ft 5 in Weight 170 lb BMI 28.3 Handedness Right Intake Visit Reasons: PO ORIF Right Humerus 01/12/24 NE Intake Note: Maria C is a 68 year old right hand dominant female who presents today post operatively s/p right humerus ORIF 01/12/24 w/ NE. Patient reports she had some discomfort with sleeping after her first visit with PT but since then has not had much pains. She says certain position feel off to her but no pains. Has been taking Tylenol for relief. Allergies lisinopril Allergy (Severe, Verified 01/21/24 13:03) Anaphylaxis Seasonal Allergies Allergy (Mild, Verified 01/21/24 13:03) Itchy Eyes, stuffy nose, runny nose HPI HPI PO ORIF Right Humerus 01/12/24 NE: Details: Patient is a 68-year-old right-hand dominant female who presents for postoperative appointment from ORIF of right distal humerus, DOS 01/12/[address] Domínguez. Patient reports that she is feeling well postoperatively, and that she does not experience anything she would describe as pain, but that certain positions feel ?off? in her elbow. The patient also expresses concerns about some lingering numbness in her right hand, namely on the ulnar aspect of her index finger. Patient also reports that she has some diminished range of motion of her right hand. [facility] Medical History Pneumonia HTN (hypertension) Hyperlipidemia History of right breast cancer Surgical History Hx of left breast biopsy Hx of right breast biopsy H/O colonoscopy History of neck surgery (06/2022) History of lumpectomy of right breast Hx laparoscopic cholecystectomy (~2002) Family History Mother History of cyst of breast Father Family hx of prostate cancer Paternal Grandfather Hx of cancer of lung Paternal Aunt History of breast cancer Paternal Aunt History of colon cancer Family/Other History of breast cancer, Onset Age: 42 Social History Household Members: None Household Members Other:: dog Housing: House Do you presently have visiting nurse or other home services: No Alcohol intake: current Alcohol intake frequency: a few times a month Alcohol type: wine Patient Tobacco Use Status: Never used Tobacco Second Hand Smoke Exposure: Yes Advance Directives Date on File: 06/23/20 service: No Physical Exam Vital Signs: BMI result Body Mass Index 28.3 Extrem Other: Patient is alert, oriented, and in no acute distress. Neuro: Patient is unable to extend digits of the right hand fully, and also reports slightly diminished sensation on the proximal ulnar aspect of her right index finger. Vascular: Cap refill brisk Pain: Patient reports no pain at this time Skin: Dressing in place over incision site Area of irritation on the flexor surface of the right elbow Old, yellowed Ecchymosis noted on the proximal forearm General: No erythema, or evidence of infection. Psych: Appears grossly normal Affect normal Attitude cooperative Results Reviewed Results Reviewed: X-rays obtained in the office today and independently reviewed by me, Chris Alvarez PA-C, demonstrate reapproximated fracture of the distal right humerus with all hardware in place, no evidence of lucency surrounding hardware. Assessment & Plan Assessment & Plan (1) Fracture, humerus: Code(s): S42.309A - Unspecified fracture of shaft of humerus, unspecified arm, initial encounter for closed fracture Category: Medical Qualifiers: Encounter type: initial encounter Fracture morphology: unspecified fracture morphology Fracture type: closed Humerus Location: distal Laterality: right Qualified Code(s): S42.401A - Unspecified fracture of lower end of right humerus, initial encounter for closed fracture Plan 1. Right distal humerus fracture, status post ORIF DOS 01/12/[address] Domínguez Patient is recovering well postoperatively Patient is educated about the typical recovery course Patient is removed from splint at this time, and encouraged to begin gentle range of motion, namely gentle active flexion and extension with the aid of gravity, no hard passive flexion or extension Patient is given a new sling to wear with daily activities and at night while sleeping Patient will follow-up next week with me for staple removal, wound check, and repeat evaluation Coding Level of Care Code Global (75134) Diagnoses Closed fracture of distal end of right humerus, unspecified fracture morphology, initial encounter S42.401A Encounter type: initial encounter Fracture morphology: unspecified fracture morphology Fracture type: closed Humerus Location: distal Laterality: right
[2024-01-21 13:03] VITALS: BMI 28.3
== END 2024-01-21 13:42 | disposition home or self-care (01) ==
PROVIDERS: PCP Internal Medicine
DX: S42.401A Unspecified fracture of lower end of right humerus, initial encounter for closed fracture (principal)
CPT/HCPCS: 99024

== ENCOUNTER 2024-01-21 15:04 | Outpatient (REF) | payer OTHER, SELFPAY ==
--- NOTE | ~2024-01-21 | XR_ITS ---
EXAMINATION: XR HUMERUS, RIGHT CLINICAL INFORMATION: Unspecified fracture of shaft of humerus, status post ORIF right distal humerus. COMPARISON: 01/12/2024 fluoroscopy images, 01/11/2024 CT right humerus, 01/11/2024 x-ray right shoulder and humerus. TECHNIQUE: 4 views of the right humerus. FINDINGS: Status post ORIF of previously noted comminuted fracture of the distal diametaphysis of the humerus with improved alignment since x-ray of 01/11/2024. Expected postsurgical changes with plates and screws transfixing the fracture, surgical james, overlying bandage, and soft tissue swelling. Degenerative changes in the acromioclavicular and glenohumeral joints. XR/XR humerus RT IMPRESSION: Status post ORIF of previously noted comminuted fracture of the distal diametaphysis of the humerus with improved alignment since x-ray of 01/11/2024. Expected postsurgical changes.
== END 2024-01-21 15:05 | disposition home or self-care (01) ==
LOC: HO.HOSX 15:04
DX: S42.401D Unspecified fracture of lower end of right humerus, subsequent encounter for fracture with routine healing (principal)
CPT/HCPCS: 73060

== ENCOUNTER 2024-01-28 12:35 | Outpatient (AMB) | payer OTHER, SELFPAY ==
--- NOTE | 2024-01-28 12:42 | MHC.OFFVIS ---
Intake Visit Reasons: PO ORIF Right Humerus 01/12/24 NE-w/xray Intake Note: Maria C is a 68 year old female who present to the office today for a PO ORIF right humerus 01/12/24. Pt states she is feeling well. Pt states OT is going well. Allergies lisinopril Allergy (Severe, Verified 01/28/24 12:44) Anaphylaxis Seasonal Allergies Allergy (Mild, Verified 01/28/24 12:44) Itchy Eyes, stuffy nose, runny nose HPI HPI PO ORIF Right Humerus 01/12/24 NE-w/xray: Details: Patient is a 68 YO F who presents for evaluation of R distal humerus fracture s/p ORIF with Dr. Domínguez, DOS 01/12/24. Patient reports that she is feeling well today, and has no acute concerns. Patient states that the new sling provided at last visit is much more comfortable, and that her work with PT has gone well so far. 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 She also reports increasing sensation and ROM in her R hand. No other acute concerns at this time. [facility] Medical History Pneumonia HTN (hypertension) Hyperlipidemia History of right breast cancer Surgical History Hx of left breast biopsy Hx of right breast biopsy H/O colonoscopy History of neck surgery (06/2022) History of lumpectomy of right breast Hx laparoscopic cholecystectomy (~2002) Family History Mother History of cyst of breast Father Family hx of prostate cancer Paternal Grandfather Hx of cancer of lung Paternal Aunt History of breast cancer Paternal Aunt History of colon cancer Family/Other History of breast cancer, Onset Age: 42 Social History Household Members: None Household Members Other:: dog Housing: House Do you presently have visiting nurse or other home services: No Alcohol intake: current Alcohol intake frequency: a few times a month Alcohol type: wine Patient Tobacco Use Status: Never used Tobacco Second Hand Smoke Exposure: Yes Advance Directives Date on File: 06/23/20 service: No Physical Exam Extrem Other: Incision site clean, dry, intact No erythema, edema, evidence of infection noted Patient is able to flex the elbow to approximately 120 degrees without difficulty Extension to approximately 10 degrees Patient is able to make a thumbs up at this time, still unable to actively extend the wrist beyond neutral All other ROM of the hand full and intact Capillary refill brisk Patient reports improving sensation in the ulnar index finger, all other sensation intact Assessment & Plan Assessment & Plan (1) Fracture, humerus: Code(s): S42.309A - Unspecified fracture of shaft of humerus, unspecified arm, initial encounter for closed fracture Category: Medical Qualifiers: Encounter type: initial encounter Fracture morphology: unspecified fracture morphology Fracture type: closed Humerus Location: distal Laterality: right Qualified Code(s): S42.401A - Unspecified fracture of lower end of right humerus, initial encounter for closed fracture Plan 1. Right distal humerus fracture, status post ORIF DOS 01/12/[address] Domínguez Patient is recovering well postoperatively Patient is educated about the typical recovery course Nikko removed at this time, patient is educated that she can gently wash the incision site with soap and water and encouraged to begin gentle range of motion, namely gentle active flexion and extension with the aid of gravity, no hard passive flexion or extension Patient is can continue to wear with daily activities and at night while sleeping, but is advised to remove while at rest and to continue with ROM to prevent stiffness Patient will follow-up in four weeks with repeat X rays, sooner with any acute concerns Coding Level of Care Code Global (10831) Diagnoses Closed fracture of distal end of right humerus, unspecified fracture morphology, initial encounter S42.401A Encounter type: initial encounter Fracture morphology: unspecified fracture morphology Fracture type: closed Humerus Location: distal Laterality: right
== END 2024-01-28 13:25 | disposition home or self-care (01) ==
PROVIDERS: PCP Internal Medicine
DX: S42.401A Unspecified fracture of lower end of right humerus, initial encounter for closed fracture (principal)
CPT/HCPCS: 99024

== ENCOUNTER → 2024-01-28 12:35 | Outpatient (BNVA) | payer OTHER, SELFPAY | PROVIDERS: PCP Internal Medicine ==

== ENCOUNTER 2024-02-25 08:39 | Outpatient (REF) | payer OTHER, SELFPAY | END 2024-02-25 08:40 | disposition home or self-care (01) | LOC: HO.HOSX 08:39 | DX: Z13.89 Encounter for screening for other disorder (principal) ==

== ENCOUNTER 2024-02-25 09:55 | Outpatient (REF) | payer OTHER, SELFPAY ==
--- NOTE | ~2024-02-25 | XR_ITS ---
EXAMINATION: XR HUMERUS, RIGHT CLINICAL INFORMATION: Follow-up surgery. COMPARISON: Most recent right humerus radiograph dated 01/21/2024. TECHNIQUE: AP and lateral views of the right humerus. FINDINGS: Redemonstration of medial and lateral humeral stabilization plates and fixation screws. No hardware fracture. No perihardware lucency. The previously seen distal humeral fracture appears in anatomic alignment. Degree of osseous bridging cannot be well evaluated. No abnormal soft tissue calcification. XR/XR humerus RT IMPRESSION: 1. Distal humeral ORIF without evidence of hardware complication. 2. Distal humeral fracture in anatomic alignment. Degree of osseous bridging cannot be well evaluated. Electronically signed by: Jamel Mcmillan MD 03/22/2024 08:59 PM EDT
== END 2024-02-25 09:56 | disposition home or self-care (01) ==
LOC: HO.XRAY 09:55
PROVIDERS: PCP Internal Medicine
DX: S42.301A Unspecified fracture of shaft of humerus, right arm, initial encounter for closed fracture (principal)
CPT/HCPCS: 73060

== ENCOUNTER 2024-02-25 10:29 | Outpatient (AMB) | payer OTHER, SELFPAY ==
--- NOTE | 2024-02-25 10:31 | A.OFFVIS_ITS ---
Vital Signs 02/25/24 10:37 Handedness Right Intake Visit Reasons: PO ORIF Right Humerus 01/12/24 NE-w/xray Intake Note: Maria C is a 68 year old right hand dominant female who presents to the office today for a post operative visit s/p Right Humerus ORIF DOS: 01/12/24 w/ NE. Patient states she is doing well. She has occasional pain if she over stretches her right arm and if she grabs her bag the wrong way. Taking Tylenol for pain releif and she says this gives her adequate relief. Allergies lisinopril Allergy (Severe, Verified 02/25/24 10:35) Anaphylaxis Seasonal Allergies Allergy (Mild, Verified 02/25/24 10:35) Itchy Eyes, stuffy nose, runny nose HPI HPI PO ORIF Right Humerus 01/12/24 NE-w/xray: Details: Patient is a 68-year-old female who presents for 6 week evaluation status post ORIF of right distal humerus fracture, DOS 01/12/[address] Domínguez. Today, the patient reports that she is feeling very well, and only experiences very minor discomfort with palpation of the olecranon of the right elbow, and with the extremes of her current range of motion with extension of the elbow. The patient does report that her previously observed radial nerve palsy has improved drastically, to the point where she is able to abduct the thumb fully without difficulty, and is also able to actively extend the right wrist, neither of which she could do at previous examination. The patient reports that she is thrilled with this, as she no longer has to consider fdc. The patient do es report that she still has an area of diminished sensation on the proximal and ulnar aspect of the right index finger, but that she does have sensation there now. The patient also reports that she is not able to extend the elbow fully due to stiffness, but that she is able to flex fully without difficulty. The patient reports that she has been working with physical therapy and occupational therapy twice a week since previous referral. The patient has no other acute complaints or concerns at this time. [facility] Medical History Pneumonia HTN (hypertension) Hyperlipidemia History of right breast cancer Surgical History Hx of left breast biopsy Hx of right breast biopsy H/O colonoscopy History of neck surgery (06/2022) History of lumpectomy of right breast Hx laparoscopic cholecystectomy (~2002) Family History Mother History of cyst of breast Father Family hx of prostate cancer Paternal Grandfather Hx of cancer of lung Paternal Aunt History of breast cancer Paternal Aunt History of colon cancer Family/Other History of breast cancer, Onset Age: 42 Social History (Updated 02/25/24 @ 10:36 by CHANTELL Thomson) Household Members: None Household Members Other:: dog Housing: House Do you presently have visiting nurse or other home services: No Alcohol intake: current Alcohol intake frequency: a few times a month Alcohol type: wine Patient Tobacco Use Status: Never used Tobacco Second Hand Smoke Exposure: Yes Advance Directives Date on File: 06/23/20 service: No Current occupational status: employed 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 Patient is able to actively extend the R elbow to approximately 15-20 degrees at this time Patient is able to flex the elbow to 120 degrees without difficulty Patient is able to pronate and supinate the R forearm without difficulty ROM of the right hand full and intact Patient is able to abduct the thumb without difficulty Patient is able to flex and extend the R wrist to 40 degrees with each motion Results Reviewed Results Reviewed: X-rays obtained in the office today and independently reviewed by me, Chris Alvarez PA-C, demonstrate well approximated fracture of the right distal humerus in satisfactory clinical alignment with all hardware in place with evidence of interval bony healing. Assessment & Plan Assessment & Plan (1) Fracture, humerus: Code(s): S42.309A - Unspecified fracture of shaft of humerus, unspecified arm, initial encounter for closed fracture Category: Medical Qualifiers: Encounter type: initial encounter Fracture morphology: unspecified fracture morphology Fracture type: closed Humerus Location: distal Laterality: right Qualified Code(s): S42.401A - Unspecified fracture of lower end of right humerus, initial encounter for closed fracture Plan 1. Right distal humerus fracture status post open reduction internal fixation DOS 01/12/2024 Patient is recovering well postoperatively Patient is educated about the typical recovery course Patient has radial nerve palsy has iresolved. She has diminished sensation in 1 area of the right index finger. At this time, patient is told that she can discontinue use of the sling altogether Patient is told that she should continue to work on range of motion, although she should continue to avoid any heavy lifting No active restrictions on the patient at this time Patient is told that she should work on extension of the elbow to get as close as she can to full extension, using a chair and with some light weight in her hand Patient should continue working with PT and OT Patient is amenable to this plan Patient will follow-up in 6 weeks for repeat assessment and gaucw-gb-kleeik check, sooner with any acute concerns Orders: Orders XR humerus RT 02/25/24 S42.301A - Unspecified fracture of shaft of humerus, right arm, initial encounter for closed fracture Coding Level of Care Code Global (07357) Diagnoses Closed fracture of distal end of right humerus, unspecified fracture morphology, initial encounter S42.401A Encounter type: initial encounter Fracture morphology: unspecified fracture morphology Fracture type: closed Humerus Location: distal Laterality: right
== END 2024-02-25 11:03 | disposition home or self-care (01) ==
PROVIDERS: PCP Internal Medicine
DX: S42.401A Unspecified fracture of lower end of right humerus, initial encounter for closed fracture (principal)
CPT/HCPCS: 99024

== ENCOUNTER 2024-03-16 13:14 | Outpatient (REF) | payer OTHER, SELFPAY ==
--- NOTE | ~2024-03-16 | MM_ITS ---
EXAMINATION: MM SCREENING DIGITAL BREAST TOMOSYNTHESIS, BILATERAL CLINICAL INFORMATION: Screening. Asymptomatic. History of right breast cancer. Status post conservation therapy. COMPARISON: Mammography: Comparison is made with available priors TECHNIQUE: Digital breast mammography with tomosynthesis is performed in both the craniocaudal and mediolateral oblique views along with computer-aided detection (CAD). FINDINGS: The breasts are heterogeneously dense, which may obscure small masses (ACR BI-RADS breast composition Category c). Post lumpectomy changes in the right breast are stable. There are no significant masses, abnormal calcifications, or other abnormalities. MM/MM tomosynthesis screening BI IMPRESSION: No mammographic evidence of malignancy. ASSESSMENT: BI-RADS BI-RADS 2 - Benign Findings RECOMMENDATION: Routine annual mammography screening. 1 year F/U This examination should not preclude the clinical evaluation of a suspicious palpable abnormality. This patient's information was entered into a reminder system with a target due date for their next mammogram. Electronically signed by: Latoya Moss DO 04/02/2024 02:24 PM EDT
== END 2024-03-16 13:15 | disposition home or self-care (01) ==
LOC: HO.MAMMO 13:14
PROVIDERS: PCP Internal Medicine; Visit Provider Internal Medicine
DX: Z12.31 Encounter for screening mammogram for malignant neoplasm of breast (principal)
CPT/HCPCS: 77063; 77067

== ENCOUNTER → 2024-03-16 13:30 | Outpatient (BNV) | payer OTHER, SELFPAY | PROVIDERS: PCP Internal Medicine; Visit Provider Internal Medicine | DX: Z12.31 Encounter for screening mammogram for malignant neoplasm of breast (principal) | CPT/HCPCS: 77063; 77067 ==

== ENCOUNTER 2024-04-06 10:00 | Outpatient (AMB) | payer OTHER, SELFPAY ==
--- NOTE | 2024-04-06 10:10 | A.OFFVIS_ITS ---
Vital Signs 3 04/06/24 10:17 Height 5 ft 5 in Weight 165 lb 4 oz BMI 27.5 BP 149/85 H Blood Pressure Location Lt brachial Position Sitting Pulse 81 Intake Visit Reasons: Breast exam, 1 year follow up Intake Note: Patient is seen in office for yearly breast exam. Patient c/o:feels the scar tissue in the breast has gotten wider mm:03/16/24 Security System Administrator Required: No Accompanied by: Self / Same As Patient Allergies lisinopril Allergy (Severe, Verified 04/06/24 10:17) Anaphylaxis Seasonal Allergies Allergy (Mild, Verified 04/06/24 10:17) Itchy Eyes, stuffy nose, runny nose HPI Comments Details: 68-year-old female patient, former patient of Dr. De Luna presenting for routine yearly breast examination. She underwent right breast lumpectomy with needle localization and right sentinel node biopsy on 12/04/2015 for well-differentiated infiltrating ductal carcinoma, 1 cm diameter, with associated DCIS. Margins were clear and 1 of 3 sentinel nodes contained isolated tumor cells. Three additional axillary nodes were benign as well. She is followed by Dr. Rodríguez and placed on anastrozole for 5 years. She underwent radiation therapy and completed this in March 2016. Post radiation she developed increased scar tissue in the right lumpectomy scar. A core biopsy to was performed and revealed benign fibrofatty tissue with dense stromal fibrosis and mild chronic inflammation, changes consistent with treatment effect, negative for atypia or malignancy. A breast MRI of 02/13/2019 revealed a new 4 mm lesion in the 10 o'clock position of the left breast. MR guided biopsy on 04/23/2020 again revealed stromal fibrosis, fat necrosis, sclerotic changes and calcifications. No atypia or carcinoma was seen. Since her last visit she reports falling after slipping on her dog's accident on the floor resulting in a right forearm fracture. She had some weakness in the right hand which has subsequently improved. She required surgery to reduce the fracture and continues with occupational therapy which seems to be helping. Her neck symptoms have improved as well. She denies any new breast symptoms. Her most recent mammogram dated 03/16/2024 revealed no mammographic evidence of malignancy (BI-RADS 2). Repeat mammogram in 1 year is recommended. She reports continued scar tissue in the right breast at the site of her surgery. [facility] Medical History Forehead laceration Accident due to mechanical fall without injury Pneumonia HTN (hypertension) Hyperlipidemia History of right breast cancer Surgical History Hx of left breast biopsy Hx of right breast biopsy H/O colonoscopy History of neck surgery (06/2022) History of lumpectomy of right breast Hx laparoscopic cholecystectomy (~2002) Family History Mother History of cyst of breast Father Family hx of prostate cancer Paternal Grandfather Hx of cancer of lung Paternal Aunt History of breast cancer Paternal Aunt History of colon cancer Family/Other History of breast cancer, Onset Age: 42 Social History Household Members: None Household Members Other:: dog Housing: House Do you presently have visiting nurse or other home services: No Alcohol intake: current Alcohol intake frequency: a few times a month Alcohol type: wine Patient Tobacco Use Status: Never used Tobacco Second Hand Smoke Exposure: Yes Advance Directives Date on File: 06/23/20 service: No Current occupational status: employed Current occupation: [employer] / right handed Review of Systems Const All systems reviewed & are unremarkable except as noted in HPI and below Skin/Breast Denies breast swelling, Denies breast skin changes, Denies breast pain and Denies breast mass Physical Exam Vital Signs: Last Vital Signs Pulse 81 04/06/24 10:17 BP 149/85 H 04/06/24 10:17 BMI result Body Mass Index 27.5 Const General: cooperative, comfortable, no acute distress and well developed Nutritional Appearance: well nourished Orientation/consciousness: patient oriented x3 Neck Lymphatic: no lymphadenopathy noted Chest Other: Right breast with an incision radiating in the upper portion of the breast with surrounding fibrotic area. No overlying skin changes are noted. No lesions are noted in the axilla. The remaining breast tissue is dense but no suspicious findings are noted. Left breast reveals no skin change, nipple discharge, palpable mass or enlarged lymph nodes. Chest/axillae images: 2 1. Area of residual scar tissue upper outer quadrant right breast Resp Effort & Inspection: normal respiratory effort Skin General skin exam: no rashes or lesions noted Neuro Other: Mobility Assessment: 1. 3 meter assessment time (seconds): 6 2. Gait observations: slow tentative pace General: patient oriented x3 Extrem General: Yes no clubbing, cyanosis or edema Assessment & Plan Assessment & Plan (1) History of right breast cancer: Code(s): Z85.3 - Personal history of malignant neoplasm of breast Category: Medical Plan: 68-year-old female patient returning for a yearly breast examination, now 8 years following right breast lumpectomy, sentinel node biopsy followed by radiation therapy and anastrozole x5 years. Mammogram dated 03/16/2024 revealed no mammographic evidence of malignancy (BI-RADS 2). Examination today revealed continued area of fibrosis at the area of surgery and radiation therapy in the upper outer quadrant but no new suspicious findings in either breast. I recommended follow-up in 03/31/2025, and breast examination in 1 year. She is welcome to call sooner for any new concerns. Coding Level of Care Code Est Pt Level 3 (89264) Diagnoses History of right breast cancer Z85.3
[2024-04-06 10:17] VITALS: BP 149/85; PULSE 81; BMI 27.5
== END 2024-04-06 10:29 | disposition home or self-care (01) ==
PROVIDERS: PCP Internal Medicine; Visit Provider Surgery
DX: Z85.3 Personal history of malignant neoplasm of breast (principal)
CPT/HCPCS: 99213

== ENCOUNTER → 2024-04-06 10:00 | Outpatient (BNVA) | payer OTHER, SELFPAY | PROVIDERS: PCP Internal Medicine; Visit Provider Surgery ==

== ENCOUNTER 2024-04-07 10:11 | Outpatient (AMB) | payer OTHER, SELFPAY ==
--- NOTE | 2024-04-07 10:14 | MHC.OFFVIS ---
Intake Visit Reasons: PO ORIF Right Humerus 01/12/24 NE-w/xray Intake Note: Maria C is a 68 year old right hand dominant female who presents to the office today for a post operative visit s/p Right Humerus ORIF DOS: 01/12/24 w/ NE. Patient expresses she bucio snot have the same ROM as he did before she broke it but says it is improving. She came today from her OT visit and is working on the strength of her hand which she also feels is improving. She says sometimes if shes lifting too much or trying to get it going she will have some discomfort but then it fades away. She is taking Tylenol every morning for over all relief of her arm and other aches she may have. Allergies lisinopril Allergy (Severe, Verified 04/07/24 10:21) Anaphylaxis Seasonal Allergies Allergy (Mild, Verified 04/07/24 10:21) Itchy Eyes, stuffy nose, runny nose HPI HPI PO ORIF Right Humerus 01/12/24 NE-w/xray: Details: Patient is a 68-year-old female who presents for postoperative evaluation status post ORIF of right distal humerus, DOS 01/12/[address] Domínguez. Today, the patient reports that she is feeling well, and then her range of motion is not 100% back to where it was prior to her injury, but is getting closer. The patient does report that she experiences a occasional discomfort with lifting, but states that this ?fades away over time?. Patient reports no issues with numbness or tingling in the right upper extremity, and has full range of motion of her right hand. No other acute complaints or concerns at this time. [facility] Medical History Forehead laceration Accident due to mechanical fall without injury Pneumonia HTN (hypertension) Hyperlipidemia History of right breast cancer Surgical History Hx of left breast biopsy Hx of right breast biopsy H/O colonoscopy History of neck surgery (06/2022) History of lumpectomy of right breast Hx laparoscopic cholecystectomy (~2002) Family History Mother History of cyst of breast Father Family hx of prostate cancer Paternal Grandfather Hx of cancer of lung Paternal Aunt History of breast cancer Paternal Aunt History of colon cancer Family/Other History of breast cancer, Onset Age: 42 Social History Household Members: None Household Members Other:: dog Housing: House Do you presently have visiting nurse or other home services: No Alcohol intake: current Alcohol intake frequency: a few times a month Alcohol type: wine Patient Tobacco Use Status: Never used Tobacco Second Hand Smoke Exposure: Yes Advance Directives Date on File: 06/23/20 service: No Current occupational status: employed 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 Patient is able to actively extend the R elbow to approximately 15-20 degrees at this time Patient is able to flex the elbow to 120 degrees without difficulty Patient is able to pronate and supinate the R forearm without difficulty ROM of the right hand full and intact Patient is able to abduct the thumb without difficulty Patient is able to flex and extend the R wrist to 40 degrees with each motion Distal sensation intact Capillary refill brisk Results Reviewed Results Reviewed: X-rays obtained in the office today and independently reviewed by me, Chris Alvarez PA-C, demonstrate well approximated fracture of the right distal humerus in satisfactory clinical alignment with all hardware in place with evidence of interval bony healing. Assessment & Plan Assessment & Plan (1) Fracture, humerus: Code(s): S42.309A - Unspecified fracture of shaft of humerus, unspecified arm, initial encounter for closed fracture Category: Medical Qualifiers: Encounter type: initial encounter Fracture morphology: unspecified fracture morphology Fracture type: closed Humerus Location: distal Laterality: right Qualified Code(s): S42.401A - Unspecified fracture of lower end of right humerus, initial encounter for closed fracture Plan 1. Right distal humerus fracture status post open reduction internal fixation DOS 01/12/2024 Patient is recovering well postoperatively Patient is educated about the typical recovery course Patient has radial nerve palsy has iresolved. Patient is told that she should continue to work on range of motion, although she should continue to avoid any excessively heavy lifting No active restrictions on the patient at this time Patient is told that she should work on extension of the elbow to get as close as she can to full extension, using a chair and with some light weight in her hand Patient should continue working with PT and OT Patient is amenable to this plan Patient will follow-up in 6-8 weeks for [id number] check. Orders: Orders XR humerus RT Today S42.301A - Unspecified fracture of shaft of humerus, right arm, initial encounter for closed fracture Coding Level of Care Code Global (36916) Diagnoses Closed fracture of distal end of right humerus, unspecified fracture morphology, initial encounter S42.401A Encounter type: initial encounter Fracture morphology: unspecified fracture morphology Fracture type: closed Humerus Location: distal Laterality: right
== END 2024-04-07 11:13 | disposition home or self-care (01) ==
PROVIDERS: PCP Internal Medicine
DX: S42.401A Unspecified fracture of lower end of right humerus, initial encounter for closed fracture (principal)
CPT/HCPCS: 99024

== ENCOUNTER 2024-04-07 10:11 | Outpatient (REF) | payer OTHER, SELFPAY ==
--- NOTE | ~2024-04-07 | XR_ITS ---
EXAMINATION: XR HUMERUS, RIGHT CLINICAL INFORMATION: S42.301A - Unspecified fracture of shaft of humerus, right arm. Follow-up fixated fracture. COMPARISON: 02/25/2024, 01/21/2024, CT right humerus 01/11/2024. TECHNIQUE: AP and 2 lateral views of the right humerus. FINDINGS: Diffuse osteopenia. No suspicious focal bone lesion. Mild arthritis noted in the glenohumeral joint and AC joint, as well as the elbow joint. Redemonstration of medial and lateral humeral mid and distal diaphyseal stabilization plates and fixation screws. No hardware fracture. No periscrew lucency. The previously seen distal humeral fracture appears in anatomic alignment. Degree of osseous bridging cannot be well evaluated due to presence of the hardware. There appears to be periostitis surrounding the fracture margins and hardware, as well as blunting of the fracture margins suggesting healing. No abnormal soft tissue calcification. XR/XR humerus RT IMPRESSION: 1. Distal humeral ORIF without evidence of hardware complication. 2. Distal humeral fracture in anatomic alignment. Findings suggesting healing. Electronically signed by: Damon Stockton MD 06/16/2024 02:33 PM MARCOS
== END 2024-04-07 10:12 | disposition home or self-care (01) ==
LOC: HO.HOSX 10:11
PROVIDERS: PCP Internal Medicine
DX: S42.401A Unspecified fracture of lower end of right humerus, initial encounter for closed fracture (principal)
CPT/HCPCS: 73060

== ENCOUNTER → 2024-04-07 10:36 | Outpatient (BNV) | payer OTHER, SELFPAY | PROVIDERS: PCP Internal Medicine; Visit Provider Radiology Diagnostic Radiology | DX: S42.491A Other displaced fracture of lower end of right humerus, initial encounter for closed fracture (principal) | CPT/HCPCS: 73060 ==

== ENCOUNTER 2024-05-08 09:30 | Outpatient (RCR) | payer OTHER, SELFPAY ==
--- NOTE | 2024-02-04 16:29 | MHC.OT.EP ---
[address] [phone] Occupational Therapy Plan of Care Patient Name: Maria C Ho Date of Evaluation: 02/04/24 Diagnosis: R Distal Humerus fx post ORIF Pain Location: ONLY W/ MOVEMEMNT 2/10 Pain Score: 0 Pain Scale Used: Numeric (0 - 10) Aggravating Factors: palpation / aAROM Alleviating Factors: rest Assessment: Pt is a 68 yr old R hand dominant female who injured her R UE when she slipped and fell on her R UE on 01/10/24. She used her apple watch to call for nurse liaison; who arrived at her house and brought her to [facility]. She was diagnosed w/ a distal humerus fracture and radial nerve palsy. The following day pt had ORIF surgery to repair the fracture. She reports as of Wednesday afternoon (01/30) she has been able to extend her R wrist and thumb. She has been referred to skilled OT therapy for increased ROM, strength, and functional use of her R UE She is here today 4.5 weeks post op to begin AROM elbow ext/ flexion as well as GENTLE passive ROM; pt denies any pain and has a hx of a cervical neck fracture which affects her posture she was placed in a sling whcih she reports wearing throughout the day only removing for showering or when sitting still (her dog is currently being boarded while she heals) Frequency and Duration: The patient will be seen 2xs a week for 8 weeks Short Term Goals: Pt will have full AROM of her R wrist Pt will have -15 of an extension lag Pt todd have gain elbow flexion of 120 Care Home Goals: Pt will report returning to driving w/ out difficulty Pt will report using her R UE to carry a light grocery bag Pt will RPLOF Treatment Plan: Therapeutic Exercise Therapeutic Activity Home Exercise Program Splinting Neuro Re-ed Patient Education Desensitization/Sensory Re-ed Edema Control ADL Training Ultrasound NMES Iontophoresis Paraffin Fluidotherapy MHP Cold Packs Joint Mobilization Soft Tissue Mobilization Kinesiotaping Other (see comments) Electronically Signed By: Julianne Pinto OTR/L Please Sign and return to therapist. Thank you once again for your referral.
== END 2024-05-08 13:04 | disposition home or self-care (01) ==
LOC: HO.OT 09:30
PROVIDERS: PCP Internal Medicine
DX: S42.401D Unspecified fracture of lower end of right humerus, subsequent encounter for fracture with routine healing (principal)
CPT/HCPCS: 97110; 97140; 97166; 97530; 97535

== ENCOUNTER 2024-05-19 09:20 | Outpatient (AMB) | payer OTHER, SELFPAY ==
--- NOTE | 2024-05-19 09:21 | A.OFFVIS_ITS ---
Intake Visit Reasons: OV - ORIF Right Humerus 01/12/24-ROM check Intake Note: Maria C is a 68 year old right hand dominant female who presents to the office today for a follow up visit s/p Right Humerus ORIF DOS: 01/12/24 w/ NE. Pt states she is feeling well and denies any concerns at this time. Pt states she finished OT last week and states her ROM is doing much better than before and states she has full strength in her hand. Allergies lisinopril Allergy (Severe, Verified 05/19/24 09:21) Anaphylaxis Seasonal Allergies Allergy (Mild, Verified 05/19/24 09:21) Itchy Eyes, stuffy nose, runny nose HPI HPI OV - ORIF Right Humerus 01/12/24-ROM check: Details: Patient is a 68-year-old female who presents for postoperative evaluation status post ORIF of right distal humerus, DOS 01/12/[address] Domínguez. Today, the patient reports that she is feeling well, and then her range of motion is improved from previous visit, but not completely full The patient does report that she experiences no pain at baseline, but she does state that she did Bang her arm against the door a few days ago, at which point she began to experience some discomfort but this has completely resolved. Patient reports no issues with numbness or tingling in the right upper extremity, and has full range of motion of her right hand. No other acute complaints or concerns at this time. [facility] Medical History Forehead laceration Accident due to mechanical fall without injury Pneumonia HTN (hypertension) Hyperlipidemia History of right breast cancer Surgical History Hx of left breast biopsy Hx of right breast biopsy H/O colonoscopy History of neck surgery (06/2022) History of lumpectomy of right breast Hx laparoscopic cholecystectomy (~2002) Family History Mother History of cyst of breast Father Family hx of prostate cancer Paternal Grandfather Hx of cancer of lung Paternal Aunt History of breast cancer Paternal Aunt History of colon cancer Family/Other History of breast cancer, Onset Age: 42 Social History Household Members: None Household Members Other:: dog Housing: House Do you presently have visiting nurse or other home services: No Alcohol intake: current Alcohol intake frequency: a few times a month Alcohol type: wine Patient Tobacco Use Status: Never used Tobacco Second Hand Smoke Exposure: Yes Advance Directives Date on File: 06/23/20 service: No Current occupational status: employed Current occupation: [employer] / right handed Physical Exam Extrem Other: On inspection, there is no visible deformity of the R elbow or humerus Well-healed incision site No edema, erythema, evidence of infection noted Patient reports no tenderness to palpation of the right elbow No other tenderness to palpation noted Patient reports diminshed sensation of the ulnar aspect of the proximal R index finger. Patient is able to actively extend the R elbow to approximately 10 degrees at this time Patient is able to flex the elbow to 1400 degrees without difficulty Patient is able to pronate and supinate the R forearm without difficulty ROM of the right hand full and intact Patient is able to abduct the thumb without difficulty Patient is able to flex and extend the R wrist to 600 degrees with each motion Distal sensation intact Capillary refill brisk Assessment & Plan Assessment & Plan (1) Fracture, humerus: Code(s): S42.309A - Unspecified fracture of shaft of humerus, unspecified arm, initial encounter for closed fracture Category: Medical Qualifiers: Encounter type: initial encounter Fracture morphology: unspecified fracture morphology Fracture type: closed Humerus Location: distal Laterality: right Qualified Code(s): S42.401A - Unspecified fracture of lower end of right humerus, initial encounter for closed fracture Plan 1. Right distal humerus fracture status post open reduction internal fixation with Dr. Sang ALEXIS 01/12/2024 Patient appears to be recovering very well postoperatively Patient is educated about the typical recovery course At this time, patient is informed that the range of motion she has now is likely to be permanent Patient was amenable to this Patient is also advised that I do not feel she needs a scheduled follow-up with us, as she seems to have recovered very well from her surgery Patient expresses thankful this for this in his amenable to this plan Patient will follow-up as needed with any acute concerns Coding Level of Care Code Global (68435) Diagnoses Closed fracture of distal end of right humerus, unspecified fracture morphology, initial encounter S42.401A Encounter type: initial encounter Fracture morphology: unspecified fracture morphology Fracture type: closed Humerus Location: distal Laterality: right
== END 2024-05-19 09:30 | disposition home or self-care (01) ==
PROVIDERS: PCP Internal Medicine
DX: S42.401A Unspecified fracture of lower end of right humerus, initial encounter for closed fracture (principal)
CPT/HCPCS: 99212

== ENCOUNTER → 2024-05-19 09:20 | Outpatient (BNVA) | payer OTHER, SELFPAY | PROVIDERS: PCP Internal Medicine ==

== ENCOUNTER 2025-02-05 13:23 | Outpatient (AMB) | payer OTHER, SELFPAY ==
--- OUTSIDE RECORDS SUMMARY | 2024-09-20 11:30 | XMS_ITS ---
Author Organization Nick Rodríguez III, MD Address [address] [place] [address] Care Team Providers Care Pick Up Man Name Role Phone Bucky Quinonez MD Primary Care Provider Nick Mercado [phone] Allergies Allergen (clinical drug ingredient) Drug/Non Drug [...] Provider Diagnosis Nick Rodríguez III, MD [address] [place] [address] [place] [address] 09/20/2024 Nick Rodríguez Invasive ductal carcinoma of [...] V Provider Name:Nick Rodríguez, 09/20/2025 09:00:00 AM, [address] [place] [address], [address], Progress Notes * COURTNEY RUGGIEROINEDOB:1954 (69 yo F)Acc No.[id number]:09/20/2024 Progress Notes Patient: ABNER SIERRA Provider: Jeffery Rodríguez MD :1955 A ge:69 Y S ex:Female Date:09/20/2024 Address:[address] [place] [phone] Pcp:Bucky Quinonez MD Subjective: * Chief Complaints: [...] A ggressive non-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 * [...] 09/20/2024 Generated for Juliana stevenson/Cristina/Hemalitting on: 0 02/05/2025 02:05 PM EDT History and Physical Notes * [...]
--- NOTE | 2025-02-05 13:21 | MHC.PC.OV ---
Vital Signs 02/05/25 13:28 02/05/25 14:43 Height 5 ft 3.39 in Weight 157 lb 4 oz BMI 27.5 BP 156/79 H 121/57 L Blood Pressure Location Rt brachial Lt brachial Position Sitting Sitting Respiration 16 Pulse 89 Pulse Source Pulse Oximeter Temp 99.5 F Temp Source Temporal Artery Scan Pulse Oximetry (%) 95 Oxygen Delivery Method Room Air Intake Visit Reasons: Establish [facility] patient Otolaryngologist Required: No Accompanied by: Self / Same As Patient Allergies lisinopril Allergy (Severe, Verified 02/05/25 13:50) Anaphylaxis Seasonal Allergies Allergy (Mild, Verified 02/05/25 13:50) Itchy Eyes, stuffy nose, runny nose Medication List - Last Reconciled 02/05/25 by Shawna Colon PA-C atorvastatin 80 mg PO DAILY carvedilol 6.25 mg PO DAILY Tobacco use date assessed: 02/05/25 Fall risk assessment: 1 Fall in past year Last assessed Fall Risk: 02/05/25 Dental Screening Dental Screen Date: 02/05/25 Did you have a dental visit in the last 12 months?: Yes Did you have a dental problem in the last 6 months where you did not have access to dental care?: No Was dental information given to patient?: Patient has dentist [facility] HPI Details The patient is a 69-year-old female presenting for a new patient appointment as she was a patient of Dr. Quinonez. She is presenting with dizziness and imbalance. Recently, the patient experienced dizziness and imbalance, particularly when walking, which she attributes to possible water in her ear from using a handheld shower. She describes episodes of drifting to the left while walking, which have since resolved. The patient denies any numbness, tingling, weakness, or slurred speech. She reports approximately 3 weeks ago she noticed that she was walking towards the left and she was unable to stop this. She reports it has since resolved and has not returned. She denies any changes in vision, weakness, focal weakness, confusion, recent falls or head injury, paresthesias, chest pain, shortness of breath, reoccurrence of this episode or any other symptoms complaints or concerns at this time. She reports a history of chronic neck pain following a fracture of the C1 and C2 vertebrae in June 2022, which has resulted in a decrease in height and difficulty holding her head up. 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 The patient has a history of hypertension and hyperlipidemia, managed with carvedilol and atorvastatin, respectively. She reports adherence to her medication regimen and has no current need for refills. In 2015, the patient was diagnosed with breast cancer and underwent a lumpectomy and radiation therapy. She was treated with anastrozole for five years and has been off the medication since September of this year. The patient also reports a sensation in the back of her knee, requiring her to pull her knee to her chest to relieve discomfort, which may indicate a Pineda's cyst. 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 - Functional status: Uses a handheld shower and sits on a bench due to fear of standing in the shower FOR[facility]LY [facility], 1928–1983 Medical History (Updated 02/05/25 @ 15:16 by Shawna Colon PA-C) History of mammogram (~03/16/24) Left knee pain Excess ear wax Chronic neck pain Transient cerebral ischemic attack, unspecified Benign paroxysmal vertigo, unspecified ear Dizziness Gait disorder Forehead laceration Accident due to mechanical fall without injury Pneumonia HTN (hypertension) Hyperlipidemia History of right breast cancer Surgical History Hx of left breast biopsy Hx of right breast biopsy H/O colonoscopy History of neck surgery (06/2022) History of lumpectomy of right breast Hx laparoscopic cholecystectomy (~2002) Family History Mother History of cyst of breast Father Family hx of prostate cancer Paternal Grandfather Hx of cancer of lung Paternal Aunt History of breast cancer Paternal Aunt History of colon cancer Family/Other History of breast cancer, Onset Age: 42 Social History Household Members: None Household Members Other:: dog Housing: House Do you presently have visiting nurse or other home services: No Alcohol intake: current Alcohol intake frequency: a few times a week Alcohol type: wine Patient Tobacco Use Status: Never used Tobacco Advance Directives Date on File: 06/23/20 service: No Current occupational status: employed Cognitive needs: Yes (cane) Hearing needs: No Vision needs: Yes (rx glasses) Questionnaire PHQ-9 Over the last 2 weeks, how often have you been bothered by any of the following problems? 1. Little interest or pleasure in doing things: not at all 2. Feeling down, depressed, or hopeless: not at all 3. Trouble falling or staying asleep, or sleeping too much: not at all 4. Feeling tired or having little energy: not at all 5. Poor appetite or overeating: not at all 6. Feeling bad about yourself - or that you are a failure or have let yourself or your family down: not at all 7. Trouble concentrating on things, such as reading the newspaper or watching television: not at all 8. Moving or speaking so slowly that other people could have noticed. Or the opposite - being so fidgety or restless that you have been moving around a lot more than usual: not at all 9. Thoughts that you would be better off or of hurting yourself in some way: not at all Total score: 0 Depression Screening Interpretation: Negative Depression Screening Done: Yes 12607 - PHQ-9 Billing: Yes Source: Developed by Drs. Nick Fishman, Clementina Lane, Reji Alexis and colleagues, with an educational samantha from [employer] Thrive Questionnaire Date Thrive assessed: 02/05/25 I am a: Patient What is your living situation today?: I have a steady place to live Within the past 12 months, did the food you bought not last and you didn't have the money to get more?: Never true Within the past 12 months, did you worry whether your food would run out before you got money to buy more?: Never true Do you have trouble paying for medicines?: No Do you have trouble getting transportation to medical appointments?: No Do you have trouble paying your heating and electricity bill?: No Do you have trouble taking care of your child, family member or friend?: No Do you have trouble with day-to-day activities such as bathing, preparing meals, shopping, managing finances, etc.?: No Are you currently unemployed and looking for a job?: No Are you interested in more education?: No Please select the resources that you would like help with: None Currently or been in a relationship where the following occur: No concerns reported THRIVE Score: 0 AUDIT C Alcohol Use Questionnaire (AUDIT-C) 1. How often do you have a drink containing alcohol?: 2-3 times a week 2. How many drinks containing alcohol do you have on a typical day when you are drinking?: 1 or 2 3. How often do you have six or more drinks on one occasion?: Never Total Score: 3 Score Reviewed/Action Taken: No DELICIA-7 AMB Questionnaire DELICIA-7 Date DELICIA - 7 assessed: 02/05/25 Feeling nervous, anxious, or on edge: 0 = Not at all Not being able to stop or control worryin = Not at all Worrying too much about different things: 0 = Not at all Trouble relaxin = Not at all Being so restless that it is hard to sit still: 0 = Not at all Becoming easily annoyed or irritable: 0 = Not at all Feeling afraid as if something awful might happen: 0 = Not at all Total DELICIA-7 score (0-4 normal; 5-9 mild; 10-14 moderate; 15-21 severe): 0 Source: Developed by Drs. Nick Fishman, Clementina Lane, Reji Alexis and colleagues, with an educational samantha from [employer] DELICIA-7 Assessment Billing DELICIA-7 Assessment Tool: DELICIA-7 Assessment 65080 Review of Systems Const Details: - Neurological: Reports dizziness and imbalance, denies numbness, tingling, weakness, or slurred speech - Musculoskeletal: Reports pain in the back of the knee, possibly related to a Pineda's cyst - Ear, Nose, Throat: Reports possible water in the left ear, denies ear pain All systems reviewed & are unremarkable except as noted in HPI and below Physical exam (Primary Care) Vital Signs: Last Vital Signs Temp 99.5 F 02/05/25 13:28 Pulse 89 02/05/25 13:28 Resp 16 02/05/25 13:28 BP 156/79 H 02/05/25 13:28 Pulse Ox 95 02/05/25 13:28 Oxygen Delivery Method Room Air 02/05/25 13:28 Care Plan Goal for BP management: <140/90 at Goal BMI result Body Mass Index 27.5 BMI Assessment/Plan discussion: High BMI High, discussed plan: lifestyle, weight reduction, dietary, physical activity and alcohol moderation Tobacco/Smoking Status: Tobacco use Status Tobacco use date assessed 02/05/25 02/05/25 13:27 Patient Tobacco Use Status Never used Tobacco 02/05/25 13:27 PHQ-9: PHQ-9 Score PHQ-9: Total score 0 02/05/25 13:27 Depression Screening Interpretation: Negative Thrive Assessment: Date of Thrive Assessment Date Thrive assessed 02/05/25 02/05/25 13:27 Currently or been in a relationship where the following occur: No concerns reported Const Other: Appearance: Alert. Oriented X3. No acute distress. Head: Normal external exam. Normocephalic. Atraumatic. Eyes: Pupils are equal, round, and reactive to light. Extraocular movements intact. Conjunctiva and sclera normal. Eyelids normal. Ears: External auditory canal normal. Tympanic membranes normal. Some cerumen noted into the left ear canal. No cerumen impactions noted. Throat: Pharynx normal. Uvula midline. Moist mucous membranes. Neck: Normal inspection. Neck supple. Full range of motion. No adenopathy. No meningeal signs. No neck mass noted. Cardiovascular: Normal heart rate and rhythm. Heart sound normal. No murmurs noted. Pulses normal throughout. Respiratory: No respiratory distress. Painless inspiration. Breath sounds normal. No wheezes/rales/rhonchi noted. Chest nontender. No accessory muscle usage noted or decreased air movement noted. Back: No costovertebral angle tenderness. Full range of motion noted. Skin: Skin warm and dry. Normal skin color. Normal skin turgor. No rashes/lesions/lacerations noted. Extremities: No lower extremity edema. Extremities exhibit normal range of motion. Patient has mild tenderness to the left posterior knee. Possibly Pineda's cyst. No lower extremity edema is noted although patient does have mild calf tenderness. No cyanosis and normal capillary refills noted. Neuro: Oriented X 3. No motor deficit. No sensory deficit. Reflexes normal. Noted history of dizziness and drifting to the left while walking, resolved. At this time patient has a normal steady gait. Negative pronator drift. Negative nystagmus. Normal vnzozi-pj-kuot test. Normal toe/grey/heel test. No numbness, tingling, weakness, or confusion. No slurred speech. NIH SS score 0. Results Reviewed Results Reviewed: - Labs: CBC, CMP, inflammatory marker, hemoglobin A1c, thyroid function test, vitamin B12, vitamin D, magnesium, lipid panel ordered - Imaging: Ultrasound of the left lower extremity and brain MRI considered Coding Level of Care Code New Pt Level 4 (92726) Complex EM visit Add On G2211 Diagnoses Chronic neck pain M54.2; G89.29 HTN (hypertension) I10 Hyperlipidemia E78.5 Dizziness R42 Excess ear wax H61.20 Left knee pain M25.562 Additional Codes PHQ-9 - 55899 - PHQ-9 Billing: Yes ([id number]) DELICIA-7 Assessment Billing - DELICIA-7 Assessment Tool: DELICIA-7 Assessment 96982 ([id number]) Assessment & Plan Assessment & Plan (1) Chronic neck pain: Code(s): M54.2 - Cervicalgia; G89.29 - Other chronic pain Category: Medical Plan: The patient will continue using Tylenol for pain management related to chronic neck pain from a previous cervical vertebrae fracture. (2) HTN (hypertension): Code(s): I10 - Essential (primary) hypertension Category: Medical Plan: The patient will continue taking carvedilol for hypertension management and monitor blood pressure at home. (3) Hyperlipidemia: Code(s): E78.5 - Hyperlipidemia, unspecified Category: Medical Plan: The patient will continue taking atorvastatin for hyperlipidemia management. (4) Dizziness: Code(s): R42 - Dizziness and giddiness Category: Medical Plan: A brain MRI is considered to rule out any neurological causes for the dizziness and imbalance. (5) Excess ear wax: Code(s): H61.20 - Impacted cerumen, unspecified ear Category: Medical Plan: The patient is advised to use peroxide in the ear to help with wax removal and will follow up for further evaluation. (6) Left knee pain: Code(s): M25.562 - Pain in left knee Category: Medical Plan: An ultrasound of the left lower extremity is ordered to evaluate for a possible Pineda's cyst. Plan Plan Patient was informed and verbally consented to the use of an ambient scribe for clinic note documentation during this visit. 1. Chronic Neck Pain Due To Previous Cervical Vertebrae Fracture The patient will continue using Tylenol for pain management related to chronic neck pain from a previous cervical vertebrae fracture. 2. Hypertension The patient will continue taking carvedilol for hypertension management and monitor blood pressure at home. 3. Hyperlipidemia The patient will continue taking atorvastatin for hyperlipidemia management. 4. History Of Breast Cancer With Lumpectomy And Radiation The patient has completed treatment with anastrozole and will continue regular follow-ups for breast cancer surveillance. 5. Dizziness And Imbalance A brain MRI is considered to rule out any neurological causes for the dizziness and imbalance. 6. Ear Wax Accumulation The patient is advised to use peroxide in the ear to help with wax removal and will follow up for further evaluation. 7. Possible Pineda's Cyst An ultrasound of the left lower extremity is ordered to evaluate for a possible Pineda's cyst. I discussed with the patient the plan to order a brain MRI to evaluate her dizziness and imbalance, considering the possibility of a neurological cause. We also discussed the use of peroxide for ear wax removal and the potential need for an ultrasound to assess for a Pineda's cyst. I advised her to monitor her blood pressure at home and to seek immediate care if symptoms worsen. Follow-up appointments were scheduled to ensure ongoing management of her conditions. Orders: Orders C Reactive Protein Today Z00.00 - Encounter for general adult medical examination without abnormal findings Complete Blood Count Auto Diff Today Z00.00 - Encounter for general adult medical examination without abnormal findings TSH reflex Free T4 Today Z00.00 - Encounter for general adult medical examination without abnormal findings Magnesium Today Z00.00 - Encounter for general adult medical examination without abnormal findings Lipid Panel Today Z00.00 - Encounter for general adult medical examination without abnormal findings XR DEXA axial skeleton Today M81.0 - Age-related osteoporosis without current pathological fracture CT head/brain wo IV con Today G45.9 - Transient cerebral ischemic attack, unspecified, H81.10 - Benign paroxysmal vertigo, unspecified ear CT angio head neck Today G45.9 - Transient cerebral ischemic attack, unspecified, H81.10 - Benign paroxysmal vertigo, unspecified ear US carotid duplex BI Today G45.9 - Transient cerebral ischemic attack, unspecified, H81.10 - Benign paroxysmal vertigo, unspecified ear Comprehensive [place]. Panel Fast Today Z00.00 - Encounter for general adult medical examination without abnormal findings Hemoglobin A1c Today Z00.00 - Encounter for general adult medical examination without abnormal findings Vitamin D 25-OH Total Today Z00.00 - Encounter for general adult medical examination without abnormal findings Vitamin B12 and Folate Today Z00.00 - Encounter for general adult medical examination without abnormal findings Liver Panel Today Z00.00 - Encounter for general adult medical examination without abnormal findings US venous duplex LE LT Today G45.9 - Transient cerebral ischemic attack, unspecified, H81.10 - Benign paroxysmal vertigo, unspecified ear Medications: New atorvastatin 80 mg PO DAILY 90 tabs 3RF carvedilol 6.25 mg PO DAILY 90 tabs 3RF Patient Instructions: - Use peroxide in the left ear to help with wax removal. - Monitor blood pressure at home regularly. - Attend follow-up appointments as scheduled. - Seek immediate medical attention if dizziness or imbalance worsens.
[2025-02-05 13:28] VITALS: BP 156/79; PULSE 89; RESP 16; TEMP 37.5; O2SAT 95; BMI 27.5
--- OUTSIDE RECORDS SUMMARY | 2025-02-05 14:05 | XMS_ITS | Clinical Summary ---
Author Organization [facility] it Address [address] [place] [address] Care Team Providers Care Machine Records Units Supervisor Name Role Phone Unavailable Primary Care Provider Unavailabl e Social History Tobacco Use Types Packs/Day Years Used Date Smoking Tobacco: Never Assessed Comments Unknown Sex and Gender Information Value Date Recorded Sex Assigned at Not on file Legal Sex Female 8:44 PM EST Gender Identity Not on file Sexual Orientation Not on file Plan of Treatment Health Maintenance Due Date Last Done Comments Breast Cancer Screening 1955 DTaP,Tdap,and Td Vaccines (1 - Tdap) 1974 Pneumococcal Vaccine: 50+ Ye ars (1 of 1 - PCV) 2005 Zoster Vaccines (1 of 2) 2005 Colorectal Cancer Screening: Colonoscopy 08/06/2023 Falls Risk Assessment 08/06/2023 Hepatitis C Screening 08/06/2023 Osteoporosis Screening (Bone Density Screening) 08/06/2023 Social Influencers of Health Screening 08/06/2023 COVID-19 Vaccine (1 - 2023-2 5 season) 2024 Depression Screening 07/12/2024 Influenza Vaccine (#1) 2025 RSV Immunization Adult Patie nts (1 - 1-dose 75+ series) 2030 HIB Vaccines Aged Out No longer eligi ble based on patient's age to complete this topic HPV Vaccines Aged Out No longer eligi ble based on patient's age to complete this topic Hepatitis A Vaccines Aged Out No long er eligible based on patient's age to complete this topic Hepatitis B Vaccines Aged Out No long er eligible based on patient's age to complete this topic IPV Vaccines Aged Out No longer eligi ble based on patient's age to complete this topic MMR Vaccines Aged Out No longer eligi ble based on patient's age to complete this topic Meningococcal ACWY Vaccine Aged Out N o longer eligible based on patient's age to complete this topic Meningococcal B Vaccine Aged Out No l onger eligible based on patient's age to complete this topic RSV Immunization Patients Un kaycee 20 months Aged Out No longer eligible b ased on patient's age to complete this topic Varicella Vaccines Aged Out No longer eligible based on patient's age to complete this topic Advance Directives Documents on File Type Date Recorded 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
--- OUTSIDE RECORDS SUMMARY | 2025-02-05 14:05 | XMS_ITS | Patient Health Record ---
Author Organization [facility] Address [address] [place] [address] Care Team Providers Care Vp Medical Name Role Phone Devi (RETIRED) Bucky CARLTON Primary Care Provider Unavailable Nick Linton Unavailable [phone] Allergies Allergen (clinical drug ingredient) Drug/Non Drug Allergy documented on EMR Reaction Allergy Type Onset Date Status lisinopril Lisinopril Unknown Drug Allergy Activ e seasonal (uncoded) Unknown Allergy A ctive Reason For Referral No Information Medications Medication SIG (Take, Route, Frequency, Duration) [...] MOUTH EVERY DAY Oral for 90 Active Social History Alcohol Screen Question Answer Notes Did you have a drink containing alcohol in the p ast year? No Points 0 Interpretation Negative Section Notes: Nonsmoker; no sig alochol Problems Problem Type SNOMED Code ICD Code Onset Dates Problem Status W/U Status Risk Notes Problem 152672010 Colon cancer screening (Z12.11) Active confirmed Problem 83492617 Rectal bleeding (K62.5) Active confirmed Problem Diverticulosis o f large intestine without perforation or abscess without bleeding (K57.30) Active confirmed Problem 07795842 Heme + stool (R19.5) Active confirmed Plan Of Treatment Future Test Test Name Order Date COLONOSCOPY 05/05/2012 COLONOSCOPY 06/15/2023 Insurance Providers Payer Name Payer Address Payer Phone Subscriber Number Group Number Insured Name Patient Relationship to Insured Coverage Start Date Coverage End Date [facility] INDEMNITY [address] [place] [address] [id number] ABNER HENSLEY Self - patient is the insured Medical (General) History Medical History History ICD Code Hypertension Denies [place],DM,CVA,Lung disease,renal dise ase Hyperlipidemia Pneumonia x 3 [...]
[2025-02-05 14:43] VITALS: BP 121/57
== END 2025-02-05 14:03 | disposition home or self-care (01) ==
LOC: HO.HMCSH 13:23
PROVIDERS: PCP Internal Medicine; Visit Provider Physician Assistant Medical
DX: M54.2 Cervicalgia (principal); H61.22 Impacted cerumen, left ear; G89.29 Other chronic pain; I10 Essential (primary) hypertension; E78.5 Hyperlipidemia, unspecified; R42 Dizziness and giddiness; M25.562 Pain in left knee

== ENCOUNTER → 2025-02-05 13:23 | Outpatient (BNVA) | payer OTHER, SELFPAY | PROVIDERS: PCP Internal Medicine; Visit Provider Physician Assistant Medical | DX: I10 Essential (primary) hypertension (principal); E78.5 Hyperlipidemia, unspecified; M54.2 Cervicalgia; G89.29 Other chronic pain; H61.20 Impacted cerumen, unspecified ear; M25.562 Pain in left knee; Z86.73 Personal history of transient ischemic attack (TIA), and cerebral infarction without residual deficits; H81.10 Benign paroxysmal vertigo, unspecified ear | CPT/HCPCS: 96127 ==

== ENCOUNTER 2025-02-24 09:47 | Outpatient (REF) | payer OTHER, SELFPAY ==
--- OUTSIDE RECORDS SUMMARY | 2024-09-20 11:30 | XMS_ITS ---
Author Organization Nick Rodríguez III, MD Address [address] [place] [address] Care Team Providers Care Soccer Commentator Name Role Phone Bucky Quinonez MD Primary Care Provider Nick Mercado [phone] Allergies Allergen (clinical drug ingredient) Drug/Non Drug [...] Date Provider Diagnosis Nick Rodríguez III, MD [address] [place] [address] [place] [address] 09/20/2024 Nick Rodríguez Invasive ductal carcinoma of [...] V Provider Name:Nick Rodríguez, 09/20/2025 09:00:00 AM, [address] [place] [address], [address], Progress Notes * COURTNEY RUGGIEROINEDOB:1954 (69 yo F)Acc No.[id number]:09/20/2024 Progress Notes Patient: ABNER SIERRA Provider: Jeffery Rodríguez MD :1955 A ge:69 Y S ex:Female Date:09/20/2024 Address:[address] [place] [phone] Pcp:Bucky Quinonez MD Subjective: * Chief Complaints: [...] ggressive non-smoker 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 * [...] 09/20/2024 Generated for Juliana stevenson/Cristina/Hemalitting on: 0 02/24/2025 09:49 AM EDT History and Physical Notes * [...]
--- NOTE | ~2025-02-24 | CT_ITS ---
CLINICAL HISTORY: G45.9 - Transient cerebral ischemic attack, unspecified CT head without contrast Comparison: 09/18/2023 Findings: No new intra-axial mass, midline shift, hydrocephalus, or acute hemorrhage. There is moderate diffuse atrophy. There is no sinus or mastoid fluid. The orbits are within normal limits. No skull fracture. IMPRESSION: 1. No acute intracranial findings. This document has been electronically signed by: Cliff Montez MD on 02/26/2025 09:03:48
--- OUTSIDE RECORDS SUMMARY | 2025-02-24 09:49 | XMS_ITS | Patient Health Record ---
Author Organization [facility] Address [address] [place] [address] Care Team Providers Care Application Security Consultant Name Role Phone Dvei (RETIRED) Bucky CARLTON Primary Care Provider Unavailable Nick Linton Unavailable [phone] Allergies Allergen (clinical drug ingredient) Drug/Non Drug [...] Problem Status W/U Status Risk Notes Problem 235820904 Colon cancer screening (Z12.11) Active confirmed Problem 84174200 Rectal bleeding (K62.5) Active confirmed Problem Diverticular disease of colon (292710892) Diverticulosis of large intestine without perforation or abscess without bleeding (K57.30) Active confirmed Problem 76294122 Heme + stool (R19.5) Active confirmed Plan Of Treatment Future Test Test Name Order Date COLONOSCOPY 05/05/2012 COLONOSCOPY 06/15/2023 Insurance Providers Payer Name Payer Address Payer Phone Subscriber Number Group Number Insured Name Patient Relationship to Insured Coverage Start Date Coverage End Date [facility] [address] [place] [address] [id number] ABNER HENSLEY Self - patient is the insured Medical (General) History Medical History History ICD Code Hypertension Denies [place],DM,CVA,Lung disease,renal dise ase Hyperlipidemia Pneumonia x 3 [...]
--- OUTSIDE RECORDS SUMMARY | 2025-02-24 09:49 | XMS_ITS | Clinical Summary ---
Author Organization [facility] it Address [address] [place] [address] Care Team Providers Care Back Hanger Name Role Phone Unavailable Primary Care Provider [...] Documents on File Type Date Recorded Patient Manager Recruiting Expl anation Health Care Decision (hx) 07/22/2022 AD MENESES DIRECTIVE Health Care Decision (hx) 06/26/2022 HE ALTH CARE PROXY
== END 2025-02-24 09:48 | disposition home or self-care (01) ==
LOC: HO.CT 09:47
PROVIDERS: PCP Internal Medicine; Visit Provider Physician Assistant Medical
DX: G45.9 Transient cerebral ischemic attack, unspecified (principal); H81.10 Benign paroxysmal vertigo, unspecified ear
CPT/HCPCS: 70450

== ENCOUNTER → 2025-02-24 10:00 | Outpatient (BNV) | payer OTHER, SELFPAY | PROVIDERS: PCP Internal Medicine; Visit Provider Specialist | DX: G45.9 Transient cerebral ischemic attack, unspecified (principal) | CPT/HCPCS: 70450 ==

== ENCOUNTER 2025-03-05 12:01 | Outpatient (REF) | payer OTHER, SELFPAY ==
--- OUTSIDE RECORDS SUMMARY | 2024-09-20 11:30 | XMS_ITS ---
Author Organization Nick Rodríguez III, MD Address [address] [facility] [place] [address] Care Team Providers Care Early Childhood Specialist Name Role Phone Bucky Quinonez MD Primary Care Provider Nick Mercado [phone] Allergies Allergen (clinical drug ingredient) Drug/Non Drug [...] Date Provider Diagnosis Nick Rodríguez III, MD [address] [place] [address] [place] [address] 09/20/2024 Nick Rodríguez Invasive ductal carcinoma of [...] V Provider Name:Nick Rodríguez, 09/20/2025 09:00:00 AM, [address] [place] [address], [address], Progress Notes * COURTNEY RUGGIEROINEDOB:1954 (69 yo F)Acc No.[id number]:09/20/2024 Progress Notes Patient: ABNER SIERRA Provider: Jeffery Rodríguez MD :1955 A ge:69 Y S ex:Female Date:09/20/2024 Address:[address] [place] [phone] Pcp:Bucky Quinonez MD Subjective: * Chief Complaints: [...] 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 * [...] 09/20/2024 Generated for Juliana stevenson/Cristina/Hemalitting on: 0 03/05/2025 01:25 PM EDT History and Physical Notes * [...]
--- OUTSIDE RECORDS SUMMARY | 2025-03-05 13:25 | XMS_ITS | Clinical Summary ---
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
--- OUTSIDE RECORDS SUMMARY | 2025-03-05 13:25 | XMS_ITS | Patient Health Record ---
Author Organization [facility] Address [address] [place] [address] Care Team Providers Care Skein Yarn Dyer Helper Name Role Phone Devi (RETIRED) Bucky CARLTON Primary Care Provider Unavailable Nick Linton Unavailable [phone] Allergies Allergen (clinical drug ingredient) Drug/Non Drug [...] Problem Status W/U Status Risk Notes Problem 927966697 Colon cancer screening (Z12.11) Active confirmed Problem 90561121 Rectal bleeding (K62.5) Active confirmed Problem Diverticulosis o f large intestine without perforation or abscess without bleeding (K57.30) Active confirmed Problem 03405020 Heme + stool (R19.5) Active confirmed Plan Of Treatment Future Test Test Name Order Date COLONOSCOPY 05/05/2012 COLONOSCOPY 06/15/2023 Insurance Providers Payer Name Payer Address Payer Phone Subscriber Number Group Number Insured Name Patient Relationship to Insured Coverage Start Date Coverage End Date [facility] INDEMNITY [address] [place] [address] [id number] ABNER HENSLEY Self - patient is the insured Medical (General) History Medical History History ICD Code Hypertension Denies [place],DM,CVA,Lung disease,renal dise ase Hyperlipidemia Pneumonia x 3 [...]
[2025-03-05 13:30] LABS: MANUAL DIFF FLAG NO
[2025-03-05 13:44] LABS: Hematocrit 39.5 % (37.0-47.0); Hemoglobin 13.4 g/dl (12.0-16.0); Imm Gran Abs Auto 0.01 X10*3/uL (0.00-0.03); Imm Gran Pct Auto 0.2 % (0.0-0.4); Lymphocytes Absolute Auto 1.6 X10*3/uL (1.2-4.9); Mean Corpuscular HGB Conc 33.9 g/dl (31.0-35.0); Mean Corpuscular Hemoglobin 33.7 pg (27.0-33.0); Mean Corpuscular Volume 99.2 fL (80.0-98.0); NRBC Abs Auto 0.000 X10*3/uL (0.0-0.012); NRBC Pct Auto 0.0 /100WBC (0.0-0.2); Platelet Count 204 X10*3/uL (160-400); Red Blood Count 3.98 X10*6/uL (4.20-5.50); White Blood Count 4.7 X10*3/uL (4.8-10.8)
[2025-03-05 14:29] LABS: Alanine Aminotransferase 16 U/L (0-31); Albumin Level 4.4 g/dL (3.5-5.0); Alkaline Phosphatase 103 U/L (39-117); Anion Gap 13 (12-20); Aspartate Amino Transferase 27 U/L (5-31); Blood Urea Nitrogen 12 mg/dL (9-16); Calcium 9.2 mg/dL (8.4-10.2); Carbon Dioxide 29 mmol/L (22-29); Chloride 105 mmol/L (96-108); Cholesterol 199 mg/dL (<200); Estimated Glomerular Filt Rate > 60; HDL Cholesterol 89 mg/dL (>40); Magnesium 1.7 mg/dL (1.6-2.6); Potassium 4.1 mmol/L (3.3-5.1); Sodium 143 mmol/L (135-145); Total Protein 7.2 g/dL (6.5-8.0); Triglycerides 114 mg/dL (<150)
[2025-03-05 14:40] LABS: Folate 4.4 ng/mL (> or = 4.0); Vitamin B12 232 pg/mL (200-900)
[2025-03-05 16:13] LABS: Hemoglobin A1C 131.4489 umol/L; Total Hemoglobin (HGBA1C) 3560.9050 umol/L
== END 2025-03-05 12:02 | disposition home or self-care (01) ==
LOC: HO.HMGCLDS 12:01
PROVIDERS: PCP Internal Medicine; Visit Provider Physician Assistant Medical
DX: Z00.00 Encounter for general adult medical examination without abnormal findings (principal); Z13.1 Encounter for screening for diabetes mellitus; Z13.6 Encounter for screening for cardiovascular disorders
CPT/HCPCS: 36415; 80053; 80061; 80076; 82248; 82306; 82607; 82746; 83036; 83735; 84443; 85025; 86140

== ENCOUNTER 2025-03-08 14:30 | Outpatient (AMB) | payer OTHER, SELFPAY ==
--- OUTSIDE RECORDS SUMMARY | 2023-09-21 11:45 | XMS_ITS ---
Author Organization Nick Rodríguez III, MD Address [address] [place] [address] Care Team Providers Care Filler Shredder Machine Name Role Phone Bucky Quinonez MD Primary Care Provider [facility]availNick [facility] [phone] Allergies Allergen (clinical drug ingredient) Drug/Non Drug [...] Date Provider Diagnosis Nick Rodríguez III, MD [address] [place] [address] [place] [address] 09/21/2023 Nick Rodríguez Invasive ductal carcinoma of [...] V Provider Name:Nick Rodríguez, 09/20/2025 09:00:00 AM, [address] [place] [address] [place], [address], Progress Notes * COURTNEY RUGGIEROROCHELLEOB:1954 (68 yo F)Acc No.[id number]:09/21/2023 Progress Notes Patient: ABNER SIERRA Provider: Jeffery Rodríguez MD :1955 A ge:68 Y S ex:Female Date:09/21/2023 Address:[address] [place] [address] JOSÉ MIGUEL Stefanie [id number] Pcp:Bucky Quinonez MD Subjective: * Chief Complaints: [...] A ggressive non-smoker 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 * [...] 09/21/2023 Generated for Printi ng/Faxing/eTransmitting on: 0 03/08/2025 03:09 PM EDT History and Physical Notes * HPI (History of Present Illness) Category Sub-Category Detail Notes COVID-19 Screening Questions Have you had any new onset fever, chills, cough, congestion, sore throat, shortness of breath, muscle aches?: No Have you been exposed to the virus withi n the last 10 days?: No Have you travelled internationally in [facility] last 10 days?: No Have you been [...]
--- OUTSIDE RECORDS SUMMARY | 2024-09-20 11:30 | XMS_ITS ---
Author Organization Nick Rodríguez III, MD Address [address] [place] [address] Care Team Providers Care Irs Agent Name Role Phone Bucky Quinonez MD Primary Care Provider Nick Mercado [phone] Allergies Allergen (clinical drug ingredient) Drug/Non Drug [...] Date Provider Diagnosis Nick Rodríguez III, MD [address] [place] [address] [place] [address] 09/20/2024 Nick Rodríguez Invasive ductal carcinoma of [...] V Provider Name:Nick Rodríguez, 09/20/2025 09:00:00 AM, [address] [place] [address], [address], Progress Notes * COURTNEY RUGGIEROINEDOB:1954 (69 yo F)Acc No.[id number]:09/20/2024 Progress Notes Patient: ABNER SIERRA Provider: Jeffery Rodríguez MD :1955 A ge:69 Y S ex:Female Date:09/20/2024 Address:[address] [place] [phone] Pcp:Bucky Quinonez MD Subjective: * Chief Complaints: [...] A ggressive 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 * [...] 09/20/2024 Generated for Juliana stevenson/Cristina/Hemalitting on: 0 03/08/2025 03:09 PM EDT History [...]
--- NOTE | 2025-03-08 14:28 | MHC.PC.OV ---
Vital Signs 03/08/25 14:34 Height 5 ft 3.39 in Weight 156 lb 8 oz BMI 27.4 BP 166/76 H Blood Pressure Location Lt brachial Position Sitting Respiration 16 Pulse 67 Pulse Source Pulse Oximeter Temp 99.1 F Temp Source Temporal Artery Scan Pulse Oximetry (%) 96 Oxygen Delivery Method Room Air Intake Visit Reasons: Physical Research Investigator Required: No Accompanied by: Self / Same As Patient Allergies lisinopril Allergy (Severe, Verified 03/08/25 17:43) Anaphylaxis Seasonal Allergies Allergy (Mild, Verified 03/08/25 17:43) Itchy Eyes, stuffy nose, runny nose Medication List - Last Reconciled 03/08/25 by Shawna Colon PA-C atorvastatin 80 mg PO DAILY carvedilol 6.25 mg PO DAILY cholecalciferol (vitamin D3) 50 mcg PO DAILY Tobacco use date assessed: 02/05/25 Fall risk assessment: 1 Fall in past year Last assessed Fall Risk: 02/05/25 Dental Screening Dental Screen Date: 02/05/25 Did you have a dental visit in the last 12 months?: Yes Did you have a dental problem in the last 6 months where you did not have access to dental care?: No Was dental information given to patient?: Patient has dentist HPI Physical HPI Details The patient is a 69-year-old female presenting for an annual physical examination. She reports neck pain associated with stress and tension, and upper back pain on stressful days. She experiences occasional ankle swelling on hot days, resolving with elevation. Her history includes a fluctuating low white blood cell count, possibly linked to past radiation treatment. Post-gallbladder removal, she experiences diarrhea. She is on atorvastatin, carvedilol, and vitamin D supplements, with low vitamin D and borderline low vitamin B12 levels. 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 - Exercise: No specific exercise routine mentioned. [facility] Medical History (Updated 03/08/25 @ 17:49 by Shawna Colon PA-C) Diarrhea Low vitamin B12 level Vitamin D deficiency Leukopenia Ankle swelling Chronic upper back pain Annual physical exam History of mammogram (~03/16/24) Left knee pain Excess ear wax Chronic neck pain Transient cerebral ischemic attack, unspecified Benign paroxysmal vertigo, unspecified ear Dizziness Gait disorder Forehead laceration Accident due to mechanical fall without injury Pneumonia HTN (hypertension) Hyperlipidemia History of right breast cancer Surgical History Hx of left breast biopsy Hx of right breast biopsy H/O colonoscopy History of neck surgery (06/2022) History of lumpectomy of right breast Hx laparoscopic cholecystectomy (~2002) Family History Mother History of cyst of breast Father Family hx of prostate cancer Paternal Grandfather Hx of cancer of lung Paternal Aunt History of breast cancer Paternal Aunt History of colon cancer Family/Other History of breast cancer, Onset Age: 42 Social History Household Members: None Household Members Other:: dog Housing: House Do you presently have visiting nurse or other home services: No Alcohol intake: current Alcohol intake frequency: a few times a week Alcohol type: wine Patient Tobacco Use Status: Never used Tobacco Advance Directives Date on File: 06/23/20 service: No Current occupational status: employed Cognitive needs: Yes (cane) Hearing needs: No Vision needs: Yes (rx glasses) Questionnaire PHQ-9 Over the last 2 weeks, how often have you been bothered by any of the following problems? 1. Little interest or pleasure in doing things: not at all 2. Feeling down, depressed, or hopeless: not at all 3. Trouble falling or staying asleep, or sleeping too much: not at all 4. Feeling tired or having little energy: not at all 5. Poor appetite or overeating: not at all 6. Feeling bad about yourself - or that you are a failure or have let yourself or your family down: not at all 7. Trouble concentrating on things, such as reading the newspaper or watching television: not at all 8. Moving or speaking so slowly that other people could have noticed. Or the opposite - being so fidgety or restless that you have been moving around a lot more than usual: not at all 9. Thoughts that you would be better off or of hurting yourself in some way: not at all Total score: 0 Depression Screening Interpretation: Negative Depression Screening Done: Yes 27844 - PHQ-9 Billing: Yes Source: Developed by Drs. Nick Fishman, Clementina Lane, Reji Alexis and colleagues, with an educational samantha from [employer]. Thrive Questionnaire Date Thrive assessed: 02/05/25 I am a: Patient What is your living situation today?: I have a steady place to live Within the past 12 months, did the food you bought not last and you didn't have the money to get more?: Never true Within the past 12 months, did you worry whether your food would run out before you got money to buy more?: Never true Do you have trouble paying for medicines?: No Do you have trouble getting transportation to medical appointments?: No Do you have trouble paying your heating and electricity bill?: No Do you have trouble taking care of your child, family member or friend?: No Do you have trouble with day-to-day activities such as bathing, preparing meals, shopping, managing finances, etc.?: No Are you currently unemployed and looking for a job?: No Are you interested in more education?: No Please select the resources that you would like help with: None Currently or been in a relationship where the following occur: No concerns reported THRIVE Score: 0 AUDIT C Alcohol Use Questionnaire (AUDIT-C) 1. How often do you have a drink containing alcohol?: 2-3 times a week 2. How many drinks containing alcohol do you have on a typical day when you are drinking?: 1 or 2 3. How often do you have six or more drinks on one occasion?: Never Total Score: 3 Score Reviewed/Action Taken: No DELICIA-7 AMB Questionnaire DELICIA-7 Date DELICIA - 7 assessed: 02/05/25 Feeling nervous, anxious, or on edge: 0 = Not at all Not being able to stop or control worryin = Not at all Worrying too much about different things: 0 = Not at all Trouble relaxin = Not at all Being so restless that it is hard to sit still: 0 = Not at all Becoming easily annoyed or irritable: 0 = Not at all Feeling afraid as if something awful might happen: 0 = Not at all Total DELICIA-7 score (0-4 normal; 5-9 mild; 10-14 moderate; 15-21 severe): 0 Source: Developed by Drs. Nick L. SravanthiClementina darnell, Reji Alexis and colleagues, with an educational samantha from [employer]. DELICIA-7 Assessment Billing DELICIA-7 Assessment Tool: DELICIA-7 Assessment 88842 Review of Systems Const Details: - General: Reports fatigue, denies fever or weight loss. - Cardiovascular: Denies chest pain, dyspnea, or orthopnea. - Gastrointestinal: Reports diarrhea post-gallbladder removal, denies abdominal pain or changes in bowel habits. - Musculoskeletal: Reports neck and upper back pain, denies leg pain or swelling except occasional ankle swelling on hot days. - Neurological: Denies headaches or dizziness. All systems reviewed & are unremarkable except as noted in HPI and below Physical exam (Primary Care) Vital Signs: Last Vital Signs Temp 99.1 F 03/08/25 14:34 Pulse 67 03/08/25 14:34 Resp 16 03/08/25 14:34 BP 166/76 H 03/08/25 14:34 Pulse Ox 96 03/08/25 14:34 Oxygen Delivery Method Room Air 03/08/25 14:34 Care Plan Goal for BP management: <140/90 will reassess at next visit BMI result Body Mass Index 27.4 BMI Assessment/Plan discussion: High BMI High, discussed plan: lifestyle, weight reduction, dietary, physical activity, alcohol moderation and other Tobacco/Smoking Status: Tobacco use Status Tobacco use date assessed 02/05/25 03/08/25 14:31 Patient Tobacco Use Status Never used Tobacco 03/08/25 14:31 PHQ-9: PHQ-9 Score PHQ-9: Total score 0 03/08/25 14:49 Depression Screening Interpretation: Negative Thrive Assessment: Date of Thrive Assessment Date Thrive assessed 02/05/25 03/08/25 14:31 Currently or been in a relationship where the following occur: No concerns reported Const Other: Appearance: Alert. Oriented X3. No acute distress. Head: Normal external exam. Normocephalic. Atraumatic. Eyes: Pupils are equal, round, and reactive to light. Extraocular movements intact. Conjunctiva and sclera normal. Eyelids normal. Ears: External auditory canal normal. Tympanic membranes normal. Throat: Pharynx normal. Uvula midline. Moist mucous membranes. Neck: Normal inspection. Neck supple. Full range of motion. No adenopathy. Thyroid Normal. No meningeal signs. No neck mass noted. Patient reports neck pain and holding tension in the neck. Cardiovascular: Normal heart rate and rhythm. Heart sound normal. No murmurs noted. Pulses normal throughout. Respiratory: No respiratory distress. Painless inspiration. Breath sounds normal. No wheezes/rales/rhonchi noted. Chest nontender. No accessory muscle usage noted or decreased air movement noted. Abdomen: Soft and nontender. No distention noted. No organomegaly noted. Back: No costovertebral angle tenderness. Full range of motion noted. Patient reports occasional back pain affecting leg movement. Skin: Skin warm and dry. Normal skin color. Normal skin turgor. No rashes/lesions/lacerations noted. Extremities: No lower extremity edema. Extremities exhibit normal range of motion. Patient reports occasional ankle swelling on hot days. Neuro: Oriented X 3. No motor deficit. No sensory deficit. Reflexes normal. Results Reviewed Results Reviewed: - Labs: Low white blood cell count, normal platelets, low vitamin D, borderline low vitamin B12. - Imaging: Scheduled ultrasound of carotid artery and legs, bone density scan, and mammogram. Coding Level of Care Code Est Pt Level 4 (01241) Est Pt Prev Care >65y(88793) Diagnoses Annual physical exam Z00.00 Chronic neck pain M54.2; G89.29 Chronic upper back pain M54.9; G89.29 Ankle swelling M25.473 Leukopenia D72.819 Vitamin D deficiency E55.9 Low vitamin B12 level R79.89 Diarrhea R19.7 Additional Codes DELICIA-7 Assessment Billing - DELICIA-7 Assessment Tool: DELICIA-7 Assessment 62663 ([id number]) PHQ-9 - 59641 - PHQ-9 Billing: Yes ([id number]) Assessment & Plan Assessment & Plan (1) Annual physical exam: Code(s): Z00.00 - Encounter for general adult medical examination without abnormal findings Category: Medical (2) Chronic neck pain: Code(s): M54.2 - Cervicalgia; G89.29 - Other chronic pain Category: Medical Plan: The patient reports neck pain associated with stress and tension, particularly when holding her head forward. Management includes stress reduction techniques and monitoring for any progression of symptoms. (3) Chronic upper back pain: Code(s): M54.9 - Dorsalgia, unspecified; G89.29 - Other chronic pain Category: Medical Plan: The patient experiences upper back pain on stressful days, which is managed with stress reduction techniques. (4) Ankle swelling: Code(s): M25.473 - Effusion, unspecified ankle Category: Medical Plan: The patient notes occasional ankle swelling on hot days, resolving with elevation. No further intervention is required at this time. (5) Leukopenia: Code(s): D72.819 - Decreased white blood cell count, unspecified Category: Medical Plan: The patient has a history of low white blood cell count, possibly related to past radiation treatment from the past. Regular monitoring is planned to ensure stability. (6) Vitamin D deficiency: Code(s): E55.9 - Vitamin D deficiency, unspecified Category: Medical Plan: The patient is advised to continue vitamin D supplementation to address deficiency. (7) Low vitamin B12 level: Code(s): R79.89 - Other specified abnormal findings of blood chemistry Category: Medical Plan: The patient is recommended to take vitamin B12 supplements weekly to maintain adequate levels. (8) Diarrhea: Code(s): R19.7 - Diarrhea, unspecified Category: Medical Plan: The patient experiences diarrhea following gallbladder removal, which is managed symptomatically. Plan Plan Patient was informed and verbally consented to the use of an ambient scribe for clinic note documentation during this visit. 1. Neck Pain The patient reports neck pain associated with stress and tension, particularly when holding her head forward. Management includes stress reduction techniques and monitoring for any progression of symptoms. 2. Upper Back Pain The patient experiences upper back pain on stressful days, which is managed with stress reduction techniques. 3. Ankle Swelling The patient notes occasional ankle swelling on hot days, resolving with elevation. No further intervention is required at this time. 4. Low White Blood Cell Count The patient has a history of low white blood cell count, possibly related to past radiation treatment. Regular monitoring is planned to ensure stability. 5. Vitamin D Deficiency The patient is advised to continue vitamin D supplementation to address deficiency. 6. Low Vitamin B12 Levels The patient is recommended to take vitamin B12 supplements weekly to maintain adequate levels. 7. Diarrhea Post-Gallbladder Removal The patient experiences diarrhea following gallbladder removal, which is managed symptomatically. During the visit, we discussed the patient's neck and upper back pain, emphasizing the importance of stress reduction techniques to manage these symptoms. We reviewed her lab results, noting the low white blood cell count and vitamin deficiencies, and recommended appropriate supplementation and monitoring. The patient was informed about the scheduled imaging studies and the importance of follow-up to ensure continued health maintenance. Patient Instructions: - Continue vitamin D and B12 supplementation as recommended. - Practice stress reduction techniques to manage neck and back pain. - Elevate ankles when swelling occurs, especially on hot days. - Follow up with scheduled imaging studies and report any new symptoms.
[2025-03-08 14:34] VITALS: BP 166/76; PULSE 67; RESP 16; TEMP 37.3; O2SAT 96; BMI 27.4
--- OUTSIDE RECORDS SUMMARY | 2025-03-08 15:10 | XMS_ITS | Clinical Summary ---
Author Organization [facility] it Address [address] [place] [address] Care Team Providers Care Food Quality Technician Name Role Phone Unavailable Primary Care Provider [...] Documents on File Type Date Recorded Patient Director Of Respiratory Therapy Expl anation Health Care Decision (hx) 07/22/2022 AD MENESES DIRECTIVE Health Care Decision (hx) 06/26/2022 HE ALTH CARE PROXY
--- OUTSIDE RECORDS SUMMARY | 2025-03-08 15:10 | XMS_ITS | Patient Health Record ---
Author Organization [facility] Address [address] [place] [address] Care Team Providers Care Mergers And Acquisitions Attorney Name Role Phone Dvei (RETIRED) Bucky CARLTON Primary Care Provider Unavailable Nick Linton Unavailable [phone] Allergies Allergen (clinical drug ingredient) Drug/Non Drug [...] Problem Status W/U Status Risk Notes Problem 885605181 Colon cancer screening (Z12.11) Active confirmed Problem 55077466 Rectal bleeding (K62.5) Active confirmed Problem Diverticulosis o f large intestine without perforation or abscess without bleeding (K57.30) Active confirmed Problem 42603786 Heme + stool (R19.5) Active confirmed Plan Of Treatment Future Test Test Name Order Date COLONOSCOPY 05/05/2012 COLONOSCOPY 06/15/2023 Insurance Providers Payer Name Payer Address Payer Phone Subscriber Number Group Number Insured Name Patient Relationship to Insured Coverage Start Date Coverage End Date [facility] INDEMNITY [address] [place] [address] [id number] ABNER HENSLEY Self - patient is the insured Medical (General) History Medical History History ICD Code Hypertension Denies [place],DM,CVA,Lung disease,renal dise ase Hyperlipidemia Pneumonia x 3 [...]
--- OUTSIDE RECORDS SUMMARY | 2025-03-08 15:10 | XMS_ITS | Patient Health Record ---
Author Organization Nick Rodríguez III, MD Address [address] [place] [address] Care Team Providers Care Personnel Officer Name Role Phone Bucky Quinonez MD Primary Care Provider UnavailNick Johnson Unavailable [phone] Allergies Allergen (clinical drug ingredient) Drug/Non Drug Allergy documented on EMR Reaction Allergy Type Onset Date Status lisinopril Lisinopril Unknown Drug Allergy Activ e Reason For Referral No Information Medications Medication [...] ast year? No Points 0 Interpretation Negative Problems Problem Type SNOMED Code ICD Code Onset Dates Problem Status W/U Status Risk Notes Problem 22468157 Hyperlipidemia (E78.5) Active confirmed I recommended she have her lipids checked 3 times a year. Problem 070129312 Overweight (E66.3) Active confirmed Her body mass index is 26. I recommended regular exercise and a healthy diet and gradual reduction of the BMI into the normal range. Problem 02384128 HTN (hypertension) (I10) Active confirmed The blood pressure is 122/84 and no change was made. I recommended continue sodium restriction, weight loss and regular exercise. Problem Invasive ductal carcinoma of right breast (C50.911) Active confirmed There is no sign of recurrent disease or new primary. The recent biopsy showed no breast cancer. Surveillance will continue. Her anastrozole was discontinued Vital Signs Heart Rate 91 /min 09/20/2024 Temperature 98.1 degrees Fahrenheit 09/20/2024 Blood pressure diastolic 85 mm Hg 09/20/2024 Height 66 in 09/20/2024 Blood pressure systolic 138 mm Hg 09/20/2024 Weight 164 lbs 09/20/2024 BMI 26.47 kg/m2 09/20/2024 Encounters Encounter Location Date Provider Diagnosis Nick Rodríguez III, MD [address] [place] [address] [place] [address] 09/20/2024 Nick Rodríguez Invasive ductal carcinoma of right breast C50.911 ; HTN (hypertension) I10 ; Hyperlipidemia E78.5 and Overweight E66.3 Assessments Encounter Date Diagnosis (ICD Code) Assessment Notes Treat ment Notes Treatment Clinical Notes 09/20/2024 HTN (hypertension) (ICD-10 - I10) The blood pressure is 122/84 and no change was made. I recommended continue sodium restriction, weight loss and regular exercise. 09/20/2024 Invasive ductal carcinoma of right breast (ICD-10 - C50.911) There is no sign of recurrent disease or new primary. The recent biopsy showed no breast cancer. Surveillance will continue. Her anastrozole was discontinued 09/20/2024 Hyperlipidemia (ICD-10 - E78.5) I recommended she have her lipids checked 3 times a year. 09/20/2024 Overweight (ICD-10 - E66.3) Her body mass index is 26. I recommended regular exercise and a healthy diet and gradual reduction of the BMI into the normal range. Plan Of Treatment Pending Test Test Name Order Date PROFILE, RANDOM (COMPREHENSIVE METABOLIC ) 04/01/2018 PROFILE, RANDOM (COMPREHENSIVE METABOLIC ) 10/06/2018 PROFILE, RANDOM (COMPREHENSIVE METABOLIC ) 09/18/2019 PROFILE, RANDOM (COMPREHENSIVE METABOLIC ) 12/14/2017 PROFILE, RANDOM (COMPREHENSIVE METABOLIC ) 07/07/2018 PROFILE, RANDOM (COMPREHENSIVE METABOLIC ) 03/10/2019 PROFILE, RANDOM (COMPREHENSIVE METABOLIC ) 01/19/2020 CBC w DIFF 01/19/2020 CBC w DIFF 04/01/2018 CBC w DIFF 10/06/2018 CBC w DIFF 09/18/2019 CBC w DIFF 12/14/2017 CBC w DIFF 07/07/2018 CBC w DIFF 03/10/2019 CA 27.29 07/07/2018 CA 27.29 03/10/2019 CA 27.29 01/19/2020 CA 27.29 04/01/2018 CA 27.29 10/06/2018 CA 27.29 09/18/2019 CA 27.29 12/14/2017 [facility] 018 Next Appt Details Provider Name:Nick Rodríguez, 09/20/2025 09:00:00 AM, [address] [place] [address] DR, [address], [place], [address], Insurance Providers Payer Name Payer Address Payer Phone Subscriber Number Group Number Insured Name Patient Relationship to Insured Coverage Start Date Coverage End Date [employer] ([employer]) [address] [place] [id number] ABNER RUGGIERO Self - patient is the insured Medical (General) History Medical History History ICD Code Invasive ductal carcinoma of right breas t C50.911 HTN (hypertension) I10 Hyperlipidemia E78.5 pneumonia RML 2000 cholelithiasis 2002 menarche age 13 LMP 2010, menopause age 55 hyperlipidemia overweight Traumatic fracture C2 requiring fusion Surgical History Surgery Date(Month/Year) Right arm surgery 01/12/2024 C1 and C2 Fused after trauma 06/2022 Trachiescopy 06/2022 Biopsy left breast at 04/2020 biopsy of right breast 01/2019 colonoscopy 2011, incompletge, to spleni c flexure 05/2012 right breast biopsy, then edelmira mpectomy, sentinel node, radiation, adjuvant endocrine therapy 11/04/2015 laparascopic cholecystectomy 2002
== END 2025-03-08 15:15 | disposition home or self-care (01) ==
LOC: HO.HMCSH 14:30
PROVIDERS: PCP Physician Assistant Medical; Visit Provider Physician Assistant Medical
DX: Z00.00 Encounter for general adult medical examination without abnormal findings (principal); M54.2 Cervicalgia; G89.29 Other chronic pain; M54.9 Dorsalgia, unspecified; M25.473 Effusion, unspecified ankle; D72.819 Decreased white blood cell count, unspecified; E55.9 Vitamin D deficiency, unspecified; R79.89 Other specified abnormal findings of blood chemistry; R19.7 Diarrhea, unspecified

== ENCOUNTER → 2025-03-08 14:30 | Outpatient (BNVA) | payer OTHER, SELFPAY | PROVIDERS: PCP Physician Assistant Medical; Visit Provider Physician Assistant Medical | DX: Z00.00 Encounter for general adult medical examination without abnormal findings (principal); M54.2 Cervicalgia; G89.29 Other chronic pain; M25.473 Effusion, unspecified ankle; D72.819 Decreased white blood cell count, unspecified; E55.9 Vitamin D deficiency, unspecified; R79.89 Other specified abnormal findings of blood chemistry; R19.7 Diarrhea, unspecified | CPT/HCPCS: 96127 ==

== ENCOUNTER 2025-03-13 10:51 | Outpatient (REF) | payer OTHER, SELFPAY ==
--- NOTE | ~2025-03-13 | CT_ITS ---
CLINICAL HISTORY: H81.10 - Benign paroxysmal vertigo, unspecified ear CT head without contrast Comparison: CT/REG/SR - CT HEAD/BRAIN WO IV CON - 02/24/25 09:59 EDT Findings: No acute hemorrhage, acute major vascular distribution infarct, intracranial mass, midline shift or hydrocephalus. Mild bifrontal atrophy, unchanged. Intracranial vascular calcification noted. Visualized paranasal sinuses and mastoid air cells normal. Orbits unremarkable. The cranium appears intact. Superficial soft tissue is unremarkable. Impression: 1. No acute intracranial finding. Exam: CTA head and neck with IV contrast, 3D post-processing Comparison: CT/REG/SR - CT HEAD/BRAIN WO IV CON - 02/24/25 09:59 EDT Findings: CTA neck: Mild mostly calcific atherosclerotic disease aortic arch, right subclavian artery origin, bilateral carotid bulbs and proximal ICAs. Three-vessel aortic arch. The aortic arch, arch vessel origins, bilateral common carotid, internal and external carotid arteries, vertebral arteries are patent, no aneurysm, dissection or apparent stenosis. Left vertebral artery is dominant, right vertebral artery is diffusely diminutive in caliber. CTA head: [id number]-[id number] atherosclerotic calcification of the bilateral ICA cavernous segments. Patent anterior and posterior circulation, no aneurysm, dissection or flow-limiting stenosis. origins of bilateral APPLIED COMPUTER SCIENCE PROFESSOR, variant anatomy. Dural venous sinuses are patent. Others: No abnormal intracranial enhancement. Imaged neck soft tissue unremarkable. Lung apices clear. No acute osseous abnormality. Status post posterior decompression and fusion of C1 and C2, intact hardware without loosening. Degenerative changes of the cervical spine noted. Impression: Mild atherosclerotic disease. No focal occlusion, aneurysm, dissection or flow-limiting stenosis in the major arteries of head or neck. Carotid stenosis and measurements are in accordance with NASCET criteria. This document has been electronically signed by: Fariha Avery MD on 03/14/2025 12:45:38
[2025-03-13] MEDS: iohexoL 350 MG/ML 100 ML INFUS..BTL IV (11:27)
--- OUTSIDE RECORDS SUMMARY | 2025-03-13 12:21 | XMS_ITS | Clinical Summary ---
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
== END 2025-03-13 10:52 | disposition home or self-care (01) ==
LOC: HO.CT 10:51
PROVIDERS: PCP Physician Assistant Medical; Visit Provider Physician Assistant Medical
DX: H81.10 Benign paroxysmal vertigo, unspecified ear (principal); G45.9 Transient cerebral ischemic attack, unspecified
CPT/HCPCS: 70496; 70498; Q9967

== ENCOUNTER → 2025-03-13 10:52 | Outpatient (BNV) | payer OTHER, SELFPAY | PROVIDERS: PCP Physician Assistant Medical; Visit Provider Radiology Diagnostic Radiology | DX: H81.10 Benign paroxysmal vertigo, unspecified ear (principal) | CPT/HCPCS: 70496; 70498 ==

== ENCOUNTER 2025-03-19 13:23 | Outpatient (REF) | payer OTHER, SELFPAY ==
--- OUTSIDE RECORDS SUMMARY | 2023-09-21 11:45 | XMS_ITS ---
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 Name Role Phone Bucky Quinonez MD Primary Care Provider [facility] [phone] Allergies Allergen (clinical drug ingredient) Drug/Non Drug Allergy documented on EMR Reaction Allergy Type Onset Date Status lisinopril Lisinopril Unknown Drug Allergy Activ e REASON FOR VISIT Invasive ductal carcinoma right breast, Hypertension, Hyperlipidemia Medications Medication SIG (Take, Route, Frequency, Duration) Notes Start Date End Date Status LORazepam 0.5 MG Oral Act kira Carvedilol 6.25 MG Oral A ctive Atorvastatin Calcium 80 MG Oral Active traZODone HCl 50 MG Oral Active Melatonin 3 MG Oral Activ e Docusate Sodium 100 MG Oral Active Social History Tobacco Use: Social History Observation Description Date Details (start date - stop date) Never Smoker NA - NA Tobacco Use/Smoking Question Answer Notes Patient is a nonsmoker Additional Findings: Tobacco Non-User Aggressive non-smoker Vital Signs Temperature 98.6 degrees Fahrenheit 09/21/19 24 Blood pressure systolic 138 mm Hg 09/21/19 24 Blood pressure diastolic 87 mm Hg 024 Heart Rate 91 /min 09/21/2023 Height 66 in 09/21/2023 Weight 176 lbs 09/21/2023 BMI 28.4 kg/m2 09/21/2023 Encounters Encounter Location Date Provider Diagnosis Nick Rodríguez III, MD [address] [place] [address] [place] [address] 09/21/2023 Nick Rodríguez Invasive ductal carcinoma of right breast C50.911 ; HTN (hypertension) I10 ; Hyperlipidemia E78.5 and Overweight E66.3 Assessments Encounter Date Diagnosis (ICD Code) Assessment Notes Treat ment Notes Treatment Clinical Notes 09/21/2023 Invasive ductal carcinoma of right breast (ICD-10 - C50.911) There is no sign of recurrent disease or new primary. The recent biopsy showed no breast cancer. Surveillance will continue. Her anastrozole was discontinued 09/21/2023 HTN (hypertension) (ICD-10 - I10) The blood pressure is 122/84 and no change was made. I recommended continue sodium restriction, weight loss and regular exercise. 09/21/2023 Hyperlipidemia (ICD-10 - E78.5) I recommended she have her lipids checked 3 times a year. 09/21/2023 Overweight (ICD-10 - E66.3) Her body mass index is 26. I recommended regular exercise and a healthy diet and gradual reduction of the BMI into the normal range. Plan Of Treatment Medication Medication Name Sig Start Date Stop Date Notes LORazepam 0.5 MG Oral Carvedilol 6.25 MG Oral Atorvastatin Calcium 80 MG Oral traZODone HCl 50 MG Oral Melatonin 3 MG Oral Docusate Sodium 100 MG Oral Next Appt Details Follow Up: 1 Year, Reason: O V Provider Name:Nick Rodríguez, 09/20/2025 09:00:00 AM, [address] [place] [address] [place], [address], Progress Notes * COURTNEY RUGGIEROROCHELLEOB:1954 (68 yo F)Acc No.[id number]:09/21/2023 Progress Notes Patient: ABNER SIERRA Provider: Jeffery Rodríguez MD :1955 A ge:68 Y S ex:Female Date:09/21/2023 Address:[address] [place] [address] JOSÉ MIGUEL Stefanie [id number] Pcp:Bucky Quinonez MD Subjective: * Chief Complaints: * I nvasive ductal carcinoma right breastHypertensionHyperlipidemia * HPI: C OVID-19 Screening: She returns for surveillance of a history of carcinoma of the right breast. Her last visit she has been healthy and well. She reports 1 fall in the bathtub that required a CT scan of the brain which was negative. Her blood pressure was stable today. Her breast examination today was unremarkable. She has been conducting breast self-examination. She is up-to-date with her mammograms. Surveillance was continued without change. Questions H ave you experienced fever, chills, cough, sore throat, shortness of breath, difficulty breathing, muscle aches, loss of taste or smell? N o H ave you been exposed to the virus within the last 10 days? N o H ave you travelled internationally in the last 10 days? N o H ave you been exposed to COVID-19 in the past? Y es * ROS: G eneral/Constitutional: pain o nly normal aches and pains. C hills d enies.?Fatigue a dmits. F ever d enies. E NT: Decreased hearing d enies. R espiratory: Cough d enies. C ardiovascular: Chest pain with exertion d enies. D yspnea on exertion?denies. S hortness of breath d enies. G astrointestinal: Constipation o ccasional. D ecreased appetite d enies. D iarrhea d enies. H eartburn d enies. N ausea d enies. R ectal bleeding d enies. V omiting d enies. H ematology: bruising d enies. p etechiae d enies. S wollen glands n one have been noted. G enitourinary: Frequent urination a t night. M usculoskeletal: Muscle aches d enies. P ainful joints d enies. S ciatica d enies. W eakness d enies. S kin: Itching d enies. R marquita d enies. S kin lesion(s)?denies. N eurologic: Difficulty speaking d enies. D izziness d enies.?Headache d enies. L ow back pain d enies. P sychiatric: Depressed mood d enies. * Medical History: * Surgical History: l aparascopic cholecystectomy 2002right breast biopsy, then lumpectomy, sentinel node, radiation, adjuvant endocrine therapy 11/04/2015colonoscopy 2011, incompletge, to splenic flexure iopsy of right breast 01/2019Biopsy left breast at 04/2020Trachiescopy and C2 Fused after trauma 06/2022 * Hospitalization/Major Diagno stic Procedure: D enies Past Hospitalization * Family History: F ather: alive, prostate cancer, diagnosed with Cancer, DM. M other: , CHF, Breast Cyst,. S iblings: alive. P aternal Grand Father: lung cancer, diagnosed with Cancer. P aternal aunt: breast cancer, colon cancer, diagnosed with Cancer. 3 sister(s) - healthy. . Her mother has a history of cyst in her breasts. A paternal grandfather had lung cancer. A paternal aunt had breast cancer after the age of 60. A paternal aunt had colon cancer. Her sister has a history of a benign breast mass. A paternal great grandfather had cancer of unknown location. A maternal great aunt had colon cancer. 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 * Medications: T akingDocusate Sodium 100 MG Capsule Oral LORazepam 0.5 MG Tablet Oral Carvedilol 6.25 MG Tablet Oral Atorvastatin Calcium 80 MG Tablet Oral traZODone HCl 50 MG Tablet Oral Melatonin 3 MG Tablet Oral Medication List reviewed and reconciled with the patientTaking Docusate Sodium 100 MG Capsule Oral Taking LORazepam 0.5 MG Tablet Oral Taking Carvedilol 6.25 MG Tablet Oral Taking Atorvastatin Calcium 80 MG Tablet Oral Taking traZODone HCl 50 MG Tablet Oral Taking Melatonin 3 MG Tablet Oral Medication List reviewed and reconciled with the patient * Allergies: L isinoprilno[Allergies Verified] Objective: * Vitals: H t: 66, Wt:176, BMI:28.4, BP:138/87, HR:91, Temp:98.6, Wt-k.83. * Examination: G eneral Examination: GENERAL APPEARANCE: p leasant, well nourished, well developed, in no acute distress, calm and relaxed , overweight , woman. HEAD: a traumatic, normocephalic. EYES: e reinaldo, perrla, anicteric, conjugate. EARS: n ormal. NOSE: s eptum intact. ORAL CAVITY: n ormal, unremarkable. NECK/THYROID: n o jugular venous distention, no carotid bruit, thyroid normal. LYMPH NODES: n o enlarged lymph nodes,spleen normal. SKIN: n o suspicious lesions, anicteric. HEART: n o clicks, gallops, murmurs, or rubs, regular rhythm, S1, S2 normal, no s3, or vascular bruits. LUNGS: c lear to auscultation . BREASTS: n o drainage , no dimpling , no discharge , no masses palpable bilaterally , nontender , symmetrical. ABDOMEN: b owel sounds normal, no ascites, no organomegaly, no mass. RECTAL EXAM: n ot examined. MUSCULOSKELETAL: e xtremities unremarkable, no clubbing, cyanosis or edema. PERIPHERAL PULSES: n ormal. NEUROLOGIC: a lert and oriented, cranial nerves 2-12 grossly intact, deep tendon reflexes 2+ symmetrical, motor strength normal upper and lower extremities, sensory exam intact. PSYCH: a lert, oriented. Assessment: * Assessment: 1. I nvasive ductal carcinoma of right breast - C50.911 (Primary), There is no sign of recurrent disease or new primary. The recent biopsy showed no breast cancer. Surveillance will continue. Her anastrozole was discontinued 2 . H TN (hypertension) - I10, The blood pressure is 122/84 and no change was made. I recommended continue sodium restriction, weight loss and regular exercise. 3. H yperlipidemia - E78.5, I recommended she have her lipids checked 3 times a year. 4 . O verweight - E66.3, Her body mass index is 26. I recommended regular exercise and a healthy diet and gradual reduction of the BMI into the normal range. Plan: * Treatment: * Procedure Codes: * Preventive Medicine: Counseling: C are goal follow-up plan: Counseling for abnormal BMI given Y es Above Normal BMI Follow-up D ietary management education, guidance, and counseling, Dietary needs education, Exercise promotion: strength training, Exercise promotion: stretching, Feeding regime, Giving encouragement to exercise, Lifestyle education regarding diet, Nutrition / feeding management, Nutrition therapy, Prescribed activity/exercise education, Prescribed diet education, Prescribed dietary intake, Special diet education, Weight monitoring , Intervention, Order not done: Medical or Other reason not done * Follow Up: 1 Year (Reason: OV) * Images: * Sign off status: Completed true * Provider: Jeffery Rodríguez MD Date: 0 09/21/2023 Generated for Printi ng/Faxing/eTransmitting on: 0 03/19/2025 03:39 PM EDT History and Physical Notes * HPI (History of Present Illness) Category Sub-Category Detail Notes COVID-19 Screening Questions Have you had any new onset fever, chills, cough, congestion, sore throat, shortness of breath, muscle aches?: No Have you been exposed to the virus withi n the last 10 days?: No Have you travelled internationally in [facility] last 10 days?: No Have you been exposed to COVID-19 in the past?: Yes Examination Category Sub-Category Detail Notes General Examination GENERAL APPEARANCE: pleasant , well nourished, well developed, in no acute distress, calm and relaxed , overweight , woman HEAD: atraumatic, normocep halic EYES: eomi, perrla, anicte concetta, conjugate EARS: normal NOSE: septum intact NECK/THYROID: no jugular venous di stention, no carotid bruit, thyroid normal HEART: no clicks, gallops, murmurs, or rubs, regular rhythm, S1, S2 normal, no s3, or vascular bruits LUNGS: clear to auscultatio n ABDOMEN: bowel sounds normal, no ascites, no organomegaly, no mass NEUROLOGIC: alert and oriented, cranial nerves 2-12 grossly intact, deep tendon reflexes 2+ symmetrical, motor strength normal upper and lower extremities, sensory exam intact SKIN: no suspicious lesion s, anicteric PERIPHERAL PULSES: normal BREASTS: no drainage , no dim pling , no discharge , no masses palpable bilaterally , nontender , symmetrical MUSCULOSKELETAL: extremities unremark able, no clubbing, cyanosis or edema LYMPH NODES: no enlarged lymph no ernie,spleen normal RECTAL EXAM: not examined PSYCH: alert, oriented ORAL CAVITY: normal, unremarkable
--- OUTSIDE RECORDS SUMMARY | 2024-09-20 11:30 | XMS_ITS ---
Author Organization Nick Rodríguez III, MD Address [address] [place] [address] Care Team Providers Care Leather Goods Sales Representative Name Role Phone Bucky Quinonez MD Primary Care Provider Nick Mercado [phone] Allergies Allergen (clinical drug ingredient) Drug/Non Drug [...] Date Provider Diagnosis Nick Rodríguez III, MD [address] [place] [address] [place] [address] 09/20/2024 Nick Rodríguez Invasive ductal carcinoma of [...] V Provider Name:Nick Rodríguez, 09/20/2025 09:00:00 AM, [address] [place] [address], [address], Progress Notes * COURTNEY RUGGIEROINEDOB:1954 (69 yo F)Acc No.[id number]:09/20/2024 Progress Notes Patient: ABNER SIERRA Provider: Jeffery Rodríguez MD :1955 A ge:69 Y S ex:Female Date:09/20/2024 Address:[address] [place] [phone] Pcp:Bucky Quinonez MD Subjective: * Chief Complaints: [...] A ggressive non-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 * [...] Examination: G eneral Examination: GENERAL APPEARANCE: p penny, well nourished, well developed, in no acute [...] Rodríguez MD Date: 0 09/20/2024 Generated for Juliana stevenson/Cristina/Hemalitting on: 0 03/19/2025 03:39 PM EDT History [...]
--- NOTE | ~2025-03-19 | US_ITS ---
EXAMINATION: US TRIPLEX LOWER EXTREMITY, RIGHT CLINICAL INFORMATION: Pain, right lower extremity COMPARISON: None available. TECHNIQUE: Color-flow triplex imaging with spectral analysis and compression Doppler were performed on the right lower extremity. FINDINGS: Respiratory variation, normal compression and augmented flow are demonstrated throughout the interrogated right common femoral vein, superficial femoral vein, profunda femoral vein, popliteal vein and midcalf peroneal and posterior tibial venous segments. There is no Pineda's cyst. US/US venous duplex LE RT IMPRESSION: No acute deep venous thrombosis interrogated veins, right lower extremity. Negative for DVT. Electronically signed by: Polo Morgan MD 03/19/2025 02:26 PM EDT
--- OUTSIDE RECORDS SUMMARY | 2025-03-19 15:40 | XMS_ITS | Patient Health Record ---
Author Organization Nick Rodríguez III, MD Address [address] [place] [address] Care Team Providers Care Billing And Accounting Staff Assistant Name Role Phone Bucky Quinonez MD Primary Care Provider UnavailNick Johnson Unavailable [phone] Allergies Allergen (clinical drug ingredient) Drug/Non Drug [...] Problem Status W/U Status Risk Notes Problem 11919854 Hyperlipidemia (E78.5) Active confirmed I recommended she have her lipids checked 3 times a year. Problem 162796497 Overweight (E66.3) Active confirmed Her body mass index is 26. I recommended regular exercise and a healthy diet and gradual reduction of the BMI into the normal range. Problem 64259378 HTN (hypertension) (I10) Active confirmed The blood pressure is 122/84 and no change was made. I recommended continue sodium restriction, weight loss and regular exercise. 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) [...] Date Provider Diagnosis Nick Rodríguez III, MD [address] [place] [address] [place] [address] 09/20/2024 Nick Rodríguez Invasive ductal carcinoma of [...] Details Provider Name:Nick Rodríguez, 09/20/2025 09:00:00 AM, [address] [place] [address] [address], [place], [address], Insurance Providers Payer Name Payer Address Payer Phone Subscriber Number Group Number Insured Name Patient Relationship to Insured Coverage Start Date Coverage End Date [facility] [address] [place] [id number] ABNER RUGGIERO Self - patient is the [...]
--- OUTSIDE RECORDS SUMMARY | 2025-03-19 15:40 | XMS_ITS | Clinical Summary ---
Author Organization [facility] it Address [address] [place] [address] Care Team Providers Care Abstracter Name Role Phone Unavailable Primary Care Provider [...] Documents on File Type Date Recorded Patient Ward Helper Expl anation Health Care Decision (hx) 07/22/2022 AD MENESES DIRECTIVE Health Care Decision (hx) 06/26/2022 HE ALTH CARE PROXY
--- OUTSIDE RECORDS SUMMARY | 2025-03-19 15:40 | XMS_ITS | Patient Health Record ---
Author Organization [facility] Address [address] [place] [address] Care Team Providers Care Communications Programmer Name Role Phone Devi (RETIRED) Bucky CARLTON Primary Care Provider Unavailable Nick Linton Unavailable [phone] Allergies Allergen (clinical drug ingredient) Drug/Non Drug [...] Problem Status W/U Status Risk Notes Problem 999698743 Colon cancer screening (Z12.11) Active confirmed Problem 37951832 Rectal bleeding (K62.5) Active confirmed Problem Diverticular disease of colon (386017386) Diverticulosis of large intestine without perforation or abscess without bleeding (K57.30) Active confirmed Problem 18251830 Heme + stool (R19.5) Active confirmed Plan Of Treatment Future Test Test Name Order Date COLONOSCOPY 05/05/2012 COLONOSCOPY 06/15/2023 Insurance Providers Payer Name Payer Address Payer Phone Subscriber Number Group Number Insured Name Patient Relationship to Insured Coverage Start Date Coverage End Date [facility] [address] [place] [address] [id number] ABNER HENSLEY Self - patient is the insured Medical (General) History Medical History History ICD Code Hypertension Denies [place],DM,CVA,Lung disease,renal dise ase Hyperlipidemia Pneumonia x 3 [...]
== END 2025-03-19 13:24 | disposition home or self-care (01) ==
LOC: HO.US 13:23
PROVIDERS: PCP Internal Medicine; Visit Provider Physician Assistant Medical
DX: H81.10 Benign paroxysmal vertigo, unspecified ear (principal); G45.9 Transient cerebral ischemic attack, unspecified; M79.661 Pain in right lower leg
CPT/HCPCS: 93971

== ENCOUNTER → 2025-03-19 14:04 | Outpatient (BNV) | payer OTHER, SELFPAY | PROVIDERS: PCP Physician Assistant Medical; Visit Provider Radiology Diagnostic Radiology | DX: M25.471 Effusion, right ankle (principal) | CPT/HCPCS: 93971 ==

== ENCOUNTER 2025-03-22 13:03 | Outpatient (REF) | payer OTHER, SELFPAY ==
--- OUTSIDE RECORDS SUMMARY | 2023-09-21 11:45 | XMS_ITS ---
Author Organization Nick Rodríguez III, MD Address [address] [place] [address] Care Team Providers Care Supervisor Grips Name Role Phone Bucky Quinonez MD Primary [facility] [phone] Allergies Allergen (clinical drug ingredient) Drug/Non Drug [...] Date Provider Diagnosis Nick Rodríguez III, MD [address] [place] [address] [place] [address] 09/21/2023 Nick Rodríguez Invasive ductal carcinoma of [...] V Provider Name:Nick Rodríguez, 09/20/2025 09:00:00 AM, [address] [place] [address], [address], Progress Notes * COURTNEY RUGGIEROROCHELLEOB:1954 (68 yo F)Acc No.[id number]:09/21/2023 Progress Notes Patient: ABNER SIERRA Provider: Jeffery Rodríguez MD :1955 A ge:68 Y S ex:Female Date:09/21/2023 Address:[address] [place] [address] JOSÉ MIGUEL Stefanie [id number] Pcp:Bucky Quinonez MD Subjective: * Chief Complaints: [...] A ggressive non-smoker 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 * [...] 09/21/2023 Generated for Printi ng/Faxing/eTransmitting on: 0 03/22/2025 05:05 PM EDT History and Physical Notes * HPI (History of Present Illness) Category Sub-Category Detail Notes COVID-19 Screening Questions Have you had any new onset fever, chills, cough, congestion, sore throat, shortness of breath, muscle aches?: No Have you been exposed to the virus withi n the last 10 days?: No Have you travelled internationally in [facility] last 10 days?: No Have you been [...]
--- OUTSIDE RECORDS SUMMARY | 2024-09-20 11:30 | XMS_ITS ---
Author Organization Nick Rodríguez III, MD Address [address] [place] [address] Care Team Providers Care Driver Trainer Name Role Phone Bucky Quinonez MD Primary Care Provider Nick Mercado [phone] Allergies Allergen (clinical drug ingredient) Drug/Non Drug [...] Date Provider Diagnosis Nick Rodríguez III, MD [address] [place] [address] [place] [address] 09/20/2024 Nick Rodríguez Invasive ductal carcinoma of [...] V Provider Name:Nick Rodríguez, 09/20/2025 09:00:00 AM, [address] [place] [address], [address], Progress Notes * COURTNEY RUGGIEROINEDOB:1954 (69 yo F)Acc No.[id number]:09/20/2024 Progress Notes Patient: ABNER SIERRA Provider: Jeffery Rodríguez MD :1955 A ge:69 Y S ex:Female Date:09/20/2024 Address:[address] [place] [phone] Pcp:Bucky Quinonez MD Subjective: * Chief Complaints: [...] 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 * [...] 09/20/2024 Generated for Juliana stevenson/Cristina/Hemalitting on: 0 03/22/2025 05:05 PM EDT History [...]
--- OUTSIDE RECORDS SUMMARY | 2025-03-22 17:05 | XMS_ITS | Clinical Summary ---
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
--- OUTSIDE RECORDS SUMMARY | 2025-03-22 17:05 | XMS_ITS | Patient Health Record ---
Author Organization [facility] Address [address] [place] [address] Care Team Providers Care Regulatory Affairs Intern Name Role Phone Devi (RETIRED) Bucky CARLTON Primary Care Provider Unavailable Nick Linton Unavailable [phone] Allergies Allergen (clinical drug ingredient) Drug/Non Drug [...] Problem Status W/U Status Risk Notes Problem 493414452 Colon cancer screening (Z12.11) Active confirmed Problem 13227309 Rectal bleeding (K62.5) Active confirmed Problem Diverticular disease of colon (300878577) Diverticulosis of large intestine without perforation or abscess without bleeding (K57.30) Active confirmed Problem 65942018 Heme + stool (R19.5) Active confirmed Plan Of Treatment Future Test Test Name Order Date COLONOSCOPY 05/05/2012 COLONOSCOPY 06/15/2023 Insurance Providers Payer Name Payer Address Payer Phone Subscriber Number Group Number Insured Name Patient Relationship to Insured Coverage Start Date Coverage End Date [facility] [address] [place] [address] [id number] ABNER HENSLEY Self - patient is the insured Medical (General) History Medical History History ICD Code Hypertension Denies [place],DM,CVA,Lung disease,renal dise ase Hyperlipidemia Pneumonia x 3 [...]
--- OUTSIDE RECORDS SUMMARY | 2025-03-22 17:05 | XMS_ITS | Patient Health Record ---
Author Organization Nick Rodríguez III, MD Address [address] [place] [address] Care Team Providers Care Automotive Brake Technician Name Role Phone Bucky Quinonez MD Primary Care Provider UnavailNick Johnson Unavailable [phone] Allergies Allergen (clinical drug ingredient) Drug/Non Drug [...] Problem Status W/U Status Risk Notes Problem 39811057 Hyperlipidemia (E78.5) Active confirmed I recommended she have her lipids checked 3 times a year. Problem 723429405 Overweight (E66.3) Active confirmed Her body mass index is 26. I recommended regular exercise and a healthy diet and gradual reduction of the BMI into the normal range. Problem 40439057 HTN (hypertension) (I10) Active confirmed The blood pressure is 122/84 and no change was made. I recommended continue sodium restriction, weight loss and regular exercise. 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) [address] [place] [id number] ABNER RUGGIERO Self - patient is the [...]
== END 2025-03-22 13:04 | disposition home or self-care (01) ==
LOC: HO.MAMMO 13:03
PROVIDERS: PCP Physician Assistant Medical; Visit Provider Internal Medicine
DX: Z12.31 Encounter for screening mammogram for malignant neoplasm of breast (principal)
CPT/HCPCS: 77063; 77067

== ENCOUNTER → 2025-03-22 13:15 | Outpatient (BNV) | payer OTHER, SELFPAY | PROVIDERS: PCP Physician Assistant Medical; Visit Provider Internal Medicine | DX: Z12.31 Encounter for screening mammogram for malignant neoplasm of breast (principal) | CPT/HCPCS: 77063; 77067 ==

== ENCOUNTER 2025-03-28 13:45 | Outpatient (REF) | payer OTHER, SELFPAY ==
--- OUTSIDE RECORDS SUMMARY | 2024-09-20 11:30 | XMS_ITS ---
Author Organization Nick Rodríguez III, MD Address [address] [place] [address] Care Team Providers Care Commutator Assembler Name Role Phone Bucky Quinonez MD Primary Care Provider Nick Mercado [phone] Allergies Allergen (clinical drug ingredient) Drug/Non Drug [...] Date Provider Diagnosis Nick Rodríguez III, MD [address] [place] [address] [place] [address] 09/20/2024 Nick Rodríguez Invasive ductal carcinoma of [...] V Provider Name:Nick Rodríguez, 09/20/2025 09:00:00 AM, [address] [place] [address], [address], Progress Notes * COURTNEY RUGGIEROINEDOB:1954 (69 yo F)Acc No.[id number]:09/20/2024 Progress Notes Patient: ABNER SIERRA Provider: Jeffery Rodríguez MD :1955 A ge:69 Y S ex:Female Date:09/20/2024 Address:[address] [place] [phone] Pcp:Bucky Quinonez MD Subjective: * Chief Complaints: [...] 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 * [...] 09/20/2024 Generated for Juliana stevenson/Cristina/Hemalitting on: 0 03/28/2025 05:27 PM EDT History and Physical Notes * [...]
--- NOTE | ~2025-03-28 | MM_ITS ---
EXAMINATION: DXA BONE DENSITY AXIAL HISTORY: M81.0 - Age-related osteoporosis without current pathological fracture TECHNIQUE: [employer] Dual energy absorptiometry (DEXA) of the lumbar spine, total left hip, and femoral neck was performed. COMPARISON: Comparison is made with the prior examination dated 01/30/2022. FINDINGS: The bone mineral density of the lumbar spine is 1.033 g/cm2, corresponding to a T-score of -1.2, and a Z-score of 0.2. This is indicative of osteopenia. This represents a BMD change of -2.2% compared to the prior exam. This is not statistically significant. The bone mineral density of the left total hip is 1.031 g/cm2, corresponding to a T-score of 0.2, and a Z-score of 1.5. This is indicative of normal bone mineral density. This represents a BMD change of -5.2% compared to the prior exam. This is statistically significant. The bone mineral density of the left femoral neck is 0.930 g/cm2, corresponding to a T-score of -0.8, and a Z-score of 0.8. This is indicative of normal bone mineral density. This represents a BMD change of -4.5% compared to the prior exam. FRACTURE RISK: The FRAX index suggests a ten year probability of major osteoporotic fracture of 8.4%, and of hip fracture 0.7%. MM/XR DEXA axial skeleton IMPRESSION: Based on bone mineral density, and according to World Health Organization (WHO) criteria, the diagnosis is consistent with osteopenia. Statistically, 68% of repeat scans fall within 1 SD (+/- 0.010 g/cm2 for AP spine L1-L4) and 1 SD (+/- 0.012 g/cm2 for femur total) FRAX is a trademark of the [employer]'s [place] for Metabolic Bone Disease, a World Health Organization (WHO) Collaborating Center. Electronically signed by: Nick Alvarez MD 03/28/2025 02:14 PM EDT
--- OUTSIDE RECORDS SUMMARY | 2025-03-28 17:28 | XMS_ITS | Patient Health Record ---
Author Organization Nick Rodríguez III, MD Address [address] [place] [address] Care Team Providers Care Scuba Dive Training Instructor Name Role Phone Bucky Quinonez MD Primary Care Provider UnavailNick Johnson Unavailable [phone] Allergies Allergen (clinical drug ingredient) Drug/Non Drug [...] Problem Status W/U Status Risk Notes Problem 02180051 Hyperlipidemia (E78.5) Active confirmed I recommended she have her lipids checked 3 times a year. Problem 217998526 Overweight (E66.3) Active confirmed Her body mass index is 26. I recommended regular exercise and a healthy diet and gradual reduction of the BMI into the normal range. Problem 67048385 HTN (hypertension) (I10) Active confirmed The blood pressure is 122/84 and no change was made. I recommended continue sodium restriction, weight loss and regular exercise. 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) [...] Date Provider Diagnosis Nick Rodríguez III, MD [address] [place] [address] [place] [address] 09/20/2024 Nick Rodríguez Invasive ductal carcinoma of [...] Details Provider Name:Nick Rodríguez, 09/20/2025 09:00:00 AM, [address] [place] [address] [address], [place], [address], Insurance Providers Payer Name Payer Address Payer Phone Subscriber Number Group Number Insured Name Patient Relationship to Insured Coverage Start Date Coverage End Date [facility]) [address] [place] [id number] ABNER RUGGIERO Self - patient is the [...]
--- OUTSIDE RECORDS SUMMARY | 2025-03-28 17:28 | XMS_ITS | Patient Health Record ---
Author Organization [facility] Address [address] [place] [address] Care Team Providers Care Die Cutter Name Role Phone Devi (RETIRED) Bucky CARLTON Primary Care Provider Unavailable Nick Linton Unavailable [phone] Allergies Allergen (clinical drug ingredient) Drug/Non Drug [...] Problem Status W/U Status Risk Notes Problem 892255472 Colon cancer screening (Z12.11) Active confirmed Problem 51580621 Rectal bleeding (K62.5) Active confirmed Problem Diverticular disease of colon (901431750) Diverticulosis of large intestine without perforation or abscess without bleeding (K57.30) Active confirmed Problem 48399722 Heme + stool (R19.5) Active confirmed Plan Of Treatment Future Test Test Name Order Date COLONOSCOPY 05/05/2012 COLONOSCOPY 06/15/2023 Insurance Providers Payer Name Payer Address Payer Phone Subscriber Number Group Number Insured Name Patient Relationship to Insured Coverage Start Date Coverage End Date [facility] [address] [place] [address] [id number] ABNER HENSLEY Self - patient is the insured Medical (General) History Medical History History ICD Code Hypertension Denies [place],DM,CVA,Lung disease,renal dise ase Hyperlipidemia Pneumonia x 3 [...]
== END 2025-03-28 13:46 | disposition home or self-care (01) ==
LOC: HO.MAMMO 13:45
PROVIDERS: PCP Physician Assistant Medical; Visit Provider Physician Assistant Medical
DX: M81.0 Age-related osteoporosis without current pathological fracture (principal)
CPT/HCPCS: 77080

== ENCOUNTER → 2025-03-28 14:00 | Outpatient (BNV) | payer OTHER, SELFPAY | PROVIDERS: PCP Physician Assistant Medical; Visit Provider Radiology Diagnostic Radiology | DX: E28.39 Other primary ovarian failure (principal) | CPT/HCPCS: 77080 ==

== ENCOUNTER 2025-04-17 09:28 | Outpatient (REF) | payer OTHER, SELFPAY ==
--- OUTSIDE RECORDS SUMMARY | 2024-09-20 11:30 | XMS_ITS ---
Author Organization Nick Rodríguez III, MD Address [address] [place] [address] Care Team Providers Care Grain Farmworker Name Role Phone Bucky Quinonez MD Primary [...] Date Provider Diagnosis Nick Rodríguez III, MD [address] [place] [address] [place] [address] 09/20/2024 Nick Rodríguez Invasive ductal carcinoma of [...] Provider Name:Nick Rodríguez , 09/20/2025 09:00:00 AM, [address] [place] [address], [address], Progress Notes * COURTNEY RUGGIEROROCHELLEOB:1954 (69 yo F)Acc No.[id number]:09/20/2024 Progress Notes Patient: ABNER SIERRA Provider: Jeffery Rodríguez MD :1955 A ge:69 Y S ex:Female Date:09/20/2024 Address:[address] [place] [phone] Pcp:Bucky Quinonez MD Subjective: * Chief Complaints: [...] A ggressive non-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 * [...] 09/20/2024 Generated for Sanazi elva/Cristina/eTransmitting on: 1 10:39 AM EDT History and Physical Notes * [...]
--- NOTE | ~2025-04-17 | MM_ITS ---
EXAMINATION: MM DIAGNOSTIC DIGITAL BREAST TOMOSYNTHESIS, RIGHT Limited right breast ultrasound. CLINICAL INFORMATION: History of right breast cancer status post lumpectomy. Callback from screening for asymmetry in the medial right breast on CC view. COMPARISON: Mammography: Prior's on PACS. TECHNIQUE: Digital breast tomosynthesis is performed in both the craniocaudal and mediolateral oblique views along with computer-aided detection (CAD). Synthesized 2D images are generated from the tomosynthesis. FINDINGS: There are scattered areas of fibroglandular density. Asymmetry medial right breast on CC view persists is a circumscribed oval mass upper posterior depth. Post lumpectomy changes. No suspicious calcifications or other abnormal findings. Targeted color Doppler ultrasound scanning in the medial right breast from 1-5 o'clock demonstrates a hypoechoic oval solid mass at 3:00 7 cm from the nipple measuring 5 x 6 x 3 mm which is a probable correlate for the asymmetry on mammography. MM/MM tomosynthesis added views R IMPRESSION: Hypoechoic oval mass at 3:00 7 cm from the nipple which is a probable correlate for the asymmetry on mammography. Recommend ultrasound-guided core needle biopsy at this time for confirmation. The findings and recommendations were discussed with the patient the procedure will be scheduled. ASSESSMENT: BI-RADS Category 4: Suspicious RECOMMENDATION: Biopsy recommended Results were provided to the patient at time of visit by the technologist. This patient's information was entered into a reminder system with a target due date for their next mammogram. Electronically signed by: Latoya Moss DO 04/17/2025 12:27 PM EDT
--- OUTSIDE RECORDS SUMMARY | 2025-04-17 10:39 | XMS_ITS | Patient Health Record ---
Author Organization [facility] Address [address] [place] [address] Care Team Providers Care Hide Curer Name Role Phone Devi (RETIRED) Bucky CARLTON Primary Care Provider Unavailable Nick Linton Unavailable [phone] Allergies Allergen (clinical drug ingredient) Drug/Non Drug [...] Problem Status W/U Status Risk Notes Problem 843753493 Colon cancer screening (Z12.11) Active confirmed Problem 94566396 Rectal bleeding (K62.5) Active confirmed Problem Diverticular disease of colon (723148238) Diverticulosis of large intestine without perforation or abscess without bleeding (K57.30) Active confirmed Problem 06863384 Heme + stool (R19.5) Active confirmed Plan Of Treatment Future Test Test Name Order Date COLONOSCOPY 05/05/2012 COLONOSCOPY 06/15/2023 Insurance Providers Payer Name Payer Address Payer Phone Subscriber Number Group Number Insured Name Patient Relationship to Insured Coverage Start Date Coverage End Date [facility] [address] [place] [address] [id number] ABNER HENSLEY Self - patient is the insured Medical (General) History Medical History History ICD Code Hypertension Denies [place],DM,CVA,Lung disease,renal dise ase Hyperlipidemia Pneumonia x 3 [...]
--- OUTSIDE RECORDS SUMMARY | 2025-04-17 10:39 | XMS_ITS | Patient Health Record ---
Author Organization Nick Rodríguez III, MD Address [address] [place] [address] Care Team Providers Care Corporate Quality Engineer Name Role Phone Bucky Quinonez MD Primary Care Provider Unavailab Dr. Nick Pringle III Unavailable Allergies Allergen (clinical drug ingredient) [...] Problem Status W/U Status Risk Notes Problem 40306042 Hyperlipidemia (E78.5) Active confirmed I recommended she have her lipids checked 3 times a year. Problem 293567850 Overweight (E66.3) Active confirmed Her body mass index is 26. I recommended regular exercise and a healthy diet and gradual reduction of the BMI into the normal range. Problem 74889519 HTN (hypertension) (I10) Active confirmed The blood pressure is 122/84 and no change was made. I recommended continue sodium restriction, weight loss and regular exercise. 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) [...] Date Provider Diagnosis Nick Rodríguez III, MD [address] [place] [address] [place] [address] 09/20/2024 Nick Rodrígeuz Invasive ductal carcinoma of right breast C50.911 [...] 03/10/2019 CBC w DIFF 01/19/2020 CA 27.29 03/10/2019 CA 27.29 01/19/2020 CA 27.29 04/01/2018 CA 27.29 10/06/2018 CA 27.29 09/18/2019 CA 27.29 12/14/2017 CA 27.29 07/07/2018 [facility] 018 Next Appt Details Provider Name:Nick Rodríguez , 09/20/2025 09:00:00 AM, [address] [place] [address] [address], [address], [place], [address], Insurance Providers Payer Name Payer Address Payer Phone Subscriber Number Group Number Insured Name Patient Relationship to Insured Coverage Start Date Coverage End Date [employer] ([facility]) [address] [place] [id number] ABNER RUGGIERO Self - patient is the [...] 04/2020 biopsy of right breast 01/2019 colonoscopy 2012, incompletge, to spleni c flexure 05/2012 right breast biopsy, then edelmira mpectomy, sentinel node, radiation, adjuvant endocrine therapy 11/04/2015 laparascopic cholecystectomy 2002
--- OUTSIDE RECORDS SUMMARY | 2025-04-17 10:39 | XMS_ITS | Clinical Summary ---
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
== END 2025-04-17 09:29 | disposition home or self-care (01) ==
LOC: HO.MAMMO 09:28
PROVIDERS: PCP Internal Medicine; Visit Provider Internal Medicine
DX: N64.89 Other specified disorders of breast (principal)
CPT/HCPCS: 76642; 77061; 77065

== ENCOUNTER → 2025-04-17 09:30 | Outpatient (BNV) | payer OTHER, SELFPAY | PROVIDERS: PCP Internal Medicine; Visit Provider Internal Medicine | DX: N63.15 Unspecified lump in the right breast, overlapping quadrants (principal) | CPT/HCPCS: 76642; 77061; 77065 ==

== ENCOUNTER 2025-04-25 08:49 | Outpatient (REF) | payer OTHER, SELFPAY ==
--- OUTSIDE RECORDS SUMMARY | 2024-09-20 11:30 | XMS_ITS ---
Author Organization Nick Rodríguez III, MD Address [address] [place] [address] Care Team Providers Care Electroplating Laborer Name Role Phone Bucky Quinonez MD Primary Care Provider UnavailDr. Nick Johnson III Unavailable Allergies Allergen (clinical drug ingredient) Drug/Non Drug Allergy documented on EMR Reaction Allergy Type Onset Date Status lisinopril Lisinopril Unknown Drug Allergy Activ e REASON FOR VISIT History of invasive right breast cancer, Hypertension, Hyperlipidemia, Overweight Medications Medication SIG (Take, Route, Frequency, Duration) Notes Start Date End Date Status traZODone HCl 50 MG Oral Active Melatonin 3 MG Oral Activ e Carvedilol 6.25 MG Oral A ctive Atorvastatin Calcium 80 MG Oral Active Docusate Sodium 100 MG Oral Active LORazepam 0.5 MG Oral Act kira Social History Tobacco Use: Social History Observation Description Date Details (start date - stop date) Never Smoker NA - NA Tobacco Use/Smoking Question Answer Notes Patient is a nonsmoker Additional Findings: Tobacco Non-User Aggressive non-smoker Vital Signs Temperature 98.1 degrees Fahrenheit 09/21/19 25 Blood pressure systolic 138 mm Hg 09/21/19 25 Blood pressure diastolic 85 mm Hg 025 Heart Rate 91 /min 09/20/2024 Height 66 in 09/20/2024 Weight 164 lbs 09/20/2024 BMI 26.47 kg/m2 09/20/2024 Encounters Encounter Location Date Provider Diagnosis Nick Rodríguez III, MD [address] [place] [address] [place] [address] 09/20/2024 Nick Rodríguez Invasive ductal carcinoma of right breast C50.911 ; HTN (hypertension) I10 ; Hyperlipidemia E78.5 and Overweight E66.3 Assessments Encounter Date Diagnosis (ICD Code) Assessment Notes Treat ment Notes Treatment Clinical Notes 09/20/2024 Invasive ductal carcinoma of right breast (ICD-10 - C50.911) There is no sign of recurrent disease or new primary. The recent biopsy showed no breast cancer. Surveillance will continue. Her anastrozole was discontinued 09/20/2024 HTN (hypertension) (ICD-10 - I10) The blood pressure is 122/84 and no change was made. I recommended continue sodium restriction, weight loss and regular exercise. 09/20/2024 Hyperlipidemia (ICD-10 - E78.5) I recommended she have her lipids checked 3 times a year. 09/20/2024 Overweight (ICD-10 - E66.3) Her body mass index is 26. I recommended regular exercise and a healthy diet and gradual reduction of the BMI into the normal range. Plan Of Treatment Medication Medication Name Sig Start Date Stop Date Notes traZODone HCl 50 MG Oral Melatonin 3 MG Oral Carvedilol 6.25 MG Oral Atorvastatin Calcium 80 MG Oral Docusate Sodium 100 MG Oral LORazepam 0.5 MG Oral Next Appt Details Follow Up: 1 Year, Reason: O V Provider Name:Nick Rodríguez , 09/20/2025 09:00:00 AM, [address] [place] [address], [address], Progress Notes * COURTNEY RUGGIEROROCHLELEOB:1954 (69 yo F)Acc No.[id number]:09/20/2024 Progress Notes Patient: ABNER SIERRA Provider: Jeffery Rodríguez MD :1955 A ge:69 Y S ex:Female Date:09/20/2024 Address:[address] [place] [phone] Pcp:Bucky Quinonez MD Subjective: * Chief Complaints: * H istory of invasive right breast cancerHypertensionHyperlipidemiaOverweight * HPI: C OVID-19 Screening: She returns to reschedule periodic visit to follow-up a history of breast cancer. She is up-to-date with mammography. She conducting breast self-examination monthly. She has had no findings. She generally feels healthy and well with a good appetite and a stable weight. Questions H ave you had any new onset fever, chills, cough, congestion, sore throat, shortness of breath, muscle aches? N o * ROS: G eneral/Constitutional: pain o nly [...] enies. D iarrhea d enies. H e[place] o ccasional. N ausea d enies. R ectal bleeding d enies. V omiting d enies. H ematology: bruising d enies. p etechiae d enies. S wollen glands n one have been noted. G enitourinary: Frequent urination d enies. M usculoskeletal: Muscle aches d enies. P [...] at 04/2020Trachiescopy and C2 Fused after trauma 2Right arm surgery 01/12/2024 * Hospitalization/Major Diagno stic Procedure: D enies Past Hospitalization * Family History: F ather: alive, prostate cancer, diagnosed with DM, Cancer. M other: , CHF, Breast Cyst,. 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 * [...] Verified] Objective: * Vitals: H t: 66, Wt:164, BMI:26.47, BP:138/85, HR:91, Temp:98.1, Wt-k.39. * Examination: G eneral Examination: GENERAL APPEARANCE: p leasant, well nourished, well developed, in no acute distress, calm and relaxed, overweight, woman. HEAD: a traumatic, normocephalic. EYES: e [...] lear to auscultation . BREASTS: n o masses palpable bilaterally, no dimpling, no discharge, no drainage, nontender, symmetrical. ABDOMEN: b owel sounds normal, no [...] ductal carcinoma of right breast - C50.911 (Primary) N otes :There is no sign of recurrent disease or new primary. The recent biopsy showed no breast cancer. Surveillance will continue. Her anastrozole was discontinued 2 . H TN (hypertension) - I10 N otes :The blood pressure is 122/84 and no change was made. I recommended continue sodium restriction, weight loss and regular exercise. 3 . H yperlipidemia - E78.5 N otes :I recommended she have her lipids checked 3 times a year. 4 . O verweight - E66.3 N otes :Her body mass index is 26. I recommended regular exercise and a healthy diet and gradual reduction of the BMI into the normal range. Plan: * Treatment: * Procedure Codes: * Preventive Medicine: Counseling: C are goal follow-up plan: Counseling for abnormal BMI given Y es Above Normal BMI Follow-up D ietary management education, guidance, and counseling, Dietary needs education * Follow Up: 1 Year (Reason: OV) * Images: * Sign off status: Completed true * Provider: Jeffery Rodríguez MD Date: 0 09/20/2024 Generated for Sanazi elva/Cristina/eTransmitting on: 1 09:24 AM EDT History and Physical Notes * HPI (History of Present Illness) Category Sub-Category Detail Notes COVID-19 Screening Questions Have you had any new onset fever, chills, cough, congestion, sore throat, shortness of breath, muscle aches?: No Examination Category Sub-Category Detail Notes General Examination GENERAL APPEARANCE: pleasant , well nourished, well developed, in no acute distress, calm and relaxed, overweight, woman HEAD: atraumatic, normocep halic EYES: eomi, [...] s, anicteric PERIPHERAL PULSES: normal BREASTS: no masses palpable b ilaterally, no dimpling, no discharge, no drainage, nontender, symmetrical MUSCULOSKELETAL: extremities unremark able, no clubbing, cyanosis or edema LYMPH NODES: no enlarged lymph no ernie,spleen normal RECTAL EXAM: not examined PSYCH: alert, oriented ORAL CAVITY: normal, unremarkable
--- NOTE | ~2025-04-25 | MM_ITS ---
PROCEDURE: ULTRASOUND-GUIDED RIGHT BREAST BIOPSY CLINICAL INFORMATION: Right breast mass at 3:00 here for ultrasound-guided core needle biopsy. COMPARISON: Priors on PACS. TECHNIQUE: The details of the procedure, as well as the risks, benefits, and alternatives to the procedure were explained to the patient in detail and all of her questions were answered, after which, written informed consent was obtained. PROCEDURE: Prior to the procedure, sonography revealed hypoechoic mass at 3:00 7 cm from the nipple. A time-out was performed, the lesion intended for biopsy was targeted and the skin of the right breast was then prepped and draped in the usual sterile fashion. Using sonographic guidance, sterile technique, and 1% lidocaine without epinephrine for local anesthesia, a total of 6 cores were obtained through the targeted area with a 14-gauge biopsy needle biopsy device. At the completion of tissue sampling, a single coil metallic clip was deposited at the biopsy site. An appropriate sample was obtained. The postprocedure 2-view direct digital mammogram reveals satisfactory positioning of the biopsy clip. The patient tolerated the procedure well and, after assuring adequate hemostasis, was discharged in good condition after reviewing postbiopsy breast care instructions. Final pathology results are pending. MM/MM tomosynthesis diagnostic RT IMPRESSION: 1. Uncomplicated sonographically-guided core biopsy of the right breast. The 2-view direct digital postprocedure mammogram reveals satisfactory positioning of the biopsy clip. 2. Final pathology results are pending. A separate report with final recommendations will be issued once these results are made available. Electronically signed by: Latoya Moss DO 04/25/2025 10:57 AM EDT
--- OUTSIDE RECORDS SUMMARY | 2025-04-25 09:24 | XMS_ITS | Patient Health Record ---
Author Organization Nick Rodríguez III, MD Address [address] [place] [address] Care Team Providers Care Animal Shelter Clerk Name Role Phone Bucky Quinonez MD Primary Care Provider Unavailab Dr. Nick Pringle III Unavailable [phone] Allergies Allergen (clinical drug ingredient) Drug/Non Drug [...] Problem Status W/U Status Risk Notes Problem 93540734 Hyperlipidemia (E78.5) Active confirmed I recommended she have her lipids checked 3 times a year. Problem 176018262 Overweight (E66.3) Active confirmed Her body mass index is 26. I recommended regular exercise and a healthy diet and gradual reduction of the BMI into the normal range. Problem 19722526 HTN (hypertension) (I10) Active confirmed The blood pressure is 122/84 and no change was made. I recommended continue sodium restriction, weight loss and regular exercise. 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) [...] Date Provider Diagnosis Nick Rodríguez III, MD [address] [place] [address] [place] [address] 09/20/2024 Nick Rodríguez Invasive ductal carcinoma of [...] Provider Name:Nick Rodríguez , 09/20/2025 09:00:00 AM, [address] [place] [address] [address], [address], [place], [address], Insurance Providers Payer Name Payer Address Payer Phone Subscriber Number Group Number Insured Name Patient Relationship to Insured Coverage Start Date Coverage End Date [employer] ([facility]) [address] [place] [id number] ABNER RUGGIERO Self - patient is the [...]
--- OUTSIDE RECORDS SUMMARY | 2025-04-25 09:24 | XMS_ITS | Patient Health Record ---
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 Phone Devi (RETIRED) Bucky CARLTON Primary Care Provider Unavailable Nick Linton Unavailable [phone] Allergies Allergen (clinical drug ingredient) Drug/Non Drug Allergy documented on EMR Reaction Allergy Type Onset Date Status lisinopril Lisinopril Unknown Drug Allergy Activ e seasonal (uncoded) Unknown Allergy A ctive Reason For Referral No Information Medications Medication SIG (Take, Route, Frequency, Duration) Notes Start Date End Date Status traZODone HCl 50 MG Oral; Duration: 90 Active Docusate Sodium 100 MG TAKE 1 CAPSULE BY MOUTH TWICE A DAY Oral; Duration: 90 Not-Taking Melatonin 3 MG 1 tablet at bedtime as needed Orally Once a day; Duration: 30 day(s) Active LORazepam 1 MG 1 Oral Once a day Active Carvedilol 6.25 MG Oral; Duration: 90 Active Atorvastatin Calcium 80 MG TAKE 1 TABLET BY MOUTH EVERY DAY Oral; Duration: 90 Active Social History Alcohol Screen Question Answer Notes Did you have a drink containing alcohol in the p ast year? No Points 0 Interpretation Negative Section Notes: Nonsmoker; no sig alochol Problems Problem Type SNOMED Code ICD Code Onset Dates Problem Status W/U Status Risk Notes Problem Colon cancer screening (901242340) Colon cancer screening (Z12.11) Active confirmed Problem Rectal bleeding (70272134) Rectal bleeding (K62.5) Active confirmed Problem Diverticular disease of colon (159806148) Diverticulosis of large intestine without perforation or abscess without bleeding (K57.30) Active confirmed Problem Abnormal feces (948982932) Heme + stool (R19.5) Active confirmed Plan Of Treatment Future Test Test Name Order Date COLONOSCOPY 05/05/2012 COLONOSCOPY 06/15/2023 Insurance Providers Payer Name Payer Address Payer Phone Subscriber Number Group Number Insured Name Patient Relationship to Insured Coverage Start Date Coverage End Date [employer] [address] [place] [address] [id number] ABNER HENSLEY Self - patient is [...]
--- OUTSIDE RECORDS SUMMARY | 2025-04-25 09:25 | XMS_ITS | Clinical Summary ---
Author Organization [facility] it Address [address] [place] [address] Care Team Providers Care Emissions Testing Technician Name Role Phone Unavailable Primary Care [...] Documents on File Type Date Recorded Patient Tie Fastener Expl anation Health Care Decision (hx) 07/22/2022 AD MENESES DIRECTIVE Health Care Decision (hx) 06/26/2022 HE ALTH CARE PROXY
[2025-04-25] MEDS: Lidocaine HCl 1 % 20 ML VIAL 9 ML SUBCUT (09:49)
== END 2025-04-25 08:50 | disposition home or self-care (01) ==
LOC: HO.MAMMO 08:49
PROVIDERS: PCP Internal Medicine; Visit Provider Surgery
DX: N63.12 Unspecified lump in the right breast, upper inner quadrant (principal); Z85.3 Personal history of malignant neoplasm of breast; Z12.31 Encounter for screening mammogram for malignant neoplasm of breast
CPT/HCPCS: 19083; 77061; 77065; 88305; A4648; J2003

== ENCOUNTER → 2025-04-25 09:00 | Outpatient (BNV) | payer OTHER, SELFPAY | PROVIDERS: PCP Internal Medicine; Visit Provider Internal Medicine | DX: N63.15 Unspecified lump in the right breast, overlapping quadrants (principal); Z85.3 Personal history of malignant neoplasm of breast | CPT/HCPCS: 19083; 77065 ==

== ENCOUNTER 2025-05-01 10:07 | Outpatient (AMB) | payer OTHER, SELFPAY ==
--- OUTSIDE RECORDS SUMMARY | 2024-09-20 11:30 | XMS_ITS ---
Author Organization Nick Rodríguez III, MD Address [address] [place] [address] Care Team Providers Care Cuff Presser Name Role Phone Bucky Quinonez MD Primary [...] Date Provider Diagnosis Nick Rodríguez III, MD [address] [place] [address] [place] [address] 09/20/2024 Nick Rodríguez Invasive ductal carcinoma of [...] Provider Name:Nick Rodríguez , 09/20/2025 09:00:00 AM, [address] [place] [address], [address], Progress Notes * COURTNEY RUGGIEROROCHELLEOB:1954 (69 yo F)Acc No.[id number]:09/20/2024 Progress Notes Patient: ABNER SIERRA Provider: Jeffery Rodríguez MD :1955 A ge:69 Y S ex:Female Date:09/20/2024 Address:[address] [place] [phone] Pcp:Bucky Quinonez MD Subjective: * Chief Complaints: [...] 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 * [...] 09/20/2024 Generated for Sanazi elva/Cristina/eTransmitting on: 1 11:54 AM EDT History and Physical Notes * [...]
--- NOTE | 2025-05-01 10:08 | MHC.OFFVIS ---
Vital Signs 05/01/25 10:17 Height 5 ft 3.39 in Weight 157 lb BMI 27.5 BP 146/74 H Blood Pressure Location Lt brachial Position Sitting Pulse 80 Intake Visit Reasons: yearly breast exam and bx results (bx:04/25/25) Intake Note: Patient is seen in office for yearly breast exam & bx results. Pt c/o: no breast complaints. Case Worker Required: No Founder Ceo & President: Founder Ceo & President Present Accompanied by: Self / Same As Patient Allergies lisinopril Allergy (Severe, Verified 05/01/25 10:18) Anaphylaxis Seasonal Allergies Allergy (Mild, Verified 05/01/25 10:18) Itchy Eyes, stuffy nose, runny nose HPI Comments Details: 70-year-old female patient, former patient of Dr. De Luna returning today following a recent ultrasound-guided core biopsy performed on 04/25/2025. She has a previous history of a well-differentiated infiltrating ductal carcinoma with associated DCIS of the right breast s/p right breast lumpectomy with needle localization and right sentinel node biopsy performed by Dr. De Luna on 12/04/2015. Margins were clear and 1 of 3 sentinel nodes contain isolated tumor. Three additional axillary nodes were benign as well. She is followed by Dr. Rodríguez and placed on anastrozole for 5 years. She underwent radiation therapy which was completed in March 2016. She developed increased scar tissue in the right breast lumpectomy scar. Previous core biopsy revealed benign fibrofatty tissue with dense stromal fibrosis and mild chronic inflammatory changes consistent with treatment effect, negative for atypia or malignancy. She underwent a MR guided biopsy of the left breast, 10 o'clock position on 04/23/2020 which again revealed stromal fibrosis, fat necrosis, sclerotic changes and calcifications. No atypia or carcinoma was seen. Screening mammogram performed on 03/22/2025 with additional images and ultrasound performed on 04/17/2025 revealed a hypoechoic oval mass at 03:00, 7 cm from the nipple which is a probable correlate to an asymmetry in the mammogram. Ultrasound-guided core biopsy was recommended. This was performed at the [facility] on 04/25/2025. Pathology revealed fibroadenoma with no atypia or malignancy identified. Patient tolerated the procedure well and denies any ongoing breast symptoms. [facility] Medical History Osteoporosis of lumbar spine Diarrhea Low vitamin B12 level Vitamin D deficiency Leukopenia Ankle swelling Chronic upper back pain Annual physical exam History of mammogram (~03/16/24) Left knee pain Excess ear wax Chronic neck pain Transient cerebral ischemic attack, unspecified Benign paroxysmal vertigo, unspecified ear Dizziness Gait disorder Forehead laceration Accident due to mechanical fall without injury Pneumonia HTN (hypertension) Hyperlipidemia History of right breast cancer Surgical History Hx of left breast biopsy Hx of right breast biopsy H/O colonoscopy History of neck surgery (06/2022) History of lumpectomy of right breast Hx laparoscopic cholecystectomy (~2002) Family History Mother History of cyst of breast Father Family hx of prostate cancer Paternal Grandfather Hx of cancer of lung Paternal Aunt History of breast cancer Paternal Aunt History of colon cancer Family/Other History of breast cancer, Onset Age: 42 Social History Household Members: None Household Members Other:: dog Housing: House Do you presently have visiting nurse or other home services: No Alcohol intake: current Alcohol intake frequency: a few times a week Alcohol type: wine Patient Tobacco Use Status: Never used Tobacco Advance Directives Date on File: 06/23/20 service: No Current occupational status: employed Cognitive needs: Yes (cane) Hearing needs: No Vision needs: Yes (rx glasses) Review of Systems Const All systems reviewed & are unremarkable except as noted in HPI and below Skin/Breast Denies breast swelling, Denies breast skin changes, Denies breast pain and Denies breast mass Physical Exam Vital Signs: Last Vital Signs Pulse 80 05/01/25 10:17 BP 146/74 H 05/01/25 10:17 BMI result Body Mass Index 27.5 Const General: cooperative, comfortable, no acute distress and well developed Nutritional Appearance: well nourished Orientation/consciousness: patient oriented x3 Neck Lymphatic: no lymphadenopathy noted Chest Other: Right breast with an incision radiating in the upper portion of the breast with surrounding fibrotic area. A new biopsy site in the inner upper quadrant just lateral to the sternal margin is noted with intact Steri-Strips. There is a surrounding area of ecchymosis consistent with a prior needle biopsy. Wounds are otherwise clean and intact. No enlarged lymph nodes are noted in the right axilla. Left breast reveals no skin change, nipple discharge, palpable mass or enlarged lymph nodes. Chest/axillae images:  1. New biopsy site 2. Previous incision with surrounding scar tissue Resp Effort & Inspection: normal respiratory effort Skin General skin exam: no rashes or lesions noted Neuro Other: Mobility Assessment: 1. 3 meter assessment time (seconds): 6 2. Gait observations: slow tentative pace General: patient oriented x3 Extrem General: Yes no clubbing, cyanosis or edema Assessment & Plan Assessment & Plan (1) History of right breast cancer: Comment: Status post mastectomy; completed treatment with anastrozole and will continue regular follow-ups for breast cancer surveillance. Code(s): Z85.3 - Personal history of malignant neoplasm of breast Category: Medical Plan: 70-year-old female patient with a prior history of right breast invasive ductal carcinoma with DCIS status post lumpectomy, sentinel node biopsy, radiation therapy, and anastrozole in 2016 now returning with a new lump located in the right breast at the upper inner quadrant, status post ultrasound-guided core biopsy. Pathology revealed a fibroadenoma with no atypia or malignancy. The patient was relieved to receive this information. Examination revealed well-healed biopsy site in the right breast. No other suspicious findings were identified. I recommended follow-up examination in 1 year, continued annual screening mammograms. She is welcome to call sooner for any new concerns. Coding Level of Care Code Est Pt Level 3 (90678) Complex EM visit Add On G2211 Diagnoses History of right breast cancer Z85.3
[2025-05-01 10:17] VITALS: BP 146/74; PULSE 80; BMI 27.5
--- OUTSIDE RECORDS SUMMARY | 2025-05-01 11:54 | XMS_ITS | Patient Health Record ---
Author Organization Nick Rodríguez III, MD Address [address] [place] [address] Care Team Providers Care Banner Painter Name Role Phone Bucky Quinonez MD Primary [...] Problem Status W/U Status Risk Notes Problem 40871855 Hyperlipidemia (E78.5) Active confirmed I recommended she have her lipids checked 3 times a year. Problem 818361031 Overweight (E66.3) Active confirmed Her body mass index is 26. I recommended regular exercise and a healthy diet and gradual reduction of the BMI into the normal range. Problem 97680177 HTN (hypertension) (I10) Active confirmed The blood pressure is 122/84 and no change was made. I recommended continue sodium restriction, weight loss and regular exercise. 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) [...] Date Provider Diagnosis Nick Rodríguez III, MD [address] [place] [address] [place] [address] 09/20/2024 Nick Rodríguez Invasive ductal carcinoma of [...] Provider Name:Nick Rodríguez , 09/20/2025 09:00:00 AM, [address] [place] [address] [address], [address], [place], [address], Insurance Providers Payer Name Payer Address Payer Phone Subscriber Number Group Number Insured Name Patient Relationship to Insured Coverage Start Date Coverage End Date [employer] ([facility]) [address] [place] [id number] ABNER RUGGIERO Self - patient is the [...]
--- OUTSIDE RECORDS SUMMARY | 2025-05-01 11:54 | XMS_ITS | Patient Health Record ---
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 Name Role Phone Devi (RETIRED) Bucky CARLTON Primary Care Provider Unavailable Nick Linton Unavailable [phone] Allergies Allergen (clinical drug ingredient) Drug/Non Drug [...] Status Risk Notes Problem Colon cancer screening (799997227) Colon cancer screening (Z12.11) Active confirmed Problem Rectal bleeding (77804494) Rectal bleeding (K62.5) Active confirmed Problem Diverticular disease of colon (452074285) Diverticulosis of large intestine without perforation or abscess without bleeding (K57.30) Active confirmed Problem Abnormal feces (495644819) Heme + stool (R19.5) Active confirmed Plan Of Treatment Future Test Test Name Order Date COLONOSCOPY 05/05/2012 COLONOSCOPY 06/15/2023 Insurance Providers Payer Name Payer Address Payer Phone Subscriber Number Group Number Insured Name Patient Relationship to Insured Coverage Start Date Coverage End Date [facility] IN[facility]MNITY [address] [place] [address] [id number] ABNER HENSLEY Self - patient is the insured Medical (General) History Medical History History ICD Code Hypertension Denies [place],DM,CVA,Lung disease,renal dise ase Hyperlipidemia Pneumonia x 3 [...]
== END 2025-05-01 10:29 | disposition home or self-care (01) ==
LOC: HO.HGS 10:08
PROVIDERS: PCP Internal Medicine; Visit Provider Surgery
DX: Z85.3 Personal history of malignant neoplasm of breast (principal)
CPT/HCPCS: 99213